=== PATIENT | male | born 1950 | race African-American/Black ===

== ENCOUNTER 2023-01-26 15:07 | Inpatient (IN) | payer MEDICARE, MEDICAID, SELFPAY ==
[2023-01-26] VITALS (7 sets, daily range): BP systolic 125–167; BP diastolic 72–90; PULSE 87–111; RESP 32–40; TEMP 36.4–38.5; O2SAT 93–95; BMI 22.4
--- NOTE | ~2023-01-26 | FL_ITS ---
EXAMINATION: XR BARIUM SWALLOW CLINICAL INFORMATION: Swallowing mechanism evaluation COMPARISON: None available. TECHNIQUE: Real-time fluoroscopy provided during evaluation of the swallowing mechanism. Cine images obtained. FINDINGS: Please see speech pathologist report for findings. Fluoroscopy time: 2 minutes 4 seconds. Total dose: 61.6 mGy DAP: 98.2 DGycm/2 FL/FL barium swallow modified IMPRESSION: Fluoroscopy during modified barium swallow.
--- NOTE | ~2023-01-26 | CT_ITS ---
EXAMINATION: CT CHEST WITHOUT CONTRAST CLINICAL INFORMATION: Bilateral pneumonia. COMPARISON: Chest radiograph earlier today. TECHNIQUE: Multidetector volumetric CT imaging of the chest was done. Axial MIP volume rendering provided. Sagittal and coronal reformatted images were obtained. This CT examination was performed using dose optimization techniques as appropriate, variously including the following: *Automated exposure control *Adjustment of mA and/or kV according to patient size (this includes techniques or standardized protocols for targeted exams where dose is matched to indication/reason for exam; i.e. extremities or head) *Use of iterative reconstruction technique DLP: 253 mGy-cm FINDINGS: Limited examination secondary to motion. LUNGS: Dependent consolidative opacities in the lower lobes. Moderate size right-sided pleural effusion. Trace amount of left-sided pleural fluid. No pneumothorax. Central airways are patent. Evaluation of pulmonary nodules is very limited due to motion and overlying airspace opacities/pleural effusions. No discrete pulmonary mass. MEDIASTINUM: Enlarged heart with trace amount of pericardial fluid. No mediastinal lymphadenopathy. Evaluation of the hilar structures is limited due to motion and lack of IV contrast. Normal appearance of the thyroid gland. CORONARY ARTERY CALCIFICATION: Multivessel coronary artery calcifications. Moderate atherosclerotic disease. Ascending thoracic aorta measures 4.4 cm in diameter. PLEURA: As above, moderate size right-sided pleural effusion measuring simple fluid in attenuation. AXILLA: Mild symmetric gynecomastia. No axillary lymphadenopathy. UPPER ABDOMEN: Unremarkable. OSSEOUS STRUCTURES: Evaluation of rib fractures is very limited due to motion. No discrete aggressive appearing osseous findings. CT/CT chest wo IV con IMPRESSION: Limited examination secondary to motion. 1. Moderate size right-sided pleural effusion and trace amount of left-sided pleural fluid. 2. Dependent consolidative opacities in the lower lobes could be related with atelectasis, aspiration or pneumonia. Recommend short-term follow-up after treatment to ensure appropriate resolution and rule out underlying lesions. 3. Enlarged heart with trace amount of pericardial fluid and extensive multivessel coronary artery calcifications. 4. Aneurysm of the ascending thoracic aorta measuring 4.4 cm in diameter; recommend outpatient vascular consultation to determine further management/follow-up.
--- NOTE | ~2023-01-26 | XR_ITS ---
EXAMINATION: XR CHEST CLINICAL INFORMATION: Hypoxia COMPARISON: Previous chest x-ray and chest CT January 26, 2023 TECHNIQUE: Frontal view of the chest was obtained. FINDINGS: The cardiac and mediastinal contours are stable. There are bilateral infiltrates and multilobar left subsegmental atelectasis. This may be slightly increased on the left from January 26, 2023 exam. There are probable small bilateral pleural effusions. No pneumothorax. No bone abnormality. XR/XR chest 1V IMPRESSION: Bibasilar infiltrates, left-sided subsegmental atelectasis and probable small bilateral pleural effusions. This may be slightly increased on the left compared to January 26, 2023 exams.
--- NOTE | ~2023-01-26 | XR_ITS ---
EXAMINATION: XR CHEST CLINICAL INFORMATION: Shortness of breath COMPARISON: None available. TECHNIQUE: Frontal view of the chest was obtained. FINDINGS: The cardiac silhouette is normal. There is mild diffuse bronchial wall thickening. Trace left pleural effusion and left lower lobe atelectasis.. The bones and soft tissues are unremarkable for the patient's age. XR/XR chest 1V IMPRESSION: 1. Bronchial wall thickening may be infectious and/or inflammatory in etiology. 2. Trace left pleural effusion and left lower lobe atelectasis.
--- NOTE | 2023-01-26 15:44 | ECG_ITS ---
Test Reason : SEPSIS Blood Pressure : / mmHG Vent. Rate : 099 BPM Atrial Rate : 099 BPM P-R Int : 122 ms QRS Dur : 080 ms QT Int : 364 ms P-R-T Axes : 049 003 023 degrees QTc Int : 467 ms Normal sinus rhythm Normal ECG No previous ECGs available Referred By: Ronel Vides Electronically Signed By:LIA CASTREJON MD
[2023-01-26 16:06] LABS: MANUAL DIFF FLAG NO
[2023-01-26 16:10] LABS: Basophils Percent Auto 0.1 % (0-2); Eosinophils Percent Auto 0.2 % (0-4); Hematocrit 34.6 % (42.0-52.0); Hemoglobin 11.4 g/dl (14.0-18.0); Imm Gran Abs Auto 0.13 X10*3/uL (0.00-0.03); Imm Gran Pct Auto 1.3 % (0.0-0.4); Lymphocytes Absolute Auto 0.3 X10*3/uL (1.2-4.9); Lymphocytes Percent Auto 2.9 % (20-40); Mean Corpuscular HGB Conc 32.9 g/dl (31.0-36.0); Mean Corpuscular Hemoglobin 28.6 pg (27.0-33.0); Mean Corpuscular Volume 86.7 fL (80.0-98.0); Mean Platelet Volume 9.3 fL (9.4-12.4); Monocytes Absolute Auto 0.9 X10*3/uL (0.1-1.2); Monocytes Percent Auto 8.3 % (2-11); Neutrophils Percent Auto 87.2 % (45-73); Platelet Count 318 X10*3/uL (160-400); Red Blood Count 3.99 X10*6/uL (4.60-5.80); Red Cell Distribution Width 15.3 % (11.0-16.0); White Blood Count 10.3 X10*3/uL (4.8-10.8)
[2023-01-26] MEDS: 0.9 % Sodium Chloride 1,000 ML 999 ML IV ×2 (16:16→19:08)
--- NOTE | 2023-01-26 16:22 | ED_ITS ---
HPI - General Adult General Chief complaint: General Medical Stated complaint: SOB Time Seen by Provider: 01/26/23 16:13 Source: patient Mode of arrival: ambulatory Limitations: no limitations History of Present Illness HPI narrative: Patient with history of dementia came from [facility] for increased shortness of breath started 1 week ago saturating 90% at room air today with frequent cough full chest tight no palpitation noticed to have fever of 101.3 in the ER Related Data Allergies Allergy/AdvReac Type Severity Reaction Status Date / Time Unable to Assess Allergy Verified 01/26/23 15:44 Review of Systems 2 Review of Systems: Yes Unobtainable due to mental status [facility] Past Medical History Medical History (Updated 01/27/23 @ 01:18 by Rodríguez Cortez MD) MDD (major depressive disorder) Dysphagia TIA (transient ischemic attack) Non-insulin dependent type 2 diabetes mellitus Dementia, unspecified, with behavioral disturbance HLD (hyperlipidemia) AAA (abdominal aortic aneurysm) Social History Social History Patient Tobacco Use Status: Never used Tobacco Advance Directives: No Advance Directives Information Provided: No Physical Exam ED Vital Signs: Vital Signs - 24 hr 01/26/23 15:30 01/26/23 15:44 01/26/23 16:05 Temperature 99.1 F 101.3 F H Pulse Rate 111 H 102 H Respiratory Rate 40 H 38 H Blood Pressure 134/83 141/86 H Pulse Oximetry 93 94 Oxygen Delivery Method Nasal Cannula Nasal Cannula Oxygen Flow Rate 5 01/26/23 17:30 01/26/23 17:55 01/26/23 18:53 Temperature 99.6 F Pulse Rate 108 H 96 89 Respiratory Rate 38 H 38 H 32 H Blood Pressure 167/82 H 145/90 H Pulse Oximetry 94 94 94 Oxygen Delivery Method Nasal Cannula Nasal Cannula Nasal Cannula Oxygen Flow Rate 5 5 5 01/26/23 19:40 Temperature 97.6 F Pulse Rate 87 Respiratory Rate 33 H Blood Pressure 138/76 Pulse Oximetry 94 Oxygen Delivery Method Nasal Cannula Oxygen Flow Rate 5 BMI result Body Mass Index 22.4 Appearance: Alert. Oriented X2 frequent cough Eyes: PERRLA, No Nystagmus ENT: Pharynx normal. Oral Mucosa moist secretions in the throat Neck: Normal inspection. Neck supple. CVS: Normal heart rate and rhythm. Pulses normal. Respiratory: No respiratory distress. Equal air entry bilateral, bilateral conducted sounds and wheezing Abdomen: Soft and nontender. Bowel sounds are present, no mass palpable, no CVA tenderness Skin: Skin warm and dry. Normal skin color. Normal skin turgor. Extremities: No lower extremity edema. No calf tenderness Neuro: Oriented X 2. No motor deficit. Medications Administered Generic Name Dose Route Start Last Admin Trade Name Maximiliano PRN Reason Stop Dose Admin Enoxaparin Sodium 40 mg 01/26/23 22:30 01/27/23 01:01 Enoxaparin Sodium 40 Mg/0.4 Ml Syringe SUBCUT 40 mg Q24H KEZIA Administration Methylprednisolone Sodium Succinate 40 mg 01/26/23 23:30 01/27/23 00:34 Methylprednisolone Sod Succ 40 Mg/Ml Vial IVPUSH 40 mg Q12H KEZIA Administration Quetiapine Fumarate 25 mg 01/26/23 22:45 01/27/23 00:27 Quetiapine Fumarate 25 Mg Tablet PO Not Given BEDTIME KEZIA Sodium Chloride 3 ml 01/27/23 00:00 01/27/23 01:02 0.9 % Sodium Chloride Flush 3 Ml Syringe IVFLUSH 3 ml QSHIFT KEZIA Administration Trazodone HCl 50 mg 01/26/23 22:45 01/27/23 00:28 Trazodone Hcl 50 Mg Tablet PO Not Given BEDTIME KEZIA Discontinued Medications Generic Name Dose Route Start Last Admin Trade Name Maximiliano PRN Reason Stop Dose Admin Acetaminophen 650 mg 01/26/23 16:52 01/26/23 17:15 Acetaminophen 325 Mg Tablet PO 01/26/23 16:53 Not Given ONCE ONE Acetaminophen 650 mg 01/26/23 17:00 01/26/23 17:12 Acetaminophen Supp 650 Mg Supp.Rect VA 01/26/23 17:01 650 mg ONCE ONE Administration Divalproex Sodium 500 mg 01/26/23 22:44 01/27/23 00:26 Divalproex Sodium Sprinkles 125 Mg Cap.Dr.Spr PO 01/26/23 22:45 Not Given ONCE ONE Furosemide 20 mg 01/26/23 23:18 01/27/23 00:34 Furosemide 20 Mg/2 Ml Vial IVPUSH 01/26/23 23:19 20 mg ONCE ONE Administration Protocol Sodium Chloride 1,000 mls @ 999 mls/hr 01/26/23 16:15 01/26/23 17:19 Ns IV 01/26/23 17:15 Infused .Q1H1M KEZIA Infusion Piperacillin Sod/Tazobactam 50 mls @ 100 mls/hr 01/26/23 16:44 01/26/23 17:22 Sod 3.375 gm/ Sodium Chloride IV 01/26/23 17:13 Infused ONCE ONE Infusion Sodium Chloride 1,000 mls @ 999 mls/hr 01/26/23 18:56 01/26/23 20:20 Ns IV 01/26/23 19:56 Infused .Q1H1M ONE Infusion Medical Decision Making Medical Decision Making [facility] Narrative: Patient with elevated lactic acid level with shortness of breath and cough CT scan showed infiltrate will admit patient for possible aspiration pneumonia started on IV Zosyn Patient received IV fluids and IV antibiotics Differential Diagnosis Differential Diagnoses: The differential diagnosis associated with the presentation includes Pneumonia/pleural effusions/COVID/flu/RSV Admission/Observation Consideration of admission/observation: Escalation of care including admission/observation considered Consult Healthcare Provider Management of the patient was discussed with: Hospitalist Lab Data [facility] Lab Attestation statement: I reviewed the patient's lab results. 01/26/23 15:59 01/26/23 15:59 Labs: Lab Results 01/26/23 01/26/23 01/26/23 Range/Units 15:59 19:09 19:59 WBC 10.3 (4.8-10.8) X10*3/uL RBC 3.99 L (4.60-5.80) X10*6/uL Hgb 11.4 L (14.0-18.0) g/dl Hct 34.6 L (42.0-52.0) % MCV 86.7 (80.0-98.0) fL MCH 28.6 (27.0-33.0) pg MCHC 32.9 (31.0-36.0) g/dl RDW 15.3 (11.0-16.0) % Plt Count 318 (160-400) X10*3/uL MPV 9.3 L (9.4-12.4) fL Immature Gran % (Auto) 1.3 H (0.0-0.4) % Neut % (Auto) 87.2 H (45-73) % Lymph % (Auto) 2.9 L (20-40) % [place] % (Auto) 8.3 (2-11) % Eos % (Auto) 0.2 (0-4) % Baso % (Auto) 0.1 (0-2) % Lymph # (Auto) 0.3 L (1.2-4.9) X10*3/uL [place] # (Auto) 0.9 (0.1-1.2) X10*3/uL Eos # (Auto) 0.0 (0.0-0.4) X10*3/uL Baso # (Auto) 0.0 (0.0-0.2) X10*3/uL Abs Immat Gran (auto) 0.13 H (0.00-0.03) X10*3/uL Absolute Neuts (auto) 9.0 H (2.0-8.3) x10*3/uL Absolute Nucleated RBC 0.000 (0.0-0.012) X10*3/uL Nucleated RBC % (auto) 0.0 (0.0-0.2) /100WBC Sodium 143 (135-145) mmol/L Potassium 4.3 (3.3-5.1) mmol/L Chloride 112 H (96-108) mmol/L Carbon Dioxide 18 L (22-29) mmol/L Anion Gap 17 (12-20) BUN 28 H (9-16) mg/dL Creatinine 1.12 (0.5-1.4) mg/dL Estim Creat Clear Calc 46.0 Estimated GFR > 60 Random Glucose 304 H (60-115) mg/dL Lactic Acid 3.3 H* (0.5-2.0) mmol/L Lactic Acid F/U @ 2Hr 2.5 H* (0.5-2.0) mmol/L Calcium 9.3 (8.4-10.2) mg/dL Magnesium 2.1 (1.6-2.6) mg/dL Total Bilirubin 0.4 (0.0-1.0) mg/dL AST 15 (5-37) U/L ALT 20 (0-40) U/L Alkaline Phosphatase 85 (39-117) U/L Troponin I High Sens 4.6 (<3.5-35.0) ng/L B-Natriuretic Peptide 72 (<100) pg/mL Total Protein 7.4 (6.5-8.0) g/dL Albumin 3.3 L (3.5-5.0) g/dL Urine Color Yellow Urine Appearance Clear Urine pH 6.0 (5.0-9.0) Ur Specific [place] 1.025 (1.005-1.025) Urine Protein Trace (Neg-Trace) mg/dL Urine Glucose (UA) 500 H (Negative) mg/dL Urine Ketones Negative (Negative) mg/dL Urine Blood Trace (Negative) Urine Nitrite Negative (Negative) Ur Leukocyte Esterase Trace H (Negative) Urine RBC 0-2 (0-2) /HPF Urine WBC 21-50 H (0-5) /HPF Ur Squamous Epith Cells 3-5 (0-2) /HPF Urine Bacteria None Seen (None Seen) Hyaline Casts 0-2 (0-2) /LPF COVID-19 (GREGORIO) Negative (Negative) COVID-19 Clin Com See Note Influenza Type A (JOSE) Negative (Negative) Influenza Type B (JOSE) Negative (Negative) Influenza A & B Note See Note Independent Interpretation I performed an independent interpretation of an: EKG, Plain X-Ray and CT Scan Interpretation: Her sinus rhythm heart rate 99 beats per minute normal interval normal axis no acute ST-T changes no acute ischemia Radiology Impression Discussion of test interpretation with radiology: I have reviewed the radiologist's reading. Radiologist Impression: CT/CT chest wo IV con IMPRESSION: Limited examination secondary to motion. 1. Moderate size right-sided pleural effusion and trace amount of left-sided pleural fluid. 2. Dependent consolidative opacities in the lower lobes could be related with atelectasis, aspiration or pneumonia. Recommend short-term follow-up after treatment to ensure appropriate resolution and rule out underlying lesions. 3. Enlarged heart with trace amount of pericardial fluid and extensive multivessel coronary artery calcifications. 4. Aneurysm of the ascending thoracic aorta measuring 4.4 cm in diameter; recommend outpatient vascular consultation to determine further management/follow-up. Discharge Plan Discharge Clinical Impression: Aspiration pneumonia, Pleural effusion Patient Disposition: Admitted As Inpatient
--- NOTE | 2023-01-26 16:24 | PC.NURSE ---
pt alert, oriented to self and birthday. comes in [facility] 1x week sob. pt is roncherous and tachypnic. RR 36-40. MD notified of sepsis risk. iv inserted by EMS, and another one by this RN. labs drawn and ekg done. blood culture draw pending - ABX following second set. NSR on tele.
[2023-01-26 16:27] LABS: COVID-19 Test Negative (Negative); IDNOW Serial# 08D9AD1C
[2023-01-26 16:32] LABS: Alanine Aminotransferase 20 U/L (0-40); Albumin Level 3.3 g/dL (3.5-5.0); Alkaline Phosphatase 85 U/L (39-117); Anion Gap 17 (12-20); Aspartate Amino Transferase 15 U/L (5-37); B Type Natriuretic Peptide 72 pg/mL (<100); Bilirubin Total 0.4 mg/dL (0.0-1.0); Blood Urea Nitrogen 28 mg/dL (9-16); Calcium 9.3 mg/dL (8.4-10.2); Carbon Dioxide 18 mmol/L (22-29); Chloride 112 mmol/L (96-108); Estimated Glomerular Filt Rate > 60; Glucose Random 304 mg/dL (60-115); IDNOW Serial# 58CA691E; Influenza A Negative (Negative); Influenza B2 Negative (Negative); Magnesium 2.1 mg/dL (1.6-2.6); Potassium 4.3 mmol/L (3.3-5.1); Sodium 143 mmol/L (135-145); Total Protein 7.4 g/dL (6.5-8.0)
[2023-01-26 16:33] LABS: Troponin-I High Sensitivity 4.6 ng/L (<3.5-35.0)
--- NOTE | 2023-01-26 16:33 | PC.NURSE ---
cancelled ordered antibiotics.
[2023-01-26 16:42] LABS: Lactic Acid 3.3 mmol/L (0.5-2.0)
[2023-01-26] MEDS: Piperacillin Sodium/Tazobactam 3.375 GM in 0.9 % Sodium Chloride 50 ML IV (16:51)
[2023-01-26] MEDS: Acetaminophen Supp 650 MG SUPP.RECT PR (17:12)
--- NOTE | 2023-01-26 17:16 | PC.NURSE ---
pt lung sounds much clearer then upon first arrival. MO tylenol given for fever
[2023-01-26 18:04] LABS: Reflex Lactate? Lactic Acid Added
[2023-01-26 19:25] LABS: Appearance Urine Clear; Color Urine Yellow; Glucose Urine UA 500 mg/dL (Negative); Leukocyte Esterase Urine Trace (Negative); Nitrite Urine Negative (Negative); Specific Gravity - Urine 1.025 (1.005-1.025); UMIC TRIGGER UACC YES; Urine Blood Trace (Negative); Urine Ketones Negative (Negative); Urine Protein Trace mg/dL (Neg-Trace)
[2023-01-26 19:58] LABS: Bacteria Urine None Seen (None Seen); Hyaline Casts Urine 0-2 /LPF (0-2); RBC Urine 0-2 /HPF (0-2); UACC Culture Trigger YES; WBC Urine 21-50 /HPF (0-5)
[2023-01-26 20:18] LABS: ~Lactic Acid-LAB USE ONLY 2.5 mmol/L (0.5-2.0)
[2023-01-26 22:02] LABS: Reflex Lactate? 2 Y
[2023-01-26 22:22] LABS: Cancel Lactic Acid Canceled
--- NOTE | 2023-01-26 22:27 | P.HPHOSP_ITS ---
<Statement entered by Cholo Neri MD - 01/27/23 04:26> I saw and examined the patient together with EULALIA Valladares He is a 72-year-old male with dementia, T2DM, MDD, TIA, HLD sent to the ED from his SNF for evaluation of increasing SOB x1 week. Work up done in the ED had findings concerning for aspiration pneumonia He also met criteria for sepsis. He has been started on IV antibiotics and will be admitted for continued care History of Present Illness Date of Service: 01/26/23 Attending physician on admission: Cholo Neri Chief Complaint: SOB, hypoxia Pt is a 72-year-old male with a PMH significant for?unspecified dementia, non insulin-dependent diabetes type 2, dysphagia pureed diet, MDD, hx of TIA, HLD, and hx of AAA who presents to the ED from SNF with increased shortness of breath x1 week. Patient with advanced dementia at baseline, alert and oriented to self only and does incapable of providing accurate HPI which is instead obtained from chart and provider review. Patient apparently was noted to be desatting as low as 90% on RA and with frequent wet sounding cough at SNF, so was sent to the ED for further evaluation. In the ED pt was febrile up to 101.3, tachycardic up to 111, tachypneic up to 40, and hypertensive to 167/82, satting at 93% on 5L NC. Labs were significant for H&H 11.4/34.6, BUN 28, random glucose 304, lactic acid 3.3 with repeat 2.5. UA with trace leukocyte esterase with no bacteria seen, likely negative for UTI. Tested negative for influenza types a and B, COVID. CXR showed bronchial wall thickening that may be infectious and/or inflammatory in etiology, with trace left pleural effusion and left lower lobe atelectasis. Chest CT showed moderate right-sided pleural effusion and trace amount of left- sided pleural fluid with dependent consolidative opacities in the lower lobes that could be related to atelectasis, aspiration, or pneumonia. Also found enlarged heart with trace amount of pericardial fluid and extensive multivessel coronary artery calcifications and AAA measuring 4.4 cm. EKG demonstrated normal sinus rhythm without evidence of significant ST elevations or depressions. Pt was treated with IVF, Zosyn, and acetaminophen. Pt will be admitted to the hospital for treatment and further evaluation of sepsis in the setting of likely aspiration pneumonia. Review of Systems 2 Review of Systems: Unable to obtain due to patient's mentation [facility] Medical History (Updated 01/27/23 @ 01:18 by Rodríguez Cortez MD) MDD (major depressive disorder) Dysphagia TIA (transient ischemic attack) Non-insulin dependent type 2 diabetes mellitus Dementia, unspecified, with behavioral disturbance HLD (hyperlipidemia) AAA (abdominal aortic aneurysm) Social History Advance Directives: No Advance Directives Information Provided: No Meds Allergies Allergy/AdvReac Type Severity Reaction Status Date / Time Unable to Assess Allergy Verified 01/26/23 15:44 Physical Exam 2 Vital Signs and Narrative: Vital Signs: Last Vital Signs Temp 97.6 F 01/26/23 19:40 Pulse 87 01/26/23 19:40 Resp 33 H 01/26/23 19:40 BP 138/76 01/26/23 19:40 Pulse Ox 94 01/26/23 19:40 O2 Del Method Nasal Cannula 01/26/23 19:40 O2 Flow Rate 5 01/26/23 19:40 Oxygen Flow Rate 5 01/26/23 15:30 BMI result Body Mass Index 22.4 General: AOx1, pleasantly confused, frail-looking, in mild respiratory distress Resp: Diffuse expiratory rhonchi, diaphoretic breathing, tachypneic CVS: S1, S2, RRR GI: +BS, NT, no distention Skin: Warm, dry Neuro: Cranial nerves II-XII grossly intact bilaterally. Motor grossly intact bilaterally Extremities: No edema Results Labs 01/26/23 15:59 01/26/23 15:59 Labs: Laboratory Results - last 24 hr 01/26/23 01/26/23 01/26/23 15:59 19:09 19:59 MCV 86.7 MCH 28.6 MCHC 32.9 RDW 15.3 Plt Count 318 MPV 9.3 L Immature Gran % (Auto) 1.3 H Neut % (Auto) 87.2 H Lymph % (Auto) 2.9 L [place] % (Auto) 8.3 Eos % (Auto) 0.2 Baso % (Auto) 0.1 Lymph # (Auto) 0.3 L [place] # (Auto) 0.9 Eos # (Auto) 0.0 Baso # (Auto) 0.0 Abs Immat Gran (auto) 0.13 H Absolute Neuts (auto) 9.0 H Absolute Nucleated RBC 0.000 Nucleated RBC % (auto) 0.0 Anion Gap 17 Estim Creat Clear Calc 46.0 Estimated GFR > 60 Random Glucose 304 H Lactic Acid 3.3 H* Lactic Acid F/U @ 2Hr 2.5 H* Calcium 9.3 Magnesium 2.1 Total Bilirubin 0.4 AST 15 ALT 20 Alkaline Phosphatase 85 B-Natriuretic Peptide 72 Total Protein 7.4 Albumin 3.3 L Urine Color Yellow Urine Appearance Clear Urine pH 6.0 Ur Specific [place] 1.025 Urine Protein Trace Urine Glucose (UA) 500 H Urine Ketones Negative Urine Blood Trace Urine Nitrite Negative Ur Leukocyte Esterase Trace H Urine RBC 0-2 Urine WBC 21-50 H Ur Squamous Epith Cells 3-5 Urine Bacteria None Seen Hyaline Casts 0-2 COVID-19 (GREGORIO) Negative COVID-19 Clin Com See Note Influenza Type A (JOSE) Negative Influenza Type B (JOSE) Negative Influenza A & B Note See Note Imaging Radiologist's Impressions: Impressions Chest X-Ray 01/26/23 16:59 IMPRESSION: 1. Bronchial wall thickening may be infectious and/or inflammatory in etiology. 2. Trace left pleural effusion and left lower lobe atelectasis. Chest CT 01/26/23 20:24 IMPRESSION: Limited examination secondary to motion. 1. Moderate size right-sided pleural effusion and trace amount of left-sided pleural fluid. 2. Dependent consolidative opacities in the lower lobes could be related with atelectasis, aspiration or pneumonia. Recommend short-term follow-up after treatment to ensure appropriate resolution and rule out underlying lesions. 3. Enlarged heart with trace amount of pericardial fluid and extensive multivessel coronary artery calcifications. 4. Aneurysm of the ascending thoracic aorta measuring 4.4 cm in diameter; recommend outpatient vascular consultation to determine further management/follow-up. Assessment and Plan (1) Aspiration pneumonia: Status: Acute Plan Pt is a 72-year-old male with a PMH significant for?unspecified dementia, non insulin-dependent diabetes type 2, dysphagia pureed diet, MDD, hx of TIA, HLD, and hx of AAA who presents to the ED from SNF with increased shortness of breath x1 week. Pt will be admitted to the hospital for treatment and further evaluation of sepsis in the setting of likely aspiration pneumonia. Sepsis in the setting of aspiration pneumonia Patient with increased shortness of breath, cough, rhonchi on auscultation and CT chest showing dependent consolidative opacities in the lower lobes suggestive of atelectasis, aspiration, or pneumonia Patient with history of unspecified dementia and dysphagia Patient meeting sepsis criteria: Tachycardia, tachypnea, fever, and initial lactic acid 3.3 Patient received IVF and started on broad-spectrum antibiotics in the ED Will treat with Zosyn, started 01/26/2023 Solu-Medrol 40 mg b.i.d. Aspiration precautions Titrate supplemental O2>92, wean as tolerated Monitor respiration Pleural effusions CTA chest found moderate size right pleural effusion and trace amount of left- sided pleural effusion Will give Lasix 20 mg IV x1 dose Diet Diabetic diet Pureed with honey thick liquids, based on SNF evaluation Ensure dietary supplement t.i.d. Patient needs assistance with eating Will place on NPO pending swallow eval with honey thick liquids HLD Continue home meds Dementia/mood disorder Continue home meds Buv-mdtjzce-[id number] diabetes type 2 Diabetic diet, sliding scale insulin Full Code Attending:?Dr. Neri DVT Prophylaxis: Lovenox Pt will require a hospitalization of at least two nights for treatment of?sepsis in the setting of aspiration pneumonia with IV antibiotics and close monitoring. Quality Stroke Does the patient have a stroke diagnosis?: No VTE Prior VTE?: No VTE Risk Level:: Medical - moderate - high VTE Device Contraindication: Treatment Not Indicated VTE Drug Contraindication: N/A - Med Ordered
[2023-01-27] VITALS (7 sets, daily range): BP systolic 137–162; BP diastolic 77–82; PULSE 54–84; RESP 12–32; TEMP 36.9–37.2; O2SAT 88–96
[2023-01-27] MEDS: Furosemide 20 MG/2 ML VIAL IVPUSH (00:34)
[2023-01-27] MEDS: methylPREDNISolone Sod Succ 40 MG/ML VIAL IVPUSH ×3 (00:34→23:34)
[2023-01-27] MEDS: Enoxaparin Sodium 40 MG/0.4 ML SYRINGE SUBCUT ×2 (01:01→22:44)
[2023-01-27] MEDS: 0.9 % Sodium Chloride Flush 3 ML SYRINGE IVFLUSH ×4 (01:02→20:43)
[2023-01-27] MEDS: Piperacillin Sodium/Tazobactam 3.375 GM in 0.9 % Sodium Chloride 50 ML IV ×5 (01:39→23:34)
[2023-01-27 07:26] LABS: Hematocrit 29.6 % (42.0-52.0); Hemoglobin 9.8 g/dl (14.0-18.0); Mean Corpuscular HGB Conc 33.1 g/dl (31.0-36.0); Mean Corpuscular Hemoglobin 28.5 pg (27.0-33.0); Mean Platelet Volume 9.1 fL (9.4-12.4); Platelet Count 306 X10*3/uL (160-400); Red Blood Count 3.44 X10*6/uL (4.60-5.80); Red Cell Distribution Width 15.4 % (11.0-16.0); White Blood Count 10.3 X10*3/uL (4.8-10.8)
[2023-01-27 07:35] LABS: Anion Gap 14 (12-20); Blood Urea Nitrogen 20 mg/dL (9-16); Calcium 9.1 mg/dL (8.4-10.2); Carbon Dioxide 21 mmol/L (22-29); Chloride 113 mmol/L (96-108); Creatinine Clr Calc Pharmacy 61.3; Estimated Glomerular Filt Rate > 60; Glucose Random 192 mg/dL (60-115); Potassium 3.9 mmol/L (3.3-5.1); Sodium 144 mmol/L (135-145)
[2023-01-27 07:58] LABS: Glucose, Whole Blood 166 mg/dL (60-115)
--- NOTE | 2023-01-27 08:00 | PHA.MEDREC ---
Pharmacy Consult ? Medication Reconciliation Pharmacy has completed the medication reconciliation. [facility] med list obtained.
[2023-01-27] MEDS: Insulin Lispro 100 UNIT/ML 3 ML VIAL SUBCUT (08:07)
--- NOTE | 2023-01-27 11:11 | P.PNIM_ITS ---
Subjective Subjective Date of Service: 01/27/23 Interval History: sob,hypoxia Review of Systems Shortness of breath seems to be improving, patient sitting comfortably Denies any nausea vomiting or abdominal pain. Physical Exam 2 Vital Signs: Vital Signs: Last Vital Signs Temp 98.4 F 01/27/23 08:00 Pulse 84 01/27/23 08:00 Resp 18 01/27/23 08:00 BP 162/77 H 01/27/23 08:00 Pulse Ox 93 01/27/23 08:00 O2 Del Method Nasal Cannula 01/27/23 08:00 O2 Flow Rate 2 01/27/23 08:00 Oxygen Flow Rate 5 01/26/23 15:30 BMI result Body Mass Index 22.4 Appearance: Alert.? Oriented X3.? cvs: rrr, [id number] , no murmur res:air entry fair ,few rhonchii scattered. abd: no rebound or guarding ,nt, bs present. ext pulses present , no cyanosis . neuro: axo3 , nonfocal. Objective Data Active Medications Acetaminophen (Acetaminophen 325 Mg Tablet) 650 mg PO Q6H PRN PRN Reason: Pain, Mild (Pain Scale 1-3) Dextrose (Dextrose 50 % 25 Gm/50 Ml Syringe) 25 gm IVPUSH Q15M PRN; Protocol PRN Reason: per Hypoglycemia Standing Ord. Docusate Sodium (Docusate Sodium 100 Mg Capsule) 100 mg PO DAILY PRN PRN Reason: Constipation Enoxaparin Sodium (Enoxaparin Sodium 40 Mg/0.4 Ml Syringe) 40 mg SUBCUT Q24H [facility] Last Admin: 01/27/23 01:01 Dose: 40 mg Documented By: FOREIGN Glucose (Glucose Gel 15 Gm Gel..Gram.) 15 gm PO Q15M PRN; Protocol PRN Reason: per Hypoglycemia Standing Ord. Piperacillin Sod/Tazobactam (Sod 3.375 gm/ Sodium Chloride) 50 mls @ 100 mls/hr IV Q6H [facility] Last Infusion: 01/27/23 08:36 Dose: Infused Documented By: ERIC Insulin Human Lispro (Insulin Lispro 100 Unit/Ml 3 Ml Vial) 0 unit SUBCUT QIDACHS [facility]; Protocol Last Admin: 01/27/23 08:07 Dose: 2 unit Documented By: SULTANA Methylprednisolone Sodium Succinate (Methylprednisolone Sod Succ 40 Mg/Ml Vial) 40 mg IVPUSH Q12H [facility] Last Admin: 01/27/23 00:34 Dose: 40 mg Documented By: JEAN CARLOS Ondansetron HCl (Ondansetron Hcl 4 Mg/2 Ml Vial) 4 mg IVPUSH Q8H PRN PRN Reason: Nausea and Vomiting Quetiapine Fumarate (Quetiapine Fumarate 25 Mg Tablet) 25 mg PO BEDTIME [facility] Last Admin: 01/27/23 00:27 Dose: Not Given Documented By: JEAN CARLOS Non-Admin Reason: Patient Condition Contraindication Sodium Chloride (0.9 % Sodium Chloride Flush 3 Ml Syringe) 3 ml IVFLUSH QSHIFT [facility] Last Admin: 01/27/23 08:07 Dose: 3 ml Documented By: SULTANA Trazodone HCl (Trazodone Hcl 50 Mg Tablet) 50 mg PO BEDTIME [facility] Last Admin: 01/27/23 00:28 Dose: Not Given Documented By: JEAN CARLOS Non-Admin Reason: Patient Condition Contraindication Labs 01/27/23 06:47 01/27/23 06:47 Labs: Laboratory Results - last 24 hr 01/26/23 01/26/23 01/26/23 15:59 19:09 19:59 MCV 86.7 MCH 28.6 MCHC 32.9 RDW 15.3 Plt Count 318 MPV 9.3 L Immature Gran % (Auto) 1.3 H Neut % (Auto) 87.2 H Lymph % (Auto) 2.9 L Mccracken % (Auto) 8.3 Eos % (Auto) 0.2 Baso % (Auto) 0.1 Lymph # (Auto) 0.3 L Mccracken # (Auto) 0.9 Eos # (Auto) 0.0 Baso # (Auto) 0.0 Abs Immat Gran (auto) 0.13 H Absolute Neuts (auto) 9.0 H Absolute Nucleated RBC 0.000 Nucleated RBC % (auto) 0.0 Anion Gap 17 Estim Creat Clear Calc 46.0 Estimated GFR > 60 POC Glucose Random Glucose 304 H Lactic Acid 3.3 H* Lactic Acid F/U @ 2Hr 2.5 H* Calcium 9.3 Magnesium 2.1 Total Bilirubin 0.4 AST 15 ALT 20 Alkaline Phosphatase 85 B-Natriuretic Peptide 72 Total Protein 7.4 Albumin 3.3 L Urine Color Yellow Urine Appearance Clear Urine pH 6.0 Ur Specific [place] 1.025 Urine Protein Trace Urine Glucose (UA) 500 H Urine Ketones Negative Urine Blood Trace Urine Nitrite Negative Ur Leukocyte Esterase Trace H Urine RBC 0-2 Urine WBC 21-50 H Ur Squamous Epith Cells 3-5 Urine Bacteria None Seen Hyaline Casts 0-2 COVID-19 ([facility]IO) Negative COVID-19 Clin Com See Note Influenza Type A (JOSE) Negative Influenza Type B (JOSE) Negative Influenza A & B Note See Note 01/27/23 01/27/23 06:47 07:38 MCV 86.0 MCH 28.5 MCHC 33.1 RDW 15.4 Plt Count 306 MPV 9.1 L Immature Gran % (Auto) Neut % (Auto) Lymph % (Auto) Mccracken % (Auto) Eos % (Auto) Baso % (Auto) Lymph # (Auto) M[place]racken # (Auto) Eos # (Auto) Baso # (Auto) Abs Immat Gran (auto) Absolute Neuts (auto) Absolute Nucleated RBC 0.000 Nucleated RBC % (auto) 0.0 Anion Gap 14 Estim Creat Clear Calc 61.3 Estimated GFR > 60 POC Glucose 166 H Random Glucose 192 H Lactic Acid Lactic Acid F/U @ 2Hr Calcium 9.1 Magnesium Total Bilirubin AST ALT Alkaline Phosphatase B-Natriuretic Peptide Total Protein Albumin Urine Color Urine Appearance Urine pH Ur Specific [place] Urine Protein Urine Glucose (UA) Urine Ketones Urine Blood Urine Nitrite Ur Leukocyte Esterase Urine RBC Urine WBC Ur Squamous Epith Cells Urine Bacteria Hyaline Casts COVID-19 ([facility]) COVID-19 Clin Com Influenza Type A (JOSE) Influenza Type B (JOSE) Influenza A & B Note Microbiology Microbiology Results: Microbiology 01/26/23 19:09 Urine Culture - Preliminary Urine clean catch - Urine lea top Culture too young to evaluate. Assessment and Plan (1) Aspiration pneumonia: Status: Acute Plan 72-year-old male with a PMH significant for?unspecified dementia, non insulin- dependent diabetes type 2, dysphagia pureed diet, MDD, hx of TIA, HLD, and hx of AAA who presents to the ED from SNF with increased shortness of breath x1 week. Pt will be admitted to the hospital for treatment and further evaluation of sepsis in the setting of likely aspiration pneumonia. Sepsis in the setting of aspiration pneumonia Patient with increased shortness of breath, cough, rhonchi on auscultation and CT chest showing dependent consolidative opacities in the lower lobes suggestive of atelectasis, aspiration, or pneumonia Patient with history of unspecified dementia and dysphagia Patient meeting sepsis criteria: Tachycardia, tachypnea, fever. acute lactic acidosis-improving,blood cultures pending continue Zosyn, started 01/26/2023,Solu-Medrol 40 mg b.i.d.,Aspiration precautions,Titrate supplemental O2>92, wean as tolerated Monitor respiration Pleural effusions CTA chest found moderate size right pleural effusion and trace amount of left- sided pleural effusion, enlarged heart . bnp normal, will add echo given lasix in ed Diet Diabetic diet Pureed with honey thick liquids, based on SNF evaluation Ensure dietary supplement t.i.d. Patient needs assistance with eating Will place on NPO pending swallow eval with honey thick liquids HLD Continue home meds Dementia/mood disorder Continue home meds Yhb-qnpsney-icldoolhj diabetes type 2 Diabetic diet, sliding scale insulin Full Code DVT Prophylaxis: Lovenox ongoing need hospitalization: treatment of?sepsis in the setting of aspiration pneumonia with IV antibiotics, respiratory status is not optimally yet ,also pleural effusion workup. Quality Stroke Does the patient have a stroke diagnosis?: No VTE Prior VTE?: No VTE Risk Level:: Medical - moderate - high VTE Device Contraindication: Treatment Not Indicated VTE Drug Contraindication: N/A - Med Ordered
[2023-01-27 11:44] LABS: Glucose, Whole Blood 147 mg/dL (60-115)
[2023-01-27 15:27] LABS: Glucose, Whole Blood 142 mg/dL (60-115)
[2023-01-27] MEDS: Albuterol/Iprat 2.5/0.5MG 3 ML AMPUL.NEB INHALE ×2 (15:29→19:35)
--- NOTE | 2023-01-27 16:28 | MHC.CM.PN ---
PT IS A [facility]TC [facility]IDENT [facility] CM SPOKE TO PTS HCP/NIECE, [facility] [phone] IMM WAS DELIVERED PT WILL REQUIRE BLS TRANSPORT BACK IMM WILL BE MAILED TO [facility] AT: [address] [facility] [id number]
[2023-01-27] MEDS: Melatonin 3 MG TABLET 6 MG PO (20:33)
[2023-01-27] MEDS: QUEtiapine Fumarate 25 MG TABLET PO ×2 (20:33)
[2023-01-27] MEDS: Divalproex Sodium Sprinkles 125 MG CAP.DR.SPR 500 MG PO (20:33)
[2023-01-27] MEDS: Atorvastatin Calcium 20 MG TABLET PO (20:33)
[2023-01-27] MEDS: traZODone HCL 50 MG TABLET PO (20:33)
[2023-01-27] MEDS: Dextrose 5 % and 0.9 % NaCl 1,000 ML 60 ML IVCONT (21:01)
[2023-01-27 21:09] LABS: Glucose, Whole Blood 158 mg/dL (60-115)
[2023-01-28] VITALS (7 sets, daily range): BP systolic 126–161; BP diastolic 65–83; PULSE 62–98; RESP 16–20; TEMP 36.3–36.7; O2SAT 91–99
[2023-01-28] MEDS: Piperacillin Sodium/Tazobactam 3.375 GM in 0.9 % Sodium Chloride 50 ML IV ×4 (05:36→23:40)
[2023-01-28 07:30] LABS: Glucose, Whole Blood 205 mg/dL (60-115)
[2023-01-28] MEDS: Albuterol/Iprat 2.5/0.5MG 3 ML AMPUL.NEB INHALE ×3 (07:31→20:09)
[2023-01-28] MEDS: Divalproex Sodium Sprinkles 125 MG CAP.DR.SPR 500 MG PO ×2 (10:33→20:40)
[2023-01-28] MEDS: Insulin Lispro 100 UNIT/ML 3 ML VIAL SUBCUT ×4 (10:33→20:52)
[2023-01-28] MEDS: Finasteride 5 MG TABLET PO (10:34)
[2023-01-28] MEDS: QUEtiapine Fumarate 25 MG TABLET PO ×3 (10:34→20:40)
[2023-01-28] MEDS: FLUoxetine HCl 20 MG CAPSULE 60 MG PO (10:34)
[2023-01-28] MEDS: Aspirin Enteric Coated 81 MG TABLET.DR PO (10:34)
[2023-01-28] MEDS: Lidocaine 4 % Patch ADH..PATCH 1 PATCH TRANSDERMA (10:55)
[2023-01-28] MEDS: Lactulose 20 GM/30 ML SOLUTION PO (10:56)
[2023-01-28] MEDS: methylPREDNISolone Sod Succ 40 MG/ML VIAL IVPUSH ×2 (11:11→22:52)
[2023-01-28 11:14] LABS: Glucose, Whole Blood 207 mg/dL (60-115)
[2023-01-28 12:51] LABS: Anion Gap 13 (12-20); Blood Urea Nitrogen 27 mg/dL (9-16); Calcium 9.4 mg/dL (8.4-10.2); Carbon Dioxide 21 mmol/L (22-29); Chloride 119 mmol/L (96-108); Creatinine Clr Calc Pharmacy 54.2; Estimated Glomerular Filt Rate > 60; Glucose Random 201 mg/dL (60-115); Potassium 3.4 mmol/L (3.3-5.1); Sodium 150 mmol/L (135-145)
--- NOTE | 2023-01-28 13:11 | MHC.SL.SWA ---
Speech Pathologist Impression: Risk of aspiration, oropharyngeal dysphagia, cognitive impairment Risk of Aspiration Due to: Neurological Condition History of Pneumonia Reduced Cognition Dysphasia Diet Status: UPGRADE from NPO, start on NDD1/HTL Liquid Consistency and Strategies for Safe Swallow: Liquid Intake Recommendation: Honey Thick Liquid Intake Strategies: Small Sips No Straws Liquids by Teaspoon Only Solid Food Consistency: Dietary Recommendations: Pureed (NDD1) Additional Modifications to Solid Foods: Recommend CONTINUE w/ pt's baseline PUREED diet (NDD1) and HONEY THICK liquids via TEASPOON ONLY (no straws), pills CRUSHED in PUREE. This was pt's diet at his [facility] [place]. Pt requires total 1:1 assistance feeding, ensure frequent oral care for hygiene and comfort, close monitoring, and strict aspiration precautions. ORDER DISPATCHER CHIEF will continue to follow. Oral Medication Intake: Crushed with Puree Please contact the pharmacy regarding appropriate crushable or liquid drug formulations that are available whenever modified delivery is recommended. Compensatory Strategies and Precautions to be Taken for Safe Swallow: Sitting Upright (90 deg) No Straw Liquids from Spoon Small Bites and Sips Rate of Ingestion Change Oral Check Avoid Specific Foods Supervision While Eating and Drinking for Safe Swallow: Total Assistance (1:1) Foods to Avoid: Sticky or congealed purees Swallowing Recommended Treatments: Compens. Strategy Educat. Recommendation for Speech: Inpatient Speech Therapy Comment: Pt requires total 1:1 assistance feeding, close monitoring, strict aspiration precautions, and frequent oral care for hygiene and comfort. Frequency/Duration: PRN M-F Date Range for Service Req: Timeline to reassess: Strategic Account Manager Clinican/Clinical Fellow: No Supervisory Statement: I have reviewed and agree with the student/clinical fellow's documentation: N/A Speech Language Pathologist: Hailey Wheeler M.A., CCC-ORDER DISPATCHER CHIEF
--- NOTE | 2023-01-28 15:33 | HO.PM.IMPN ---
Subjective Subjective Date of Service: 01/28/23 Interval History: sob,hypoxia Review of Systems sob seems improivng Denies any chest pain or nausea vomiting Physical Exam Vital Signs: Vital Signs: Last Vital Signs Temp 97.8 F 01/28/23 06:59 Pulse 98 01/28/23 14:09 Resp 18 01/28/23 14:09 BP 156/78 H 01/28/23 06:59 Pulse Ox 91 L 01/28/23 06:59 O2 Del Method Nasal Cannula 01/28/23 06:59 O2 Flow Rate 2 01/28/23 06:59 Oxygen Flow Rate 5 01/26/23 15:30 BMI result Body Mass Index 22.4 Appearance: Alert.? Oriented X3.? cvs: rrr, [id number] , no murmur res:air entry fair ,few rhonchii scattered. abd: no rebound or guarding ,nt, bs present. ext pulses present , no cyanosis . neuro: axo3 , nonfocal. Objective Data Active Medications Acetaminophen (Acetaminophen 325 Mg Tablet) 650 mg PO Q6H PRN PRN Reason: Pain, Mild (Pain Scale 1-3) Albuterol/Ipratropium (Albuterol/Iprat 2.5/0.5mg 3 Ml Ampul.Neb) 3 ml INHALE TID [facility] Last Admin: 01/28/23 14:07 Dose: 3 ml Documented By: JOLLY Artificial Tears (Artificial Tears 15 Ml Drops) 1 drop EYE-BOTH BID PRN PRN Reason: Dry Eyes Aspirin (Aspirin Enteric Coated 81 Mg Gurjit.) 81 mg PO DAILY [facility] Last Admin: 01/28/23 10:34 Dose: 81 mg Documented By: MICHAEL Atorvastatin Calcium (Atorvastatin Calcium 20 Mg Tablet) 20 mg PO BEDTIME [facility] Last Admin: 01/27/23 20:33 Dose: 20 mg Documented By: ODRISKellie Bisacodyl (Bisacodyl 10 Mg Supp.Rect) 10 mg [place] DAILY PRN PRN Reason: Constipation Dextrose (Dextrose 50 % 25 Gm/50 Ml Syringe) 25 gm IVPUSH Q15M PRN; Protocol PRN Reason: per Hypoglycemia Standing Ord. Divalproex Sodium (Divalproex Sodium Sprinkles 125 Mg ) 500 mg PO BID [facility] Last Admin: 01/28/23 10:33 Dose: 500 mg Documented By: MICHAEL Docusate Sodium (Docusate Sodium 100 Mg Capsule) 100 mg PO DAILY PRN PRN Reason: Constipation Enoxaparin Sodium (Enoxaparin Sodium 40 Mg/0.4 Ml Syringe) 40 mg SUBCUT Q24H [facility] Last Admin: 01/27/23 22:44 Dose: 40 mg Documented By: WENDI Finasteride (Finasteride 5 Mg Tablet) 5 mg PO DAILY [facility] Last Admin: 01/28/23 10:34 Dose: 5 mg Documented By: MICHAEL Fluoxetine HCl (Fluoxetine Hcl 20 Mg Capsule) 60 mg PO DAILY [facility] Last Admin: 01/28/23 10:34 Dose: 60 mg Documented By: MICHAEL Glucagon (Glucagon Hcl 1 Mg Vial) 1 mg SUBCUT Q20M PRN PRN Reason: Hypoglycemia Glucose (Glucose Gel 15 Gm Gel..Gram.) 15 gm PO Q15M PRN; Protocol PRN Reason: per Hypoglycemia Standing Ord. Piperacillin Sod/Tazobactam (Sod 3.375 gm/ Sodium Chloride) 50 mls @ 100 mls/hr IV Q6H [facility] Last Infusion: 01/28/23 11:58 Dose: Infused Documented By: MICHAEL Insulin Human Lispro (Insulin Lispro 100 Unit/Ml 3 Ml Vial) 0 unit SUBCUT QIDACHS [facility]; Protocol Last Admin: 01/28/23 12:26 Dose: 2 unit Documented By: MICHAEL Lactulose (Lactulose 20 Gm/30 Ml Solution) 20 gm PO DAILY [facility] Last Admin: 01/28/23 10:56 Dose: 20 gm Documented By: MICHAEL Lidocaine (Lidocaine 4 % Patch Adh..Patch) 1 patch TRANSDERMA DAILY [facility] Last Admin: 01/28/23 10:55 Dose: 1 patch Documented By: MICHAEL Magnesium Hydroxide (Milk Of Magnesia 30 Ml Oral.Susp) 30 ml PO DAILY PRN PRN Reason: Constipation Melatonin (Melatonin 3 Mg Tablet) 6 mg PO BEDTIME [facility] Last Admin: 01/27/23 20:33 Dose: 6 mg Documented By: WENDI Methylprednisolone Sodium Succinate (Methylprednisolone Sod Succ 40 Mg/Ml Vial) 40 mg IVPUSH Q12H [facility] Last Admin: 01/28/23 11:11 Dose: 40 mg Documented By: MICHAEL Naloxone HCl (Naloxone Hcl Nasal 4 Mg [place]) 4 mg NOSTRILALT Q3M PRN PRN Reason: Opioid Overdose Ondansetron HCl (Ondansetron Hcl 4 Mg/2 Ml Vial) 4 mg IVPUSH Q8H PRN PRN Reason: Nausea and Vomiting Quetiapine Fumarate (Quetiapine Fumarate 25 Mg Tablet) 25 mg PO BEDTIME [facility] Last Admin: 01/27/23 20:33 Dose: 25 mg Documented By: WENDI Quetiapine Fumarate (Quetiapine Fumarate 25 Mg Tablet) 25 mg PO BID [facility] Last Admin: 01/28/23 10:34 Dose: 25 mg Documented By: MICHAEL Sodium Biphosphate/Sodium Phosphate (Sodium Phosphate,[place]-Dibasic 133 Ml Enema) 118 ml [place] DAILY PRN PRN Reason: Constipation Sodium Chloride (0.9 % Sodium Chloride Flush 3 Ml Syringe) 3 ml IVFLUSH QSHIFT [facility] Last Admin: 01/28/23 10:46 Dose: Not Given Documented By: MICHAEL Non-Admin Reason: IV Running Sodium Chloride (Sodium Chloride 0.65 % Nasal 44 Ml Sprbtl) 1 spray NOSTRIL-B Q3H PRN PRN Reason: dry nostrils Tamsulosin HCl (Tamsulosin Hcl 0.4 Mg Capsule) 0.8 mg PO BEDTIME [facility] Last Admin: 01/27/23 20:51 Dose: Not Given Documented By: WENDI Non-Admin Reason: unable to swallow Trazodone HCl (Trazodone Hcl 50 Mg Tablet) 50 mg PO BEDTIME [facility] Last Admin: 01/27/23 20:33 Dose: 50 mg Documented By: WENDI Labs 01/27/23 06:47 01/28/23 12:22 Labs: Laboratory Results - last 24 hr 01/27/23 01/28/23 01/28/23 20:55 07:03 11:06 Hold Purple Top Anion Gap Estim Creat Clear Calc Estimated GFR POC Glucose 158 H 205 H 207 H Random Glucose Calcium 01/28/23 12:22 Hold Purple Top SEE NOTE Anion Gap 13 Estim Creat Clear Calc 54.2 Estimated GFR > 60 POC Glucose Random Glucose 201 H Calcium 9.4 Microbiology Microbiology Results: Microbiology 01/26/23 19:09 Urine Culture - Final Urine clean catch - Urine lea top 01/26/23 16:26 Blood Culture - Preliminary Blood - Venous No growth after 24 hours. 01/26/23 15:59 Blood Culture - Preliminary Blood - Venous No growth after 24 hours. Assessment and Plan (1) Aspiration pneumonia: Status: Acute (2) Hypernatremia: Status: Acute Plan 72-year-old male with a PMH significant for?unspecified dementia, non insulin-dependent diabetes type 2, dysphagia pureed diet, MDD, hx of TIA, HLD, and hx of AAA who presents to the ED from SNF with increased shortness of breath x1 week. Pt will be admitted to the hospital for treatment and further evaluation of sepsis in the setting of likely aspiration pneumonia. Sepsis in the setting of aspiration pneumonia Patient with increased shortness of breath, cough, rhonchi on auscultation and CT chest showing dependent consolidative opacities in the lower lobes suggestive of atelectasis, aspiration, or pneumonia Patient with history of unspecified dementia and dysphagia Patient meeting sepsis criteria: Tachycardia, tachypnea, fever. acute lactic acidosis-improving,blood cultures pending continue Zosyn, started 01/26/2023,Solu-Medrol 40 mg b.i.d.,Aspiration precautions,Titrate supplemental O2>92, wean as tolerated Monitor respiration seen by speech and swallow -diet updated . hypernatremia : due to npo,fluids will add free water ,also po inatke improivng moniter bmp. Pleural effusions CTA chest found moderate size right pleural effusion and trace amount of left-sided pleural effusion, enlarged heart . bnp normal, will add echo given lasix in ed Diabetic diet Pureed with honey thick liquids, based on SNF evaluation Ensure dietary supplement t.i.d. Patient needs assistance with eating Will place on NPO pending swallow eval with honey thick liquids HLD Continue home meds Dementia/mood disorder Continue home meds Wyr-zkgifhq-pnrepuxqj diabetes type 2 Diabetic diet, sliding scale insulin Full Code DVT Prophylaxis: Lovenox ongoing need hospitalization: treatment of?sepsis in the setting of aspiration pneumonia with IV antibiotics, respiratory status is not optimally yet ,also pleural effusion workup. Quality Stroke Does the patient have a stroke diagnosis?: No VTE Prior VTE?: No VTE Risk Level:: Medical - moderate - high VTE Device Contraindication: Treatment Not Indicated VTE Drug Contraindication: N/A - Med Ordered
--- NOTE | 2023-01-28 15:52 | MHC.CM.PN ---
pt not medically clear for dc plan [facility]
[2023-01-28 16:45] LABS: Glucose, Whole Blood 230 mg/dL (60-115)
[2023-01-28] MEDS: Atorvastatin Calcium 20 MG TABLET PO (20:40)
[2023-01-28] MEDS: 0.9 % Sodium Chloride Flush 3 ML SYRINGE IVFLUSH (20:40)
[2023-01-28] MEDS: Tamsulosin HCL 0.4 MG CAPSULE 0.8 MG PO (20:40)
[2023-01-28] MEDS: Melatonin 3 MG TABLET 6 MG PO (20:40)
[2023-01-28] MEDS: traZODone HCL 50 MG TABLET PO (20:40)
[2023-01-28 20:44] LABS: Glucose, Whole Blood 238 mg/dL (60-115)
[2023-01-28] MEDS: Enoxaparin Sodium 40 MG/0.4 ML SYRINGE SUBCUT (22:51)
[2023-01-29] VITALS (7 sets, daily range): BP systolic 145–158; BP diastolic 79–92; PULSE 67–90; RESP 17–20; TEMP 35.5–36.9; O2SAT 90–97
[2023-01-29] MEDS: Piperacillin Sodium/Tazobactam 3.375 GM in 0.9 % Sodium Chloride 50 ML IV ×3 (05:39→17:48)
--- NOTE | 2023-01-29 07:00 | CA_ITS ---
Transthoracic Echocardiogram Patient (Last, First, Middle): Daniele Nogueira, Gender: Male Date of : 1950 Age: 72 Procedure Date: 01/29/2023 Procedure Type: Transthoracic Echocardiogram Location: S3E Height: 157.48 cm Weight: 55.34 kg BSA: 1.55 m2 Heart Rate: 86 bpm BP: 156 / 78 mmHg Nurse Companion: SB Referring MD: Anam Tucker MD Symptoms: chf Study Quality: Adequate ECG Rhythm: Sinus Conclusions: - The left ventricular systolic function is hyperdynamic. The visually estimated ejection fraction is >70%. - Severe focal basal septal hypertrophy. - No obvious valvular pathology seen on this study. - There is mild dilatation of the ascending aorta measuring 4.40 cm. Findings Left Ventricle Normal left ventricular cavity size. There is normal left ventricular wall thickness. The left ventricular systolic function is hyperdynamic. The visually estimated ejection fraction is >70%. There is no dynamic left ventricular outflow tract obstruction. Evidence suggests grade I (mild) diastolic dysfunction. Severe focal basal septal hypertrophy. Right Ventricle Normal right ventricular cavity size and systolic function. Atria Both atria are normal in size. Aortic Valve There is a normal trileaflet aortic valve. There is no aortic valve stenosis. There is no aortic valve regurgitation. Mitral Valve The mitral valve appears normal. There is no mitral valve regurgitation. There is no mitral valve stenosis. Pulmonic Valve The pulmonic valve is likely normal. Tricuspid Valve Normal tricuspid valve structure. There is trace tricuspid valve regurgitation. There is no evidence of pulmonary hypertension. Great Vessels There is mild dilatation of the ascending aorta measuring 4.40 cm. Venous The inferior vena cava is normal in size and collapses greater than 50% with inspiration. Pericardium/Pleural There is no evidence of pericardial effusion. Prior Study Comparison No prior study available for comparison. Recommendations, Care & Conclusions No obvious valvular pathology seen on this study. Measurements 2D Linear Measurements IVSd: 0.91 0.6-0.9/0.6-1.0 cm LVIDd: 3.68 3.9-5.3/4.2-5.9 cm LVIDd Index: 2.37 2.4-3.2/2.2-3.1 cm/m2 LVIDs: 1.93 2.0-3.6 cm LVPWd: 0.76 0.7-1.1 cm LA Diam: 2.60 2.7-3.8/3.0-4.0 cm LAIDs Index: 1.68 1.5-2.3 cm/m2 LV Mass: 107.34 67-162/88-224 g LV Mass Index: 69.25 43-95/49-115 g/m2 LVOT Diam: 2.10 3.0+(-)1.3 cm 2D Systolic Function EF 4C: 67.00 >55% EF 2C: 66.70 >55% Mitral Valve MV Pk E: 0.67 MV PK A: 0.90 MV Decel Time: 273.00 E/A: 0.70 E'Lateral: 5.98 E'Medial: 4.24 E/E' Med: 15.90 E/E' Lat: 11.30 PHT: 80.00 MVA PHT: 2.75 Decel [place]: 2.47 Aortic Valve AoV Pk Carlos: 1.23 AoV Pk Grad: 6.00 SIMI: 3.41 LVOT LVOT Pk Carlos: 1.16 LVOT Mn Carlos: 0.83 LVOT VTI: 0.25 LVOT Pk Grad: 5.00 LVOT Mn Grad: 3.00 LVOT Diam: 2.10 LVOT Area: 3.46 Diastolic Function MV Pk E: 0.67 MV Pk A: 0.90 E/A: 0.70 E'Medial: 4.24 E/E' Med: 15.90 E' Laterial: 5.98 E/E' Lat: 11.30 Right Ventricle TVS' Carlos: 17.40 Tricuspid Valve TR Pk Carlos: 2.48 TR Pk Grad: 25.00 RA Press: 3.00 RVSP: 28.00 Great Vessels Aorta Sinus of Valsalva: 4.00 2.0-3.5 cm Ao Asc: 4.40 2.1-3.4 cm Pulmonary Valve PV Pk Carlos: 0.95 Peak PV Grad: 4.00 Updated in Other Vendor System with Status of Final Seth Wright MD electronically signed on 01/29/2023 11:47:29 AM with status of Final
[2023-01-29 07:09] LABS: Glucose, Whole Blood 173 mg/dL (60-115)
[2023-01-29] MEDS: Albuterol/Iprat 2.5/0.5MG 3 ML AMPUL.NEB INHALE ×3 (07:45→20:17)
[2023-01-29 08:49] LABS: Anion Gap 16 (12-20); Blood Urea Nitrogen 26 mg/dL (9-16); Calcium 9.4 mg/dL (8.4-10.2); Carbon Dioxide 20 mmol/L (22-29); Chloride 118 mmol/L (96-108); Creatinine Clr Calc Pharmacy 59.2; Estimated Glomerular Filt Rate > 60; Glucose Random 168 mg/dL (60-115); Sodium 150 mmol/L (135-145)
--- NOTE | 2023-01-29 09:55 | HO.PM.IMPN ---
Subjective Subjective Date of Service: 01/29/23 Interval History: aspirational pneumonia ,hypernatremia Review of Systems sob somewhat improving has cough mostly nonproductive no fevers Physical Exam Vital Signs: Vital Signs: Last Vital Signs Temp 96 F L 01/29/23 06:53 Pulse 67 01/29/23 07:47 Resp 18 01/29/23 07:47 BP 158/80 H 01/29/23 06:53 Pulse Ox 93 01/29/23 06:53 O2 Del Method Nasal Cannula 01/29/23 06:53 O2 Flow Rate 2 01/29/23 06:53 Oxygen Flow Rate 5 01/26/23 15:30 BMI result Body Mass Index 22.4 Appearance: Alert.? Oriented X3.? cvs: rrr, [id number] , no murmur res:air entry fair ,few rhonchii scattered. abd: no rebound or guarding ,nt, bs present. ext pulses present , no cyanosis . neuro: axo3 , nonfocal. Objective Data Active Medications Acetaminophen (Acetaminophen 325 Mg Tablet) 650 mg PO Q6H PRN PRN Reason: Pain, Mild (Pain Scale 1-3) Albuterol/Ipratropium (Albuterol/Iprat 2.5/0.5mg 3 Ml Ampul.Neb) 3 ml INHALE TID [facility] Last Admin: 01/29/23 07:45 Dose: 3 ml Documented By: JOLLY Artificial Tears (Artificial Tears 15 Ml Drops) 1 drop EYE-BOTH BID PRN PRN Reason: Dry Eyes Aspirin (Aspirin Enteric Coated 81 Mg Gurjit.) 81 mg PO DAILY [facility] Last Admin: 01/28/23 10:34 Dose: 81 mg Documented By: MICHAEL Atorvastatin Calcium (Atorvastatin Calcium 20 Mg Tablet) 20 mg PO BEDTIME [facility] Last Admin: 01/28/23 20:40 Dose: 20 mg Documented By: WANDYRISKellie Bisacodyl (Bisacodyl 10 Mg Supp.Rect) 10 mg [place] DAILY PRN PRN Reason: Constipation Dextrose (Dextrose 50 % 25 Gm/50 Ml Syringe) 25 gm IVPUSH Q15M PRN; Protocol PRN Reason: per Hypoglycemia Standing Ord. Divalproex Sodium (Divalproex Sodium Sprinkles 125 Mg ) 500 mg PO BID [facility] Last Admin: 01/28/23 20:40 Dose: 500 mg Documented By: WENDI Docusate Sodium (Docusate Sodium 100 Mg Capsule) 100 mg PO DAILY PRN PRN Reason: Constipation Enoxaparin Sodium (Enoxaparin Sodium 40 Mg/0.4 Ml Syringe) 40 mg SUBCUT Q24H [facility] Last Admin: 01/28/23 22:51 Dose: 40 mg Documented By: WENDI Finasteride (Finasteride 5 Mg Tablet) 5 mg PO DAILY [facility] Last Admin: 01/28/23 10:34 Dose: 5 mg Documented By: MICHAEL Fluoxetine HCl (Fluoxetine Hcl 20 Mg Capsule) 60 mg PO DAILY [facility] Last Admin: 01/28/23 10:34 Dose: 60 mg Documented By: MICHAEL Glucagon (Glucagon Hcl 1 Mg Vial) 1 mg SUBCUT Q20M PRN PRN Reason: Hypoglycemia Glucose (Glucose Gel 15 Gm Gel..Gram.) 15 gm PO Q15M PRN; Protocol PRN Reason: per Hypoglycemia Standing Ord. Piperacillin Sod/Tazobactam (Sod 3.375 gm/ Sodium Chloride) 50 mls @ 100 mls/hr IV Q6H [facility] Last Infusion: 01/29/23 06:10 Dose: Infused Documented By: WENDI Dextrose (D5w) 1,000 mls @ 50 mls/hr IVCONT .Q20H [facility] Insulin Human Lispro (Insulin Lispro 100 Unit/Ml 3 Ml Vial) 0 unit SUBCUT QIDACHS [facility]; Protocol Last Admin: 01/29/23 07:41 Dose: Not Given Documented By: MICHAEL Non-Admin Reason: No Insulin Coverage Lactulose (Lactulose 20 Gm/30 Ml Solution) 20 gm PO DAILY [facility] Last Admin: 01/28/23 10:56 Dose: 20 gm Documented By: MICHAEL Lidocaine (Lidocaine 4 % Patch Adh..Patch) 1 patch TRANSDERMA DAILY [facility] Last Admin: 01/28/23 10:55 Dose: 1 patch Documented By: MICHAEL Magnesium Hydroxide (Milk Of Magnesia 30 Ml Oral.Susp) 30 ml PO DAILY PRN PRN Reason: Constipation Melatonin (Melatonin 3 Mg Tablet) 6 mg PO BEDTIME [facility] Last Admin: 01/28/23 20:40 Dose: 6 mg Documented By: WENDI Methylprednisolone Sodium Succinate (Methylprednisolone Sod Succ 40 Mg/Ml Vial) 40 mg IVPUSH Q12H [facility] Last Admin: 01/28/23 22:52 Dose: 40 mg Documented By: WENDI Naloxone HCl (Naloxone Hcl Nasal 4 Mg [place]) 4 mg NOSTRILALT Q3M PRN PRN Reason: Opioid Overdose Ondansetron HCl (Ondansetron Hcl 4 Mg/2 Ml Vial) 4 mg IVPUSH Q8H PRN PRN Reason: Nausea and Vomiting Quetiapine Fumarate (Quetiapine Fumarate 25 Mg Tablet) 25 mg PO BEDTIME [facility] Last Admin: 01/28/23 20:40 Dose: 25 mg Documented By: WENDI Quetiapine Fumarate (Quetiapine Fumarate 25 Mg Tablet) 25 mg PO BID [facility] Last Admin: 01/28/23 20:40 Dose: 25 mg Documented By: WENDI Sodium Biphosphate/Sodium Phosphate (Sodium Phosphate,[place]-Dibasic 133 Ml Enema) 118 ml [place] DAILY PRN PRN Reason: Constipation Sodium Chloride (0.9 % Sodium Chloride Flush 3 Ml Syringe) 3 ml IVFLUSH QSHIFT [facility] Last Admin: 01/28/23 20:40 Dose: 3 ml Documented By: WENDI Sodium Chloride (Sodium Chloride 0.65 % Nasal 44 Ml Sprbtl) 1 spray NOSTRIL-B Q3H PRN PRN Reason: dry nostrils Tamsulosin HCl (Tamsulosin Hcl 0.4 Mg Capsule) 0.8 mg PO BEDTIME [facility] Last Admin: 01/28/23 20:40 Dose: 0.8 mg Documented By: WENDI Trazodone HCl (Trazodone Hcl 50 Mg Tablet) 50 mg PO BEDTIME [facility] Last Admin: 01/28/23 20:40 Dose: 50 mg Documented By: WENDI Labs 01/27/23 06:47 01/29/23 08:11 Labs: Laboratory Results - last 24 hr 01/28/23 01/28/23 01/28/23 11:06 12:22 16:33 Hold Purple Top SEE NOTE Anion Gap 13 Estim Creat Clear Calc 54.2 Estimated GFR > 60 POC Glucose 207 H 230 H Random Glucose 201 H Calcium 9.4 01/28/23 01/29/23 01/29/23 20:40 06:54 08:11 Hold Purple Top SEE NOTE Anion Gap 16 Estim Creat Clear Calc 59.2 Estimated GFR > 60 POC Glucose 238 H 173 H Random Glucose 168 H Calcium 9.4 Microbiology Microbiology Results: Microbiology 01/26/23 16:26 Blood Culture - Preliminary Blood - Venous No growth after 48 hours. 01/26/23 15:59 Blood Culture - Preliminary Blood - Venous No growth after 48 hours. 01/26/23 19:09 Urine Culture - Final Urine clean catch - Urine lea top Assessment and Plan (1) Pleural effusion: Status: Acute (2) Aspiration pneumonia: Status: Acute (3) Hypernatremia: Status: Acute Plan 72-year-old male with a PMH significant for?unspecified dementia, non insulin-dependent diabetes type 2, dysphagia pureed diet, MDD, hx of TIA, HLD, and hx of AAA who presents to the ED from SNF with increased shortness of breath x1 week. Pt will be admitted to the hospital for treatment and further evaluation of sepsis in the setting of likely aspiration pneumonia. Sepsis in the setting of aspiration pneumonia Patient with increased shortness of breath, cough, rhonchi on auscultation and CT chest showing dependent consolidative opacities in the lower lobes suggestive of atelectasis, aspiration, or pneumonia Patient with history of unspecified dementia and dysphagia Patient meeting sepsis criteria: Tachycardia, tachypnea, fever. acute lactic acidosis-improving,blood cultures pending continue Zosyn,Aspiration precautions,Titrate supplemental O2>92, wean as tolerated,? given solumedrol on admission-will stop it and also unclear why patient is on medroxyprogestrone in rehab? Monitor respiration seen by speech and swallow -diet updated . hypernatremia : due to npo,fluids Na still 150. will add free water ,also po inatke improivng moniter bmp. added d5w @50 ml/hr. Pleural effusions CTA chest found moderate size right pleural effusion and trace amount of left-sided pleural effusion, enlarged heart . bnp normal, add echo given lasix in ed ?dm:hx non insulin-dependent diabetes type 2 will check Hba1c levels Diabetic diet Pureed with honey thick liquids, based on SNF evaluation Ensure dietary supplement t.i.d. Patient needs assistance with eating HLD Continue home meds Dementia/mood disorder Continue home meds Her-wvqozdn-deqrilrry diabetes type 2 Diabetic diet, sliding scale insulin Full Code DVT Prophylaxis: Lovenox ongoing need hospitalization: treatment of?sepsis in the setting of aspiration pneumonia with IV antibiotics, respiratory status is not optimally yet ,also pleural effusion workup. Quality Stroke Does the patient have a stroke diagnosis?: No VTE Prior VTE?: No VTE Risk Level:: Medical - moderate - high VTE Device Contraindication: Treatment Not Indicated VTE Drug Contraindication: N/A - Med Ordered
[2023-01-29 11:04] LABS: Estimated Average Glucose 123 mg/dL; Hemoglobin A1c % 5.9 % (<6.0)
[2023-01-29 11:10] LABS: Glucose, Whole Blood 272 mg/dL (60-115)
[2023-01-29] MEDS: Lidocaine 4 % Patch ADH..PATCH 1 PATCH TRANSDERMA (11:16)
[2023-01-29] MEDS: Divalproex Sodium Sprinkles 125 MG CAP.DR.SPR 500 MG PO ×2 (11:17→22:02)
[2023-01-29] MEDS: Finasteride 5 MG TABLET PO (11:17)
[2023-01-29] MEDS: Aspirin Enteric Coated 81 MG TABLET.DR PO (11:17)
[2023-01-29] MEDS: QUEtiapine Fumarate 25 MG TABLET PO ×3 (11:17→22:04)
[2023-01-29] MEDS: 0.9 % Sodium Chloride Flush 3 ML SYRINGE IVFLUSH ×2 (11:18→19:57)
[2023-01-29] MEDS: Dextrose 5 % 1,000 ML 50 ML IVCONT (11:18)
--- NOTE | 2023-01-29 14:49 | MHC.SL.DTX ---
Dysphagia Diet modifications: Last documented Solid diet consistencies: Pureed (NDD1) Last documented Liquid consistency: Honey Thick Changes made to current diet?: Yes Liquid Consistency and Strategies: Liquid Intake Recommendation: Honey Thick Compensatory Strategies for Safe Swallow: Small Sips No Straws Liquids by Teaspoon Only Compensatory Strategies for Safe Swallow(b): Sitting Upright (90 deg) No Straw Liquids from Spoon Small Bites and Sips Rate of Ingestion Change Oral Check Avoid Specific Foods Solid Food Consistency: Dietary Recommendations: Pureed (NDD1) Additional Modifications to Solids: Recommend CONTINUE w/ pt's baseline PUREED diet (NDD1) and HONEY THICK liquids via TEASPOON ONLY (no straws), pills CRUSHED in PUREE. This was pt's diet at his [facility]. Pt requires total 1:1 assistance feeding, ensure frequent oral care for hygiene and comfort, close monitoring, and strict aspiration precautions. COMMISSIONING SPECIALIST will continue to follow. Oral Medication Intake: Crushed with Puree Strategies and Precautions to be Taken for Safe Swallow: Sitting Upright (90 deg) No Straw Liquids from Spoon Small Bites and Sips Rate of Ingestion Change Oral Check Avoid Specific Foods Supervision While Eating and/Drinking: Total Assistance (1:1) Foods to Avoid: Sticky or congealed purees Swallowing Recommended Treatments: Compens. Strategy Educat. Recommendation for Speech: Inpatient Speech Therapy Comment: Pt requires total 1:1 assistance feeding, close monitoring, strict aspiration precautions, and frequent oral care for hygiene and comfort. Frequency/Duration: PRN M-F Date Range for Service Req: Additional Comments: Treatment: COMMISSIONING SPECIALIST in to see Pt with assistance of a Medical Interpretter for [place]. Pt presents with weak voice and limited verbal outout, limited insight. He is repositioned with assistance of CONSTRUCTION CARPENTERS HELPER to reveal wettened bedding. COMMISSIONING SPECIALIST continued with PO trials. Pt tolerated Puree Solids administered via Spoon, Pt also able to self adminster, but noted to be impulsive, difficult to follow directions to slow down. Pt tolerated Honey-Thick Liquids via Spoon and Cup Sip. He complains that the Liquid ([place] Juice) is too sweet, but agrees to continue with trials given encouragement. No overt s/s of aspiration with Honey-Thick or Puree trials. Pt given Thin Liquids via Spoon with no overt s/s of aspiration. When self-administered cup sip, however, he demonstrates delayed throat clearing and increased work of breathing. Further trials not attempted due to concern over pharyngeal pathology leading to increased risk of aspiration. COMMISSIONING SPECIALIST will f/u x1 to reassess upgrade, if possible. Gis Coordinator Clinican/Clinical Fellow: No Supervisory Statement: I have reviewed and agree with the student/clinical fellow's documentation: N/A Speech Language Pathologist: Maurisio Kaur M.A., [facility]-COMMISSIONING SPECIALIST
[2023-01-29 16:34] LABS: Glucose, Whole Blood 188 mg/dL (60-115)
[2023-01-29 20:25] LABS: Glucose, Whole Blood 221 mg/dL (60-115)
[2023-01-29] MEDS: Melatonin 3 MG TABLET 6 MG PO (21:59)
[2023-01-29] MEDS: Tamsulosin HCL 0.4 MG CAPSULE 0.8 MG PO (21:59)
[2023-01-29] MEDS: Atorvastatin Calcium 20 MG TABLET PO (22:02)
[2023-01-29] MEDS: traZODone HCL 50 MG TABLET PO (22:03)
[2023-01-29] MEDS: Insulin Lispro 100 UNIT/ML 3 ML VIAL SUBCUT (22:03)
[2023-01-29] MEDS: Enoxaparin Sodium 40 MG/0.4 ML SYRINGE SUBCUT (22:05)
[2023-01-30] MEDS: Piperacillin Sodium/Tazobactam 3.375 GM in 0.9 % Sodium Chloride 50 ML IV ×5 (00:16→23:16)
[2023-01-30 04:00] VITALS: BP 161/85; PULSE 83; RESP 18; TEMP 36.5; O2SAT 95
[2023-01-30 06:32] LABS: Hematocrit 30.7 % (42.0-52.0); Mean Corpuscular HGB Conc 32.6 g/dl (31.0-36.0); Mean Corpuscular Hemoglobin 28.1 pg (27.0-33.0); Mean Corpuscular Volume 86.2 fL (80.0-98.0); Mean Platelet Volume 9.2 fL (9.4-12.4); Platelet Count 368 X10*3/uL (160-400); Red Blood Count 3.56 X10*6/uL (4.60-5.80); Red Cell Distribution Width 15.9 % (11.0-16.0); White Blood Count 8.5 X10*3/uL (4.8-10.8)
[2023-01-30 06:44] LABS: Anion Gap 13 (12-20); Blood Urea Nitrogen 24 mg/dL (9-16); Calcium 8.8 mg/dL (8.4-10.2); Carbon Dioxide 24 mmol/L (22-29); Chloride 118 mmol/L (96-108); Creatinine Clr Calc Pharmacy 57.2; Estimated Glomerular Filt Rate > 60; Glucose Random 147 mg/dL (60-115); Potassium 3.2 mmol/L (3.3-5.1); Sodium 152 mmol/L (135-145)
[2023-01-30 06:56] VITALS: BP 170/94; PULSE 70; RESP 16; TEMP 36.7; O2SAT 93
[2023-01-30 07:00] LABS: Glucose, Whole Blood 127 mg/dL (60-115)
[2023-01-30] MEDS: Albuterol/Iprat 2.5/0.5MG 3 ML AMPUL.NEB INHALE ×2 (07:31→14:37)
[2023-01-30 07:33] VITALS: PULSE 68; RESP 18; O2SAT 93
[2023-01-30] MEDS: Lidocaine 4 % Patch ADH..PATCH 1 PATCH TRANSDERMA (10:15)
[2023-01-30] MEDS: Lactulose 20 GM/30 ML SOLUTION PO (10:15)
[2023-01-30] MEDS: medroxyPROGESTERone Acetate 5 MG TABLET 20 MG PO (10:16)
[2023-01-30] MEDS: Potassium Chloride Packet 20 MEQ PACKET 40 MEQ PO (10:16)
[2023-01-30] MEDS: FLUoxetine HCl 20 MG CAPSULE 60 MG PO (10:16)
[2023-01-30] MEDS: Divalproex Sodium Sprinkles 125 MG CAP.DR.SPR 500 MG PO ×2 (10:17→22:05)
[2023-01-30] MEDS: Aspirin Enteric Coated 81 MG TABLET.DR PO (10:17)
[2023-01-30] MEDS: QUEtiapine Fumarate 25 MG TABLET PO ×3 (10:17→22:04)
[2023-01-30] MEDS: Dextrose 5 % 1,000 ML 100 ML IVCONT ×2 (10:18→17:40)
[2023-01-30] MEDS: 0.9 % Sodium Chloride Flush 3 ML SYRINGE IVFLUSH (10:19)
[2023-01-30] MEDS: Finasteride 5 MG TABLET PO (10:32)
[2023-01-30 11:14] LABS: Glucose, Whole Blood 258 mg/dL (60-115)
[2023-01-30] MEDS: Insulin Lispro 100 UNIT/ML 3 ML VIAL SUBCUT ×2 (13:05→22:03)
[2023-01-30 14:38] VITALS: PULSE 91; RESP 18; O2SAT 99
--- NOTE | 2023-01-30 15:07 | MHC.SL.SWA ---
Speech Pathologist Impression: Dysphagia Risk of Aspiration Due to: Neurological Condition History of Pneumonia Reduced Cognition Dysphasia Diet Status: No Change Liquid Consistency and Strategies for Safe Swallow: Liquid Intake Recommendation: Honey Thick (TEASPOON ONLY) Liquid Intake Strategies: Small Sips No Straws Liquids by Teaspoon Only Solid Food Consistency: Dietary Recommendations: Pureed (NDD1) Oral Medication Intake: Crushed with Puree Please contact the pharmacy regarding appropriate crushable or liquid drug formulations that are available whenever modified delivery is recommended. Compensatory Strategies and Precautions to be Taken for Safe Swallow: Sitting Upright (90 deg) Supervision While Eating and Drinking for Safe Swallow: Total Assistance (1:1) Foods to Avoid: Sticky or congealed purees Swallowing Recommended Treatments: Compens. Strategy Educat. Recommendation for Speech: Inpatient Speech Therapy Comment: Pt's baseline at [facility] (NDD1, honey thick liquids) is based on MBSS done at [facility] in June 2021 which revealed mod/severe pharyngeal dysphagia and silent aspiration on thin and nectar thick liquids w/ NO cough reflex. [facility] recommended dysphagia level 2. Pt seen for PO trials w/ FACING BASTER. FACING BASTER spoke w/ [facility] FACING BASTER. Recommend patient continue with HONEY THICK liquids (TEASPOON ONLY), PUREE solids, and pills crushed in puree. May consider f/u MBSS as pt's current dx is aspiration PNA and it has been 1.5 years since previous MBSS. Frequency/Duration: PRN M-F Geophysical Laboratory Chief Clinican/Clinical Fellow: No Supervisory Statement: I have reviewed and agree with the student/clinical fellow's documentation: N/A Speech Language Pathologist: Carmita Sam M.A., CCC-FACING BASTER
--- NOTE | 2023-01-30 15:14 | MHC.CM.PN ---
per rounds pts sodium up no plans for dc
[2023-01-30 15:27] VITALS: BP 139/78; PULSE 92; RESP 18; TEMP 37.1; O2SAT 93
[2023-01-30 16:44] LABS: Glucose, Whole Blood 97 mg/dL (60-115)
[2023-01-30 19:40] VITALS: BP 137/79; PULSE 82; RESP 16; TEMP 36.5; O2SAT 95
[2023-01-30 20:32] LABS: Glucose, Whole Blood 217 mg/dL (60-115)
[2023-01-30] MEDS: Enoxaparin Sodium 40 MG/0.4 ML SYRINGE SUBCUT (22:03)
[2023-01-30] MEDS: Atorvastatin Calcium 20 MG TABLET PO (22:04)
[2023-01-30] MEDS: Tamsulosin HCL 0.4 MG CAPSULE 0.8 MG PO (22:05)
[2023-01-30] MEDS: traZODone HCL 50 MG TABLET PO (22:05)
[2023-01-30] MEDS: Melatonin 3 MG TABLET 6 MG PO (22:05)
[2023-01-31] VITALS (9 sets, daily range): BP systolic 121–149; BP diastolic 74–93; PULSE 76–115; RESP 16–20; TEMP 36.4–36.7; O2SAT 92–96
[2023-01-31] MEDS: Dextrose 5 % 1,000 ML 100 ML IVCONT (04:00)
[2023-01-31] MEDS: Piperacillin Sodium/Tazobactam 3.375 GM in 0.9 % Sodium Chloride 50 ML IV ×3 (05:25→17:33)
[2023-01-31 05:55] LABS: Hematocrit 31.4 % (42.0-52.0); Hemoglobin 10.2 g/dl (14.0-18.0); Mean Corpuscular HGB Conc 32.5 g/dl (31.0-36.0); Mean Corpuscular Hemoglobin 28.3 pg (27.0-33.0); Mean Corpuscular Volume 87.2 fL (80.0-98.0); Mean Platelet Volume 9.2 fL (9.4-12.4); Platelet Count 291 X10*3/uL (160-400); Red Cell Distribution Width 15.6 % (11.0-16.0)
[2023-01-31 06:13] LABS: Anion Gap 11 (12-20); Blood Urea Nitrogen 16 mg/dL (9-16); Calcium 7.9 mg/dL (8.4-10.2); Carbon Dioxide 24 mmol/L (22-29); Chloride 111 mmol/L (96-108); Creatinine Clr Calc Pharmacy 67.8; Estimated Glomerular Filt Rate > 60; Glucose Fasting 135 mg/dL (60-99); Potassium 3.3 mmol/L (3.3-5.1); Sodium 143 mmol/L (135-145)
[2023-01-31 07:28] LABS: Glucose, Whole Blood 133 mg/dL (60-115)
[2023-01-31] MEDS: Albuterol/Iprat 2.5/0.5MG 3 ML AMPUL.NEB INHALE ×3 (07:45→18:33)
[2023-01-31] MEDS: Lidocaine 4 % Patch ADH..PATCH 1 PATCH TRANSDERMA (09:23)
[2023-01-31] MEDS: Lactulose 20 GM/30 ML SOLUTION PO (09:23)
[2023-01-31] MEDS: medroxyPROGESTERone Acetate 5 MG TABLET 20 MG PO (09:23)
[2023-01-31] MEDS: Divalproex Sodium Sprinkles 125 MG CAP.DR.SPR 500 MG PO ×2 (09:24→21:01)
[2023-01-31] MEDS: QUEtiapine Fumarate 25 MG TABLET PO ×3 (09:24→21:02)
[2023-01-31] MEDS: Finasteride 5 MG TABLET PO (09:24)
[2023-01-31] MEDS: FLUoxetine HCl 20 MG CAPSULE 60 MG PO (09:24)
[2023-01-31] MEDS: Aspirin Enteric Coated 81 MG TABLET.DR PO (09:24)
--- NOTE | 2023-01-31 09:32 | HO.PM.IMPN ---
Subjective Subjective Date of Service: 01/31/23 Interval History: no copmlaints Physical Exam Vital Signs: Vital Signs: Last Vital Signs Temp 98.1 F 01/31/23 07:44 Pulse 76 01/31/23 07:45 Resp 18 01/31/23 07:45 BP 126/77 01/31/23 07:44 Pulse Ox 94 01/31/23 07:44 O2 Del Method Room Air 01/31/23 07:44 O2 Flow Rate 2 01/29/23 06:53 Oxygen Flow Rate 5 01/26/23 15:30 BMI result Body Mass Index 22.4 Appearance: Alert.? Oriented X3.? cvs: rrr, [id number] , no murmur res:air entry fair ,few rhonchii scattered. abd: no rebound or guarding ,nt, bs present. ext pulses present , no cyanosis . neuro: axo3 , nonfocal. Objective Data Active Medications Acetaminophen (Acetaminophen 325 Mg Tablet) 650 mg PO Q6H PRN PRN Reason: Pain, Mild (Pain Scale 1-3) Albuterol/Ipratropium (Albuterol/Iprat 2.5/0.5mg 3 Ml Ampul.Neb) 3 ml INHALE TID [facility] Last Admin: 01/31/23 07:45 Dose: 3 ml Documented By: MARIYA Artificial Tears (Artificial Tears 15 Ml Drops) 1 drop EYE-BOTH BID PRN PRN Reason: Dry Eyes Aspirin (Aspirin Enteric Coated 81 Mg Tablet.) 81 mg PO DAILY [facility] Last Admin: 01/31/23 09:24 Dose: 81 mg Documented By: JESSE Atorvastatin Calcium (Atorvastatin Calcium 20 Mg Tablet) 20 mg PO BEDTIME [facility] Last Admin: 01/30/23 22:04 Dose: 20 mg Documented By: NAVEEN Bisacodyl (Bisacodyl 10 Mg Supp.Rect) 10 mg [place] DAILY PRN PRN Reason: Constipation Dextrose (Dextrose 50 % 25 Gm/50 Ml Syringe) 25 gm IVPUSH Q15M PRN; Protocol PRN Reason: per Hypoglycemia Standing Ord. Divalproex Sodium (Divalproex Sodium Sprinkles 125 Mg ) 500 mg PO BID [facility] Last Admin: 01/31/23 09:24 Dose: 500 mg Documented By: JESSE Docusate Sodium (Docusate Sodium 100 Mg Capsule) 100 mg PO DAILY PRN PRN Reason: Constipation Enoxaparin Sodium (Enoxaparin Sodium 40 Mg/0.4 Ml Syringe) 40 mg SUBCUT Q24H [facility] Last Admin: 01/30/23 22:03 Dose: 40 mg Documented By: NAVEEN Finasteride (Finasteride 5 Mg Tablet) 5 mg PO DAILY [facility] Last Admin: 01/31/23 09:24 Dose: 5 mg Documented By: JESSE Fluoxetine HCl (Fluoxetine Hcl 20 Mg Capsule) 60 mg PO DAILY [facility] Last Admin: 01/31/23 09:24 Dose: 60 mg Documented By: JESSE Glucagon (Glucagon Hcl 1 Mg Vial) 1 mg SUBCUT Q20M PRN PRN Reason: Hypoglycemia Glucose (Glucose Gel 15 Gm Gel..Gram.) 15 gm PO Q15M PRN; Protocol PRN Reason: per Hypoglycemia Standing Ord. Piperacillin Sod/Tazobactam (Sod 3.375 gm/ Sodium Chloride) 50 mls @ 100 mls/hr IV Q6H [facility] Last Infusion: 01/31/23 05:57 Dose: Infused Documented By: NAVEEN Dextrose (D5w) 1,000 mls @ 100 mls/hr IVCONT .Q10H [facility] Last Infusion: 01/31/23 05:57 Dose: 100 mls/hr Documented By: NAVEEN Insulin Human Lispro (Insulin Lispro 100 Unit/Ml 3 Ml Vial) 0 unit SUBCUT QIDACHS [facility]; Protocol Last Admin: 01/31/23 07:29 Dose: Not Given Documented By: JESSE Non-Admin Reason: No Insulin Coverage Lactulose (Lactulose 20 Gm/30 Ml Solution) 20 gm PO DAILY [facility] Last Admin: 01/31/23 09:23 Dose: 20 gm Documented By: JESSE Lidocaine (Lidocaine 4 % Patch Adh..Patch) 1 patch TRANSDERMA DAILY [facility] Last Admin: 01/31/23 09:23 Dose: 1 patch Documented By: JESSE Magnesium Hydroxide (Milk Of Magnesia 30 Ml Oral.Susp) 30 ml PO DAILY PRN PRN Reason: Constipation Medroxyprogesterone Acetate (Medroxyprogesterone Acetate 5 Mg Tablet) 20 mg PO DAILY [facility] Last Admin: 01/31/23 09:23 Dose: 20 mg Documented By: JESSE Melatonin (Melatonin 3 Mg Tablet) 6 mg PO BEDTIME [facility] Last Admin: 01/30/23 22:05 Dose: 6 mg Documented By: NAVEEN Naloxone HCl (Naloxone Hcl Nasal 4 Mg [place]) 4 mg NOSTRILALT Q3M PRN PRN Reason: Opioid Overdose Ondansetron HCl (Ondansetron Hcl 4 Mg/2 Ml Vial) 4 mg IVPUSH Q8H PRN PRN Reason: Nausea and Vomiting Quetiapine Fumarate (Quetiapine Fumarate 25 Mg Tablet) 25 mg PO BEDTIME [facility] Last Admin: 01/30/23 22:04 Dose: 25 mg Documented By: NAVEEN Quetiapine Fumarate (Quetiapine Fumarate 25 Mg Tablet) 25 mg PO BID [facility] Last Admin: 01/31/23 09:24 Dose: 25 mg Documented By: JESSE Sodium Biphosphate/Sodium Phosphate (Sodium Phosphate,[place]-Dibasic 133 Ml Enema) 118 ml [place] DAILY PRN PRN Reason: Constipation Sodium Chloride (0.9 % Sodium Chloride Flush 3 Ml Syringe) 3 ml IVFLUSH QSHIFT [facility] Last Admin: 01/31/23 07:30 Dose: Not Given Documented By: JESSE Non-Admin Reason: IV Running Sodium Chloride (Sodium Chloride 0.65 % Nasal 44 Ml Sprbtl) 1 spray NOSTRIL-B Q3H PRN PRN Reason: dry nostrils Tamsulosin HCl (Tamsulosin Hcl 0.4 Mg Capsule) 0.8 mg PO BEDTIME [facility] Last Admin: 01/30/23 22:05 Dose: 0.8 mg Documented By: NAVEEN Trazodone HCl (Trazodone Hcl 50 Mg Tablet) 50 mg PO BEDTIME [facility] Last Admin: 01/30/23 22:05 Dose: 50 mg Documented By: NAVEEN Labs 01/31/23 05:24 01/31/23 05:24 Labs: Laboratory Results - last 24 hr 01/30/23 01/30/23 01/30/23 11:08 16:27 20:28 MCV MCH MCHC RDW Plt Count MPV Absolute Nucleated RBC Nucleated RBC % (auto) Anion Gap Estim Creat Clear Calc Estimated GFR POC Glucose 258 H 97 217 H Fasting Glucose Calcium 01/31/23 01/31/23 05:24 07:16 MCV 87.2 MCH 28.3 MCHC 32.5 RDW 15.6 Plt Count 291 MPV 9.2 L Absolute Nucleated RBC 0.000 Nucleated RBC % (auto) 0.0 Anion Gap 11 L Estim Creat Clear Calc 67.8 Estimated GFR > 60 POC Glucose 133 H Fasting Glucose 135 H Calcium 7.9 L D Assessment and Plan (1) Pleural effusion: Status: Acute (2) Aspiration pneumonia: Status: Acute (3) Hypernatremia: Status: Acute Plan 72M PMH?unspecified dementia, non insulin-dependent diabetes type 2, dysphagia on pureed diet, MDD, hx of TIA, HLD, and hx of AAA who presented to the ED from SNF with increased shortness of breath x1 week. Pt admitted to the hospital for treatment and further evaluation of sepsis in the setting of likely aspiration pneumonia. Sepsis due to aspiration pneumonia continue Zosyn, Aspiration precautions seen by speech and swallow -on pureed solids and honey thick liquids hypernatremia : due to npo,fluids resolved with d5w, monitor off d5w Pleural effusions CTA chest found moderate size right pleural effusion and trace amount of left-sided pleural effusion, enlarged heart . non insulin-dependent diabetes type 2 a1c 5.9 insulin sliding scale HLD lipitor Dementia/mood disorder depakote, seroquel bph proscar, flomax Full Code DVT Prophylaxis: Lovenox reason for continued hospitalization:monitoring for ability to maintain fluid intake wihtout iv supplement Quality Stroke Does the patient have a stroke diagnosis?: No VTE Prior VTE?: No VTE Risk Level:: Medical - moderate - high VTE Device Contraindication: Treatment Not Indicated VTE Drug Contraindication: N/A - Med Ordered
[2023-01-31 11:12] LABS: Glucose, Whole Blood 149 mg/dL (60-115)
--- NOTE | 2023-01-31 12:47 | MHC.SL.SWA ---
Speech Pathologist Impression: Risk of Aspiration Due to: Neurological Condition History of Pneumonia Reduced Cognition Dysphasia Diet Status: Recommend continue on Puree diet with Honey Thick liquids, by tsp only, pills crushed in puree. Patient continues to require 1-1 feeding. Liquid Consistency and Strategies for Safe Swallow: Liquid Intake Recommendation: Honey Thick Liquid Intake Strategies: Small Sips No Straws Liquids by Teaspoon Only Solid Food Consistency: Dietary Recommendations: Pureed (NDD1) Additional Modifications to Solid Foods: Recommend CONTINUE w/ pt's baseline PUREED diet (NDD1) and HONEY THICK liquids via TEASPOON ONLY (no straws), pills CRUSHED in PUREE. This was pt's diet at his [facility]. Pt requires total 1:1 assistance feeding, ensure frequent oral care for hygiene and comfort, close monitoring, and strict aspiration precautions. LEASE ANALYST will continue to follow. Oral Medication Intake: Crushed with Puree Please contact the pharmacy regarding appropriate crushable or liquid drug formulations that are available whenever modified delivery is recommended. Compensatory Strategies and Precautions to be Taken for Safe Swallow: Sitting Upright (90 deg) No Straw Liquids from Spoon Small Bites and Sips Alternate Liquids/Solids Rate of Ingestion Change Oral Check Supervision While Eating and Drinking for Safe Swallow: Total Assistance (1:1) Foods to Avoid: Sticky or congealed purees Swallowing Recommended Treatments: Gustatory Stimulation Recommendation for Speech: Inpatient Speech Therapy Comment: Patient seen during lunch. Patient was awake and alert and interested in eating, however throughout meal continued to request to reclined while eating. LEASE ANALYST on several occasions explained the need to be seated up right in bed while eating and drinking. Patient attempted to self feed, scooped food on to spoon, but then struggled to lift spoon to mouth and required 1-1 feeding. Patient also noted to be SOB, breathing through nose with effort on each bite or sip of liquid. On puree, patient has tongue pumping motion to propel bolus , with an extended oral transit time, followed by delayed swallow. Patient given trial of cup sip of HT liquid, on which patient produced an immediate wet cough after swallow, with trial discontinued and liquid presented by tsp only. When given liquid by tsp, patient again produced a mildly prolonged oral phase, delayed swallow, reduced laryngeal elevation, but no clinical signs of aspiration. Recommend continue on Puree diet with Honey Thick liquids, by tsp only, pills crushed in puree. Patient continues to require 1-1 feeding. Frequency/Duration: PRN M-F Date Range for Service Req: Timeline to reassess: Tailor Garment Fitter Clinican/Clinical Fellow: No Supervisory Statement: I have reviewed and agree with the student/clinical fellow's documentation: N/A Speech Language Pathologist: Lakesha Rosas M.A., CCC-LEASE ANALYST
[2023-01-31 16:29] LABS: Glucose, Whole Blood 123 mg/dL (60-115)
[2023-01-31 20:20] LABS: Glucose, Whole Blood 167 mg/dL (60-115)
[2023-01-31] MEDS: Enoxaparin Sodium 40 MG/0.4 ML SYRINGE SUBCUT (21:01)
[2023-01-31] MEDS: Tamsulosin HCL 0.4 MG CAPSULE 0.8 MG PO (21:01)
[2023-01-31] MEDS: traZODone HCL 50 MG TABLET PO (21:02)
[2023-01-31] MEDS: 0.9 % Sodium Chloride Flush 3 ML SYRINGE IVFLUSH (21:02)
[2023-01-31] MEDS: Atorvastatin Calcium 20 MG TABLET PO (21:02)
[2023-01-31] MEDS: Melatonin 3 MG TABLET 6 MG PO (21:02)
[2023-02-01] VITALS (10 sets, daily range): BP systolic 108–126; BP diastolic 68–80; PULSE 102–130; RESP 14–32; TEMP 35.9–37.1; O2SAT 84–97
[2023-02-01] MEDS: Piperacillin Sodium/Tazobactam 3.375 GM in 0.9 % Sodium Chloride 50 ML IV ×5 (00:50→23:50)
[2023-02-01] MEDS: Furosemide 40 MG/4 ML VIAL IVPUSH (07:37)
--- NOTE | 2023-02-01 07:42 | PC.NURSE ---
06:55 INDUSTRY SEGMENT SPECIALIST made this RN aware Pts o2 saturation is 84% on room air, respirations labored 32 and HR tachy at 119. Upon assessment Pt found to have KJ throughout crackles in lungs, Pt put on 4L NC with o2 saturation improving to 90%, Respiratory therapy called to bedside, Oxy mask placed on Pt on 4L, o2 saturation is 91%, respirations [address] Kwong notified, Pt to be NPO, CXR ordered and Lasix 40mg given put APR. Pt does not appear to be in distress at this time, MD at bedside.
[2023-02-01 07:51] LABS: Glucose, Whole Blood 124 mg/dL (60-115)
[2023-02-01] MEDS: Lidocaine 4 % Patch ADH..PATCH 1 PATCH TRANSDERMA (08:07)
--- NOTE | 2023-02-01 09:12 | P.PNIM_ITS ---
Subjective Subjective Date of Service: 02/01/23 Interval History: episdoe of dyspnea, tachypena, hypoxia, improved with oxygen suppelemenation Physical Exam 2 Vital Signs: Vital Signs: Last Vital Signs Temp 98.7 F 02/01/23 07:03 Pulse 119 H 02/01/23 07:03 Resp 30 H 02/01/23 07:23 BP 126/77 02/01/23 07:03 Pulse Ox 91 L 02/01/23 07:23 O2 Del Method Oxymask 02/01/23 07:23 O2 Flow Rate 4 02/01/23 07:23 Oxygen Flow Rate 5 01/26/23 15:30 BMI result Body Mass Index 22.4 tachypnea, mild accessory muscles, bilateral crackles Objective Data Active Medications Acetaminophen (Acetaminophen 325 Mg Tablet) 650 mg PO Q6H PRN PRN Reason: Pain, Mild (Pain Scale 1-3) Albuterol/Ipratropium (Albuterol/Iprat 2.5/0.5mg 3 Ml Ampul.Neb) 3 ml INHALE TID COUNTS INCLUDE 234 BEDS AT THE [facility] Last Admin: 02/01/23 07:32 Dose: Not Given Documented By: MARIYA Non-Admin Reason: Elevated Heart Rate Artificial Tears (Artificial Tears 15 Ml Drops) 1 drop EYE-BOTH BID PRN PRN Reason: Dry Eyes Aspirin (Aspirin Enteric Coated 81 Mg Gurjit.) 81 mg PO DAILY COUNTS INCLUDE 234 BEDS AT THE [facility] Last Admin: 02/01/23 08:02 Dose: Not Given Documented By: JESSE Non-Admin Reason: NPO Atorvastatin Calcium (Atorvastatin Calcium 20 Mg Tablet) 20 mg PO BEDTIME COUNTS INCLUDE 234 BEDS AT THE [facility] Last Admin: 01/31/23 21:02 Dose: 20 mg Documented By: NAVEEN Bisacodyl (Bisacodyl 10 Mg Supp.Rect) 10 mg SC DAILY PRN PRN Reason: Constipation Dextrose (Dextrose 50 % 25 Gm/50 Ml Syringe) 25 gm IVPUSH Q15M PRN; Protocol PRN Reason: per Hypoglycemia Standing Ord. Divalproex Sodium (Divalproex Sodium Sprinkles 125 Mg Cap.) 500 mg PO BID COUNTS INCLUDE 234 BEDS AT THE [facility] Last Admin: 02/01/23 08:03 Dose: Not Given Documented By: JESSE Non-Admin Reason: NPO Docusate Sodium (Docusate Sodium 100 Mg Capsule) 100 mg PO DAILY PRN PRN Reason: Constipation Enoxaparin Sodium (Enoxaparin Sodium 40 Mg/0.4 Ml Syringe) 40 mg SUBCUT Q24H COUNTS INCLUDE 234 BEDS AT THE [facility] Last Admin: 01/31/23 21:01 Dose: 40 mg Documented By: NAVEEN Finasteride (Finasteride 5 Mg Tablet) 5 mg PO DAILY COUNTS INCLUDE 234 BEDS AT THE [facility] Last Admin: 02/01/23 08:03 Dose: Not Given Documented By: JESSE Non-Admin Reason: NPO Fluoxetine HCl (Fluoxetine Hcl 20 Mg Capsule) 60 mg PO DAILY COUNTS INCLUDE 234 BEDS AT THE [facility] Last Admin: 02/01/23 08:03 Dose: Not Given Documented By: JESSE Non-Admin Reason: NPO Glucagon (Glucagon Hcl 1 Mg Vial) 1 mg SUBCUT Q20M PRN PRN Reason: Hypoglycemia Glucose (Glucose Gel 15 Gm Gel..Gram.) 15 gm PO Q15M PRN; Protocol PRN Reason: per Hypoglycemia Standing Ord. Piperacillin Sod/Tazobactam (Sod 3.375 gm/ Sodium Chloride) 50 mls @ 100 mls/hr IV Q6H COUNTS INCLUDE 234 BEDS AT THE [facility] Last Infusion: 02/01/23 06:38 Dose: Infused Documented By: NAVEEN Insulin Human Lispro (Insulin Lispro 100 Unit/Ml 3 Ml Vial) 0 unit SUBCUT QIDACHS COUNTS INCLUDE 234 BEDS AT THE [facility]; Protocol Last Admin: 02/01/23 08:01 Dose: Not Given Documented By: JESSE Non-Admin Reason: No Access Lactulose (Lactulose 20 Gm/30 Ml Solution) 20 gm PO DAILY COUNTS INCLUDE 234 BEDS AT THE [facility] Last Admin: 02/01/23 08:03 Dose: Not Given Documented By: JESSE Non-Admin Reason: NPO Lidocaine (Lidocaine 4 % Patch Adh..Patch) 1 patch TRANSDERMA DAILY COUNTS INCLUDE 234 BEDS AT THE [facility] Last Admin: 02/01/23 08:07 Dose: 1 patch Documented By: JESSE Magnesium Hydroxide (Milk Of Magnesia 30 Ml Oral.Susp) 30 ml PO DAILY PRN PRN Reason: Constipation Medroxyprogesterone Acetate (Medroxyprogesterone Acetate 5 Mg Tablet) 20 mg PO DAILY COUNTS INCLUDE 234 BEDS AT THE [facility] Last Admin: 02/01/23 08:03 Dose: Not Given Documented By: JESSE Non-Admin Reason: NPO Melatonin (Melatonin 3 Mg Tablet) 6 mg PO BEDTIME COUNTS INCLUDE 234 BEDS AT THE [facility] Last Admin: 01/31/23 21:02 Dose: 6 mg Documented By: NAVEEN Naloxone HCl (Naloxone Hcl Nasal 4 Mg [place]) 4 mg NOSTRILALT Q3M PRN PRN Reason: Opioid Overdose Ondansetron HCl (Ondansetron Hcl 4 Mg/2 Ml Vial) 4 mg IVPUSH Q8H PRN PRN Reason: Nausea and Vomiting Quetiapine Fumarate (Quetiapine Fumarate 25 Mg Tablet) 25 mg PO BEDTIME COUNTS INCLUDE 234 BEDS AT THE [facility] Last Admin: 01/31/23 21:02 Dose: 25 mg Documented By: NAVEEN Quetiapine Fumarate (Quetiapine Fumarate 25 Mg Tablet) 25 mg PO BID COUNTS INCLUDE 234 BEDS AT THE [facility] Last Admin: 02/01/23 08:03 Dose: Not Given Documented By: JESSE Non-Admin Reason: NPO Sodium Biphosphate/Sodium Phosphate (Sodium Phosphate,[place]-Dibasic 133 Ml Enema) 118 ml SC DAILY PRN PRN Reason: Constipation Sodium Chloride (0.9 % Sodium Chloride Flush 3 Ml Syringe) 3 ml IVFLUSH QSHIFT COUNTS INCLUDE 234 BEDS AT THE [facility] Last Admin: 02/01/23 08:02 Dose: Not Given Documented By: JESSE Non-Admin Reason: Previously Administered Sodium Chloride (Sodium Chloride 0.65 % Nasal 44 Ml Sprbtl) 1 spray NOSTRIL-B Q3H PRN PRN Reason: dry nostrils Tamsulosin HCl (Tamsulosin Hcl 0.4 Mg Capsule) 0.8 mg PO BEDTIME COUNTS INCLUDE 234 BEDS AT THE [facility] Last Admin: 01/31/23 21:01 Dose: 0.8 mg Documented By: NAVEEN Trazodone HCl (Trazodone Hcl 50 Mg Tablet) 50 mg PO BEDTIME COUNTS INCLUDE 234 BEDS AT THE [facility] Last Admin: 01/31/23 21:02 Dose: 50 mg Documented By: NAVEEN Labs 01/31/23 05:24 01/31/23 05:24 Labs: Laboratory Results - last 24 hr 01/31/23 01/31/23 01/31/23 11:09 16:26 20:05 POC Glucose 149 H 123 H 167 H 02/01/23 07:13 POC Glucose 124 H Microbiology Microbiology Results: Microbiology 01/26/23 16:26 Blood Culture - Final Blood - Venous No growth after 5 days. 01/26/23 15:59 Blood Culture - Final Blood - Venous No growth after 5 days. Assessment and Plan (1) Pleural effusion: Status: Acute (2) Aspiration pneumonia: Status: Acute (3) Hypernatremia: Status: Acute Plan 72M PMH?unspecified dementia, non insulin-dependent diabetes type 2, dysphagia on pureed diet, MDD, hx of TIA, HLD, and hx of AAA who presented to the ED from SNF with increased shortness of breath x1 week. Pt admitted to the hospital for treatment and further evaluation of sepsis in the setting of likely aspiration pneumonia. Sepsis due to aspiration pneumonia continue Zosyn, Aspiration precautions now with acute hypoxic respiratory failure due to recurrent event seen by speech and swallow - placed on pureed solids and honey thick liquids, will deescalate to npo due to even from AM, follow up [employer] hypernatremia s resolved with d5w, monitor off d5w Pleural effusions CTA chest found moderate size right pleural effusion and trace amount of left- sided pleural effusion, enlarged heart . non insulin-dependent diabetes type 2 a1c 5.9 insulin sliding scale HLD lipitor Dementia/mood disorder depakote, seroquel bph proscar, flomax Full Code DVT Prophylaxis: Lovenox reason for continued hospitalization:hypoxia, resp distress Quality Stroke Does the patient have a stroke diagnosis?: No VTE Prior VTE?: No VTE Risk Level:: Medical - moderate - high VTE Device Contraindication: Treatment Not Indicated VTE Drug Contraindication: N/A - Med Ordered
[2023-02-01 09:48] LABS: Hematocrit 38.6 % (42.0-52.0); Hemoglobin 12.5 g/dl (14.0-18.0); Mean Corpuscular HGB Conc 32.4 g/dl (31.0-36.0); Mean Corpuscular Hemoglobin 28.2 pg (27.0-33.0); Mean Corpuscular Volume 86.9 fL (80.0-98.0); Mean Platelet Volume 9.2 fL (9.4-12.4); Platelet Count 455 X10*3/uL (160-400); Red Blood Count 4.44 X10*6/uL (4.60-5.80); Red Cell Distribution Width 15.1 % (11.0-16.0); White Blood Count 27.5 X10*3/uL (4.8-10.8)
[2023-02-01 10:04] LABS: Anion Gap 15 (12-20); Blood Urea Nitrogen 15 mg/dL (9-16); Carbon Dioxide 23 mmol/L (22-29); Chloride 107 mmol/L (96-108); Creatinine Clr Calc Pharmacy 53.7; Estimated Glomerular Filt Rate > 60; Glucose Fasting 148 mg/dL (60-99); Potassium 3.5 mmol/L (3.3-5.1); Sodium 141 mmol/L (135-145)
[2023-02-01 12:22] LABS: Glucose, Whole Blood 167 mg/dL (60-115)
--- NOTE | 2023-02-01 12:54 | MHC.SL.IMP ---
Date of Plan of Treatment: 02/01/23 Onset of Symptoms/Illness: 02/01/23 Date Treatment Started: 02/01/23 Admitting Diagnosis: Aspiration pneumonia Primary Speech & Language Diagnosis: R13.12 Oropharyngeal Phase Dysphagia Secondary Speech & Language Diagnosis: R41.841 Cognitive communication disorder Reason for Today's Visit: 52852 Modified Barium Swallow Study Comments: Pt awake, did not respond to questions, but did greet the clinician and follow some commands for oral mech exam. Pre-evaluation Dietary Consistencies: Pureed (NDD1) Pre-evaluation Liquid Consistency: Honey Thick Pre-evaluation Medication Administration: Crushed with Puree Medical History: Comments: From H&P dated 01/27/23: Pt is a 72-year-old male with a PMH significant for?unspecified dementia, non insulin-dependent diabetes type 2, dysphagia pureed diet, MDD, hx of TIA, HLD, and hx of AAA who presents to the ED from SNF with increased shortness of breath x1 week. Patient with advanced dementia at baseline, alert and oriented to self only and does incapable of providing accurate HPI which is instead obtained from chart and provider review. Patient apparently was noted to be desatting as low as 90% on RA and with frequent wet sounding cough at SNF, so was sent to the ED for further evaluation. In the ED pt was febrile up to 101.3, tachycardic up to 111, tachypneic up to 40, and hypertensive to 167/82, satting at 93% on 5L NC. Labs were significant for H&H 11.4/34.6, BUN 28, random glucose 304, lactic acid 3.3 with repeat 2.5. UA with trace leukocyte esterase with no bacteria seen, likely negative for UTI. Tested negative for influenza types a and B, COVID. CXR showed bronchial wall thickening that may be infectious and/or inflammatory in etiology, with trace left pleural effusion and left lower lobe atelectasis. Chest CT showed moderate right-sided pleural effusion and trace amount of left-sided pleural fluid with dependent consolidative opacities in the lower lobes that could be related to atelectasis, aspiration, or pneumonia. Also found enlarged heart with trace amount of pericardial fluid and extensive multivessel coronary artery calcifications and AAA measuring 4.4 cm. EKG demonstrated normal sinus rhythm without evidence of significant ST elevations or depressions. Pt was treated with IVF, Zosyn, and acetaminophen. Pt will be admitted to the hospital for treatment and further evaluation of sepsis in the setting of likely aspiration pneumonia. Repeat CXR on 02/01/23 revealed: Bibasilar infiltrates, left-sided sub-segmental atelectasis and probable small bilateral pleural effusions. This may be slightly increased on the left compared to January 26, 2023 exams. , trigging this consult. He is a LTC resident of [facility] in [place], [place]. He has a HCP and is currently Full Code. He was placed on a conservative diet of Puree Solids and Honey-Thick Liquids [facility] Fall Risk Assessment Score: Oral Motor Exam Facial Symmetry: Normal for Patient Symmetrical Facial Movement: Oral-Facial Facial Miscellaneous Observations: Mouth Occlusion: Normal Oral-Facial Teeth Characteristics: Partially Missing Oral-Facial Teeth Miscellaneous Observation: Oral-Facial Lip Pucker Description: Oral-Facial Smile (Lips) Description: Oral-Facial Puff Cheeks Description: Oral-Facial Lip Miscellaneous Comment: Tongue Size: Normal Tongue Frenum Length: Tongue Excursion Description: Tongue Range of Movement Description: Tongue Speed of Movement Description: Tongue Strength of Movement (against opposing pressure): Tongue Movement Characteristics: Tongue Movement Miscellaneous Observation: Oral Expression Ability: Is patient able to manage secretions?: Yes Is patient able to produce volitional cough?: Yes Food and Liquid Trials: Oral Impairment: Lip Closure: 4=Escape progressing to mid-chin. Oral Impairment: Tongue Control During Bolus Hold: 3=Posterior escape of greater than half of bolus Oral Impairment: Bolus Preparation/Mastication: 3=Minimal chewing/mashing with majority of bolus unchewed Oral Impairment: Bolus Transport/Lingual Motion: 1= Delayed initiation of tongue motion Oral Impairment: Oral Residue: 2=Residue collection on oral structures Oral Impairment:Initiation of Pharyngeal Swallow: 3=Bolus head in pyriforms Pharyngeal Impairment: Soft Palate Elevation: 1=Trace column of contrast or air between SP and PW Pharyngeal Impairment: Laryngeal Elevation: 1=Partial thyroid cartilage/arytenoids to epiglottic petiole movement Pharyngeal Impairment: Anterior Hyoid Excursion: 1=Partial anterior movement Pharyngeal Impairment: Epiglottic Movement: 1=Partial inversion Pharyngeal Impairment: Laryngeal Vestibular Closure:: 1=Incomplete: narrow column air/contrast in laryngeal vestibule Pharyngeal Impairment: Pharyngeal Stripping Wave: 1=Present: diminished Pharyngeal Impairment: Pharyngeal Contraction: Did not test Pharyngeal Impairment: Pharyngoesophageal Segment Openin=Minimal distension/minimal duration: marked obstruction of flow Pharyngeal Impairment: Tongue Base (TB) Retraction: 2=Narrow column of contrast/air between TB and posterior PW Pharyngeal Impairment: Pharyngeal Residue: 4=Minimal to no pharyngeal clearance Pharyngeal Impairment: Esophageal Clearance Upright Position: Did not test Impressions and Recommendations Clinical Observations: Current (pre-evaluation) Intake/Diet: Pre-Study Functional Oral Intake Scale (FOIS): 5- Total oral intake of multiple consistencies requiring special preparation [id number] ID: [id number] [facility]: Lip closure for intraoral bolus containment resulted in bolus escape that progressed to the mid-chin. Tongue control during bolus hold could not be assessed due to logistical reasons not related to physiologic impairment. Bolus preparation and mastication received the highest impairment score; solid not given due to patient safety concerns related to oral impairment. Bolus transport/lingual motion demonstrated delayed initiation of tongue motion. Oral residue was a collection on oral structures. Initiation of the pharyngeal swallow occurred when the bolus head was in the pyriform sinuses. Soft palate elevation allowed a trace column of contrast or air between the soft palate and the pharyngeal wall. Laryngeal elevation was decreased, with partial superior movement of the thyroid cartilage/partial approximation of the arytenoids to the epiglottic petiole. Anterior hyoid excursion demonstrated partial anterior movement. Epiglottic movement resulted in partial inversion. Laryngeal vestibular closure was absent, resulting in a wide column of air/contrast within the laryngeal vestibule at the height of the swallow. Pharyngeal stripping wave was present, but diminished. Pharyngeal contraction could not be determined due to logistical reasons not related to physiologic impairment. Pharyngoesophageal segment opening demonstrated minimal distension/minimal duration, with marked obstruction of bolus flow. Tongue base retraction allowed a narrow column of contrast or air between the retracted tongue base and the posterior pharyngeal wall. Pharyngeal residue resulted from minimal to no pharyngeal clearance. Esophageal clearance in the upright position could not be assessed due to logistical reasons not related to physiologic impairment. Oral Impairment Score: 12 (absence of score, component 2) Pharyngeal Impairment Score: 15 (absence of score, component 13) Esophageal Impairment Score: --- (absence of score, component 17) Laryngeal Penetration and Aspiration: Both Penetration and Aspiration were observed in today's study. Honey-thick Contrast entered the airway, remained above the vocal folds, and was not ejected from the airway. [place]-thick Contrast entered the airway, passed below the vocal folds, and no effort was made to eject. SUMMARY: Pt was provided Honey Thick, [place] Thick and Pudding Thick barium constrast. He maintained use of the OxyMask at 6L throughout the study. [place]ud[place] Thick Liquids had a significant delay in oral preparation and transit with repetitive tongue pumping noted prior to the swallow. Minimal constrast passed through the esophagus with a majority of the contrast present throughout the pharyngeal cavity after the swallow. Honey-Thick Liquids assisted with pharyngeal clearance, however penetrated into the laryngeal vestibule with a thin strip of contrast remaining despite repeated swallows to clear. [place]-Thick Liquids resulted in gross tracheal aspiration with no cough reflex elicited. Verbal instructions to cough and clear his throat resulted in a weak cough with contrast remaining below the vocal folds. Liquid Intake Recommendation: NPO Liquid Intake Strategies: Small Sips No Straws Liquids by Teaspoon Only Dietary Recommendations: NPO Medication Administration: NPO Please contact the pharmacy regarding appropriate crushable or liquid drug formulations that are available whenever modified delivery is recommended. Compensatory Strategies Recommended: Sitting Upright (90 deg) Alternate Liquids/Solids Supervision during eating and or drinking: PO with [employer] Recommended Treatments: Compens. Strategy Educat. Recommendation for Speech Therapy: Inpatient Speech Therapy Text Comment: Pt requires total 1:1 assistance feeding, close monitoring, strict aspiration precautions, and frequent oral care for hygiene and comfort. Frequency/Duration: PRN M-F Date Range for Service Requested: Timeline to reassess: Vocal Music Teacher Clinician/Clinical Fellow: No Supervisory Statement: N/A Speech Language Pathologist: Maurisio Kaur M.A., [facility]
--- NOTE | 2023-02-01 12:59 | MHC.SL.IMP ---
Date of Plan of Treatment: 02/01/23 Onset of Symptoms/Illness: 02/01/23 Date Treatment Started: 02/01/23 Admitting Diagnosis: Aspiration pneumonia Primary Speech & Language Diagnosis: R13.12 Oropharyngeal Phase Dysphagia Secondary Speech & Language Diagnosis:? R41.841 Cognitive communication disorder Reason for Today's Visit: 99998 Modified Barium Swallow Study ? Comments: Pt awake, did not respond to questions, but did greet the clinician and follow some commands for oral mech exam. Pre-evaluation Dietary Consistencies: Pureed (NDD1) Pre-evaluation Liquid Consistency: Honey Thick Pre-evaluation Medication Administration: Crushed with Puree Medical History: ? Comments: From H&P dated 01/27/23: Pt is a 72-year-old male with a PMH significant for?unspecified dementia, non insulin-dependent diabetes type 2, dysphagia pureed diet, MDD, hx of TIA, HLD, and hx of AAA who presents to the ED from SNF with increased shortness of breath x1 week.? Patient with advanced dementia at baseline, alert and oriented to self only and does incapable of providing accurate HPI which is instead obtained from chart and provider review.? Patient apparently was noted to be desatting as low as 90% on RA and with frequent wet sounding cough at SNF, so was sent to the ED for further evaluation. In the ED pt was febrile up to 101.3, tachycardic up to 111, tachypneic up to 40, and hypertensive to 167/82, satting at 93% on 5L NC. Labs were significant for H&H 11.4/34.6, BUN 28, random glucose 304, lactic acid 3.3 with repeat 2.5.? UA with trace leukocyte esterase with no bacteria seen, likely negative for UTI.? Tested negative for influenza types a and B, COVID.? CXR showed bronchial wall thickening that may be infectious and/or inflammatory in etiology, with trace left pleural effusion and left lower lobe atelectasis.? Chest CT showed moderate right-sided pleural effusion and trace amount of left-sided pleural fluid with dependent consolidative opacities in the lower lobes that could be related to atelectasis, aspiration, or pneumonia.? Also found enlarged heart with trace amount of pericardial fluid and extensive multivessel coronary artery calcifications and AAA measuring 4.4 cm. EKG demonstrated normal sinus rhythm without evidence of significant ST elevations or depressions. Pt was treated with IVF, Zosyn, and acetaminophen. Pt will be admitted to the hospital for treatment and further evaluation of sepsis in the setting of likely aspiration pneumonia. Repeat CXR on 02/01/23 revealed: Bibasilar infiltrates, left-sided sub-segmental atelectasis and probable small bilateral pleural effusions. This may be slightly increased on the left compared to January 26, 2023 exams. , trigging this consult. He is a LTC resident of [facility] in [place], [place]. He has a HCP and is currently Full Code. He was placed on a conservative diet of Puree Solids and Honey-Thick Liquids [facility] Fall Risk Assessment Score: Oral Motor Exam Facial Symmetry: Normal for Patient Symmetrical Oral Expression Ability: Limited. Pt is a Afghan speaker. Is patient able to manage secretions?: Yes Is patient able to produce volitional cough?: Yes Food and Liquid Trials: Oral Impairment: Lip Closure: 4=Escape progressing to mid-chin. Oral Impairment: Tongue Control During Bolus Hold: 3=Posterior escape of greater than half of bolus Oral Impairment: Bolus Preparation/Mastication: 3=Minimal chewing/mashing with majority of bolus unchewed Oral Impairment: Bolus Transport/Lingual Motion: 1= Delayed initiation of tongue motion Oral Impairment: Oral Residue: 2=Residue collection on oral structures Oral Impairment:Initiation of Pharyngeal Swallow: 3=Bolus head in pyriforms Pharyngeal Impairment: Soft Palate Elevation: 1=Trace column of contrast or air between SP and PW Pharyngeal Impairment: Laryngeal Elevation: 1=Partial thyroid cartilage/arytenoids to epiglottic petiole movement Pharyngeal Impairment: Anterior Hyoid Excursion: 1=Partial anterior movement Pharyngeal Impairment: Epiglottic Movement: 1=Partial inversion Pharyngeal Impairment: Laryngeal Vestibular Closure:: 1=Incomplete: narrow column air/contrast in laryngeal vestibule Pharyngeal Impairment: Pharyngeal Stripping Wave: 1=Present: diminished Pharyngeal Impairment: Pharyngeal Contraction: Did not test Pharyngeal Impairment: Pharyngoesophageal Segment Openin=Minimal distension/minimal duration: marked obstruction of flow Pharyngeal Impairment: Tongue Base (TB) Retraction: 2=Narrow column of contrast/air between TB and posterior PW Pharyngeal Impairment: Pharyngeal Residue: 4=Minimal to no pharyngeal clearance Pharyngeal Impairment: Esophageal Clearance Upright Position: Did not test Impressions and Recommendations Clinical Observations: Current (pre-evaluation) Intake/Diet: Pre-Study Functional Oral Intake Scale (FOIS): 5- Total oral intake of multiple consistencies requiring special preparation [facility] ID: [id number] [facility] Results: Lip closure for intraoral bolus containment resulted in bolus escape that progressed to the mid-chin.? Tongue control during bolus hold could not be assessed due to logistical reasons not related to physiologic impairment.? Bolus preparation and mastication received the highest impairment score; solid not given due to patient safety concerns related to oral impairment.? Bolus transport/lingual motion demonstrated delayed initiation of tongue motion.? Oral residue was a collection on oral structures.? Initiation of the pharyngeal swallow occurred when the bolus head was in the pyriform sinuses.? Soft palate elevation allowed a trace column of contrast or air between the soft palate and the pharyngeal wall.? Laryngeal elevation was decreased, with partial superior movement of the thyroid cartilage/partial approximation of the arytenoids to the epiglottic petiole.? Anterior hyoid excursion demonstrated partial anterior movement.? Epiglottic movement resulted in partial inversion.? Laryngeal vestibular closure was absent, resulting in a wide column of air/contrast within the laryngeal vestibule at the height of the swallow.? Pharyngeal stripping wave was present, but diminished.? Pharyngeal contraction could not be determined due to logistical reasons not related to physiologic impairment.? Pharyngoesophageal segment opening demonstrated minimal distension/minimal duration, with marked obstruction of bolus flow.? Tongue base retraction allowed a narrow column of contrast or air between the retracted tongue base and the posterior pharyngeal wall.? Pharyngeal residue resulted from minimal to no pharyngeal clearance.? Esophageal clearance in the upright position could not be assessed due to logistical reasons not related to physiologic impairment.? Oral Impairment Score:? 12 (absence of score, component 2) Pharyngeal Impairment Score:? 15 (absence of score, component 13) Esophageal Impairment Score:?? --- (absence of score, component 17) Laryngeal Penetration and Aspiration: Both Penetration and Aspiration were observed in today's study. Honey-thick Contrast entered the airway, remained above the vocal folds, and was not ejected from the airway. Jenner-thick Contrast entered the airway, passed below the vocal folds, and no effort was made to eject. SUMMARY: Pt was provided Honey Thick, Jenner Thick and Pudding Thick barium constrast. He maintained use of the OxyMask at 6L throughout the study. Pudding Thick Liquids had a significant delay in oral preparation and transit with repetitive tongue pumping noted prior to the swallow. Minimal constrast passed through the esophagus with a majority of the contrast present throughout the pharyngeal cavity after the swallow. Honey-Thick Liquids assisted with pharyngeal clearance, however penetrated into the laryngeal vestibule with a thin strip of contrast remaining despite repeated swallows to clear. Jenner-Thick Liquids resulted in gross tracheal aspiration with no cough reflex elicited. Verbal instructions to cough and clear his throat resulted in a weak cough with contrast remaining below the vocal folds. ? Liquid Intake Recommendation: NPO ? Liquid Intake Strategies: Small Sips No Straws Liquids by Teaspoon Only ? Dietary Recommendations: NPO ? Medication Administration: NPO ? Please contact the pharmacy regarding appropriate crushable or liquid drug formulations that are available whenever modified delivery is recommended. ? Compensatory Strategies Recommended: Sitting Upright (90 deg) Alternate Liquids/Solids ? Supervision during eating and or drinking: PO with STREET OPENINGS INSPECTOR ? Recommended Treatments: Compens. Strategy Educat. ? Recommendation for Speech Therapy: Inpatient Speech Therapy ? Text Comment: Given the extent of his oropharyngeal dysphagia and negative cough reflex for aspirated materials, recommending NPO for Pt safety reasons. However, he or his HCP may elect to continue feeding as they see fit. STREET OPENINGS INSPECTOR can continue with optimization of PO diet once that decision has been made. Please note that the patient is still Full Code and resumption of PO carries risk of asphyxiation or rapid respiratory decline.? Timeline to reassess: PRN Matlab Developer Clinician/Clinical Fellow: No Supervisory Statement: N/A Speech Language Pathologist: Maurisio Kaur M.A., [facility] [employer]PECTOR
--- NOTE | 2023-02-01 14:00 | MHC.CM.PN ---
per rounds pt still ,has asptirated no dc date indicated at this time
[2023-02-01] MEDS: Albuterol/Iprat 2.5/0.5MG 3 ML AMPUL.NEB INHALE ×2 (15:02→19:35)
[2023-02-01 16:02] LABS: Glucose, Whole Blood 132 mg/dL (60-115)
[2023-02-01] MEDS: 0.9 % Sodium Chloride Flush 3 ML SYRINGE IVFLUSH (19:27)
[2023-02-01 20:39] LABS: Glucose, Whole Blood 144 mg/dL (60-115)
[2023-02-01] MEDS: Enoxaparin Sodium 40 MG/0.4 ML SYRINGE SUBCUT (21:41)
[2023-02-02] VITALS (9 sets, daily range): BP systolic 115–140; BP diastolic 75–83; PULSE 74–102; RESP 16–24; TEMP 36.2–36.6; O2SAT 90–98
[2023-02-02] MEDS: Piperacillin Sodium/Tazobactam 3.375 GM in 0.9 % Sodium Chloride 50 ML IV ×3 (05:24→17:32)
[2023-02-02 05:43] LABS: Hematocrit 32.5 % (42.0-52.0); Hemoglobin 10.6 g/dl (14.0-18.0); Mean Corpuscular HGB Conc 32.6 g/dl (31.0-36.0); Mean Corpuscular Hemoglobin 28.3 pg (27.0-33.0); Mean Corpuscular Volume 86.9 fL (80.0-98.0); Mean Platelet Volume 9.2 fL (9.4-12.4); Platelet Count 338 X10*3/uL (160-400); Red Blood Count 3.74 X10*6/uL (4.60-5.80); Red Cell Distribution Width 15.2 % (11.0-16.0); White Blood Count 16.2 X10*3/uL (4.8-10.8)
[2023-02-02 06:02] LABS: Anion Gap 14 (12-20); Blood Urea Nitrogen 20 mg/dL (9-16); Calcium 8.7 mg/dL (8.4-10.2); Carbon Dioxide 24 mmol/L (22-29); Chloride 110 mmol/L (96-108); Creatinine Clr Calc Pharmacy 61.3; Estimated Glomerular Filt Rate > 60; Glucose Fasting 131 mg/dL (60-99); Potassium 3.6 mmol/L (3.3-5.1); Sodium 144 mmol/L (135-145)
[2023-02-02] MEDS: Albuterol/Iprat 2.5/0.5MG 3 ML AMPUL.NEB INHALE ×3 (07:42→19:05)
[2023-02-02 07:44] LABS: Glucose, Whole Blood 133 mg/dL (60-115)
[2023-02-02] MEDS: Lidocaine 4 % Patch ADH..PATCH 1 PATCH TRANSDERMA (09:47)
[2023-02-02] MEDS: 0.9 % Sodium Chloride Flush 3 ML SYRINGE IVFLUSH (09:47)
--- NOTE | 2023-02-02 09:58 | HO.PM.IMPN ---
Subjective Subjective Date of Service: 02/02/23 Interval History: sob improved, failed Modified barium yesterday Physical Exam Vital Signs: Vital Signs: Last Vital Signs Temp 97.2 F 02/02/23 07:34 Pulse 102 H 02/02/23 07:46 Resp 20 02/02/23 07:46 BP 115/75 02/02/23 07:34 Pulse Ox 91 L 02/02/23 09:45 O2 Del Method Room Air 02/02/23 09:45 O2 Flow Rate 6.0 02/02/23 07:34 Oxygen Flow Rate 5 01/26/23 15:30 BMI result Body Mass Index 22.4 less distress, stil with bilateral crackles, alert Objective Data Active Medications Acetaminophen (Acetaminophen 325 Mg Tablet) 650 mg PO Q6H PRN PRN Reason: Pain, Mild (Pain Scale 1-3) Albuterol/Ipratropium (Albuterol/Iprat 2.5/0.5mg 3 Ml Ampul.Neb) 3 ml INHALE TID [facility] Last Admin: 02/02/23 07:42 Dose: 3 ml Documented By: JOLLY Artificial Tears (Artificial Tears 15 Ml Drops) 1 drop EYE-BOTH BID PRN PRN Reason: Dry Eyes Aspirin (Aspirin Enteric Coated 81 Mg Tablet.) 81 mg PO DAILY [facility] Last Admin: 02/02/23 09:39 Dose: Not Given Documented By: VINCENZO Non-Admin Reason: NPO Atorvastatin Calcium (Atorvastatin Calcium 20 Mg Tablet) 20 mg PO BEDTIME [facility] Last Admin: 02/01/23 20:28 Dose: Not Given Documented By: TOSHIA Non-Admin Reason: NPO Bisacodyl (Bisacodyl 10 Mg Supp.Rect) 10 mg [place] DAILY PRN PRN Reason: Constipation Dextrose (Dextrose 50 % 25 Gm/50 Ml Syringe) 25 gm IVPUSH Q15M PRN; Protocol PRN Reason: per Hypoglycemia Standing Ord. Divalproex Sodium (Divalproex Sodium Sprinkles 125 Mg Cap) 500 mg PO BID [facility] Last Admin: 02/02/23 09:39 Dose: Not Given Documented By: VINCENZO Non-Admin Reason: NPO Docusate Sodium (Docusate Sodium 100 Mg Capsule) 100 mg PO DAILY PRN PRN Reason: Constipation Enoxaparin Sodium (Enoxaparin Sodium 40 Mg/0.4 Ml Syringe) 40 mg SUBCUT Q24H [facility] Last Admin: 02/01/23 21:41 Dose: 40 mg Documented By: TOSHIA Finasteride (Finasteride 5 Mg Tablet) 5 mg PO DAILY [facility] Last Admin: 02/02/23 09:39 Dose: Not Given Documented By: VINCENZO Non-Admin Reason: NPO Fluoxetine HCl (Fluoxetine Hcl 20 Mg Capsule) 60 mg PO DAILY [facility] Last Admin: 02/02/23 09:39 Dose: Not Given Documented By: VINCENZO Non-Admin Reason: NPO Glucagon (Glucagon Hcl 1 Mg Vial) 1 mg SUBCUT Q20M PRN PRN Reason: Hypoglycemia Glucose (Glucose Gel 15 Gm Gel..Gram.) 15 gm PO Q15M PRN; Protocol PRN Reason: per Hypoglycemia Standing Ord. Piperacillin Sod/Tazobactam (Sod 3.375 gm/ Sodium Chloride) 50 mls @ 100 mls/hr IV Q6H [facility] Last Infusion: 02/02/23 05:54 Dose: Infused Documented By: TOSHIA Insulin Human Lispro (Insulin Lispro 100 Unit/Ml 3 Ml Vial) 0 unit SUBCUT QIDACHS [facility]; Protocol Last Admin: 02/02/23 07:51 Dose: Not Given Documented By: VINCENZO Non-Admin Reason: No Insulin Coverage Lactulose (Lactulose 20 Gm/30 Ml Solution) 20 gm PO DAILY [facility] Last Admin: 02/02/23 09:39 Dose: Not Given Documented By: VINCENZO Non-Admin Reason: NPO Lidocaine (Lidocaine 4 % Patch Adh..Patch) 1 patch TRANSDERMA DAILY [facility] Last Admin: 02/02/23 09:47 Dose: 1 patch Documented By: VINCENZO Magnesium Hydroxide (Milk Of Magnesia 30 Ml Oral.Susp) 30 ml PO DAILY PRN PRN Reason: Constipation Medroxyprogesterone Acetate (Medroxyprogesterone Acetate 5 Mg Tablet) 20 mg PO DAILY [facility] Last Admin: 02/02/23 09:39 Dose: Not Given Documented By: VINCENZO Non-Admin Reason: NPO Melatonin (Melatonin 3 Mg Tablet) 6 mg PO BEDTIME [facility] Last Admin: 02/01/23 20:28 Dose: Not Given Documented By: TOSHIA Non-Admin Reason: NPO Naloxone HCl (Naloxone Hcl Nasal 4 Mg [place]) 4 mg NOSTRILALT Q3M PRN PRN Reason: Opioid Overdose Ondansetron HCl (Ondansetron Hcl 4 Mg/2 Ml Vial) 4 mg IVPUSH Q8H PRN PRN Reason: Nausea and Vomiting Quetiapine Fumarate (Quetiapine Fumarate 25 Mg Tablet) 25 mg PO BEDTIME [facility] Last Admin: 02/01/23 20:28 Dose: Not Given Documented By: TOSHIA Non-Admin Reason: NPO Quetiapine Fumarate (Quetiapine Fumarate 25 Mg Tablet) 25 mg PO BID [facility] Last Admin: 02/02/23 09:40 Dose: Not Given Documented By: VINCENZO Non-Admin Reason: NPO Sodium Biphosphate/Sodium Phosphate (Sodium Phosphate,[place]-Dibasic 133 Ml Enema) 118 ml [place] DAILY PRN PRN Reason: Constipation Sodium Chloride (0.9 % Sodium Chloride Flush 3 Ml Syringe) 3 ml IVFLUSH QSHIFT [facility] Last Admin: 02/02/23 09:47 Dose: 3 ml Documented By: VINCENZO Sodium Chloride (Sodium Chloride 0.65 % Nasal 44 Ml Sprbtl) 1 spray NOSTRIL-B Q3H PRN PRN Reason: dry nostrils Tamsulosin HCl (Tamsulosin Hcl 0.4 Mg Capsule) 0.8 mg PO BEDTIME [facility] Last Admin: 02/01/23 20:28 Dose: Not Given Documented By: TOSHIA Non-Admin Reason: NPO Trazodone HCl (Trazodone Hcl 50 Mg Tablet) 50 mg PO BEDTIME [facility] Last Admin: 02/01/23 20:28 Dose: Not Given Documented By: TOSHIA Non-Admin Reason: NPO Labs 02/02/23 05:14 02/02/23 05:14 Labs: Laboratory Results - last 24 hr 02/01/23 02/01/23 02/01/23 09:21 12:19 15:43 MCV 86.9 MCH 28.2 MCHC 32.4 RDW 15.1 Plt Count 455 H D MPV 9.2 L Absolute Nucleated RBC 0.000 Nucleated RBC % (auto) 0.0 Anion Gap 15 Estim Creat Clear Calc 53.7 Estimated GFR > 60 POC Glucose 167 H 132 H Fasting Glucose 148 H Calcium 9.0 D 02/01/23 02/02/23 02/02/23 20:35 05:14 07:40 MCV 86.9 MCH 28.3 MCHC 32.6 RDW 15.2 Plt Count 338 D MPV 9.2 L Absolute Nucleated RBC 0.000 Nucleated RBC % (auto) 0.0 Anion Gap 14 Estim Creat Clear Calc 61.3 Estimated GFR > 60 POC Glucose 144 H 133 H Fasting Glucose 131 H Calcium 8.7 Assessment and Plan (1) Pleural effusion: Status: Acute (2) Aspiration pneumonia: Status: Acute (3) Hypernatremia: Status: Acute Plan 72M PMH?unspecified dementia, non insulin-dependent diabetes type 2, dysphagia on pureed diet, MDD, hx of TIA, HLD, and hx of AAA who presented to the ED from SNF with increased shortness of breath x1 week. Pt admitted to the hospital for treatment and further evaluation of sepsis in the setting of likely aspiration pneumonia. Sepsis due to aspiration pneumonia continue Zosyn, Aspiration precautions acute hypoxic respiratory failure due to recurrent event s/p MBS, current [employer] recs are npo will give maintance fluids over weekend, reassess on 02/04/23, if still aspirating would pursue gtube hypernatremia s resolved with d5w, monitor off d5w Pleural effusions CTA chest found moderate size right pleural effusion and trace amount of left-sided pleural effusion, enlarged heart . non insulin-dependent diabetes type 2 a1c 5.9 insulin sliding scale HLD lipitor Dementia/mood disorder depakote, seroquel bph proscar, flomax Full Code DVT Prophylaxis: Lovenox reason for continued hospitalization:hypoxia, npo Quality Stroke Does the patient have a stroke diagnosis?: No VTE Prior VTE?: No VTE Risk Level:: Medical - moderate - high VTE Device Contraindication: Treatment Not Indicated VTE Drug Contraindication: N/A - Med Ordered
[2023-02-02] MEDS: Dextrose 5 % and 0.45 % NaCl 1,000 ML 80 ML IVCONT ×2 (10:53→21:29)
[2023-02-02 11:22] LABS: Glucose, Whole Blood 147 mg/dL (60-115)
[2023-02-02 16:07] LABS: Glucose, Whole Blood 177 mg/dL (60-115)
[2023-02-02 20:08] LABS: Glucose, Whole Blood 144 mg/dL (60-115)
[2023-02-02] MEDS: Enoxaparin Sodium 40 MG/0.4 ML SYRINGE SUBCUT (21:30)
[2023-02-03] MEDS: Piperacillin Sodium/Tazobactam 3.375 GM in 0.9 % Sodium Chloride 50 ML IV ×4 (00:12→17:06)
[2023-02-03 05:42] LABS: Hematocrit 30.1 % (42.0-52.0); Hemoglobin 9.6 g/dl (14.0-18.0); Mean Corpuscular HGB Conc 31.9 g/dl (31.0-36.0); Mean Corpuscular Hemoglobin 27.9 pg (27.0-33.0); Mean Corpuscular Volume 87.5 fL (80.0-98.0); Mean Platelet Volume 9.3 fL (9.4-12.4); Platelet Count 297 X10*3/uL (160-400); Red Blood Count 3.44 X10*6/uL (4.60-5.80); Red Cell Distribution Width 15.1 % (11.0-16.0); White Blood Count 9.7 X10*3/uL (4.8-10.8)
[2023-02-03 05:59] LABS: Anion Gap 13 (12-20); Blood Urea Nitrogen 16 mg/dL (9-16); Calcium 8.5 mg/dL (8.4-10.2); Carbon Dioxide 21 mmol/L (22-29); Chloride 112 mmol/L (96-108); Creatinine Clr Calc Pharmacy 65.2; Estimated Glomerular Filt Rate > 60; Glucose Fasting 126 mg/dL (60-99); Potassium 3.3 mmol/L (3.3-5.1); Sodium 143 mmol/L (135-145)
[2023-02-03 07:40] LABS: Glucose, Whole Blood 125 mg/dL (60-115)
[2023-02-03 08:00] VITALS: BP 140/84; PULSE 88; RESP 14; TEMP 36.6; O2SAT 94
--- NOTE | 2023-02-03 08:20 | P.PNIM_ITS ---
Subjective Subjective Date of Service: 02/03/23 Interval History: now on room air and comfortable Physical Exam 2 Vital Signs: Vital Signs: Last Vital Signs Temp 97.7 F 02/02/23 23:44 Pulse 74 02/02/23 23:44 Resp 18 02/02/23 23:44 BP 140/83 H 02/02/23 23:44 Pulse Ox 97 02/02/23 23:44 O2 Del Method Room Air 02/02/23 23:44 O2 Flow Rate 6.0 02/02/23 07:34 Oxygen Flow Rate 5 01/26/23 15:30 BMI result Body Mass Index 22.4 alert, no acute distress, some rhonchi Objective Data Active Medications Acetaminophen (Acetaminophen 325 Mg Tablet) 650 mg PO Q6H PRN PRN Reason: Pain, Mild (Pain Scale 1-3) Albuterol/Ipratropium (Albuterol/Iprat 2.5/0.5mg 3 Ml Ampul.Neb) 3 ml INHALE TID [facility] Last Admin: 02/02/23 19:05 Dose: 3 ml Documented By: ÁLVARO Artificial Tears (Artificial Tears 15 Ml Drops) 1 drop EYE-BOTH BID PRN PRN Reason: Dry Eyes Aspirin (Aspirin Enteric Coated 81 Mg Gurjit.) 81 mg PO DAILY [facility] Last Admin: 02/02/23 09:39 Dose: Not Given Documented By: VINCENZO Non-Admin Reason: NPO Atorvastatin Calcium (Atorvastatin Calcium 20 Mg Tablet) 20 mg PO BEDTIME [facility] Last Admin: 02/02/23 20:41 Dose: Not Given Documented By: TOSHIA Non-Admin Reason: NPO Bisacodyl (Bisacodyl 10 Mg Supp.Rect) 10 mg NC DAILY PRN PRN Reason: Constipation Dextrose (Dextrose 50 % 25 Gm/50 Ml Syringe) 25 gm IVPUSH Q15M PRN; Protocol PRN Reason: per Hypoglycemia Standing Ord. Divalproex Sodium (Divalproex Sodium Sprinkles 125 Mg Cap.) 500 mg PO BID [facility] Last Admin: 02/02/23 20:41 Dose: Not Given Documented By: TOSHIA Non-Admin Reason: NPO Docusate Sodium (Docusate Sodium 100 Mg Capsule) 100 mg PO DAILY PRN PRN Reason: Constipation Enoxaparin Sodium (Enoxaparin Sodium 40 Mg/0.4 Ml Syringe) 40 mg SUBCUT Q24H [facility] Last Admin: 02/02/23 21:30 Dose: 40 mg Documented By: TOSHIA Finasteride (Finasteride 5 Mg Tablet) 5 mg PO DAILY [facility] Last Admin: 02/02/23 09:39 Dose: Not Given Documented By: VINCENZO Non-Admin Reason: NPO Fluoxetine HCl (Fluoxetine Hcl 20 Mg Capsule) 60 mg PO DAILY [facility] Last Admin: 02/02/23 09:39 Dose: Not Given Documented By: VINCENZO Non-Admin Reason: NPO Glucagon (Glucagon Hcl 1 Mg Vial) 1 mg SUBCUT Q20M PRN PRN Reason: Hypoglycemia Glucose (Glucose Gel 15 Gm Gel..Gram.) 15 gm PO Q15M PRN; Protocol PRN Reason: per Hypoglycemia Standing Ord. Piperacillin Sod/Tazobactam (Sod 3.375 gm/ Sodium Chloride) 50 mls @ 100 mls/hr IV Q6H [facility] Last Infusion: 02/03/23 05:35 Dose: Infused Documented By: TOSHIA Dextrose/Sodium Chloride (D51/2ns) 1,000 mls @ 80 mls/hr IVCONT .[id number] [facility] Last Admin: 02/02/23 21:29 Dose: 80 mls/hr Documented By: TOSHIA Insulin Human Lispro (Insulin Lispro 100 Unit/Ml 3 Ml Vial) 0 unit SUBCUT QIDACHS [facility]; Protocol Last Admin: 02/03/23 07:43 Dose: Not Given Documented By: RADHA Non-Admin Reason: No Insulin Coverage Lactulose (Lactulose 20 Gm/30 Ml Solution) 20 gm PO DAILY [facility] Last Admin: 02/02/23 09:39 Dose: Not Given Documented By: VINCENZO Non-Admin Reason: NPO Lidocaine (Lidocaine 4 % Patch Adh..Patch) 1 patch TRANSDERMA DAILY [facility] Last Admin: 02/02/23 09:47 Dose: 1 patch Documented By: VINCENZO Magnesium Hydroxide (Milk Of Magnesia 30 Ml Oral.Susp) 30 ml PO DAILY PRN PRN Reason: Constipation Medroxyprogesterone Acetate (Medroxyprogesterone Acetate 5 Mg Tablet) 20 mg PO DAILY [facility] Last Admin: 02/02/23 09:39 Dose: Not Given Documented By: VINCENZO Non-Admin Reason: NPO Melatonin (Melatonin 3 Mg Tablet) 6 mg PO BEDTIME [facility] Last Admin: 02/02/23 20:42 Dose: Not Given Documented By: TOSHIA Non-Admin Reason: NPO Naloxone HCl (Naloxone Hcl Nasal 4 Mg [place]) 4 mg NOSTRILALT Q3M PRN PRN Reason: Opioid Overdose Ondansetron HCl (Ondansetron Hcl 4 Mg/2 Ml Vial) 4 mg IVPUSH Q8H PRN PRN Reason: Nausea and Vomiting Quetiapine Fumarate (Quetiapine Fumarate 25 Mg Tablet) 25 mg PO BEDTIME [facility] Last Admin: 02/02/23 20:42 Dose: Not Given Documented By: TOSHIA Non-Admin Reason: NPO Quetiapine Fumarate (Quetiapine Fumarate 25 Mg Tablet) 25 mg PO BID [facility] Last Admin: 02/02/23 20:42 Dose: Not Given Documented By: TOSHIA Non-Admin Reason: NPO Sodium Biphosphate/Sodium Phosphate (Sodium Phosphate,[place]-Dibasic 133 Ml Enema) 118 ml NC DAILY PRN PRN Reason: Constipation Sodium Chloride (0.9 % Sodium Chloride Flush 3 Ml Syringe) 3 ml IVFLUSH QSHIFT [facility] Last Admin: 02/03/23 00:07 Dose: Not Given Documented By: TOSHIA Non-Admin Reason: IV Running Sodium Chloride (Sodium Chloride 0.65 % Nasal 44 Ml Sprbtl) 1 spray NOSTRIL-B Q3H PRN PRN Reason: dry nostrils Tamsulosin HCl (Tamsulosin Hcl 0.4 Mg Capsule) 0.8 mg PO BEDTIME [facility] Last Admin: 02/02/23 20:42 Dose: Not Given Documented By: TOSHIA Non-Admin Reason: NPO Trazodone HCl (Trazodone Hcl 50 Mg Tablet) 50 mg PO BEDTIME [facility] Last Admin: 02/02/23 20:42 Dose: Not Given Documented By: TOSHIA Non-Admin Reason: NPO Labs 02/03/23 05:24 02/03/23 05:24 Labs: Laboratory Results - last 24 hr 02/02/23 02/02/23 02/02/23 11:18 15:54 19:48 MCV MCH MCHC RDW Plt Count MPV Absolute Nucleated RBC Nucleated RBC % (auto) Anion Gap Estim Creat Clear Calc Estimated GFR POC Glucose 147 H 177 H 144 H Fasting Glucose Calcium 02/03/23 02/03/23 05:24 07:13 MCV 87.5 MCH 27.9 MCHC 31.9 RDW 15.1 Plt Count 297 MPV 9.3 L Absolute Nucleated RBC 0.000 Nucleated RBC % (auto) 0.0 Anion Gap 13 Estim Creat Clear Calc 65.2 Estimated GFR > 60 POC Glucose 125 H Fasting Glucose 126 H Calcium 8.5 Assessment and Plan (1) Pleural effusion: Status: Acute (2) Aspiration pneumonia: Status: Acute (3) Hypernatremia: Status: Acute Plan 72M PMH?unspecified dementia, non insulin-dependent diabetes type 2, dysphagia on pureed diet, MDD, hx of TIA, HLD, and hx of AAA who presented to the ED from SNF with increased shortness of breath x1 week. Pt admitted to the hospital for treatment and further evaluation of sepsis in the setting of likely aspiration pneumonia. Sepsis due to aspiration pneumonia continue Zosyn day 8 Aspiration precautions acute hypoxic respiratory failure now resolved s/p MBS, current [employer] COUNSELOR recs are npo continue maintenance fluids over weekend, reassess on 02/04/23, if still aspirating would pursue gtube hypernatremia resolved Pleural effusions CTA chest found moderate size right pleural effusion and trace amount of left- sided pleural effusion, enlarged heart . non insulin-dependent diabetes type 2 a1c 5.9 insulin sliding scale HLD lipitor Dementia/mood disorder depakote, seroquel bph proscar, flomax Full Code DVT Prophylaxis: Lovenox reason for continued hospitalization:npo Quality Stroke Does the patient have a stroke diagnosis?: No VTE Prior VTE?: No VTE Risk Level:: Medical - moderate - high VTE Device Contraindication: Treatment Not Indicated VTE Drug Contraindication: N/A - Med Ordered
[2023-02-03] MEDS: Albuterol/Iprat 2.5/0.5MG 3 ML AMPUL.NEB INHALE (08:24)
[2023-02-03 08:25] VITALS: PULSE 74; RESP 18; O2SAT 97
[2023-02-03] MEDS: Dextrose 5 % and 0.45 % NaCl 1,000 ML 80 ML IVCONT (10:30)
[2023-02-03 11:29] LABS: Glucose, Whole Blood 102 mg/dL (60-115)
[2023-02-03 15:59] VITALS: BP 155/88; PULSE 71; RESP 16; TEMP 36.7; O2SAT 96
[2023-02-03 16:25] LABS: Glucose, Whole Blood 134 mg/dL (60-115)
[2023-02-03 19:36] VITALS: BP 147/78; PULSE 67; RESP 14; TEMP 36.5; O2SAT 94
[2023-02-03 20:01] LABS: Glucose, Whole Blood 123 mg/dL (60-115)
[2023-02-03] MEDS: traZODone HCL 50 MG TABLET PO (21:22)
[2023-02-03] MEDS: Atorvastatin Calcium 20 MG TABLET PO (21:22)
[2023-02-03] MEDS: QUEtiapine Fumarate 25 MG TABLET PO (21:22)
[2023-02-03] MEDS: Melatonin 3 MG TABLET 6 MG PO (21:22)
[2023-02-03] MEDS: Divalproex Sodium Sprinkles 125 MG CAP.DR.SPR 500 MG PO (21:22)
[2023-02-03] MEDS: Tamsulosin HCL 0.4 MG CAPSULE 0.8 MG PO (21:23)
[2023-02-03] MEDS: 0.9 % Sodium Chloride Flush 3 ML SYRINGE IVFLUSH (21:23)
[2023-02-03] MEDS: Enoxaparin Sodium 40 MG/0.4 ML SYRINGE SUBCUT (21:23)
[2023-02-04] MEDS: Piperacillin Sodium/Tazobactam 3.375 GM in 0.9 % Sodium Chloride 50 ML IV ×4 (00:38→18:19)
[2023-02-04] MEDS: Dextrose 5 % and 0.45 % NaCl 1,000 ML 80 ML IVCONT ×2 (00:46→13:13)
[2023-02-04 03:06] VITALS: BP 142/77; PULSE 80; RESP 14; TEMP 36; O2SAT 94
[2023-02-04 07:21] VITALS: BP 134/80; PULSE 85; RESP 20; TEMP 37.1; O2SAT 92
[2023-02-04 07:29] LABS: Glucose, Whole Blood 135 mg/dL (60-115)
--- NOTE | 2023-02-04 07:46 | HO.PM.IMPN ---
Subjective Subjective Date of Service: 02/04/23 Interval History: now on room air and comfortable Physical Exam Vital Signs: Vital Signs: Last Vital Signs Temp 98.8 F 02/04/23 07:21 Pulse 85 02/04/23 07:21 Resp 20 02/04/23 07:21 BP 134/80 02/04/23 07:21 Pulse Ox 92 02/04/23 07:21 O2 Del Method Room Air 02/04/23 07:21 O2 Flow Rate 6.0 02/02/23 07:34 Oxygen Flow Rate 5 01/26/23 15:30 BMI result Body Mass Index 22.4 alert, no acute distress, some rhonchi Objective Data Active Medications Acetaminophen (Acetaminophen 325 Mg Tablet) 650 mg PO Q6H PRN PRN Reason: Pain, Mild (Pain Scale 1-3) Artificial Tears (Artificial Tears 15 Ml Drops) 1 drop EYE-BOTH BID PRN PRN Reason: Dry Eyes Aspirin (Aspirin Enteric Coated 81 Mg Tablet.) 81 mg PO DAILY [facility] Last Admin: 02/03/23 09:03 Dose: Not Given Documented By: RADHA Non-Admin Reason: NPO Atorvastatin Calcium (Atorvastatin Calcium 20 Mg Tablet) 20 mg PO BEDTIME [facility] Last Admin: 02/03/23 21:22 Dose: 20 mg Documented By: SHIN Bisacodyl (Bisacodyl 10 Mg Supp.Rect) 10 mg SC DAILY PRN PRN Reason: Constipation Dextrose (Dextrose 50 % 25 Gm/50 Ml Syringe) 25 gm IVPUSH Q15M PRN; Protocol PRN Reason: per Hypoglycemia Standing Ord. Divalproex Sodium (Divalproex Sodium Sprinkles 125 Mg ) 500 mg PO BID [facility] Last Admin: 02/03/23 21:22 Dose: 500 mg Documented By: SHIN Docusate Sodium (Docusate Sodium 100 Mg Capsule) 100 mg PO DAILY PRN PRN Reason: Constipation Enoxaparin Sodium (Enoxaparin Sodium 40 Mg/0.4 Ml Syringe) 40 mg SUBCUT Q24H [facility] Last Admin: 02/03/23 21:23 Dose: 40 mg Documented By: SHIN Finasteride (Finasteride 5 Mg Tablet) 5 mg PO DAILY [facility] Last Admin: 02/03/23 09:03 Dose: Not Given Documented By: RADHA Non-Admin Reason: NPO Fluoxetine HCl (Fluoxetine Hcl 20 Mg Capsule) 60 mg PO DAILY [facility] Last Admin: 02/03/23 09:03 Dose: Not Given Documented By: RADHA Non-Admin Reason: NPO Glucagon (Glucagon Hcl 1 Mg Vial) 1 mg SUBCUT Q20M PRN PRN Reason: Hypoglycemia Glucose (Glucose Gel 15 Gm Gel..Gram.) 15 gm PO Q15M PRN; Protocol PRN Reason: per Hypoglycemia Standing Ord. Piperacillin Sod/Tazobactam (Sod 3.375 gm/ Sodium Chloride) 50 mls @ 100 mls/hr IV Q6H [facility] Last Infusion: 02/04/23 07:05 Dose: Infused Documented By: SHIRLEY Dextrose/Sodium Chloride (D51/2ns) 1,000 mls @ 80 mls/hr IVCONT .[id number] [facility] Last Admin: 02/04/23 00:46 Dose: 80 mls/hr Documented By: SHIRLEY Insulin Human Lispro (Insulin Lispro 100 Unit/Ml 3 Ml Vial) 0 unit SUBCUT QIDACHS [facility]; Protocol Last Admin: 02/04/23 07:33 Dose: Not Given Documented By: SANDRA Non-Admin Reason: NPO Lactulose (Lactulose 20 Gm/30 Ml Solution) 20 gm PO DAILY [facility] Last Admin: 02/03/23 09:03 Dose: Not Given Documented By: RADHA Non-Admin Reason: NPO Lidocaine (Lidocaine 4 % Patch Adh..Patch) 1 patch TRANSDERMA DAILY [facility] Last Admin: 02/03/23 09:14 Dose: Not Given Documented By: RADHA Non-Admin Reason: Patient Refused Magnesium Hydroxide (Milk Of Magnesia 30 Ml Oral.Susp) 30 ml PO DAILY PRN PRN Reason: Constipation Medroxyprogesterone Acetate (Medroxyprogesterone Acetate 5 Mg Tablet) 20 mg PO DAILY [facility] Last Admin: 02/03/23 09:03 Dose: Not Given Documented By: RADHA Non-Admin Reason: NPO Melatonin (Melatonin 3 Mg Tablet) 6 mg PO BEDTIME [facility] Last Admin: 02/03/23 21:22 Dose: 6 mg Documented By: SHIN Naloxone HCl (Naloxone Hcl Nasal 4 Mg [place]) 4 mg NOSTRILALT Q3M PRN PRN Reason: Opioid Overdose Ondansetron HCl (Ondansetron Hcl 4 Mg/2 Ml Vial) 4 mg IVPUSH Q8H PRN PRN Reason: Nausea and Vomiting Quetiapine Fumarate (Quetiapine Fumarate 25 Mg Tablet) 25 mg PO BEDTIME [facility] Last Admin: 02/03/23 21:21 Dose: Not Given Documented By: SHIN Non-Admin Reason: Duplicate Order Quetiapine Fumarate (Quetiapine Fumarate 25 Mg Tablet) 25 mg PO BID [facility] Last Admin: 02/03/23 21:22 Dose: 25 mg Documented By: SHIN Sodium Biphosphate/Sodium Phosphate (Sodium Phosphate,[place]-Dibasic 133 Ml Enema) 118 ml SC DAILY PRN PRN Reason: Constipation Sodium Chloride (0.9 % Sodium Chloride Flush 3 Ml Syringe) 3 ml IVFLUSH QSHIFT [facility] Last Admin: 02/03/23 21:23 Dose: 3 ml Documented By: SHIN Sodium Chloride (Sodium Chloride 0.65 % Nasal 44 Ml Sprbtl) 1 spray NOSTRIL-B Q3H PRN PRN Reason: dry nostrils Tamsulosin HCl (Tamsulosin Hcl 0.4 Mg Capsule) 0.8 mg PO BEDTIME [facility] Last Admin: 02/03/23 21:23 Dose: 0.8 mg Documented By: SHIN Trazodone HCl (Trazodone Hcl 50 Mg Tablet) 50 mg PO BEDTIME [facility] Last Admin: 02/03/23 21:22 Dose: 50 mg Documented By: SHIN Labs 02/03/23 05:24 02/03/23 05:24 Labs: Laboratory Results - last 24 hr 02/03/23 02/03/23 02/03/23 11:16 16:04 19:38 POC Glucose 102 134 H 123 H 02/04/23 07:24 POC Glucose 135 H Assessment and Plan (1) Pleural effusion: Status: Acute (2) Aspiration pneumonia: Status: Acute (3) Hypernatremia: Status: Acute Plan 72M PMH?unspecified dementia, non insulin-dependent diabetes type 2, dysphagia on pureed diet, MDD, hx of TIA, HLD, and hx of AAA who presented to the ED from SNF with increased shortness of breath x1 week. Pt admitted to the hospital for treatment and further evaluation of sepsis in the setting of likely aspiration pneumonia. 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 non insulin-dependent diabetes type 2 a1c 5.9 insulin sliding scale HLD lipitor Dementia/mood disorder depakote, seroquel bph proscar, flomax Full Code DVT Prophylaxis: Lovenox reason for continued hospitalization:npo Quality Stroke Does the patient have a stroke diagnosis?: No VTE Prior VTE?: No VTE Risk Level:: Medical - moderate - high VTE Device Contraindication: Treatment Not Indicated VTE Drug Contraindication: N/A - Med Ordered
[2023-02-04 11:13] LABS: Glucose, Whole Blood 125 mg/dL (60-115)
--- NOTE | 2023-02-04 13:49 | MHC.CLN ---
NUTRITION TODAY IS DAY 4 OF NPO STATUS. PATIENT WITH ASPIRATION PNEUMONIA. IF UNABLE TO TAKE PO, MAY REQUIRE FEEDING TUBE. RD FOLLOWING FOR NUTRITIONAL NEEDS.
[2023-02-04 13:53] VITALS: BMI 22.4
--- NOTE | 2023-02-04 14:40 | P.CONGS_ITS ---
History of Present Illness Consult details Consult date: 02/04/23 Narrative: 72-year-old male referred for PEG tube placement. He was admitted to the hospital on January 26, 2023 because of shortness of breath. He was diagnosed to have aspiration pneumonia He had a swallow study showing oropharyngeal dysphagia. He was considered to be at high risk for recurrent aspiration so he was referred to or for PEG tube placement. He has dementia and diabetes. He does not provide a good history therefore. Review of Systems 2 Review of Systems: Unavailable from patient Yes Unobtainable due to mental status PMFSH Past Medical History Medical History Oropharyngeal dysphagia MDD (major depressive disorder) Dysphagia TIA (transient ischemic attack) Non-insulin dependent type 2 diabetes mellitus Dementia, unspecified, with behavioral disturbance HLD (hyperlipidemia) AAA (abdominal aortic aneurysm) Social History Social History Household Members: Other Housing: Alf Unable to assess alcohol history related to: Unknown Patient Tobacco Use Status: Never used Tobacco service: No Meds Allergies Allergy/AdvReac Type Severity Reaction Status Date / Time Unable to Assess Allergy Verified 01/26/23 15:44 Active Medications: Current Medications Acetaminophen (Acetaminophen 325 Mg Tablet) 650 mg PO Q6H PRN PRN Reason: Pain, Mild (Pain Scale 1-3) Artificial Tears (Artificial Tears 15 Ml Drops) 1 drop EYE-BOTH BID PRN PRN Reason: Dry Eyes Aspirin (Aspirin Enteric Coated 81 Mg Tablet.) 81 mg PO DAILY [facility] Last Admin: 02/04/23 10:15 Dose: Not Given Atorvastatin Calcium (Atorvastatin Calcium 20 Mg Tablet) 20 mg PO BEDTIME [facility] Last Admin: 02/03/23 21:22 Dose: 20 mg Bisacodyl (Bisacodyl 10 Mg Supp.Rect) 10 mg TN DAILY PRN PRN Reason: Constipation Dextrose (Dextrose 50 % 25 Gm/50 Ml Syringe) 25 gm IVPUSH Q15M PRN; Protocol PRN Reason: per Hypoglycemia Standing Ord. Divalproex Sodium (Divalproex Sodium Sprinkles 125 Mg ) 500 mg PO BID [facility] Last Admin: 02/04/23 10:16 Dose: Not Given Docusate Sodium (Docusate Sodium 100 Mg Capsule) 100 mg PO DAILY PRN PRN Reason: Constipation Enoxaparin Sodium (Enoxaparin Sodium 40 Mg/0.4 Ml Syringe) 40 mg SUBCUT Q24H [facility] Last Admin: 02/03/23 21:23 Dose: 40 mg Finasteride (Finasteride 5 Mg Tablet) 5 mg PO DAILY [facility] Last Admin: 02/04/23 10:16 Dose: Not Given Fluoxetine HCl (Fluoxetine Hcl 20 Mg Capsule) 60 mg PO DAILY [facility] Last Admin: 02/04/23 10:16 Dose: Not Given Glucagon (Glucagon Hcl 1 Mg Vial) 1 mg SUBCUT Q20M PRN PRN Reason: Hypoglycemia Glucose (Glucose Gel 15 Gm Gel..Gram.) 15 gm PO Q15M PRN; Protocol PRN Reason: per Hypoglycemia Standing Ord. Piperacillin Sod/Tazobactam (Sod 3.375 gm/ Sodium Chloride) 50 mls @ 100 mls/hr IV Q6H [facility] Last Infusion: 02/04/23 13:51 Dose: Infused Dextrose/Sodium Chloride (D51/2ns) 1,000 mls @ 80 mls/hr IVCONT .[id number] [facility] Last Admin: 02/04/23 13:13 Dose: 80 mls/hr Insulin Human Lispro (Insulin Lispro 100 Unit/Ml 3 Ml Vial) 0 unit SUBCUT QIDACHS [facility]; Protocol Last Admin: 02/04/23 12:30 Dose: Not Given Lactulose (Lactulose 20 Gm/30 Ml Solution) 20 gm PO DAILY [facility] Last Admin: 02/04/23 10:16 Dose: Not Given Lidocaine (Lidocaine 4 % Patch Adh..Patch) 1 patch TRANSDERMA DAILY [facility] Last Admin: 02/04/23 10:44 Dose: Not Given Magnesium Hydroxide (Milk Of Magnesia 30 Ml Oral.Susp) 30 ml PO DAILY PRN PRN Reason: Constipation Medroxyprogesterone Acetate (Medroxyprogesterone Acetate 5 Mg Tablet) 20 mg PO DAILY [facility] Last Admin: 02/04/23 10:16 Dose: Not Given Melatonin (Melatonin 3 Mg Tablet) 6 mg PO BEDTIME [facility] Last Admin: 02/03/23 21:22 Dose: 6 mg Naloxone HCl (Naloxone Hcl Nasal 4 Mg [place]) 4 mg NOSTRILALT Q3M PRN PRN Reason: Opioid Overdose Ondansetron HCl (Ondansetron Hcl 4 Mg/2 Ml Vial) 4 mg IVPUSH Q8H PRN PRN Reason: Nausea and Vomiting Quetiapine Fumarate (Quetiapine Fumarate 25 Mg Tablet) 25 mg PO BEDTIME [facility] Last Admin: 02/03/23 21:21 Dose: Not Given Quetiapine Fumarate (Quetiapine Fumarate 25 Mg Tablet) 25 mg PO BID [facility] Last Admin: 02/04/23 10:19 Dose: Not Given Sodium Biphosphate/Sodium Phosphate (Sodium Phosphate,[place]-Dibasic 133 Ml Enema) 118 ml TN DAILY PRN PRN Reason: Constipation Sodium Chloride (0.9 % Sodium Chloride Flush 3 Ml Syringe) 3 ml IVFLUSH QSHIFT [facility] Last Admin: 02/04/23 07:56 Dose: Not Given Sodium Chloride (Sodium Chloride 0.65 % Nasal 44 Ml Sprbtl) 1 spray NOSTRIL-B Q3H PRN PRN Reason: dry nostrils Tamsulosin HCl (Tamsulosin Hcl 0.4 Mg Capsule) 0.8 mg PO BEDTIME [facility] Last Admin: 02/03/23 21:23 Dose: 0.8 mg Trazodone HCl (Trazodone Hcl 50 Mg Tablet) 50 mg PO BEDTIME [facility] Last Admin: 02/03/23 21:22 Dose: 50 mg Home Medications Medication Instructions Recorded Confirmed Last Taken Type Lactobacillus acidophilus 250 250 mmu cells PO BID 01/27/23 01/27/23 Unknown History million cell capsule (Probiotic Acidophilus) acetaminophen 325 mg tablet 975 mg PO TID 01/27/23 01/27/23 Unknown History amoxicillin 875 mg-potassium 1 tab PO BID 01/27/23 01/27/23 Unknown History clavulanate 125 mg tablet aspirin 81 mg tablet,delayed 81 mg PO DAILY 01/27/23 01/27/23 Unknown History release atorvastatin 20 mg tablet 20 mg PO BEDTIME 01/27/23 01/27/23 Unknown History bisacodyl 10 mg rectal suppository 10 mg [place] DAILY PRN Constipation 01/27/23 01/27/23 Unknown History divalproex 125 mg capsule,delayed 500 mg PO BID 01/27/23 01/27/23 Unknown History release sprinkle finasteride 5 mg tablet 5 mg PO DAILY 01/27/23 01/27/23 Unknown History fluoxetine 20 mg capsule 60 mg PO DAILY 01/27/23 01/27/23 Unknown History glucagon 1 mg/0.2 mL subcutaneous 1 mg subcut Q20M PRN Hypoglycemia 01/27/23 01/27/23 Unknown History syringe (Critical Media PFS 2-Pack) guaifenesin 400 mg tablet 400 mg PO BID 01/27/23 01/27/23 Unknown History ipratropium 0.5 mg-albuterol 3 mg 3 ml inhalation TID 01/27/23 01/27/23 Unknown History (2.5 mg base)/3 mL nebulization soln lactulose 10 gram/15 mL oral 30 ml PO DAILY 01/27/23 01/27/23 Unknown History solution (Enulose) lidocaine 5 % topical patch 1 patch topical DAILY 01/27/23 01/27/23 Unknown History magnesium hydroxide 400 mg/5 mL 30 ml PO DAILY PRN Constipation 01/27/23 01/27/23 Unknown History oral suspension (Milk of Magnesia) medroxyprogesterone 10 mg tablet 20 mg PO DAILY 01/27/23 01/27/23 Unknown History melatonin 3 mg tablet 6 mg PO BEDTIME 01/27/23 01/27/23 Unknown History naloxone 4 mg/actuation nasal 4 mg intranasal Q3M PRN Opioid 01/27/23 01/27/23 Unknown History spray (Narcan) Overdose polyvinyl alcohol 1.4 % eye drops 1 drp ophthalmic (eye) BID PRN Dry 01/27/23 01/27/23 Unknown History Eyes quetiapine 25 mg tablet 25 mg PO BID 01/27/23 01/27/23 Unknown History sodium chloride 0.65 % nasal spray 1 spray intranasal Q3H PRN dry 01/27/23 01/27/23 Unknown History aerosol nostrils sodium phosphates 19 gram-7 118 ml TN DAILY PRN Constipation 01/27/23 01/27/23 Unknown History gram/118 mL enema (Fleet Enema) tamsulosin 0.4 mg capsule 0.8 mg PO BEDTIME 01/27/23 01/27/23 Unknown History trazodone 50 mg tablet 50 mg PO BEDTIME 01/27/23 01/27/23 Unknown History Physical Exam 2 Vital Signs: Vital Signs: Last Vital Signs Temp 98.8 F 02/04/23 07:21 Pulse 85 02/04/23 07:21 Resp 20 02/04/23 07:21 BP 134/80 02/04/23 07:21 Pulse Ox 92 02/04/23 07:21 O2 Del Method Room Air 02/04/23 07:21 O2 Flow Rate 6.0 02/02/23 07:34 Oxygen Flow Rate 5 01/26/23 15:30 BMI result Body Mass Index 22.4 Const: Other: Awake but does not seem to answer questions well because of dementia General: comfortable and no acute distress Orientation/consciousness: p atient oriented x3 Neck: Neck: Yes no lymphadenopathy Resp: Auscultation: clear to auscultation bilaterally Cardio: Rhythm: regular rhythm GI: Other: No surgical scars Palpation (GI): Soft to palpation, nontender and no guarding Neuro: General: patient oriented x3 Results Labs 02/05/23 05:35 02/05/23 05:35 Labs: Abnormal lab results 02/03/23 02/03/23 02/04/23 Range/Units 16:04 19:38 07:24 POC Glucose 134 H 123 H 135 H (60-115) mg/dL 02/04/23 Range/Units 11:09 POC Glucose 125 H (60-115) mg/dL Urine 01/26/23 Range/Units 19:09 Urine Color Yellow Urine Appearance Clear Urine pH 6.0 (5.0-9.0) Ur Specific [place] 1.025 (1.005-1.025) Urine Protein Trace (Neg-Trace) mg/dL Urine Glucose (UA) 500 H (Negative) mg/dL All other labs normal. Assessment and Plan (1) Oropharyngeal dysphagia: Status: Acute He was admitted for aspirated pneumonia, and has oropharyngeal dysphagia on swallow studies. He is deemed to be at high risk for recurrent aspiration. He was therefore referred to me for PEG tube placement. I therefore had talked to her next of kin Rosalia Bright at [phone].had a long discussion with her about the above. I told her about the option of proceeding with PEG tube placement. I explained the technique of this procedure. I reviewed the risks including but not limited to bleeding, infections, injury to bowel or other organs, tube dislodgement, tube leak, inherent risks of anesthesia, as well as the benefits and alternatives. She says she agrees with the plan for PEG tube placement. I will the patient on the schedule for PEG tube placement tomorrow February 05 or on SaturdayFebruary 06. I have reviewed his CT images for a chest CT. There seems to be a good window within the epigastric area to access the lumen of her stoma percutaneously. Procedures Date of Service Date of Service: 02/05/23
--- NOTE | 2023-02-04 15:49 | MHC.CM.PN ---
per rounds pt may be getting a g tube no dc date at this time
[2023-02-04 16:00] VITALS: BP 138/79; PULSE 66; RESP 16; TEMP 36.9; O2SAT 93
[2023-02-04 17:02] LABS: Glucose, Whole Blood 116 mg/dL (60-115)
[2023-02-04 20:00] VITALS: BP 138/85; PULSE 76; RESP 18; TEMP 36.9; O2SAT 99
[2023-02-04 21:31] LABS: Glucose, Whole Blood 101 mg/dL (60-115)
--- NOTE | 2023-02-04 23:13 | PC.NURSE ---
Pt is kept NPO for tomorrow's PEG placement. Lovenox was on hold per MD advise.
[2023-02-05] VITALS (13 sets, daily range): BP systolic 104–152; BP diastolic 64–94; PULSE 67–86; RESP 16–20; TEMP 36.1–37; O2SAT 90–100
[2023-02-05] MEDS: Dextrose 5 % and 0.45 % NaCl 1,000 ML 80 ML IVCONT ×2 (00:04→17:06)
[2023-02-05] MEDS: Piperacillin Sodium/Tazobactam 3.375 GM in 0.9 % Sodium Chloride 50 ML IV ×2 (05:37)
[2023-02-05 06:46] LABS: Hematocrit 32.1 % (42.0-52.0); Hemoglobin 10.3 g/dl (14.0-18.0); Mean Corpuscular HGB Conc 32.1 g/dl (31.0-36.0); Mean Corpuscular Hemoglobin 27.9 pg (27.0-33.0); Mean Platelet Volume 9.3 fL (9.4-12.4); Platelet Count 287 X10*3/uL (160-400); Red Blood Count 3.69 X10*6/uL (4.60-5.80); Red Cell Distribution Width 13.8 % (11.0-16.0); White Blood Count 6.7 X10*3/uL (4.8-10.8)
[2023-02-05 06:48] LABS: Anion Gap 10 (12-20); Blood Urea Nitrogen 8 mg/dL (9-16); Calcium 8.6 mg/dL (8.4-10.2); Carbon Dioxide 20 mmol/L (22-29); Chloride 108 mmol/L (96-108); Creatinine Clr Calc Pharmacy 65.2; Estimated Glomerular Filt Rate > 60; Glucose Fasting 112 mg/dL (60-99); Potassium 3.1 mmol/L (3.3-5.1); Sodium 135 mmol/L (135-145)
[2023-02-05 07:20] LABS: Glucose, Whole Blood 113 mg/dL (60-115)
[2023-02-05] MEDS: Lidocaine 4 % Patch ADH..PATCH 1 PATCH TRANSDERMA (07:30)
[2023-02-05] MEDS: Potassium Chloride/H20 10 MEQ/100 ML PIGGYBACK 100 MEQ IV ×4 (07:31→15:16)
--- NOTE | 2023-02-05 09:07 | P.PNIM_ITS ---
Subjective Subjective Date of Service: 02/05/23 Interval History: on room air and comfortable Physical Exam 2 Vital Signs: Vital Signs: Last Vital Signs Temp 97.0 F 02/05/23 07:04 Pulse 82 02/05/23 07:04 Resp 16 02/05/23 07:04 BP 146/85 H 02/05/23 07:04 Pulse Ox 91 L 02/05/23 07:04 O2 Del Method Room Air 02/05/23 07:04 O2 Flow Rate 6.0 02/02/23 07:34 Oxygen Flow Rate 5 01/26/23 15:30 BMI result Body Mass Index 22.4 Const: Other: Awake but does not seem to answer questions well because of dementia General: comfortable and no acute distress Orientation/consciousness: p atient oriented x3 Neck: Neck: Yes no lymphadenopathy Resp: Auscultation: clear to auscultation bilaterally Cardio: Rhythm: regular rhythm GI: Other: No surgical scars Palpation (GI): Soft to palpation, nontender and no guarding Neuro: General: patient oriented x3 Objective Data Active Medications Acetaminophen (Acetaminophen 325 Mg Tablet) 650 mg PO Q6H PRN PRN Reason: Pain, Mild (Pain Scale 1-3) Artificial Tears (Artificial Tears 15 Ml Drops) 1 drop EYE-BOTH BID PRN PRN Reason: Dry Eyes Aspirin (Aspirin Enteric Coated 81 Mg Tablet.) 81 mg PO DAILY [facility] Last Admin: 02/05/23 07:13 Dose: Not Given Documented By: JESSE Non-Admin Reason: NPO Atorvastatin Calcium (Atorvastatin Calcium 20 Mg Tablet) 20 mg PO BEDTIME [facility] Last Admin: 02/04/23 19:10 Dose: Not Given Documented By: TANYA Non-Admin Reason: NPO Bisacodyl (Bisacodyl 10 Mg Supp.Rect) 10 mg PA DAILY PRN PRN Reason: Constipation Dextrose (Dextrose 50 % 25 Gm/50 Ml Syringe) 25 gm IVPUSH Q15M PRN; Protocol PRN Reason: per Hypoglycemia Standing Ord. Divalproex Sodium (Divalproex Sodium Sprinkles 125 Mg Cap) 500 mg PO BID [facility] Last Admin: 02/05/23 07:13 Dose: Not Given Documented By: JESSE Non-Admin Reason: NPO Docusate Sodium (Docusate Sodium 100 Mg Capsule) 100 mg PO DAILY PRN PRN Reason: Constipation Enoxaparin Sodium (Enoxaparin Sodium 40 Mg/0.4 Ml Syringe) 40 mg SUBCUT Q24H [facility] Last Admin: 02/04/23 21:53 Dose: Not Given Documented By: TANYA Non-Admin Reason: hold per . PEG tube tomorrow. Finasteride (Finasteride 5 Mg Tablet) 5 mg PO DAILY [facility] Last Admin: 02/05/23 07:13 Dose: Not Given Documented By: JESSE Non-Admin Reason: NPO Fluoxetine HCl (Fluoxetine Hcl 20 Mg Capsule) 60 mg PO DAILY [facility] Last Admin: 02/05/23 07:13 Dose: Not Given Documented By: JESSE Non-Admin Reason: NPO Glucagon (Glucagon Hcl 1 Mg Vial) 1 mg SUBCUT Q20M PRN PRN Reason: Hypoglycemia Glucose (Glucose Gel 15 Gm Gel..Gram.) 15 gm PO Q15M PRN; Protocol PRN Reason: per Hypoglycemia Standing Ord. Piperacillin Sod/Tazobactam (Sod 3.375 gm/ Sodium Chloride) 50 mls @ 100 mls/hr IV Q6H [facility] Last Infusion: 02/05/23 06:17 Dose: Infused Documented By: TANYA Dextrose/Sodium Chloride (D51/2ns) 1,000 mls @ 80 mls/hr IVCONT .[id number] [facility] Last Admin: 02/05/23 00:04 Dose: 80 mls/hr Documented By: TANYA Potassium Chloride (Potassium Chloride/H20) 10 meq in 100 mls @ 100 mls/hr IV Q1H [facility] Stop: 02/05/23 11:29 Last Admin: 02/05/23 07:31 Dose: 100 mls/hr Documented By: JESSE Insulin Human Lispro (Insulin Lispro 100 Unit/Ml 3 Ml Vial) 0 unit SUBCUT QIDACHS [facility]; Protocol Last Admin: 02/05/23 07:23 Dose: Not Given Documented By: JESSE Non-Admin Reason: NPO Lactulose (Lactulose 20 Gm/30 Ml Solution) 20 gm PO DAILY [facility] Last Admin: 02/05/23 07:14 Dose: Not Given Documented By: JESSE Non-Admin Reason: NPO Lidocaine (Lidocaine 4 % Patch Adh..Patch) 1 patch TRANSDERMA DAILY [facility] Last Admin: 02/05/23 07:30 Dose: 1 patch Documented By: JESSE Magnesium Hydroxide (Milk Of Magnesia 30 Ml Oral.Susp) 30 ml PO DAILY PRN PRN Reason: Constipation Medroxyprogesterone Acetate (Medroxyprogesterone Acetate 5 Mg Tablet) 20 mg PO DAILY [facility] Last Admin: 02/05/23 07:14 Dose: Not Given Documented By: JESSE Non-Admin Reason: NPO Melatonin (Melatonin 3 Mg Tablet) 6 mg PO BEDTIME [facility] Last Admin: 02/04/23 19:46 Dose: Not Given Documented By: TANYA Non-Admin Reason: NPO Naloxone HCl (Naloxone Hcl Nasal 4 Mg [place]) 4 mg NOSTRILALT Q3M PRN PRN Reason: Opioid Overdose Ondansetron HCl (Ondansetron Hcl 4 Mg/2 Ml Vial) 4 mg IVPUSH Q8H PRN PRN Reason: Nausea and Vomiting Quetiapine Fumarate (Quetiapine Fumarate 25 Mg Tablet) 25 mg PO BEDTIME [facility] Last Admin: 02/04/23 19:46 Dose: Not Given Documented By: TANYA Non-Admin Reason: NPO Quetiapine Fumarate (Quetiapine Fumarate 25 Mg Tablet) 25 mg PO BID [facility] Last Admin: 02/05/23 07:14 Dose: Not Given Documented By: JESSE Non-Admin Reason: NPO Sodium Biphosphate/Sodium Phosphate (Sodium Phosphate,[place]-Dibasic 133 Ml Enema) 118 ml PA DAILY PRN PRN Reason: Constipation Sodium Chloride (0.9 % Sodium Chloride Flush 3 Ml Syringe) 3 ml IVFLUSH QSHIFT [facility] Last Admin: 02/05/23 07:13 Dose: Not Given Documented By: JESSE Non-Admin Reason: IV Running Sodium Chloride (Sodium Chloride 0.65 % Nasal 44 Ml Sprbtl) 1 spray NOSTRIL-B Q3H PRN PRN Reason: dry nostrils Tamsulosin HCl (Tamsulosin Hcl 0.4 Mg Capsule) 0.8 mg PO BEDTIME [facility] Last Admin: 02/04/23 19:46 Dose: Not Given Documented By: TANYA Non-Admin Reason: NPO Trazodone HCl (Trazodone Hcl 50 Mg Tablet) 50 mg PO BEDTIME [facility] Last Admin: 02/04/23 19:46 Dose: Not Given Documented By: TANYA Non-Admin Reason: NPO Labs 02/05/23 05:35 02/05/23 05:35 Labs: Laboratory Results - last 24 hr 02/04/23 02/04/23 02/04/23 11:09 16:46 20:56 MCV MCH MCHC RDW Plt Count MPV Absolute Nucleated RBC Nucleated RBC % (auto) Anion Gap Estim Creat Clear Calc Estimated GFR POC Glucose 125 H 116 H 101 Fasting Glucose Calcium 02/05/23 02/05/23 05:35 07:06 MCV 87.0 MCH 27.9 MCHC 32.1 RDW 13.8 Plt Count 287 MPV 9.3 L Absolute Nucleated RBC 0.000 Nucleated RBC % (auto) 0.0 Anion Gap 10 L Estim Creat Clear Calc 65.2 Estimated GFR > 60 POC Glucose 113 Fasting Glucose 112 H Calcium 8.6 Assessment and Plan (1) Pleural effusion: Status: Acute (2) Aspiration pneumonia: Status: Acute (3) Hypernatremia: Status: Acute Plan 72M PMH?unspecified dementia, non insulin-dependent diabetes type 2, dysphagia on pureed diet, MDD, hx of TIA, HLD, and hx of AAA who presented to the ED from SNF with increased shortness of breath x1 week. Pt admitted to the hospital for treatment and further evaluation of sepsis in the setting of likely aspiration pneumonia. Sepsis due to aspiration pneumonia completed course of zosyn Aspiration precautions acute hypoxic respiratory failure now resolved s/p MBS showing persistent aspiration, plan for Gtube placement today continue npo maintenance fluids hypernatremia resolved Pleural effusions CTA chest found moderate size right pleural effusion and trace amount of left- sided pleural effusion, enlarged heart . non insulin-dependent diabetes type 2 a1c 5.9 insulin sliding scale HLD lipitor Dementia/mood disorder depakote, seroquel bph proscar, flomax Full Code DVT Prophylaxis: Lovenox reason for continued hospitalization:npo, plan for gtube Quality Stroke Does the patient have a stroke diagnosis?: No VTE Prior VTE?: No VTE Risk Level:: Medical - moderate - high VTE Device Contraindication: Treatment Not Indicated VTE Drug Contraindication: N/A - Med Ordered
--- NOTE | 2023-02-05 10:50 | HO.ANESPROP2 ---
[facility] Active Problems Active Problems: All Active Problems (Updated 02/04/23 @ 14:42 by Bartolome Zarate MD) Oropharyngeal dysphagia (Acute) Hypernatremia (Acute) Pleural effusion (Acute) Aspiration pneumonia (Acute) Past Medical History Medical History Oropharyngeal dysphagia MDD (major depressive disorder) Dysphagia TIA (transient ischemic attack) Non-insulin dependent type 2 diabetes mellitus Dementia, unspecified, with behavioral disturbance HLD (hyperlipidemia) AAA (abdominal aortic aneurysm) Social History Social History Household Members: Other Housing: Snf Unable to assess alcohol history related to: Unknown Patient Tobacco Use Status: Never used Tobacco service: No Meds Allergies Allergy/AdvReac Type Severity Reaction Status Date / Time Unable to Assess Allergy Verified 01/26/23 15:44 Active Medications: Current Medications Acetaminophen (Acetaminophen 325 Mg Tablet) 650 mg PO Q6H PRN PRN Reason: Pain, Mild (Pain Scale 1-3) Artificial Tears (Artificial Tears 15 Ml Drops) 1 drop EYE-BOTH BID PRN PRN Reason: Dry Eyes Aspirin (Aspirin Enteric Coated 81 Mg Tablet.Dr) 81 mg PO DAILY [facility] Last Admin: 02/05/23 07:13 Dose: Not Given Atorvastatin Calcium (Atorvastatin Calcium 20 Mg Tablet) 20 mg PO BEDTIME [facility] Last Admin: 02/04/23 19:10 Dose: Not Given Bisacodyl (Bisacodyl 10 Mg Supp.Rect) 10 mg [place] DAILY PRN PRN Reason: Constipation Dextrose (Dextrose 50 % 25 Gm/50 Ml Syringe) 25 gm IVPUSH Q15M PRN; Protocol PRN Reason: per Hypoglycemia Standing Ord. Divalproex Sodium (Divalproex Sodium Sprinkles 125 Mg Carloz.) 500 mg PO BID [facility] Last Admin: 02/05/23 07:13 Dose: Not Given Docusate Sodium (Docusate Sodium 100 Mg Capsule) 100 mg PO DAILY PRN PRN Reason: Constipation Enoxaparin Sodium (Enoxaparin Sodium 40 Mg/0.4 Ml Syringe) 40 mg SUBCUT Q24H [facility] Last Admin: 02/04/23 21:53 Dose: Not Given Finasteride (Finasteride 5 Mg Tablet) 5 mg PO DAILY [facility] Last Admin: 02/05/23 07:13 Dose: Not Given Fluoxetine HCl (Fluoxetine Hcl 20 Mg Capsule) 60 mg PO DAILY [facility] Last Admin: 02/05/23 07:13 Dose: Not Given Glucagon (Glucagon Hcl 1 Mg Vial) 1 mg SUBCUT Q20M PRN PRN Reason: Hypoglycemia Glucose (Glucose Gel 15 Gm Gel..Gram.) 15 gm PO Q15M PRN; Protocol PRN Reason: per Hypoglycemia Standing Ord. Dextrose/Sodium Chloride (D51/2ns) 1,000 mls @ 80 mls/hr IVCONT .[id number] [facility] Last Admin: 02/05/23 00:04 Dose: 80 mls/hr Potassium Chloride (Potassium Chloride/H20) 10 meq in 100 mls @ 100 mls/hr IV Q1H [facility] Stop: 02/05/23 11:29 Last Admin: 02/05/23 09:15 Dose: 100 mls/hr Insulin Human Lispro (Insulin Lispro 100 Unit/Ml 3 Ml Vial) 0 unit SUBCUT QIDACHS [facility]; Protocol Last Admin: 02/05/23 07:23 Dose: Not Given Lactulose (Lactulose 20 Gm/30 Ml Solution) 20 gm PO DAILY [facility] Last Admin: 02/05/23 07:14 Dose: Not Given Lidocaine (Lidocaine 4 % Patch Adh..Patch) 1 patch TRANSDERMA DAILY [facility] Last Admin: 02/05/23 07:30 Dose: 1 patch Magnesium Hydroxide (Milk Of Magnesia 30 Ml Oral.Susp) 30 ml PO DAILY PRN PRN Reason: Constipation Medroxyprogesterone Acetate (Medroxyprogesterone Acetate 5 Mg Tablet) 20 mg PO DAILY [facility] Last Admin: 02/05/23 07:14 Dose: Not Given Melatonin (Melatonin 3 Mg Tablet) 6 mg PO BEDTIME [facility] Last Admin: 02/04/23 19:46 Dose: Not Given Naloxone HCl (Naloxone Hcl Nasal 4 Mg [place]) 4 mg NOSTRILALT Q3M PRN PRN Reason: Opioid Overdose Ondansetron HCl (Ondansetron Hcl 4 Mg/2 Ml Vial) 4 mg IVPUSH Q8H PRN PRN Reason: Nausea and Vomiting Quetiapine Fumarate (Quetiapine Fumarate 25 Mg Tablet) 25 mg PO BEDTIME [facility] Last Admin: 02/04/23 19:46 Dose: Not Given Quetiapine Fumarate (Quetiapine Fumarate 25 Mg Tablet) 25 mg PO BID [facility] Last Admin: 02/05/23 07:14 Dose: Not Given Sodium Biphosphate/Sodium Phosphate (Sodium Phosphate,[place]-Dibasic 133 Ml Enema) 118 ml [place] DAILY PRN PRN Reason: Constipation Sodium Chloride (0.9 % Sodium Chloride Flush 3 Ml Syringe) 3 ml IVFLUSH QSHIFT [facility] Last Admin: 02/05/23 07:13 Dose: Not Given Sodium Chloride (Sodium Chloride 0.65 % Nasal 44 Ml Sprbtl) 1 spray NOSTRIL-B Q3H PRN PRN Reason: dry nostrils Tamsulosin HCl (Tamsulosin Hcl 0.4 Mg Capsule) 0.8 mg PO BEDTIME [facility] Last Admin: 02/04/23 19:46 Dose: Not Given Trazodone HCl (Trazodone Hcl 50 Mg Tablet) 50 mg PO BEDTIME [facility] Last Admin: 02/04/23 19:46 Dose: Not Given Home Medications Medication Instructions Recorded Confirmed Last Taken Type Lactobacillus acidophilus 250 250 mmu cells PO BID 01/27/23 01/27/23 Unknown History million cell capsule (Probiotic Acidophilus) acetaminophen 325 mg tablet 975 mg PO TID 01/27/23 01/27/23 Unknown History amoxicillin 875 mg-potassium 1 tab PO BID 01/27/23 01/27/23 Unknown History clavulanate 125 mg tablet aspirin 81 mg tablet,delayed 81 mg PO DAILY 01/27/23 01/27/23 Unknown History release atorvastatin 20 mg tablet 20 mg PO BEDTIME 01/27/23 01/27/23 Unknown History bisacodyl 10 mg rectal suppository 10 mg [place] DAILY PRN Constipation 01/27/23 01/27/23 Unknown History divalproex 125 mg capsule,delayed 500 mg PO BID 01/27/23 01/27/23 Unknown History release sprinkle finasteride 5 mg tablet 5 mg PO DAILY 01/27/23 01/27/23 Unknown History fluoxetine 20 mg capsule 60 mg PO DAILY 01/27/23 01/27/23 Unknown History glucagon 1 mg/0.2 mL subcutaneous 1 mg subcut Q20M PRN Hypoglycemia 01/27/23 01/27/23 Unknown History syringe (GvmVisum PFS 2-Pack) guaifenesin 400 mg tablet 400 mg PO BID 01/27/23 01/27/23 Unknown History ipratropium 0.5 mg-albuterol 3 mg 3 ml inhalation TID 01/27/23 01/27/23 Unknown History (2.5 mg base)/3 mL nebulization soln lactulose 10 gram/15 mL oral 30 ml PO DAILY 01/27/23 01/27/23 Unknown History solution (Enulose) lidocaine 5 % topical patch 1 patch topical DAILY 01/27/23 01/27/23 Unknown History magnesium hydroxide 400 mg/5 mL 30 ml PO DAILY PRN Constipation 01/27/23 01/27/23 Unknown History oral suspension (Milk of Magnesia) medroxyprogesterone 10 mg tablet 20 mg PO DAILY 01/27/23 01/27/23 Unknown History melatonin 3 mg tablet 6 mg PO BEDTIME 01/27/23 01/27/23 Unknown History naloxone 4 mg/actuation nasal 4 mg intranasal Q3M PRN Opioid 01/27/23 01/27/23 Unknown History spray (Narcan) Overdose polyvinyl alcohol 1.4 % eye drops 1 drp ophthalmic (eye) BID PRN Dry 01/27/23 01/27/23 Unknown History Eyes quetiapine 25 mg tablet 25 mg PO BID 01/27/23 01/27/23 Unknown History sodium chloride 0.65 % nasal spray 1 spray intranasal Q3H PRN dry 01/27/23 01/27/23 Unknown History aerosol nostrils sodium phosphates 19 gram-7 118 ml [place] DAILY PRN Constipation 01/27/23 01/27/23 Unknown History gram/118 mL enema (Fleet Enema) tamsulosin 0.4 mg capsule 0.8 mg PO BEDTIME 01/27/23 01/27/23 Unknown History trazodone 50 mg tablet 50 mg PO BEDTIME 01/27/23 01/27/23 Unknown History Exam Height,Weight and Vital Signs: Height 5 ft 2 in Weight 55.5 kg Last Vital Signs Temp 97.0 F 02/05/23 07:04 Pulse 82 02/05/23 07:04 Resp 16 02/05/23 07:04 BP 146/85 H 02/05/23 07:04 Pulse Ox 91 L 02/05/23 07:04 O2 Del Method Room Air 02/05/23 07:04 O2 Flow Rate 6.0 02/02/23 07:34 Oxygen Flow Rate 5 01/26/23 15:30 Pertinent Lab Results Pertinent Lab Results: Laboratory Tests 01/26/23 01/26/23 01/26/23 15:59 19:09 19:59 WBC 10.3 RBC 3.99 L Hgb 11.4 L Hct 34.6 L MCV 86.7 MCH 28.6 MCHC 32.9 RDW 15.3 Plt Count 318 MPV 9.3 L Immature Gran % (Auto) 1.3 H Neut % (Auto) 87.2 H Lymph % (Auto) 2.9 L [place] % (Auto) 8.3 Eos % (Auto) 0.2 Baso % (Auto) 0.1 Lymph # (Auto) 0.3 L [place] # (Auto) 0.9 Eos # (Auto) 0.0 Baso # (Auto) 0.0 Abs Immat Gran (auto) 0.13 H Absolute Neuts (auto) 9.0 H Absolute Nucleated RBC 0.000 Nucleated RBC % (auto) 0.0 Hold Purple Top Sodium 143 Potassium 4.3 Chloride 112 H Carbon Dioxide 18 L Anion Gap 17 BUN 28 H Creatinine 1.12 Estim Creat Clear Calc 46.0 Estimated GFR > 60 POC Glucose Random Glucose 304 H Fasting Glucose Estimat Average Glucose Hemoglobin A1c % Lactic Acid 3.3 H* Lactic Acid F/U @ 2Hr 2.5 H* Calcium 9.3 Magnesium 2.1 Total Bilirubin 0.4 AST 15 ALT 20 Alkaline Phosphatase 85 Troponin I High Sens 4.6 B-Natriuretic Peptide 72 Total Protein 7.4 Albumin 3.3 L Urine Color Yellow Urine Appearance Clear Urine pH 6.0 Ur Specific Reading 1.025 Urine Protein Trace Urine Glucose (UA) 500 H Urine Ketones Negative Urine Blood Trace Urine Nitrite Negative Ur Leukocyte Esterase Trace H Urine RBC 0-2 Urine WBC 21-50 H Ur Squamous Epith Cells 3-5 Urine Bacteria None Seen Hyaline Casts 0-2 COVID-19 ([facility]) Negative COVID-19 Clin Com See Note Influenza Type A (JOSE) Negative Influenza Type B (JOSE) Negative Influenza A & B Note See Note 01/27/23 01/27/23 01/27/23 06:47 07:38 11:39 WBC 10.3 RBC 3.44 L Hgb 9.8 L Hct 29.6 L MCV 86.0 MCH 28.5 MCHC 33.1 RDW 15.4 Plt Count 306 MPV 9.1 L Immature Gran % (Auto) Neut % (Auto) Lymph % (Auto) [place] % (Auto) Eos % (Auto) Baso % (Auto) Lymph # (Auto) [place] # (Auto) Eos # (Auto) Baso # (Auto) Abs Immat Gran (auto) Absolute Neuts (auto) Absolute Nucleated RBC 0.000 Nucleated RBC % (auto) 0.0 Hold Purple Top Sodium 144 Potassium 3.9 Chloride 113 H Carbon Dioxide 21 L Anion Gap 14 BUN 20 H Creatinine 0.84 Estim Creat Clear Calc 61.3 Estimated GFR > 60 POC Glucose 166 H 147 H Random Glucose 192 H Fasting Glucose Estimat Average Glucose Hemoglobin A1c % Lactic Acid Lactic Acid F/U @ 2Hr Calcium 9.1 Magnesium Total Bilirubin AST ALT Alkaline Phosphatase Troponin I High Sens B-Natriuretic Peptide Total Protein Albumin Urine Color Urine Appearance Urine pH Ur Specific Reading Urine Protein Urine Glucose (UA) Urine Ketones Urine Blood Urine Nitrite Ur Leukocyte Esterase Urine RBC Urine WBC Ur Squamous Epith Cells Urine Bacteria Hyaline Casts COVID-19 ([facility]) COVID-19 Clin Com Influenza Type A (JOSE) Influenza Type B (JOSE) Influenza A & B Note 01/27/23 01/27/23 01/28/23 15:16 20:55 07:03 WBC RBC Hgb Hct MCV MCH MCHC RDW Plt Count MPV Immature Gran % (Auto) Neut % (Auto) Lymph % (Auto) [place] % (Auto) Eos % (Auto) Baso % (Auto) Lymph # (Auto) [place] # (Auto) Eos # (Auto) Baso # (Auto) Abs Immat Gran (auto) Absolute Neuts (auto) Absolute Nucleated RBC Nucleated RBC % (auto) Hold Purple Top Sodium Potassium Chloride Carbon Dioxide Anion Gap BUN Creatinine Estim Creat Clear Calc Estimated GFR POC Glucose 142 H 158 H 205 H Random Glucose Fasting Glucose Estimat Average Glucose Hemoglobin A1c % Lactic Acid Lactic Acid F/U @ 2Hr Calcium Magnesium Total Bilirubin AST ALT Alkaline Phosphatase Troponin I High Sens B-Natriuretic Peptide Total Protein Albumin Urine Color Urine Appearance Urine pH Ur Specific Reading Urine Protein Urine Glucose (UA) Urine Ketones Urine Blood Urine Nitrite Ur Leukocyte Esterase Urine RBC Urine WBC Ur Squamous Epith Cells Urine Bacteria Hyaline Casts COVID-19 ([facility]) COVID-19 Clin Com Influenza Type A (JOSE) Influenza Type B (JOSE) Influenza A & B Note 01/28/23 01/28/23 01/28/23 11:06 12:22 16:33 WBC RBC Hgb Hct MCV MCH MCHC RDW Plt Count MPV Immature Gran % (Auto) Neut % (Auto) Lymph % (Auto) [place] % (Auto) Eos % (Auto) Baso % (Auto) Lymph # (Auto) [place] # (Auto) Eos # (Auto) Baso # (Auto) Abs Immat Gran (auto) Absolute Neuts (auto) Absolute Nucleated RBC Nucleated RBC % (auto) Hold Purple Top SEE NOTE Sodium 150 H Potassium 3.4 Chloride 119 H Carbon Dioxide 21 L Anion Gap 13 BUN 27 H Creatinine 0.95 Estim Creat Clear Calc 54.2 Estimated GFR > 60 POC Glucose 207 H 230 H Random Glucose 201 H Fasting Glucose Estimat Average Glucose Hemoglobin A1c % Lactic Acid Lactic Acid F/U @ 2Hr Calcium 9.4 Magnesium Total Bilirubin AST ALT Alkaline Phosphatase Troponin I High Sens B-Natriuretic Peptide Total Protein Albumin Urine Color Urine Appearance Urine pH Ur Specific Reading Urine Protein Urine Glucose (UA) Urine Ketones Urine Blood Urine Nitrite Ur Leukocyte Esterase Urine RBC Urine WBC Ur Squamous Epith Cells Urine Bacteria Hyaline Casts COVID-19 ([facility]) COVID-19 Clin Com Influenza Type A (JOSE) Influenza Type B (JOSE) Influenza A & B Note 01/28/23 01/29/23 01/29/23 20:40 06:54 08:11 WBC RBC Hgb Hct MCV MCH MCHC RDW Plt Count MPV Immature Gran % (Auto) Neut % (Auto) Lymph % (Auto) [place] % (Auto) Eos % (Auto) Baso % (Auto) Lymph # (Auto) [place] # (Auto) Eos # (Auto) Baso # (Auto) Abs Immat Gran (auto) Absolute Neuts (auto) Absolute Nucleated RBC Nucleated RBC % (auto) Hold Purple Top SEE NOTE Sodium 150 H Potassium 4.0 Chloride 118 H Carbon Dioxide 20 L Anion Gap 16 BUN 26 H Creatinine 0.87 Estim Creat Clear Calc 59.2 Estimated GFR > 60 POC Glucose 238 H 173 H Random Glucose 168 H Fasting Glucose Estimat Average Glucose 123 Hemoglobin A1c % 5.9 Lactic Acid Lactic Acid F/U @ 2Hr Calcium 9.4 Magnesium Total Bilirubin AST ALT Alkaline Phosphatase Troponin I High Sens B-Natriuretic Peptide Total Protein Albumin Urine Color Urine Appearance Urine pH Ur Specific Reading Urine Protein Urine Glucose (UA) Urine Ketones Urine Blood Urine Nitrite Ur Leukocyte Esterase Urine RBC Urine WBC Ur Squamous Epith Cells Urine Bacteria Hyaline Casts COVID-19 ([facility]) COVID-19 Clin Com Influenza Type A (JOSE) Influenza Type B (JOSE) Influenza A & B Note 01/29/23 01/29/23 01/29/23 11:01 16:30 20:21 WBC RBC Hgb Hct MCV MCH MCHC RDW Plt Count MPV Immature Gran % (Auto) Neut % (Auto) Lymph % (Auto) [place] % (Auto) Eos % (Auto) Baso % (Auto) Lymph # (Auto) [place] # (Auto) Eos # (Auto) Baso # (Auto) Abs Immat Gran (auto) Absolute Neuts (auto) Absolute Nucleated RBC Nucleated RBC % (auto) Hold Purple Top Sodium Potassium Chloride Carbon Dioxide Anion Gap BUN Creatinine Estim Creat Clear Calc Estimated GFR POC Glucose 272 H 188 H 221 H Random Glucose Fasting Glucose Estimat Average Glucose Hemoglobin A1c % Lactic Acid Lactic Acid F/U @ 2Hr Calcium Magnesium Total Bilirubin AST ALT Alkaline Phosphatase Troponin I High Sens B-Natriuretic Peptide Total Protein Albumin Urine Color Urine Appearance Urine pH Ur Specific Reading Urine Protein Urine Glucose (UA) Urine Ketones Urine Blood Urine Nitrite Ur Leukocyte Esterase Urine RBC Urine WBC Ur Squamous Epith Cells Urine Bacteria Hyaline Casts COVID-19 ([facility]) COVID-19 Clin Com Influenza Type A (JOSE) Influenza Type B (JOSE) Influenza A & B Note 01/30/23 01/30/23 01/30/23 06:09 06:55 11:08 WBC 8.5 RBC 3.56 L Hgb 10.0 L Hct 30.7 L MCV 86.2 MCH 28.1 MCHC 32.6 RDW 15.9 Plt Count 368 MPV 9.2 L Immature Gran % (Auto) Neut % (Auto) Lymph % (Auto) [place] % (Auto) Eos % (Auto) Baso % (Auto) Lymph # (Auto) [place] # (Auto) Eos # (Auto) Baso # (Auto) Abs Immat Gran (auto) Absolute Neuts (auto) Absolute Nucleated RBC 0.000 Nucleated RBC % (auto) 0.0 Hold Purple Top Sodium 152 H Potassium 3.2 L Chloride 118 H Carbon Dioxide 24 Anion Gap 13 BUN 24 H Creatinine 0.90 Estim Creat Clear Calc 57.2 Estimated GFR > 60 POC Glucose 127 H 258 H Random Glucose 147 H Fasting Glucose Estimat Average Glucose Hemoglobin A1c % Lactic Acid Lactic Acid F/U @ 2Hr Calcium 8.8 D Magnesium Total Bilirubin AST ALT Alkaline Phosphatase Troponin I High Sens B-Natriuretic Peptide Total Protein Albumin Urine Color Urine Appearance Urine pH Ur Specific [place] Urine Protein Urine Glucose (UA) Urine Ketones Urine Blood Urine Nitrite Ur Leukocyte Esterase Urine RBC Urine WBC Ur Squamous Epith Cells Urine Bacteria Hyaline Casts COVID-19 ([facility]) COVID-19 Clin Com Influenza Type A (JOSE) Influenza Type B (JOSE) Influenza A & B Note 01/30/23 01/30/23 01/31/23 16:27 20:28 05:24 WBC 10.0 RBC 3.60 L Hgb 10.2 L Hct 31.4 L MCV 87.2 MCH 28.3 MCHC 32.5 RDW 15.6 Plt Count 291 MPV 9.2 L Immature Gran % (Auto) Neut % (Auto) Lymph % (Auto) [place] % (Auto) Eos % (Auto) Baso % (Auto) Lymph # (Auto) [place] # (Auto) Eos # (Auto) Baso # (Auto) Abs Immat Gran (auto) Absolute Neuts (auto) Absolute Nucleated RBC 0.000 Nucleated RBC % (auto) 0.0 Hold Purple Top Sodium 143 Potassium 3.3 Chloride 111 H Carbon Dioxide 24 Anion Gap 11 L BUN 16 Creatinine 0.76 Estim Creat Clear Calc 67.8 Estimated GFR > 60 POC Glucose 97 217 H Random Glucose Fasting Glucose 135 H Estimat Average Glucose Hemoglobin A1c % Lactic Acid Lactic Acid F/U @ 2Hr Calcium 7.9 L D Magnesium Total Bilirubin AST ALT Alkaline Phosphatase Troponin I High Sens B-Natriuretic Peptide Total Protein Albumin Urine Color Urine Appearance Urine pH Ur Specific [place] Urine Protein Urine Glucose (UA) Urine Ketones Urine Blood Urine Nitrite Ur Leukocyte Esterase Urine RBC Urine WBC Ur Squamous Epith Cells Urine Bacteria Hyaline Casts COVID-19 ([facility]) COVID-19 Clin Com Influenza Type A (JOSE) Influenza Type B (JOSE) Influenza A & B Note 01/31/23 01/31/23 01/31/23 07:16 11:09 16:26 WBC RBC Hgb Hct MCV MCH MCHC RDW Plt Count MPV Immature Gran % (Auto) Neut % (Auto) Lymph % (Auto) [place] % (Auto) Eos % (Auto) Baso % (Auto) Lymph # (Auto) [place] # (Auto) Eos # (Auto) Baso # (Auto) Abs Immat Gran (auto) Absolute Neuts (auto) Absolute Nucleated RBC Nucleated RBC % (auto) Hold Purple Top Sodium Potassium Chloride Carbon Dioxide Anion Gap BUN Creatinine Estim Creat Clear Calc Estimated GFR POC Glucose 133 H 149 H 123 H Random Glucose Fasting Glucose Estimat Average Glucose Hemoglobin A1c % Lactic Acid Lactic Acid F/U @ 2Hr Calcium Magnesium Total Bilirubin AST ALT Alkaline Phosphatase Troponin I High Sens B-Natriuretic Peptide Total Protein Albumin Urine Color Urine Appearance Urine pH Ur Specific [place] Urine Protein Urine Glucose (UA) Urine Ketones Urine Blood Urine Nitrite Ur Leukocyte Esterase Urine RBC Urine WBC Ur Squamous Epith Cells Urine Bacteria Hyaline Casts COVID-19 ([facility]) COVID-19 Clin Com Influenza Type A (JOSE) Influenza Type B (JOSE) Influenza A & B Note 01/31/23 02/01/23 02/01/23 20:05 07:13 09:21 WBC 27.5 H RBC 4.44 L D Hgb 12.5 L D Hct 38.6 L D MCV 86.9 MCH 28.2 MCHC 32.4 RDW 15.1 Plt Count 455 H D MPV 9.2 L Immature Gran % (Auto) Neut % (Auto) Lymph % (Auto) [place] % (Auto) Eos % (Auto) Baso % (Auto) Lymph # (Auto) [place] # (Auto) Eos # (Auto) Baso # (Auto) Abs Immat Gran (auto) Absolute Neuts (auto) Absolute Nucleated RBC 0.000 Nucleated RBC % (auto) 0.0 Hold Purple Top Sodium 141 Potassium 3.5 Chloride 107 Carbon Dioxide 23 Anion Gap 15 BUN 15 Creatinine 0.96 Estim Creat Clear Calc 53.7 Estimated GFR > 60 POC Glucose 167 H 124 H Random Glucose Fasting Glucose 148 H Estimat Average Glucose Hemoglobin A1c % Lactic Acid Lactic Acid F/U @ 2Hr Calcium 9.0 D Magnesium Total Bilirubin AST ALT Alkaline Phosphatase Troponin I High Sens B-Natriuretic Peptide Total Protein Albumin Urine Color Urine Appearance Urine pH Ur Specific [place] Urine Protein Urine Glucose (UA) Urine Ketones Urine Blood Urine Nitrite Ur Leukocyte Esterase Urine RBC Urine WBC Ur Squamous Epith Cells Urine Bacteria Hyaline Casts COVID-19 ([facility]) COVID-19 Clin Com Influenza Type A (JOSE) Influenza Type B (JOSE) Influenza A & B Note 02/01/23 02/01/23 02/01/23 12:19 15:43 20:35 WBC RBC Hgb Hct MCV MCH MCHC RDW Plt Count MPV Immature Gran % (Auto) Neut % (Auto) Lymph % (Auto) [place] % (Auto) Eos % (Auto) Baso % (Auto) Lymph # (Auto) [place] # (Auto) Eos # (Auto) Baso # (Auto) Abs Immat Gran (auto) Absolute Neuts (auto) Absolute Nucleated RBC Nucleated RBC % (auto) Hold Purple Top Sodium Potassium Chloride Carbon Dioxide Anion Gap BUN Creatinine Estim Creat Clear Calc Estimated GFR POC Glucose 167 H 132 H 144 H Random Glucose Fasting Glucose Estimat Average Glucose Hemoglobin A1c % Lactic Acid Lactic Acid F/U @ 2Hr Calcium Magnesium Total Bilirubin AST ALT Alkaline Phosphatase Troponin I High Sens B-Natriuretic Peptide Total Protein Albumin Urine Color Urine Appearance Urine pH Ur Specific [place] Urine Protein Urine Glucose (UA) Urine Ketones Urine Blood Urine Nitrite Ur Leukocyte Esterase Urine RBC Urine WBC Ur Squamous Epith Cells Urine Bacteria Hyaline Casts COVID-19 ([facility]) COVID-19 Clin Com Influenza Type A (JOSE) Influenza Type B (JOSE) Influenza A & B Note 02/02/23 02/02/23 02/02/23 05:14 07:40 11:18 WBC 16.2 H RBC 3.74 L Hgb 10.6 L Hct 32.5 L MCV 86.9 MCH 28.3 MCHC 32.6 RDW 15.2 Plt Count 338 D MPV 9.2 L Immature Gran % (Auto) Neut % (Auto) Lymph % (Auto) [place] % (Auto) Eos % (Auto) Baso % (Auto) Lymph # (Auto) [place] # (Auto) Eos # (Auto) Baso # (Auto) Abs Immat Gran (auto) Absolute Neuts (auto) Absolute Nucleated RBC 0.000 Nucleated RBC % (auto) 0.0 Hold Purple Top Sodium 144 Potassium 3.6 Chloride 110 H Carbon Dioxide 24 Anion Gap 14 BUN 20 H Creatinine 0.84 Estim Creat Clear Calc 61.3 Estimated GFR > 60 POC Glucose 133 H 147 H Random Glucose Fasting Glucose 131 H Estimat Average Glucose Hemoglobin A1c % Lactic Acid Lactic Acid F/U @ 2Hr Calcium 8.7 Magnesium Total Bilirubin AST ALT Alkaline Phosphatase Troponin I High Sens B-Natriuretic Peptide Total Protein Albumin Urine Color Urine Appearance Urine pH Ur Specific [place] Urine Protein Urine Glucose (UA) Urine Ketones Urine Blood Urine Nitrite Ur Leukocyte Esterase Urine RBC Urine WBC Ur Squamous Epith Cells Urine Bacteria Hyaline Casts COVID-19 ([facility]) COVID-19 Clin Com Influenza Type A (JOSE) Influenza Type B (JOSE) Influenza A & B Note 02/02/23 02/02/23 02/03/23 15:54 19:48 05:24 WBC 9.7 RBC 3.44 L Hgb 9.6 L Hct 30.1 L MCV 87.5 MCH 27.9 MCHC 31.9 RDW 15.1 Plt Count 297 MPV 9.3 L Immature Gran % (Auto) Neut % (Auto) Lymph % (Auto) [place] % (Auto) Eos % (Auto) Baso % (Auto) Lymph # (Auto) [place] # (Auto) Eos # (Auto) Baso # (Auto) Abs Immat Gran (auto) Absolute Neuts (auto) Absolute Nucleated RBC 0.000 Nucleated RBC % (auto) 0.0 Hold Purple Top Sodium 143 Potassium 3.3 Chloride 112 H Carbon Dioxide 21 L Anion Gap 13 BUN 16 Creatinine 0.79 Estim Creat Clear Calc 65.2 Estimated GFR > 60 POC Glucose 177 H 144 H Random Glucose Fasting Glucose 126 H Estimat Average Glucose Hemoglobin A1c % Lactic Acid Lactic Acid F/U @ 2Hr Calcium 8.5 Magnesium Total Bilirubin AST ALT Alkaline Phosphatase Troponin I High Sens B-Natriuretic Peptide Total Protein Albumin Urine Color Urine Appearance Urine pH Ur Specific [place] Urine Protein Urine Glucose (UA) Urine Ketones Urine Blood Urine Nitrite Ur Leukocyte Esterase Urine RBC Urine WBC Ur Squamous Epith Cells Urine Bacteria Hyaline Casts COVID-19 ([facility]) COVID-19 Clin Com Influenza Type A (JOSE) Influenza Type B (JOSE) Influenza A & B Note 02/03/23 02/03/23 02/03/23 07:13 11:16 16:04 WBC RBC Hgb Hct MCV MCH MCHC RDW Plt Count MPV Immature Gran % (Auto) Neut % (Auto) Lymph % (Auto) [place] % (Auto) Eos % (Auto) Baso % (Auto) Lymph # (Auto) [place] # (Auto) Eos # (Auto) Baso # (Auto) Abs Immat Gran (auto) Absolute Neuts (auto) Absolute Nucleated RBC Nucleated RBC % (auto) Hold Purple Top Sodium Potassium Chloride Carbon Dioxide Anion Gap BUN Creatinine Estim Creat Clear Calc Estimated GFR POC Glucose 125 H 102 134 H Random Glucose Fasting Glucose Estimat Average Glucose Hemoglobin A1c % Lactic Acid Lactic Acid F/U @ 2Hr Calcium Magnesium Total Bilirubin AST ALT Alkaline Phosphatase Troponin I High Sens B-Natriuretic Peptide Total Protein Albumin Urine Color Urine Appearance Urine pH Ur Specific [place] Urine Protein Urine Glucose (UA) Urine Ketones Urine Blood Urine Nitrite Ur Leukocyte Esterase Urine RBC Urine WBC Ur Squamous Epith Cells Urine Bacteria Hyaline Casts COVID-19 ([facility]) COVID-19 Clin Com Influenza Type A (JOSE) Influenza Type B (JOSE) Influenza A & B Note 02/03/23 02/04/23 02/04/23 19:38 07:24 11:09 WBC RBC Hgb Hct MCV MCH MCHC RDW Plt Count MPV Immature Gran % (Auto) Neut % (Auto) Lymph % (Auto) [place] % (Auto) Eos % (Auto) Baso % (Auto) Lymph # (Auto) [place] # (Auto) Eos # (Auto) Baso # (Auto) Abs Immat Gran (auto) Absolute Neuts (auto) Absolute Nucleated RBC Nucleated RBC % (auto) Hold Purple Top Sodium Potassium Chloride Carbon Dioxide Anion Gap BUN Creatinine Estim Creat Clear Calc Estimated GFR POC Glucose 123 H 135 H 125 H Random Glucose Fasting Glucose Estimat Average Glucose Hemoglobin A1c % Lactic Acid Lactic Acid F/U @ 2Hr Calcium Magnesium Total Bilirubin AST ALT Alkaline Phosphatase Troponin I High Sens B-Natriuretic Peptide Total Protein Albumin Urine Color Urine Appearance Urine pH Ur Specific Reading Urine Protein Urine Glucose (UA) Urine Ketones Urine Blood Urine Nitrite Ur Leukocyte Esterase Urine RBC Urine WBC Ur Squamous Epith Cells Urine Bacteria Hyaline Casts COVID-19 (GREGORIO) COVID-19 Clin Com Influenza Type A (JOSE) Influenza Type B (JOSE) Influenza A & B Note 02/04/23 02/04/23 02/05/23 16:46 20:56 05:35 WBC 6.7 RBC 3.69 L Hgb 10.3 L Hct 32.1 L MCV 87.0 MCH 27.9 MCHC 32.1 RDW 13.8 Plt Count 287 MPV 9.3 L Immature Gran % (Auto) Neut % (Auto) Lymph % (Auto) [place] % (Auto) Eos % (Auto) Baso % (Auto) Lymph # (Auto) [place] # (Auto) Eos # (Auto) Baso # (Auto) Abs Immat Gran (auto) Absolute Neuts (auto) Absolute Nucleated RBC 0.000 Nucleated RBC % (auto) 0.0 Hold Purple Top Sodium 135 Potassium 3.1 L Chloride 108 Carbon Dioxide 20 L Anion Gap 10 L BUN 8 L Creatinine 0.79 Estim Creat Clear Calc 65.2 Estimated GFR > 60 POC Glucose 116 H 101 Random Glucose Fasting Glucose 112 H Estimat Average Glucose Hemoglobin A1c % Lactic Acid Lactic Acid F/U @ 2Hr Calcium 8.6 Magnesium Total Bilirubin AST ALT Alkaline Phosphatase Troponin I High Sens B-Natriuretic Peptide Total Protein Albumin Urine Color Urine Appearance Urine pH Ur Specific [place] Urine Protein Urine Glucose (UA) Urine Ketones Urine Blood Urine Nitrite Ur Leukocyte Esterase Urine RBC Urine WBC Ur Squamous Epith Cells Urine Bacteria Hyaline Casts COVID-19 (GREGORIO) COVID-19 Clin Com Influenza Type A (JOSE) Influenza Type B (JOSE) Influenza A & B Note 02/05/23 07:06 WBC RBC Hgb Hct MCV MCH MCHC RDW Plt Count MPV Immature Gran % (Auto) Neut % (Auto) Lymph % (Auto) [place] % (Auto) Eos % (Auto) Baso % (Auto) Lymph # (Auto) [place] # (Auto) Eos # (Auto) Baso # (Auto) Abs Immat Gran (auto) Absolute Neuts (auto) Absolute Nucleated RBC Nucleated RBC % (auto) Hold Purple Top Sodium Potassium Chloride Carbon Dioxide Anion Gap BUN Creatinine Estim Creat Clear Calc Estimated GFR POC Glucose 113 Random Glucose Fasting Glucose Estimat Average Glucose Hemoglobin A1c % Lactic Acid Lactic Acid F/U @ 2Hr Calcium Magnesium Total Bilirubin AST ALT Alkaline Phosphatase Troponin I High Sens B-Natriuretic Peptide Total Protein Albumin Urine Color Urine Appearance Urine pH Ur Specific [place] Urine Protein Urine Glucose (UA) Urine Ketones Urine Blood Urine Nitrite Ur Leukocyte Esterase Urine RBC Urine WBC Ur Squamous Epith Cells Urine Bacteria Hyaline Casts COVID-19 (GREG[facility]IO) COVID-19 Clin Com Influenza Type A (JOSE) Influenza Type B (JOSE) Influenza A & B Note Airway Heart: RRR Lungs: CTA Assessment and Plan Assessment Anesthesia Assessment: Anesthesia Plan Discussed and Chart Reviewed Final Anesthetic Review NPO: Yes ASA Class: IV Final Preanesthetic Review: Meds/Allgs Chart Reviewed, Consent Obtained/Reviewed and Anes Risks/Benef Reviewed Patient Risk: High Procedure Risk: Low Anesthetic Plan Anesthetic Plan: GA Disposition: Standard PACU
[2023-02-05 11:32] LABS: Glucose, Whole Blood 94 mg/dL (60-115)
--- NOTE | 2023-02-05 12:45 | MHC.SLORD ---
Speech Language Pathology Order Status: Pt scheduled for PEG placement. Recent diagnosis of silent aspiration on MBSS contraindicates oral supplementation at this time. Recommend repeat MBSS prior to initiating PO if his goals of care change. No further CLINICAL RESEARCH NURSE intervention indicated at this time.
--- NOTE | 2023-02-05 12:49 | P.OP_ITS ---
Operative Note Operative Note Date of Service: 02/05/23 Narrative: Preop diagnosis: Oropharyngeal dysphagia Postop diagnosis: The same Procedure: PEG tube placement Surgeon: Bartolome Zarate MD assistant production editor: EULALIA Pacheco The patient is a 72-year-old male with dementia, admitted for aspiration pneumonia. He had failed a swallow eval and was referred for PEG tube placement for his oropharyngeal dysphagia. The consent was given by his knees. He was brought to the operating room. He was placed supine under general anesthesia via endotracheal tube. A bite block was in position. A surgical time-out was done. I proceeded to insert the endoscope through the bite block into the oropharynx. The endotracheal tube was seen. The esophageal slit was seen posterior to this. The esophageal slit was intubated and scope was gradually inserted through the entire length of the esophagus all the way to the stomach. The stomach was insufflated. Transillumination was easily seen on the epigastric area. Furthermore, indentation on the anterior stomach wall when this area was pressed with a finger was also easily seen. This area was therefore prepped and draped. Lidocaine 1% was used for local anesthesia. A small stab incision was made using a blade 11. The large-bore needle was inserted all the way to the stomach lumen. The guidewire was inserted through this and was grasped with a snare. We pulled the guidewire out through the oral orifice. The feeding tube was looped on to this guidewire. The guidewire was then pulled out the abdominal wall along with the feeding tube until this felt snug. I inserted the scope back into the stomach. The inner bolster was seen and this was in good position. There was no bleeding. The scope was then withdrawn completely. The external bolster was then positioned to make this snug on the skin. The attachments for feeding were then placed into the tube. The patient tolerated the procedure well. There were no immediate complications. There was minimal blood loss. The patient was extubated without difficulty and transferred to the recovery room with stable vital signs.
[2023-02-05 14:12] LABS: Glucose, Whole Blood 90 mg/dL (60-115)
[2023-02-05 16:27] LABS: Glucose, Whole Blood 116 mg/dL (60-115)
[2023-02-05 20:07] LABS: Glucose, Whole Blood 109 mg/dL (60-115)
[2023-02-05] MEDS: Enoxaparin Sodium 40 MG/0.4 ML SYRINGE SUBCUT (22:23)
[2023-02-06 04:11] VITALS: BP 143/80; PULSE 89; RESP 18; TEMP 36.2; O2SAT 94
[2023-02-06] MEDS: Dextrose 5 % and 0.45 % NaCl 1,000 ML 80 ML IVCONT (04:45)
--- NOTE | 2023-02-06 04:49 | PC.NURSE ---
Pt stayed awake. Kept NPO. Night meds were not scheduled per MD order. Camera inside the room. Pt was able to remove the dressing of the PEG. Needs constant monitoring. PEG dressing applied to secure.
[2023-02-06 06:50] LABS: Hematocrit 32.6 % (42.0-52.0); Hemoglobin 10.7 g/dl (14.0-18.0); Mean Corpuscular HGB Conc 32.8 g/dl (31.0-36.0); Mean Corpuscular Hemoglobin 28.2 pg (27.0-33.0); Mean Corpuscular Volume 85.8 fL (80.0-98.0); Mean Platelet Volume 9.4 fL (9.4-12.4); Platelet Count 320 X10*3/uL (160-400); Red Cell Distribution Width 13.7 % (11.0-16.0); White Blood Count 7.9 X10*3/uL (4.8-10.8)
[2023-02-06 07:10] LABS: Anion Gap 10 (12-20); Blood Urea Nitrogen 6 mg/dL (9-16); Calcium 8.5 mg/dL (8.4-10.2); Carbon Dioxide 20 mmol/L (22-29); Chloride 108 mmol/L (96-108); Creatinine Clr Calc Pharmacy 70.6; Estimated Glomerular Filt Rate > 60; Glucose Fasting 125 mg/dL (60-99); Sodium 135 mmol/L (135-145)
[2023-02-06 07:39] LABS: Glucose, Whole Blood 128 mg/dL (60-115)
[2023-02-06 07:40] VITALS: BP 145/91; PULSE 80; RESP 12; TEMP 36.2; O2SAT 93
[2023-02-06] MEDS: Potassium Chloride/H20 10 MEQ/100 ML PIGGYBACK 100 MEQ IV (07:59)
--- NOTE | 2023-02-06 09:28 | MHC.CLN ---
F/U NUTRITION CONSULT FOR TUBE FEEDING. RECEIVED G TUBE 02/05. CONTINUES NPO. MBS SHOWS PERSISTENT ASPIRATION. REQUIRES NUTRITION/HYDRATION VIA PEG. RECOMMEND GLUCERNA AT MAX GOAL RATE 65 ML PER HOUR CONTINUOUS. FREE WATER FLUSHES 120 ML Q 6 HOURS. PROVIDES 1560 ML FORMULA; 1560 KCALS (28.1 KCALS/KG); 65.2 G PROTEIN (1.17 G/KG); 1330 ML FREE WATER FROM FORMULA PLUS 480 ML FROM BTYYR=[id number] ML (32.6 ML/KG). FOLLOW FOR RESIDUALS, LYTES, TUBE FEED TOLERANCE. START GLUCERNA 1.0 AT 20 ML PER HOUR, INCREASE 10 ML EVERY 4 HOURS TO MAX GOAL RATE OF 65 ML PER HOUR. CHECK RESIDUAL EVERY 4 HOURS, HOLD FOR 2 HOURS IF GREATER THANN 250 ML.
--- NOTE | 2023-02-06 11:07 | P.PNGS_ITS ---
Subjective Subjective Date of Service: 02/06/23 Interval history: No events overnight Peg placement done yesterday Physical Exam 2 Vital Signs: Vital Signs: Last Vital Signs Temp 97.2 F 02/06/23 07:40 Pulse 80 02/06/23 07:40 Resp 12 02/06/23 07:40 BP 145/91 H 02/06/23 07:40 Pulse Ox 93 02/06/23 07:40 O2 Del Method Room Air 02/06/23 07:40 O2 Flow Rate 2 02/05/23 14:23 Oxygen Flow Rate 5 01/26/23 15:30 BMI result Body Mass Index 22.4 Const: General: comfortable and no acute distress Resp: Effort & Inspection: normal respiratory effort GI: Other: PEG tube in place, dressings dry Palpation (GI): Soft to palpation, not firm and no guarding Objective Data Active Medications Acetaminophen (Acetaminophen 325 Mg Tablet) 650 mg G-TUBE Q6H PRN PRN Reason: Pain, Mild (Pain Scale 1-3) Albuterol Sulfate (Albuterol Sulfate (0.083%) 2.5 Mg/3 Ml Vial.Neb) 2.5 mg INHALE ONCE PRN PRN Reason: Wheezing Artificial Tears (Artificial Tears 15 Ml Drops) 1 drop EYE-BOTH BID PRN PRN Reason: Dry Eyes Aspirin (Aspirin Enteric Coated 81 Mg Tablet.) 81 mg PO DAILY [facility] Last Admin: 02/05/23 07:13 Dose: Not Given Documented By: JESSE Non-Admin Reason: NPO Atorvastatin Calcium (Atorvastatin Calcium 20 Mg Tablet) 20 mg G-TUBE BEDTIME [facility] Bisacodyl (Bisacodyl 10 Mg Supp.Rect) 10 mg [place] DAILY PRN PRN Reason: Constipation Dextrose (Dextrose 50 % 25 Gm/50 Ml Syringe) 25 gm IVPUSH Q15M PRN; Protocol PRN Reason: per Hypoglycemia Standing Ord. Divalproex Sodium (Divalproex Sodium Sprinkles 125 Mg Cap.) 500 mg G-TUBE BID [facility] Docusate Sodium (Docusate Sodium 100 Mg Capsule) 100 mg PO DAILY PRN PRN Reason: Constipation Enoxaparin Sodium (Enoxaparin Sodium 40 Mg/0.4 Ml Syringe) 40 mg SUBCUT Q24H [facility] Last Admin: 02/05/23 22:23 Dose: 40 mg Documented By: HO.REYESAN Finasteride (Finasteride 5 Mg Tablet) 5 mg PO DAILY [facility] Last Admin: 02/05/23 07:13 Dose: Not Given Documented By: JESSE Non-Admin Reason: NPO Fluoxetine HCl (Fluoxetine Hcl 20 Mg Capsule) 60 mg G-TUBE DAILY [facility] Glucagon (Glucagon Hcl 1 Mg Vial) 1 mg SUBCUT Q20M PRN PRN Reason: Hypoglycemia Glucose (Glucose Gel 15 Gm Gel..Gram.) 15 gm PO Q15M PRN; Protocol PRN Reason: per Hypoglycemia Standing Ord. Insulin Human Lispro (Insulin Lispro 100 Unit/Ml 3 Ml Vial) 0 unit SUBCUT QIDACHS [facility]; Protocol Last Admin: 02/06/23 07:56 Dose: Not Given Documented By: ERIC Non-Admin Reason: No Access Lactulose (Lactulose 20 Gm/30 Ml Solution) 20 gm G-TUBE DAILY [facility] Lidocaine (Lidocaine 4 % Patch Adh..Patch) 1 patch TRANSDERMA DAILY [facility] Last Admin: 02/05/23 07:30 Dose: 1 patch Documented By: JESSE Magnesium Hydroxide (Milk Of Magnesia 30 Ml Oral.Susp) 30 ml G-TUBE DAILY PRN PRN Reason: Constipation Medroxyprogesterone Acetate (Medroxyprogesterone Acetate 5 Mg Tablet) 20 mg G- TUBE DAILY [facility] Melatonin (Melatonin 3 Mg Tablet) 6 mg G-TUBE BEDTIME [facility] Naloxone HCl (Naloxone Hcl Nasal 4 Mg [place]) 4 mg NOSTRILALT Q3M PRN PRN Reason: Opioid Overdose Ondansetron HCl (Ondansetron Hcl 4 Mg/2 Ml Vial) 4 mg IVPUSH Q8H PRN PRN Reason: Nausea and Vomiting Oxycodone HCl (Oxycodone Hcl Immed Release 5 Mg Tablet) 5 mg G-TUBE Q4H PRN PRN Reason: Pain, Moderate(Pain Scale 4-6) Quetiapine Fumarate (Quetiapine Fumarate 25 Mg Tablet) 25 mg G-TUBE BEDTIME [facility] Quetiapine Fumarate (Quetiapine Fumarate 25 Mg Tablet) 25 mg G-TUBE BID [facility] Sodium Biphosphate/Sodium Phosphate (Sodium Phosphate,[place]-Dibasic 133 Ml Enema) 118 ml [place] DAILY PRN PRN Reason: Constipation Sodium Chloride (0.9 % Sodium Chloride Flush 3 Ml Syringe) 3 ml IVFLUSH QSHIFT [facility] Last Admin: 02/06/23 07:58 Dose: Not Given Documented By: ERIC Non-Admin Reason: IV Running Sodium Chloride (Sodium Chloride 0.65 % Nasal 44 Ml Sprbtl) 1 spray NOSTRIL-B Q3H PRN PRN Reason: dry nostrils Tamsulosin HCl (Tamsulosin Hcl 0.4 Mg Capsule) 0.8 mg PO BEDTIME [facility] Last Admin: 02/05/23 21:33 Dose: Not Given Documented By: TANYA Non-Admin Reason: NPO Trazodone HCl (Trazodone Hcl 50 Mg Tablet) 50 mg G-TUBE BEDTIME [facility] Labs 02/06/23 06:06 02/06/23 06:06 Labs: Laboratory Results - last 24 hr 02/05/23 02/05/23 02/05/23 11:29 14:09 16:08 MCV MCH MCHC RDW Plt Count MPV Absolute Nucleated RBC Nucleated RBC % (auto) Anion Gap Estim Creat Clear Calc Estimated GFR POC Glucose 94 90 116 H Fasting Glucose Calcium 02/05/23 02/06/23 02/06/23 20:03 06:06 07:33 MCV 85.8 MCH 28.2 MCHC 32.8 RDW 13.7 Plt Count 320 MPV 9.4 Absolute Nucleated RBC 0.000 Nucleated RBC % (auto) 0.0 Anion Gap 10 L Estim Creat Clear Calc 70.6 Estimated GFR > 60 POC Glucose 109 128 H Fasting Glucose 125 H Calcium 8.5 Procedures Date of Service Date of Service: 02/06/23 Progress Note: A&P Assessment and plan (1) Oropharyngeal dysphagia: Status: Acute Assessment and Plan: Status PEG placement Doing well postop Abdomen soft and benign Okay to start peg tube feeds today Rest of management as per hospitalist service Time Spent With Patient Time: Total time managing care of this patient today ____ minutes. Quality Stroke Does the patient have a stroke diagnosis?: No VTE Prior VTE?: No VTE Risk Level:: Medical - moderate - high VTE Device Contraindication: Treatment Not Indicated VTE Drug Contraindication: N/A - Med Ordered
[2023-02-06 11:27] LABS: Glucose, Whole Blood 130 mg/dL (60-115)
[2023-02-06] MEDS: Lidocaine 4 % Patch ADH..PATCH 1 PATCH TRANSDERMA (11:51)
[2023-02-06] MEDS: Finasteride 5 MG TABLET PO (11:51)
[2023-02-06] MEDS: Aspirin Enteric Coated 81 MG TABLET.DR PO (11:51)
--- NOTE | 2023-02-06 12:20 | HO.POSTANES ---
Post Anesthesia Evaluation Post Anesthesia Evaluation Date of Service: 02/06/23 Vital Signs: Vital Signs Temp Pulse Resp BP Pulse Ox O2 Del Method 02/06/23 07:40 97.2 F 80 12 145/91 H 93 Room Air 02/06/23 04:11 97.1 F 89 18 143/80 H 94 Room Air Anesthesia: General Mental Status: Awake Pain Control: Satisfactory Nausea/Vomiting: None Hydration: Adequate Anesthesia-Related Issues: No Anes. Related Issues
--- NOTE | 2023-02-06 13:17 | HO.PM.IMPN ---
Subjective Subjective Date of Service: 02/06/23 Interval History: seen and evaluated not very verbal denies any pain G tube in place Review of Systems Review of Systems: Yes all other systems are reviewed and are negative Physical Exam Vital Signs: Vital Signs: Last Vital Signs Temp 97.2 F 02/06/23 07:40 Pulse 80 02/06/23 07:40 Resp 12 02/06/23 07:40 BP 145/91 H 02/06/23 07:40 Pulse Ox 93 02/06/23 07:40 O2 Del Method Room Air 02/06/23 07:40 O2 Flow Rate 2 02/05/23 14:23 Oxygen Flow Rate 5 01/26/23 15:30 BMI result Body Mass Index 22.4 Const: Other: Constitutional : Awake, interactive, not in distress Neck : Normal inspection, Supple Cardiovascular : RRR, no JVP, no lower extremity edema Respiratory : good bilateral air entry, no crackles, wheezes or rhonchi Gastrointestinal: soft, lax, Normal bowel sounds, Non tender, G-tube in place with no surrounding erythema\drainage Skin : Warm, Dry Neurological : Alert , non-verbal, moving all extremities Objective Data Active Medications Acetaminophen (Acetaminophen 325 Mg Tablet) 650 mg G-TUBE Q6H PRN PRN Reason: Pain, Mild (Pain Scale 1-3) Albuterol Sulfate (Albuterol Sulfate (0.083%) 2.5 Mg/3 Ml Vial.Neb) 2.5 mg INHALE ONCE PRN PRN Reason: Wheezing Artificial Tears (Artificial Tears 15 Ml Drops) 1 drop EYE-BOTH BID PRN PRN Reason: Dry Eyes Aspirin (Aspirin Enteric Coated 81 Mg Tablet.) 81 mg PO DAILY [facility] Last Admin: 02/06/23 11:51 Dose: 81 mg Documented By: ERIC Bisacodyl (Bisacodyl 10 Mg Supp.Rect) 10 mg [place] DAILY PRN PRN Reason: Constipation Dextrose (Dextrose 50 % 25 Gm/50 Ml Syringe) 25 gm IVPUSH Q15M PRN; Protocol PRN Reason: per Hypoglycemia Standing Ord. Divalproex Sodium (Divalproex Sodium Sprinkles 125 Mg ) 500 mg G-TUBE BID [facility] Docusate Sodium (Docusate Sodium 100 Mg Capsule) 100 mg PO DAILY PRN PRN Reason: Constipation Enoxaparin Sodium (Enoxaparin Sodium 40 Mg/0.4 Ml Syringe) 40 mg SUBCUT Q24H [facility] Last Admin: 02/05/23 22:23 Dose: 40 mg Documented By: TANYA Finasteride (Finasteride 5 Mg Tablet) 5 mg PO DAILY [facility] Last Admin: 02/06/23 11:51 Dose: 5 mg Documented By: ERIC Fluoxetine HCl (Fluoxetine Hcl 20 Mg Capsule) 60 mg G-TUBE DAILY [facility] Glucagon (Glucagon Hcl 1 Mg Vial) 1 mg SUBCUT Q20M PRN PRN Reason: Hypoglycemia Glucose (Glucose Gel 15 Gm Gel..Gram.) 15 gm PO Q15M PRN; Protocol PRN Reason: per Hypoglycemia Standing Ord. Insulin Human Lispro (Insulin Lispro 100 Unit/Ml 3 Ml Vial) 0 unit SUBCUT QIDACHS [facility]; Protocol Last Admin: 02/06/23 12:09 Dose: Not Given Documented By: ERIC Non-Admin Reason: No Insulin Coverage Lactulose (Lactulose 20 Gm/30 Ml Solution) 20 gm G-TUBE DAILY [facility] Lidocaine (Lidocaine 4 % Patch Adh..Patch) 1 patch TRANSDERMA DAILY [facility] Last Admin: 02/06/23 11:51 Dose: 1 patch Documented By: ERIC Magnesium Hydroxide (Milk Of Magnesia 30 Ml Oral.Susp) 30 ml G-TUBE DAILY PRN PRN Reason: Constipation Melatonin (Melatonin 3 Mg Tablet) 6 mg G-TUBE BEDTIME [facility] Naloxone HCl (Naloxone Hcl Nasal 4 Mg [place]) 4 mg NOSTRILALT Q3M PRN PRN Reason: Opioid Overdose Ondansetron HCl (Ondansetron Hcl 4 Mg/2 Ml Vial) 4 mg IVPUSH Q8H PRN PRN Reason: Nausea and Vomiting Oxycodone HCl (Oxycodone Hcl Immed Release 5 Mg Tablet) 5 mg G-TUBE Q4H PRN PRN Reason: Pain, Moderate(Pain Scale 4-6) Quetiapine Fumarate (Quetiapine Fumarate 25 Mg Tablet) 25 mg G-TUBE BEDTIME [facility] Quetiapine Fumarate (Quetiapine Fumarate 25 Mg Tablet) 25 mg G-TUBE BID [facility] Sodium Biphosphate/Sodium Phosphate (Sodium Phosphate,[place]-Dibasic 133 Ml Enema) 118 ml [place] DAILY PRN PRN Reason: Constipation Sodium Chloride (0.9 % Sodium Chloride Flush 3 Ml Syringe) 3 ml IVFLUSH QSHIFT [facility] Last Admin: 02/06/23 07:58 Dose: Not Given Documented By: ERIC Non-Admin Reason: IV Running Sodium Chloride (Sodium Chloride 0.65 % Nasal 44 Ml Sprbtl) 1 spray NOSTRIL-B Q3H PRN PRN Reason: dry nostrils Tamsulosin HCl (Tamsulosin Hcl 0.4 Mg Capsule) 0.8 mg PO BEDTIME [facility] Last Admin: 02/05/23 21:33 Dose: Not Given Documented By: TANYA Non-Admin Reason: NPO Trazodone HCl (Trazodone Hcl 50 Mg Tablet) 50 mg G-TUBE BEDTIME [facility] Labs 02/06/23 06:06 02/06/23 06:06 Labs: Laboratory Results - last 24 hr 02/05/23 02/05/23 02/05/23 14:09 16:08 20:03 MCV MCH MCHC RDW Plt Count MPV Absolute Nucleated RBC Nucleated RBC % (auto) Anion Gap Estim Creat Clear Calc Estimated GFR POC Glucose 90 116 H 109 Fasting Glucose Calcium 02/06/23 02/06/23 02/06/23 06:06 07:33 11:15 MCV 85.8 MCH 28.2 MCHC 32.8 RDW 13.7 Plt Count 320 MPV 9.4 Absolute Nucleated RBC 0.000 Nucleated RBC % (auto) 0.0 Anion Gap 10 L Estim Creat Clear Calc 70.6 Estimated GFR > 60 POC Glucose 128 H 130 H Fasting Glucose 125 H Calcium 8.5 Assessment and Plan (1) Oropharyngeal dysphagia: Status: Acute (2) Hypernatremia: Status: Acute (3) Aspiration pneumonia: Status: Acute Plan 72M PMH?unspecified dementia, non insulin-dependent diabetes type 2, dysphagia on pureed diet, MDD, hx of TIA, HLD, and hx of AAA who presented to the ED from SNF with increased shortness of breath x1 week. Pt admitted to the hospital for treatment and further evaluation of sepsis in the setting of likely aspiration pneumonia. Sepsis , resolved. Hypoxia, resolved, due to aspiration pneumonia completed course of zosyn Aspiration precautions s/p MBSS showing persistent aspiration G-tube placed. starting Tube feed today continue npo maintenance fluids hypernatremia resolved, DC IVF Pleural effusions CTA chest found moderate size right pleural effusion and trace amount of left-sided pleural effusion, enlarged heart . non insulin-dependent diabetes type 2 a1c 5.9 insulin sliding scale HLD lipitor Dementia/mood disorder depakote, seroquel bph proscar, flomax Full Code DVT Prophylaxis: Lovenox reason for continued hospitalization: STarting tube feeds of G-Tube , plkannning safe discharge plan Quality Stroke Does the patient have a stroke diagnosis?: No VTE Prior VTE?: No VTE Risk Level:: Medical - moderate - high VTE Device Contraindication: Treatment Not Indicated VTE Drug Contraindication: N/A - Med Ordered
--- NOTE | 2023-02-06 13:33 | MHC.CM.PN ---
EMR REVIEWED AND PER MD ROUNDS, PT IS NOT MEDICALLY CLEARED FOR DC BACK TO [facility] FOR LTC( NEW PEG TUBE, TRIALING FEEDING, MAX GOAL) CM WILL CONTINUE TO FOLLOW FOR ANY CHANGE IN DC PLAN/NEEDS
[2023-02-06 15:20] LABS: Glucose, Whole Blood 107 mg/dL (60-115)
[2023-02-06] MEDS: 0.9 % Sodium Chloride Flush 3 ML SYRINGE IVFLUSH ×2 (15:28→21:55)
[2023-02-06 15:33] VITALS: BP 148/93; PULSE 86; RESP 12; TEMP 36.2; O2SAT 94
[2023-02-06 19:49] VITALS: BP 144/92; PULSE 88; RESP 16; TEMP 36.4; O2SAT 92
[2023-02-06 20:49] LABS: Glucose, Whole Blood 103 mg/dL (60-115)
[2023-02-06] MEDS: traZODone HCL 50 MG TABLET G-TUBE (21:39)
[2023-02-06] MEDS: QUEtiapine Fumarate 25 MG TABLET G-TUBE ×2 (21:39)
[2023-02-06] MEDS: Tamsulosin HCL 0.4 MG CAPSULE 0.8 MG PO (21:39)
[2023-02-06] MEDS: Divalproex Sodium Sprinkles 125 MG CAP.DR.SPR 500 MG G-TUBE (21:40)
[2023-02-06] MEDS: Melatonin 3 MG TABLET 6 MG G-TUBE (21:40)
[2023-02-06] MEDS: Enoxaparin Sodium 40 MG/0.4 ML SYRINGE SUBCUT (22:10)
[2023-02-07 03:49] VITALS: BP 115/69; PULSE 101; RESP 18; TEMP 36.2; O2SAT 96
[2023-02-07 06:34] LABS: Anion Gap 12 (12-20); Blood Urea Nitrogen 11 mg/dL (9-16); Calcium 8.7 mg/dL (8.4-10.2); Carbon Dioxide 21 mmol/L (22-29); Chloride 106 mmol/L (96-108); Creatinine Clr Calc Pharmacy 67.8; Estimated Glomerular Filt Rate > 60; Glucose Random 119 mg/dL (60-115); Potassium 3.2 mmol/L (3.3-5.1); Sodium 136 mmol/L (135-145)
[2023-02-07 07:48] VITALS: BP 115/59; PULSE 100; RESP 16; TEMP 36.6; O2SAT 93
[2023-02-07 07:49] LABS: Glucose, Whole Blood 107 mg/dL (60-115)
[2023-02-07] MEDS: 0.9 % Sodium Chloride Flush 3 ML SYRINGE IVFLUSH (08:52)
[2023-02-07] MEDS: Potassium Chloride Packet 20 MEQ PACKET 40 MEQ G-TUBE (08:58)
[2023-02-07] MEDS: Finasteride 5 MG TABLET PO (08:58)
[2023-02-07] MEDS: FLUoxetine HCl 20 MG CAPSULE 60 MG G-TUBE (08:58)
[2023-02-07] MEDS: Lidocaine 4 % Patch ADH..PATCH 1 PATCH TRANSDERMA (08:59)
[2023-02-07] MEDS: Lactulose 20 GM/30 ML SOLUTION G-TUBE (08:59)
[2023-02-07] MEDS: Divalproex Sodium Sprinkles 125 MG CAP.DR.SPR 500 MG G-TUBE (08:59)
[2023-02-07] MEDS: QUEtiapine Fumarate 25 MG TABLET G-TUBE (08:59)
[2023-02-07] MEDS: Aspirin 81 MG TAB.CHEW G-TUBE (10:14)
[2023-02-07 11:18] LABS: Glucose, Whole Blood 139 mg/dL (60-115)
--- NOTE | 2023-02-07 12:13 | MHC.CM.PN ---
DP: PT HAS BEEN MEDICALLY CLEARED FOR DC BACK TO [facility] TO RESUME CORRECTION CARE. RN AWARE AND NOTIFIED THE CENTER WILL NEED SOME FORMULA SO THEY MAY HAVE TIME TO ORDER. HCP DUDLEY NOTIFIED OF DC. IMM ADDRESSED WITH HCP VIA TELEPHONE ON 02/06/23. BLS TRANSPORT BOOKED FOR 1:30 PM VIA [employer]. CENTER AWARE.
--- NOTE | 2023-02-07 12:34 | PM.DS ---
DS: Providers Provider Date of Service: 02/07/23 Date of admission: 01/26/23 22:13 Primary care physician: CAITIE LUZ Consults: 02/04/23 10:52 Consult to General Surgery Routine Consulting Provider: [facility] General Surgeons Reason for consultation: gtube DS: Diagnosis Discharge Diagnosis (1) Oropharyngeal dysphagia: Status: Acute (2) Hypernatremia: Status: Acute (3) Aspiration pneumonia: Status: Acute (4) Sepsis: Status: Acute (5) Acute respiratory failure with hypoxia: Status: Acute (6) Pleural effusion: Status: Acute DS: Summary Hospital Course Hospital Course: Admission note HPI Pt is a 72-year-old male with a PMH significant for?unspecified dementia, non insulin-dependent diabetes type 2, dysphagia pureed diet, MDD, hx of TIA, HLD, and hx of AAA who presents to the ED from SNF with increased shortness of breath x1 week. Patient with advanced dementia at baseline, alert and oriented to self only and does incapable of providing accurate HPI which is instead obtained from chart and provider review. Patient apparently was noted to be desatting as low as 90% on RA and with frequent wet sounding cough at SNF, so was sent to the ED for further evaluation. In the ED pt was febrile up to 101.3, tachycardic up to 111, tachypneic up to 40, and hypertensive to 167/82, satting at 93% on 5L NC. Labs were significant for H&H 11.4/34.6, BUN 28, random glucose 304, lactic acid 3.3 with repeat 2.5. UA with trace leukocyte esterase with no bacteria seen, likely negative for UTI. Tested negative for influenza types a and B, COVID. CXR showed bronchial wall thickening that may be infectious and/or inflammatory in etiology, with trace left pleural effusion and left lower lobe atelectasis. Chest CT showed moderate right-sided pleural effusion and trace amount of left-sided pleural fluid with dependent consolidative opacities in the lower lobes that could be related to atelectasis, aspiration, or pneumonia. Also found enlarged heart with trace amount of pericardial fluid and extensive multivessel coronary artery calcifications and AAA measuring 4.4 cm. EKG demonstrated normal sinus rhythm without evidence of significant ST elevations or depressions. Pt was treated with IVF, Zosyn, and acetaminophen. Pt will be admitted to the hospital for treatment and further evaluation of sepsis in the setting of likely aspiration pneumonia. Hospital course # Sepsis and Hypoxia due to aspiration pneumonia Noted on CT scan of the lungs. Cultures remained negative. completed course of zosyn during hospital stay and weaned off Oxygen. Aspiration precautions followed as MBSS showing persistent aspiration by [facility] team. discussed with HCP and decision was made for G-tube placement. tolerated Tube feed. Keep him NPO. Multigrapher RECOMMEND GLUCERNA AT MAX GOAL RATE 65 ML PER HOUR CONTINUOUS. FREE WATER FLUSHES 120 ML Q 6 HOURS. PROVIDES 1560 ML FORMULA; 1560 KCALS (28.1 KCALS/KG); 65.2 G PROTEIN (1.17 G/KG); 1330 ML FREE WATER FROM FORMULA PLUS 480 ML FROM [id number] ML (32.6 ML/KG). FOLLOW FOR RESIDUALS, LYTES, TUBE FEED TOLERANCE. # hypernatremia resolved with IV fluids. change medications route to G-tube Head elevation at 45% with diet Aspiration precautions Time Attestation Discharge coordination time: Greater than 30 minutes Quality: Safe Use of Opioids Does Pt have an Active Cancer Diagnosis on the Problem List?: No Quality: Stroke Does the patient have a stroke diagnosis?: No Physical Exam Vital Signs: Vital Signs: Last Vital Signs Temp 98 F 02/07/23 07:48 Pulse 100 02/07/23 07:48 Resp 16 02/07/23 07:48 BP 115/59 L 02/07/23 07:48 Pulse Ox 93 02/07/23 07:48 O2 Del Method Room Air 02/07/23 07:48 O2 Flow Rate 2 02/05/23 14:23 Oxygen Flow Rate 5 01/26/23 15:30 BMI result Body Mass Index 22.4 Const: Other: Constitutional : Awake, interactive, not in distress Neck : Normal inspection, Supple Cardiovascular : RRR, no JVP, no lower extremity edema Respiratory : good bilateral air entry, no crackles, wheezes or rhonchi Gastrointestinal: soft, lax, Normal bowel sounds, Non tender, G-tube in place with no surrounding erythema\drainage Skin : Warm, Dry Neurological : Alert , non-verbal, moving all extremities DS: Data Data Completed and Pending Labs on day of discharge: Laboratory Results - last 24 hr 02/06/23 02/06/23 02/07/23 15:15 20:47 05:31 Sodium 136 Potassium 3.2 L Chloride 106 Carbon Dioxide 21 L Anion Gap 12 BUN 11 Creatinine 0.76 Estim Creat Clear Calc 67.8 Estimated GFR > 60 POC Glucose 107 103 Random Glucose 119 H Calcium 8.7 02/07/23 02/07/23 07:30 11:07 Sodium Potassium Chloride Carbon Dioxide Anion Gap BUN Creatinine Estim Creat Clear Calc Estimated GFR POC Glucose 107 139 H Random Glucose Calcium Imaging CT scan - abdomen: Radiologist's impression: ITS Impressions Chest X-Ray 01/26/23 16:59 IMPRESSION: 1. Bronchial wall thickening may be infectious and/or inflammatory in etiology. 2. Trace left pleural effusion and left lower lobe atelectasis. Chest CT 01/26/23 20:24 IMPRESSION: Limited examination secondary to motion. 1. Moderate size right-sided pleural effusion and trace amount of left-sided pleural fluid. 2. Dependent consolidative opacities in the lower lobes could be related with atelectasis, aspiration or pneumonia. Recommend short-term follow-up after treatment to ensure appropriate resolution and rule out underlying lesions. 3. Enlarged heart with trace amount of pericardial fluid and extensive multivessel coronary artery calcifications. 4. Aneurysm of the ascending thoracic aorta measuring 4.4 cm in diameter; recommend outpatient vascular consultation to determine further management/follow-up. Chest X-Ray 02/01/23 08:40 IMPRESSION: Bibasilar infiltrates, left-sided subsegmental atelectasis and probable small bilateral pleural effusions. This may be slightly increased on the left compared to January 26, 2023 exams. Modified Barium Swallow 02/01/23 11:30 IMPRESSION: Fluoroscopy during modified barium swallow. Discharge Plan Discharge Anticipated Discharge Date/Time: 02/07/23 12:04 Patient Disposition: [facility] Discharge Diagnosis: Aspiration pneumonia Swallowing problem Referrals: [facility] [Outside] - 1 Week (TRANSFER FOR RESUMPTION OF REHABILITATION AIDE/SCHEDULER CARE) CAITIE LUZ [Primary Care Provider] - 1 Week Discharge Medications: New aspirin 81 mg Tablet,Chewable 81 mg G-tube DAILY Qty: 90 0RF quetiapine 25 mg Tablet 25 mg G-tube BEDTIME Qty: 30 0RF trazodone 50 mg Tablet 50 mg G-tube BEDTIME Qty: 30 0RF Continued quetiapine 25 mg tablet 25 mg PO BID acetaminophen 325 mg Tablet 975 mg PO TID atorvastatin 20 mg tablet 20 mg PO BEDTIME ipratropium-albuterol 0.5 mg-3 mg(2.5 mg base)/3 mL solution for nebulization 3 ml inhalation TID Rx Instructions: END DATE: 01/30/23 trazodone 50 mg tablet 50 mg PO BEDTIME polyvinyl alcohol 1.4 % Drops 1 drp OPHTHALMIC (EYE) BID PRN (Reason: Dry Eyes) melatonin 3 mg Tablet 6 mg PO BEDTIME magnesium hydroxide [Milk of Magnesia] 400 mg/5 mL Suspension 30 ml PO DAILY PRN (Reason: Constipation) tamsulosin 0.4 mg capsule 0.8 mg PO BEDTIME bisacodyl 10 mg Suppository 10 mg [place] DAILY PRN (Reason: Constipation) lidocaine 5 % adhesive patch,medicated 1 patch topical DAILY Rx Instructions: ON IN THE AM; OFF IN THE PM (12 hrs on) Fleet Enema 19-7 gram/118 mL Enema 118 ml WI DAILY PRN (Reason: Constipation) fluoxetine 20 mg capsule 60 mg PO DAILY divalproex 125 mg capsule, delayed rel sprinkle 500 mg PO BID finasteride 5 mg tablet 5 mg PO DAILY guaifenesin 400 mg Tablet 400 mg PO BID sodium chloride 0.65 % Aerosol,[place] 1 spray INTRANASAL Q3H PRN (Reason: dry nostrils) lactulose [Enulose] 10 gram/15 mL solution 30 ml PO DAILY naloxone [Narcan] 4 mg/actuation [place],Non-Aerosol 4 mg INTRANASAL Q3M PRN (Reason: Opioid Overdose) Rx Instructions: spray 1 dose into ONE nostril; alternate nostrils w each dose until help arrives Probiotic Acidophilus 250 million cell Capsule 250 mmu cells PO BID Rx Instructions: END DATE: 02/02/23 Gvoke PFS 2-Pack Syringe 1 mg/0.2 mL Syringe 1 mg SUBCUT Q20M PRN (Reason: Hypoglycemia) Rx Instructions: until target blood sugar attained Discontinued medroxyprogesterone 10 mg tablet 20 mg PO DAILY aspirin 81 mg Tablet,Delayed Release (Dr/Ec) 81 mg PO DAILY amoxicillin-pot clavulanate 875-125 mg tablet 1 tab PO BID Rx Instructions: END DATE: 02/02/23 Discharge Orders: Discharge Order (Routine); Ordered 02/07/23 Ordered By: Laurie Beckford Diet: Advance to usual diet Activity on Discharge: As tolerated Stand Alone Forms: Patient Portal Discharge page Care Plan Goals: Read below Health Concerns: Read below Plan of Treatment: Read below Assessment: A Gastric tube was placed with good tolerance of tube feed. change medications route to G-tube Head elevation at 45% with diet Aspiration precautions
[2023-02-07 15:18] VITALS: BP 117/67; PULSE 100; RESP 18; TEMP 36.6; O2SAT 97
== END 2023-02-07 16:15 | DRG 871 ==
LOC: HO.ED 20:15 → HO.EDOVER 22:41 → HO.S3 01-27 07:54
PROVIDERS: Internal Medicine; Nurse Practitioner Family; Surgery; Admitting Provider Student in an Organized Health Care Education/Training Program; Emergency Provider Internal Medicine; PCP Emergency Medicine; Visit Provider Student in an Organized Health Care Education/Training Program
PROC: 0DH63UZ Insertion of Feeding Device into Stomach, Percutaneous Approach (ICD-10-PCS; CPT 43246; principal; 2023-02-05 12:00)
DX: A41.9 Sepsis, unspecified organism (principal); J69.0 Pneumonitis due to inhalation of food and vomit; J96.01 Acute respiratory failure with hypoxia; E87.0 Hyperosmolality and hypernatremia; F03.918 Unspecified dementia, unspecified severity, with other behavioral disturbance; J91.8 Pleural effusion in other conditions classified elsewhere; N40.0 Benign prostatic hyperplasia without lower urinary tract symptoms; R13.10 Dysphagia, unspecified; E78.5 Hyperlipidemia, unspecified; E11.9 Type 2 diabetes mellitus without complications; F32.9 Major depressive disorder, single episode, unspecified; Z20.822 Contact with and (suspected) exposure to COVID-19; Z79.82 Long term (current) use of aspirin; Z79.899 Other long term (current) drug therapy
CPT/HCPCS: 36415; 71045; 71250; 74230; 80048; 80053; 81001; 82947; 83036; 83605; 83735; 83880; 84484; 85025; 85027; 87040; 87086; 87502; 87635; 92526; 92610; 92611; 93005; 93306; 94640; 99024; 99285; J0330; J1650; J1940; J2543; J2704; J2920; J3010; J3480

== ENCOUNTER → 2023-01-26 15:44 | Outpatient (BNV) | payer MEDICARE, SELFPAY | PROVIDERS: Admitting Provider Student in an Organized Health Care Education/Training Program; Emergency Provider Internal Medicine; PCP Emergency Medicine; Visit Provider Internal Medicine Cardiovascular Disease | DX: A41.9 Sepsis, unspecified organism (principal) | CPT/HCPCS: 93010 ==

== ENCOUNTER 2023-01-26 22:13 | Outpatient (BNV) | payer SELFPAY | END 2023-01-29 07:00 | PROVIDERS: Admitting Provider Student in an Organized Health Care Education/Training Program; Emergency Provider Internal Medicine; PCP Emergency Medicine; Visit Provider Internal Medicine | DX: I36.1 Nonrheumatic tricuspid (valve) insufficiency (principal); J90 Pleural effusion, not elsewhere classified | CPT/HCPCS: 93306 ==

== ENCOUNTER → 2023-01-26 22:13 | Outpatient (BNV) | payer MEDICARE, SELFPAY | PROVIDERS: Admitting Provider Student in an Organized Health Care Education/Training Program; Emergency Provider Internal Medicine; PCP Emergency Medicine; Visit Provider Surgery | DX: R13.12 Dysphagia, oropharyngeal phase (principal) | CPT/HCPCS: 43246; 99222 ==

== ENCOUNTER → 2023-01-26 22:13 | Outpatient (BNV) | payer MEDICARE, SELFPAY | PROVIDERS: Admitting Provider Student in an Organized Health Care Education/Training Program; Emergency Provider Internal Medicine; PCP Emergency Medicine; Visit Provider Student in an Organized Health Care Education/Training Program | DX: R13.12 Dysphagia, oropharyngeal phase (principal); E87.0 Hyperosmolality and hypernatremia; J69.0 Pneumonitis due to inhalation of food and vomit; A41.9 Sepsis, unspecified organism; J96.01 Acute respiratory failure with hypoxia; J90 Pleural effusion, not elsewhere classified | CPT/HCPCS: 99223; 99232; 99233; 99239 ==

== ENCOUNTER 2023-03-26 22:49 | Inpatient (IN) | payer MEDICARE, SELFPAY ==
--- NOTE | ~2023-03-26 | CT_ITS ---
EXAMINATION: CT CHEST WITHOUT CONTRAST CLINICAL INFORMATION: Question aspiration pneumonia COMPARISON: Multiple priors, including CT 01/26/2023 TECHNIQUE: Multidetector volumetric CT imaging of the chest was done. Axial MIP volume rendering provided. Sagittal and coronal reformatted images were obtained. This CT examination was performed using dose optimization techniques as appropriate, variously including the following: *Automated exposure control *Adjustment of mA and/or kV according to patient size (this includes techniques or standardized protocols for targeted exams where dose is matched to indication/reason for exam; i.e. extremities or head) *Use of iterative reconstruction technique DLP: 264 mGy-cm FINDINGS: LUNGS: Limited detailed parenchymal evaluation due to extensive respiratory motion artifact. There are multifocal patchy consolidations bilaterally involving portions of all lobes, suspicious for multifocal pneumonia. MEDIASTINUM: Thyroid gland is not adequately assessed due to motion artifact. No appreciable mediastinal lymphadenopathy on this noncontrast exam. Cardiac size is within normal limits; no pericardial effusion. Ascending aorta appears dilated measuring approximately 4.2 cm in diameter. There is atherosclerotic calcification along the aorta. CORONARY ARTERY CALCIFICATION: Severe PLEURA: Small right pleural effusion. No pneumothorax. AXILLA: No lymphadenopathy. UPPER ABDOMEN: Partially visualized percutaneous tube extending into the stomach. Colonic diverticulosis is noted. Partially visualized hyperdensity in the region of the left retroperitoneum, not adequately assessed on this exam. OSSEOUS STRUCTURES: Unremarkable. CT/CT chest wo IV con IMPRESSION: 1. Multifocal patchy consolidations bilaterally, suspicious for multifocal pneumonia. Sequelae of aspiration would be a possibility in the proper clinical setting. 2. Small right pleural effusion. 3. Dilated ascending aorta measuring approximately 4.2 cm in diameter. 4. Partially visualized hyperdensity in the region of the left retroperitoneum, not adequately assessed on this exam. This could reflect postoperative changes there as appropriate surgical history. If clinically warranted, this could be better assessed with dedicated abdominal CT. 5. Coronary artery calcifications. Correlation with cardiac risk factors is recommended.
--- NOTE | ~2023-03-26 | XR_ITS ---
EXAMINATION: XR CHEST CLINICAL INFORMATION: Aspiration suspected COMPARISON: Chest x-ray 02/01/2023 TECHNIQUE: Frontal view of the chest was obtained. FINDINGS: Patchy ill-defined opacities in the right upper lung zone and right lower lobe. This has improved in appearance in comparison to prior study in January 2023. Cardiomediastinal silhouette is within normal limits. No pneumothorax or pleural effusion. Dextroscoliotic upper thoracic curvature.
--- NOTE | ~2023-03-26 | XR_ITS ---
EXAMINATION: XR CHEST CLINICAL INFORMATION: Shortness of breath. COMPARISON: 03/26/2023 TECHNIQUE: Frontal view of the chest was obtained. FINDINGS: Interval progression of multifocal consolidation. Possible left pleural effusion. Cardiac silhouette is unchanged. Thoracic aorta appears tortuous and dilated. XR/XR chest 1V IMPRESSION: Worsening pneumonia. Follow-up until resolution is advised.
--- NOTE | 2023-03-26 23:03 | ECG_ITS ---
Test Reason : TACHYCARDIA Blood Pressure : / mmHG Vent. Rate : 126 BPM Atrial Rate : 126 BPM P-R Int : 126 ms QRS Dur : 076 ms QT Int : 308 ms P-R-T Axes : 058 038 049 degrees QTc Int : 446 ms Sinus tachycardia Nonspecific ST abnormality When compared with ECG of 26-JAN-2023 16:04, Nonspecific ST abnormality is now Present Referred By: Britany Garza Electronically Signed By:LIA CASTREJON MD
[2023-03-26 23:07] VITALS: BP 122/90; PULSE 125; O2SAT 93
[2023-03-26 23:09] VITALS: BP 122/80; PULSE 127; RESP 30; TEMP 39.4; O2SAT 94; BMI 18.7
--- NOTE | 2023-03-26 23:20 | ED_ITS ---
HPI - Fever General Chief Complaint: Fever Stated Complaint: SEPSIS ALERT FROM SNF Time Seen by Provider: 03/26/23 22:56 Source: EMS and old records reviewed Mode of arrival: EMS Limitations: altered mental status History of Present Illness HPI Narrative: 72 yo male Full Code from [facility] with PMH of dementia, DM, dysphagia - pureed diet, TIA, HLD, gastrotomy tube, just admitted here 02/07 for aspiration pneumonia treated with IV zosyn - on chronic O2 per SNF 2L. He comes in from SNF for vomiting today with fevers some loose stools tachycardia temp 100.8, increased respiratory rate. EMS notes they were not given much information but it seems to have happened earlier in the day. The patient can say yes or no MD elicited complaint: fever Pertinent past history: sepsis Onset (ago): day(s) (1) Context: other (hx of recurrent aspiration pneumonia) Exacerbating factors: nothing Relieving factors: nothing Associated symptoms: cough Treatments prior to arrival fever: none Related Data Home Medications Medication Instructions Recorded Confirmed Lactobacillus acidophilus 250 250 mmu cells PO BID 01/27/23 01/27/23 million cell capsule (Probiotic Acidophilus) acetaminophen 325 mg tablet 975 mg PO TID 01/27/23 01/27/23 atorvastatin 20 mg tablet 20 mg PO BEDTIME 01/27/23 01/27/23 bisacodyl 10 mg rectal suppository 10 mg [place] DAILY PRN Constipation 01/27/23 01/27/23 divalproex 125 mg capsule,delayed 500 mg PO BID 01/27/23 01/27/23 release sprinkle finasteride 5 mg tablet 5 mg PO DAILY 01/27/23 01/27/23 fluoxetine 20 mg capsule 60 mg PO DAILY 01/27/23 01/27/23 glucagon 1 mg/0.2 mL subcutaneous 1 mg subcut Q20M PRN Hypoglycemia 01/27/23 01/27/23 syringe (Gvoke PFS 2-Pack) guaifenesin 400 mg tablet 400 mg PO BID 01/27/23 01/27/23 ipratropium 0.5 mg-albuterol 3 mg 3 ml inhalation TID 01/27/23 01/27/23 (2.5 mg base)/3 mL nebulization soln lactulose 10 gram/15 mL oral 30 ml PO DAILY 01/27/23 01/27/23 solution (Enulose) lidocaine 5 % topical patch 1 patch topical DAILY 01/27/23 01/27/23 magnesium hydroxide 400 mg/5 mL 30 ml PO DAILY PRN Constipation 01/27/23 01/27/23 oral suspension (Milk of Magnesia) melatonin 3 mg tablet 6 mg PO BEDTIME 01/27/23 01/27/23 naloxone 4 mg/actuation nasal 4 mg intranasal Q3M PRN Opioid 01/27/23 01/27/23 spray (Narcan) Overdose polyvinyl alcohol 1.4 % eye drops 1 drp ophthalmic (eye) BID PRN Dry 01/27/23 01/27/23 Eyes quetiapine 25 mg tablet 25 mg PO BID 01/27/23 01/27/23 sodium chloride 0.65 % nasal spray 1 spray intranasal Q3H PRN dry 01/27/23 01/27/23 aerosol nostrils sodium phosphates 19 gram-7 118 ml [place] DAILY PRN Constipation 01/27/23 01/27/23 gram/118 mL enema (Fleet Enema) tamsulosin 0.4 mg capsule 0.8 mg PO BEDTIME 01/27/23 01/27/23 trazodone 50 mg tablet 50 mg PO BEDTIME 01/27/23 01/27/23 Previous Rx's Medication Instructions Recorded aspirin 81 mg chewable tablet 81 mg G-tube DAILY #90 tabs 02/07/23 quetiapine 25 mg tablet 25 mg G-tube BEDTIME #30 tabs 02/07/23 trazodone 50 mg tablet 50 mg G-tube BEDTIME #30 tabs 02/07/23 Allergies Allergy/AdvReac Type Severity Reaction Status Date / Time No Known Allergies Allergy Verified 03/26/23 23:06 Review of Systems 2 Review of Systems: ROS unable to be obtained due to altered mental status REPLACED BY [facility] Past Medical History Source: old records reviewed Medical History Oropharyngeal dysphagia MDD (major depressive disorder) Dysphagia TIA (transient ischemic attack) Non-insulin dependent type 2 diabetes mellitus Dementia, unspecified, with behavioral disturbance HLD (hyperlipidemia) AAA (abdominal aortic aneurysm) Social History Social History Household Members: Other Housing: Correction Unable to assess alcohol history related to: Unknown Patient Tobacco Use Status: Never used Tobacco Advance Directives: Yes Advance Directives on File: Yes Advance Directives Date on File: 03/26/23 service: No Physical Exam 2 Vital Signs: Vital Signs: Last Vital Signs Temp 102.9 F H 03/26/23 23:09 Pulse 127 H 03/26/23 23:09 Resp 30 H 03/26/23 23:09 BP 122/80 03/26/23 23:09 Pulse Ox 94 03/26/23 23:09 O2 Del Method Nasal Cannula 03/26/23 23:09 Oxygen Flow Rate 2 03/26/23 23:09 BMI result Body Mass Index 18.7 Appearance: Alert but appears weak. Confused oriented to self. Mild acute distress. Eyes: Pupils equal, round and reactive to light. ENT: Pharynx dry MM Neck: Normal inspection. Neck supple. CVS: tachycardic heart rate and rhythm. Pulses normal. Respiratory: Mild respiratory distress - tachypnea and retractions Breath sounds coarse and diminished in both bases Abdomen: Soft and nontender. G tube patent area is c/d/i Skin: Skin warm and dry. Normal skin color. Normal skin turgor. Extremities: No lower extremity edema. Neuro: confused No motor deficit. No sensory deficit. Medications Administered Generic Name Dose Route Start Last Admin Trade Name Freq PRN Reason Stop Dose Admin Sodium Chloride 1,000 mls @ 999 mls/hr 03/26/23 23:15 03/26/23 23:27 Ns IVCONT 03/27/23 00:15 999 mls/hr .Q1H1M KEZIA Administration Discontinued Medications Generic Name Dose Route Start Last Admin Trade Name Freq PRN Reason Stop Dose Admin Acetaminophen 650 mg 03/26/23 23:02 03/26/23 23:46 Acetaminophen Supp 650 Mg Supp.Rect MA 03/26/23 23:03 650 mg ONCE ONE Administration Piperacillin Sod/Tazobactam 50 mls @ 100 mls/hr 03/26/23 23:02 03/26/23 23:26 Sod 3.375 gm/ Sodium Chloride IV 03/26/23 23:31 100 mls/hr ONCE ONE Administration Ondansetron HCl 4 mg 03/26/23 23:02 03/26/23 23:43 Ondansetron Hcl 4 Mg/2 Ml Vial IVPUSH 03/26/23 23:03 4 mg ONCE ONE Administration Medical Decision Making Medical Decision Making [facility] Narrative: 72 yo male Full Code from [facility] with PMH of dementia, DM, dysphagia - pureed diet, TIA, HLD, gastrotomy tube, just admitted here 02/07 for aspiration pneumonia here with c/o fevers, nausea/vomiting and increased work of breathing - at this time will need labs, lactic acid, cultures, UA and CXR for suspected aspiration pneumonia based off history and clinical exam. He has no abdominal ttp. Planned admit Differential Diagnosis Differential Diagnoses: The differential diagnosis associated with the presentation includes viral syndrome, aspiration pneumonia Admission/Observation Consideration of admission/observation: Escalation of care including admission/observation considered admit for further management Consult Healthcare Provider Management of the patient was discussed with: Hospitalist (will admit) Lab Data [facility] Lab Attestation statement: I reviewed the patient's lab results. 03/26/23 23:24 03/26/23 23:24 Labs: Lab Results 03/26/23 03/26/23 03/26/23 Range/Units 23:23 23:24 23:32 WBC 6.5 (4.8-10.8) X10*3/uL RBC 5.10 D (4.60-5.80) X10*6/uL Hgb 14.6 D (14.0-18.0) g/dl Hct 46.5 D (42.0-52.0) % MCV 91.2 (80.0-98.0) fL MCH 28.6 (27.0-33.0) pg MCHC 31.4 (31.0-36.0) g/dl RDW 15.6 (11.0-16.0) % Plt Count 162 D (160-400) X10*3/uL MPV 10.4 (9.4-12.4) fL Immature Gran % (Auto) 0.3 (0.0-0.4) % Neut % (Auto) 88.7 H (45-73) % Lymph % (Auto) 4.5 L (20-40) % [place] % (Auto) 5.9 (2-11) % Eos % (Auto) 0.3 (0-4) % Baso % (Auto) 0.3 (0-2) % Lymph # (Auto) 0.3 L (1.2-4.9) X10*3/uL [place] # (Auto) 0.4 (0.1-1.2) X10*3/uL Eos # (Auto) 0.0 (0.0-0.4) X10*3/uL Baso # (Auto) 0.0 (0.0-0.2) X10*3/uL Abs Immat Gran (auto) 0.02 (0.00-0.03) X10*3/uL Absolute Neuts (auto) 5.7 (2.0-8.3) x10*3/uL Absolute Nucleated RBC 0.000 (0.0-0.012) X10*3/uL Nucleated RBC % (auto) 0.0 (0.0-0.2) /100WBC VBG pH 7.45 H (7.32-7.43) VBG pCO2 41 mmHg VBG pO2 45 mmHg VBG HCO3 28 H (22-26) mmol/L VBG O2 Saturation 73.0 % VBG Base Excess 4.5 mmol/L Sodium 140 (135-145) mmol/L Potassium 4.2 (3.3-5.1) mmol/L Chloride 105 (96-108) mmol/L Carbon Dioxide 25 (22-29) mmol/L Anion Gap 14 (12-20) BUN 18 H (9-16) mg/dL Creatinine 0.85 (0.5-1.4) mg/dL Estim Creat Clear Calc 56.5 Estimated GFR > 60 Random Glucose 168 H (60-115) mg/dL Lactic Acid 2.3 H* (0.5-2.0) mmol/L Calcium 9.7 D (8.4-10.2) mg/dL Magnesium 2.0 (1.6-2.6) mg/dL Total Bilirubin 0.6 (0.0-1.0) mg/dL Direct Bilirubin 0.2 (0.0-0.5) mg/dL AST 24 (5-37) U/L ALT 13 (0-40) U/L Alkaline Phosphatase 98 (39-117) U/L Troponin I High Sens < 2.7 (<3.5-35.0) ng/L B-Natriuretic Peptide 28 (<100) pg/mL Total Protein 8.1 H (6.5-8.0) g/dL Albumin 4.1 (3.5-5.0) g/dL Lipase 14 (8-78) U/L Valproic Acid 32.7 L (50.0-100.0) mcg/mL Independent Interpretation I performed an independent interpretation of an: EKG and Plain X-Ray Interpretation: Rate: 126 Rhythm: sinus tachycardia Danese: normal Normal P waves. Normal INDIRA. Normal QRS complex. ST T wave : normal no SAJI qTC: 446 prior studies: no acute ischemia The study has been interpreted contemporaneously by me. . Radiology Impression Discussion of test interpretation with radiology: I have reviewed the radiologist's reading. Independent Historian Clinical information obtained from an independent historian. History obtained from or confirmed by: EMS External Record Review External record reviewed: Inpatient record Critical Care Time Critical Care Time Critical Care Time: Yes Total Critical Care Time: 45 Attestation: sepsis protocol, IVF, review of records, admission I attest to this time spent taking care of the patient Discharge Plan Discharge Clinical Impression: Acidosis, lactic, Acute febrile illness Aspiration pneumonia Qualifiers: Aspiration pneumonia type: unspecified Laterality: right Lung location: u nspecified part of lung Qualified Code(s): J69.0 - Pneumonitis due to inhalation of food and vomit Patient Disposition: Admitted As Inpatient Prescriptions: No Action quetiapine 25 mg tablet 25 mg PO BID acetaminophen 325 mg Tablet 975 mg PO TID atorvastatin 20 mg tablet 20 mg PO BEDTIME ipratropium-albuterol 0.5 mg-3 mg(2.5 mg base)/3 mL solution for nebulization 3 ml inhalation TID Rx Instructions: END DATE: 01/30/23 trazodone 50 mg tablet 50 mg PO BEDTIME polyvinyl alcohol 1.4 % Drops 1 drp OPHTHALMIC (EYE) BID PRN (Reason: Dry Eyes) melatonin 3 mg Tablet 6 mg PO BEDTIME magnesium hydroxide [Milk of Magnesia] 400 mg/5 mL Suspension 30 ml PO DAILY PRN (Reason: Constipation) tamsulosin 0.4 mg capsule 0.8 mg PO BEDTIME bisacodyl 10 mg Suppository 10 mg [place] DAILY PRN (Reason: Constipation) lidocaine 5 % adhesive patch,medicated 1 patch topical DAILY Rx Instructions: ON IN THE AM; OFF IN THE PM (12 hrs on) Fleet Enema 19-7 gram/118 mL Enema 118 ml MA DAILY PRN (Reason: Constipation) fluoxetine 20 mg capsule 60 mg PO DAILY divalproex 125 mg capsule, delayed rel sprinkle 500 mg PO BID finasteride 5 mg tablet 5 mg PO DAILY guaifenesin 400 mg Tablet 400 mg PO BID sodium chloride 0.65 % Aerosol,[place] 1 spray INTRANASAL Q3H PRN (Reason: dry nostrils) lactulose [Enulose] 10 gram/15 mL solution 30 ml PO DAILY naloxone [Narcan] 4 mg/actuation [place],Non-Aerosol 4 mg INTRANASAL Q3M PRN (Reason: Opioid Overdose) Rx Instructions: spray 1 dose into ONE nostril; alternate nostrils w each dose until help arrives Probiotic Acidophilus 250 million cell Capsule 250 mmu cells PO BID Rx Instructions: END DATE: 02/02/23 Gvoke PFS 2-Pack Syringe 1 mg/0.2 mL Syringe 1 mg SUBCUT Q20M PRN (Reason: Hypoglycemia) Rx Instructions: until target blood sugar attained aspirin 81 mg Tablet,Chewable 81 mg G-tube DAILY Qty: 90 0RF quetiapine 25 mg Tablet 25 mg G-tube BEDTIME Qty: 30 0RF trazodone 50 mg Tablet 50 mg G-tube BEDTIME Qty: 30 0RF
[2023-03-26] MEDS: Piperacillin Sodium/Tazobactam 3.375 GM in 0.9 % Sodium Chloride 50 ML IV (23:26)
[2023-03-26] MEDS: 0.9 % Sodium Chloride 1,000 ML 999 ML IVCONT (23:27)
[2023-03-26 23:35] LABS: MANUAL DIFF FLAG NO
[2023-03-26 23:36] LABS: Basophils Percent Auto 0.3 % (0-2); Eosinophils Percent Auto 0.3 % (0-4); Hematocrit 46.5 % (42.0-52.0); Hemoglobin 14.6 g/dl (14.0-18.0); Imm Gran Abs Auto 0.02 X10*3/uL (0.00-0.03); Imm Gran Pct Auto 0.3 % (0.0-0.4); Lymphocytes Absolute Auto 0.3 X10*3/uL (1.2-4.9); Lymphocytes Percent Auto 4.5 % (20-40); Mean Corpuscular HGB Conc 31.4 g/dl (31.0-36.0); Mean Corpuscular Hemoglobin 28.6 pg (27.0-33.0); Mean Corpuscular Volume 91.2 fL (80.0-98.0); Mean Platelet Volume 10.4 fL (9.4-12.4); Monocytes Absolute Auto 0.4 X10*3/uL (0.1-1.2); Monocytes Percent Auto 5.9 % (2-11); Neutrophils Absolute Auto 5.7 x10*3/uL (2.0-8.3); Neutrophils Percent Auto 88.7 % (45-73); Platelet Count 162 X10*3/uL (160-400); Red Cell Distribution Width 15.6 % (11.0-16.0); White Blood Count 6.5 X10*3/uL (4.8-10.8)
[2023-03-26 23:39] LABS: VBG Base Excess 4.5 mmol/L; VBG HCO3 28 mmol/L (22-26); VBG pCO2 41 mmHg; VBG pH 7.45 (7.32-7.43); VBG pO2 45 mmHg
[2023-03-26 23:41] LABS: Venous Blood Gas Refer to POC result
[2023-03-26] MEDS: ondansetron HCL 4 MG/2 ML VIAL IVPUSH (23:43)
[2023-03-26] MEDS: Acetaminophen Supp 650 MG SUPP.RECT PR (23:46)
[2023-03-26 23:49] LABS: Valproate 32.7 mcg/mL (50.0-100.0)
--- OUTSIDE RECORDS SUMMARY | 2023-03-26 23:49 | XMS_ITS | Continuity of Care Document ---
Author Name Unknown Organization [facility] Address [address] [place] [address]- Care Team Providers Care Cleater Name Role Phone Cynthia Huerta MD Primary Care Physician [phone] Encounter [facility] Date(s): 01/26/21 - 02/25/[address] [address]- Attending Physician: Juan C Mcgee Admitting Physician: Juan C Mcgee Referring Physician: Juan C Mcgee
--- OUTSIDE RECORDS SUMMARY | 2023-03-26 23:49 | XMS_ITS | Continuity of Care Document ---
Author Name Unknown Organization [facility] Address [address] [place] [id number]- Care Team Providers Care Drop Forger Helper Name Role Phone Cynthia Huerta MD Primary Care Physician [phone] Encounter [facility] Date(s): 07/16/21 - 07/17/[address] [address]- Encounter Diagnosis UTI (urinary tract infection)(Final) - 07/16/21 Discharge Disposition: A-D/C Home Attending Physician: Bridgette Perales MD Admitting Physician: Bridgette Perales MD Referring Physician: Not on Staff, Referring MD Allergies, Adverse Reactions, Alerts No Known Medication Allergies Medications cephalexin monohydrate 500 mg oral capsule 1 capsule = 500 mg, By Mouth, 4 times a day, for 7 days, Start 07/17 evening, # 28 capsule, 0 Refills, Acute 07/23/21 23:22:00 EDT, 07/16/21 23:22:00 EDT, Capsule, Partial fill upon patient request ifthe prescription is for a schedule II opioid drug. Start Date: 07/16/21 Stop Date: 07/23/21 Status: Ordered cephalexin monohydrate 500 mg oral capsule 1 capsule = 500 mg, By Mouth, 4 times a day, for 7 days, # 28 capsule, 0 Refills, Acute 07/23/21 23:29:00 EDT, 07/16/21 23:29:00 EDT, Capsule, Partial fill upon patient request if the prescription isfor a schedule II opioid drug. Start Date: 07/16/21 Stop Date: 07/23/21 Status: Ordered Results Orders for Microbiology Reports Name Date Urine Culture (URINE CULTURE) 07/16/21 Microbiology Reports TEST:Urine Culture STATUS:Auth (Verified) BODY SITE: SOURCE:URINE COLLECTED DATE/TIME:07/16/21 8:36 PM Urine Culture SPECIMEN DESCRIPTION : URINE SPECIAL REQUESTS : NONE CULTURE : Mixed bacterial meghana, indicative of urogenital contamination. REPORT STATUS : FINAL 07/17/2021 Vital Signs Most recent to oldest [Reference Range]: 1 2 3 Oxygen Saturation [94-100 %] 95 % (07/16/21 11:46 PM) 97 % (07/16/21 8:38 PM) 97 % (07/16/21 2:25 PM) Pulse Rate [55-90 bpm] 86 bpm (07/16/21 11:46 PM) 91 bpm *H* (07/16/21 8:38 PM) 68 bpm (07/16/21 2:25 PM) Blood Pressure [90-138/55-84 mm Hg] 111/68mm Hg (07/16/21 11:46 PM) 126/77mm Hg (07/16/21 8:38 PM) 116/74mm Hg (07/16/21 2:25 PM) Respiratory Rate [16-30 br/min] 18 br/min (07/16/21 11:46 PM) 18 br/min (07/16/21 8:38 PM) 18 br/min (07/16/21 2:25 PM) Temperature [96.8-100.4 DegF] 98.0 DegF (07/16/21 11:46 PM) 98.0 DegF (07/16/21 8:38 PM) 98.4 DegF (07/16/21 2:25 PM) Mode of Delivery (Oxygen) Room air (07/16/21 11:46 PM) Room air (07/16/21 8:38 PM) Room air (07/16/21 2:25 PM) Blood pressure sites Arm, left (07/16/21 11:46 PM) Arm, right (07/16/21 8:38 PM) Arm, left (07/16/21 2:25 PM) Temperature Route Oral (07/16/21 11:46 PM) Oral (07/16/21 8:38 PM) Oral (07/16/21 2:25 PM)
--- OUTSIDE RECORDS SUMMARY | 2023-03-26 23:49 | XMS_ITS | Continuity of Care Document ---
Author Name Unknown Organization [facility] ter Address [address] [place] [id number]- Care Team Providers Care Structural Steel Worker Name Role Phone Cynthia Huerta MD Primary Care Physician Encounter [facility] Date(s): 06/12/21 - 08/24/[address] [id number] Attending Physician: Cynthia Huerta MD Admitting Physician: Cynthia Huerta MD Referring Physician: Cynthia Huerta MD Allergies, Adverse Reactions, Alerts No Known Medication Allergies
--- OUTSIDE RECORDS SUMMARY | 2023-03-26 23:49 | XMS_ITS | Continuity of Care Document ---
Author Name Unknown Organization [facility] Address [address] [place] [address]- Care Team Providers Care Bucket Operator Name Role Phone Deanna KILGORE, Cynthia Primary Care Physician [phone] Encounter [facility] [place] [place] Date(s): 12/06/20 - 02/25/[address] [id number] Attending Physician: Cynthia Huerta MD Admitting Physician: Cynthia Huerta MD Referring Physician: Cynthia Huerta MD
--- OUTSIDE RECORDS SUMMARY | 2023-03-26 23:49 | XMS_ITS | Continuity of Care Document ---
Author Name Unknown Organization [facility] Address [address] [place] [address]- Care Team Providers Care Quality Review Specialist Name Role Phone Cynthia Huerta MD Primary Care Physician [phone] Encounter [facility] [place] Date(s): 07/25/21 - 08/24/[address] [id number] Attending Physician: Juan C Mcgee Admitting Physician: Admtr, Ar8 Referring Physician: Admtr, Ar8 Allergies, Adverse Reactions, Alerts No Known Medication Allergies
[2023-03-26 23:54] LABS: Lactic Acid 2.3 mmol/L (0.5-2.0)
[2023-03-26 23:56] LABS: B Type Natriuretic Peptide 28 pg/mL (<100)
--- NOTE | 2023-03-26 23:58 | P.HPHOSP_ITS ---
History of Present Illness Date of Service: 03/27/23 Chief Complaint: Fever This is a 72-year-old male with pertinent history of unspecified dementia, rtf-mxngtdo-jezeiziot diabetes mellitus type 2, dysphagia with recent admission for aspiration pneumonia status post G-tube, mood disorder, history of TIA, mixed hyperlipidemia, chronic hypoxemic respiratory failure on baseline 2 L supplemental oxygen who was sent from [facility] for evaluation of fever and tachypnea. Unable to obtain history from the patient as he is only able to answer in 1 word responses. History obtained from ER provider and chart review. Patient had an episode of vomiting on the day of presentation. He was febrile and tachypneic with increasing oxygen requirements. In the emergency department, patient was requiring supplemental oxygen. He was found to be febrile and imaging with multifocal pneumonia concerning for aspiration. Review of Systems 2 Review of Systems: Yes Unobtainable due to mental condition PMFSH Medical History Oropharyngeal dysphagia MDD (major depressive disorder) Dysphagia TIA (transient ischemic attack) Non-insulin dependent type 2 diabetes mellitus Dementia, unspecified, with behavioral disturbance HLD (hyperlipidemia) AAA (abdominal aortic aneurysm) Pertinent family history: Unable to obtain Social History Household Members: Other Housing: Snf Unable to assess alcohol history related to: Unknown Patient Tobacco Use Status: Never used Tobacco Advance Directives: Yes Advance Directives on File: Yes Advance Directives Date on File: 03/26/23 service: No Meds Allergies Allergy/AdvReac Type Severity Reaction Status Date / Time No Known Allergies Allergy Verified 03/26/23 23:06 Active Medications: Current Medications Sodium Chloride (Ns) 1,000 mls @ 999 mls/hr IVCONT .Q1H1M KEZIA Stop: 03/27/23 00:15 Last Admin: 03/26/23 23:27 Dose: 999 mls/hr Home Medications Medication Instructions Recorded Confirmed Last Taken Type Lactobacillus acidophilus 250 250 mmu cells PO BID 01/27/23 01/27/23 Unknown History million cell capsule (Probiotic Acidophilus) acetaminophen 325 mg tablet 975 mg PO TID 01/27/23 01/27/23 Unknown History atorvastatin 20 mg tablet 20 mg PO BEDTIME 01/27/23 01/27/23 Unknown History bisacodyl 10 mg rectal suppository 10 mg NE DAILY PRN Constipation 01/27/23 01/27/23 Unknown History divalproex 125 mg capsule,delayed 500 mg PO BID 01/27/23 01/27/23 Unknown History release sprinkle finasteride 5 mg tablet 5 mg PO DAILY 01/27/23 01/27/23 Unknown History fluoxetine 20 mg capsule 60 mg PO DAILY 01/27/23 01/27/23 Unknown History glucagon 1 mg/0.2 mL subcutaneous 1 mg subcut Q20M PRN Hypoglycemia 01/27/23 01/27/23 Unknown History syringe (TargetingMantra PFS 2-Pack) guaifenesin 400 mg tablet 400 mg PO BID 01/27/23 01/27/23 Unknown History ipratropium 0.5 mg-albuterol 3 mg 3 ml inhalation TID 01/27/23 01/27/23 Unknown History (2.5 mg base)/3 mL nebulization soln lactulose 10 gram/15 mL oral 30 ml PO DAILY 01/27/23 01/27/23 Unknown History solution (Enulose) lidocaine 5 % topical patch 1 patch topical DAILY 01/27/23 01/27/23 Unknown History magnesium hydroxide 400 mg/5 mL 30 ml PO DAILY PRN Constipation 01/27/23 01/27/23 Unknown History oral suspension (Milk of Magnesia) melatonin 3 mg tablet 6 mg PO BEDTIME 01/27/23 01/27/23 Unknown History naloxone 4 mg/actuation nasal 4 mg intranasal Q3M PRN Opioid 01/27/23 01/27/23 Unknown History spray (Narcan) Overdose polyvinyl alcohol 1.4 % eye drops 1 drp ophthalmic (eye) BID PRN Dry 01/27/23 01/27/23 Unknown History Eyes quetiapine 25 mg tablet 25 mg PO BID 01/27/23 01/27/23 Unknown History sodium chloride 0.65 % nasal spray 1 spray intranasal Q3H PRN dry 01/27/23 01/27/23 Unknown History aerosol nostrils sodium phosphates 19 gram-7 118 ml NE DAILY PRN Constipation 01/27/23 01/27/23 Unknown History gram/118 mL enema (Fleet Enema) tamsulosin 0.4 mg capsule 0.8 mg PO BEDTIME 12/03/23 12/03/23 Unknown History trazodone 50 mg tablet 50 mg PO BEDTIME 01/27/23 01/27/23 Unknown History Physical Exam 2 Vital Signs and Narrative: Vital Signs: Last Vital Signs Temp 102.9 F H 03/26/23 23:09 Pulse 127 H 03/26/23 23:09 Resp 30 H 03/26/23 23:09 BP 122/80 03/26/23 23:09 Pulse Ox 94 03/26/23 23:09 O2 Del Method Nasal Cannula 03/26/23 23:09 Oxygen Flow Rate 2 03/26/23 23:09 BMI result Body Mass Index 18.7 Elderly male lying in bed in mild distress on supplemental oxygen Neck supple, no JVD Tachycardia with regular rhythm, S1-S2 heard Bilateral crackles appreciated with tachypnea Abdomen soft nontender, no guarding, no rigidity, G-tube in place Patient is awake, alert and intermittent response with yes/no to questions ; unable to assess orientation, unable to have a conversation No pedal edema Results Labs 03/26/23 23:24 03/26/23 23:24 Labs: Laboratory Results - last 24 hr 03/26/23 03/26/23 03/26/23 23:23 23:24 23:32 MCV 91.2 MCH 28.6 MCHC 31.4 RDW 15.6 Plt Count 162 D MPV 10.4 Immature Gran % (Auto) 0.3 Neut % (Auto) 88.7 H Lymph % (Auto) 4.5 L [place] % (Auto) 5.9 Eos % (Auto) 0.3 Baso % (Auto) 0.3 Lymph # (Auto) 0.3 L [place] # (Auto) 0.4 Eos # (Auto) 0.0 Baso # (Auto) 0.0 Abs Immat Gran (auto) 0.02 Absolute Neuts (auto) 5.7 Absolute Nucleated RBC 0.000 Nucleated RBC % (auto) 0.0 VBG pH 7.45 H VBG pCO2 41 VBG pO2 45 VBG HCO3 28 H VBG O2 Saturation 73.0 VBG Base Excess 4.5 Lactic Acid 2.3 H* B-Natriuretic Peptide 28 Valproic Acid 32.7 L Assessment and Plan (1) Aspiration pneumonia: Qualifiers: Aspiration pneumonia type: unspecified Laterality: right Lung location: unspecified part of lung Qualified Code(s): J69.0 - Pneumonitis due to inhalation of food and vomit Status: Acute Plan This is a 72-year-old male with pertinent history of unspecified dementia, ped-rvuzein-thizzharo diabetes mellitus type 2, dysphagia with recent admission for aspiration pneumonia status post G-tube, mood disorder, history of TIA, mixed hyperlipidemia, chronic hypoxemic respiratory failure on baseline 2 L supplemental oxygen who was sent from [facility] for evaluation of fever and tachypnea. #. Acute on chronic hypoxemic respiratory failure in the setting of aspiration pneumonia: Will admit patient with supplemental oxygen. Initiating IV empiric antibiotics. Aspiration precautions. #. Sepsis in setting of above: Resuscitated with IV crystalloids. Lactic acid and blood culture obtained #. Acute lactic acidosis due to sepsis: Resolved #. ?Diarrhea: GI panel and C diff pending #. Mixed hyperlipidemia: On statin #. Dementia: Maintain sleep-wake cycle. On Depakote and Seroquel #. BPH: On Proscar and Flomax #. Lsh-qawllbt-xgjtdqakt diabetes mellitus: Initiating Accu-Cheks with sliding scale insulin #. Dysphagia status post G-tube Med rec pending DVT prophylaxis: Lovenox Full code Admit as inpatient and will require two night minimum hospital stay for supplemental oxygen, IV antibiotics (as above), which is not possible in a lesser acute setting. Quality Stroke Does the patient have a stroke diagnosis?: No VTE Prior VTE?: No VTE Risk Level:: Medical - moderate - high VTE Device Contraindication: Treatment Not Indicated VTE Drug Contraindication: N/A - Med Ordered
[2023-03-27] VITALS (14 sets, daily range): BP systolic 95–118; BP diastolic 52–79; PULSE 86–106; RESP 18–37; TEMP 36.2–38.3; O2SAT 90–99; BMI 20.5
--- NOTE | 2023-03-27 | PC.NURSE ---
Pt BIB[facility], staff reports fevers with vomiting/diarrhea.Pt A&O to self, able to follow commands. Pt on 2L O2 via NC, SpO2 90%. O2 increased to 3L, lung sounds clear.
[2023-03-27 00:02] LABS: Troponin-I High Sensitivity < 2.7 ng/L (<3.5-35.0)
[2023-03-27 00:02] LABS: Alanine Aminotransferase 13 U/L (0-40); Albumin Level 4.1 g/dL (3.5-5.0); Alkaline Phosphatase 98 U/L (39-117); Anion Gap 14 (12-20); Aspartate Amino Transferase 24 U/L (5-37); Bilirubin Direct 0.2 mg/dL (0.0-0.5); Bilirubin Total 0.6 mg/dL (0.0-1.0); Blood Urea Nitrogen 18 mg/dL (9-16); Calcium 9.7 mg/dL (8.4-10.2); Carbon Dioxide 25 mmol/L (22-29); Chloride 105 mmol/L (96-108); Creatinine Clr Calc Pharmacy 56.5; Estimated Glomerular Filt Rate > 60; Glucose Random 168 mg/dL (60-115); Lipase 14 U/L (8-78); Potassium 4.2 mmol/L (3.3-5.1); Sodium 140 mmol/L (135-145); Total Protein 8.1 g/dL (6.5-8.0)
[2023-03-27 00:12] LABS: Procalcitonin 1.13 ng/mL
[2023-03-27 00:19] LABS: COVID-19 Test Negative (Negative); IDNOW Serial# 6674DD1D
[2023-03-27 00:40] LABS: IDNOW Serial# 6674DD1D; Influenza A Negative (Negative); Influenza B2 Negative (Negative)
--- NOTE | 2023-03-27 00:48 | MHC.EDTECH ---
THis Tech assumed cre of this pt upon arrival. Pt changed into a hospital gown and placed on capacity planner, EKG done and handed to provider. Bloodwork sent to lab for processing. Red fall risk precaution socks and wristband put on PT
[2023-03-27] MEDS: 0.9 % Sodium Chloride Flush 3 ML SYRINGE IVFLUSH ×2 (00:59→15:03)
[2023-03-27 01:16] LABS: INTERNATIONAL NORM RATIO 1.1 (0.9-1.1); Prothrombin Time 13.8 SEC (11.1-13.3)
[2023-03-27 01:32] LABS: Reflex Lactate? Lactic Acid Added
[2023-03-27] MEDS: Enoxaparin Sodium 40 MG/0.4 ML SYRINGE SUBCUT (02:05)
--- NOTE | 2023-03-27 02:09 | PC.NURSE ---
Bladder scan results 96 mL. Pt instructed to use urine and able to void 100 mL. Urine sample collected and sent to lab.
[2023-03-27 02:22] LABS: Appearance Urine Clear; Color Urine Yellow; Glucose Urine UA Negative (Negative); Leukocyte Esterase Urine Moderate (2+) (Negative); Nitrite Urine Positive (Negative); PH 6.5 (5.0-9.0); Specific Gravity - Urine 1.025 (1.005-1.025); UMIC TRIGGER UACC YES; Urine Blood Negative (Negative); Urine Ketones Trace mg/dL (Negative); Urine Protein Trace mg/dL (Neg-Trace)
[2023-03-27 03:31] LABS: Bacteria Urine None Seen (None Seen); Hyaline Casts Urine 0-2 /LPF (0-2); Other Crystals Urine Present; RBC Urine 0-2 /HPF (0-2); UACC Culture Trigger YES
[2023-03-27 03:59] LABS: Glucose, Whole Blood 150 mg/dL (60-115)
[2023-03-27 05:34] LABS: MANUAL DIFF FLAG NO
[2023-03-27 05:36] LABS: PLT CLUMP 1; SCAN SMEAR FLAG 1
[2023-03-27 05:38] LABS: Basophils Percent Auto 0.1 % (0-2); Eosinophils Percent Auto 0.1 % (0-4); Hemoglobin 11.8 g/dl (14.0-18.0); Imm Gran Abs Auto 0.03 X10*3/uL (0.00-0.03); Imm Gran Pct Auto 0.3 % (0.0-0.4); Lymphocytes Absolute Auto 0.5 X10*3/uL (1.2-4.9); Lymphocytes Percent Auto 5.7 % (20-40); Mean Corpuscular HGB Conc 31.1 g/dl (31.0-36.0); Mean Corpuscular Hemoglobin 28.6 pg (27.0-33.0); Mean Corpuscular Volume 92.2 fL (80.0-98.0); Mean Platelet Volume 10.3 fL (9.4-12.4); Monocytes Absolute Auto 0.9 X10*3/uL (0.1-1.2); Monocytes Percent Auto 10.1 % (2-11); Neutrophils Absolute Auto 7.8 x10*3/uL (2.0-8.3); Neutrophils Percent Auto 83.7 % (45-73); Red Blood Count 4.12 X10*6/uL (4.60-5.80); Red Cell Distribution Width 15.6 % (11.0-16.0)
[2023-03-27 05:41] LABS: Platelet Count 130 X10*3/uL (160-400); White Blood Count 9.3 X10*3/uL (4.8-10.8)
[2023-03-27 05:53] LABS: Anion Gap 15 (12-20); Blood Urea Nitrogen 18 mg/dL (9-16); Carbon Dioxide 21 mmol/L (22-29); Chloride 110 mmol/L (96-108); Estimated Glomerular Filt Rate > 60; Glucose Random 148 mg/dL (60-115); Potassium 4.1 mmol/L (3.3-5.1); Sodium 142 mmol/L (135-145)
[2023-03-27] MEDS: Piperacillin Sodium/Tazobactam 4.5 GM in 0.9 % Sodium Chloride 100 ML IV ×2 (05:55→10:59)
[2023-03-27 05:58] LABS: Calcium 8.5 mg/dL (8.4-10.2)
--- NOTE | 2023-03-27 08:54 | PHA.MEDREC ---
Pharmacy Consult ? Medication Reconciliation Pharmacy has completed the medication reconciliation. List from [facility]
[2023-03-27 08:57] LABS: Glucose, Whole Blood 142 mg/dL (60-115)
--- NOTE | 2023-03-27 09:26 | MHC.CM.PN ---
Addendum entered by Lakesha De La Cruz RN 03/27/23 09:56: HCP RECEIVED FROM [facility], COPY UPLOADED TO [email or web address] AND PLACED IN PAPER CHART. Original Note: IMM 03/27/23 DELIVERED TO PT'S HCP/NIECE [facility] BLUM [phone] AT 9:05AM AND WILL BE MAILED TO [address] [place] [address]. PT IS IN LTC AT [facility] AND PLAN IS FOR PT TO RETURN. PCP VERRIFIED AND HCP IS [facility] AND [facility] WILL FAX COPY TO CM OFFICE FAX. [facility] REQUESTING UPDATE FROM HOSPITALIST PT IS HERE FOR ASP PNA AND PT HAD PEG TUBE PLACED IN FEB 16 D/T PT ASPIRATING, HOSPITALIST NOTIFIED VIA [place].
[2023-03-27 11:46] LABS: Glucose, Whole Blood 128 mg/dL (60-115)
--- NOTE | 2023-03-27 13:54 | P.PNIM_ITS ---
Subjective Subjective Date of Service: 03/27/23 Interval History: advanced dementia not saying much, fever resolved Physical Exam 2 Vital Signs: Vital Signs: Last Vital Signs Temp 97.4 F 03/27/23 11:39 Pulse 87 03/27/23 11:39 Resp 20 03/27/23 11:39 BP 118/75 03/27/23 11:39 Pulse Ox 93 03/27/23 11:39 O2 Del Method Nasal Cannula 03/27/23 11:39 O2 Flow Rate 3 03/27/23 11:39 Oxygen Flow Rate 2 03/26/23 23:09 BMI result Body Mass Index 18.7 Const: Other: General: alert no distress Resp: CTA bilateral CVS: S1,S2,RRR GI: +BS, NT, no distention Skin: No rash Neuro: motor grossly intact Psych: appropriate affect Objective Data Active Medications Acetaminophen (Acetaminophen Supp 650 Mg Supp.Rect) 650 mg ID Q6H PRN PRN Reason: Pain, Mild (Pain Scale 1-3) Acetaminophen (Acetaminophen Child Oral Liq 160 Mg/5 Ml Ud Cup) 960 mg G-TUBE TID KEZIA Artificial Tears (Artificial Tears 15 Ml Drops) 1 drop EYE-BOTH BID PRN PRN Reason: Dry Eyes Aspirin (Aspirin 81 Mg Tab.Chew) 81 mg G-TUBE DAILY KEZIA Atorvastatin Calcium (Atorvastatin Calcium 20 Mg Tablet) 20 mg G-TUBE BEDTIME KEZIA Bisacodyl (Bisacodyl 10 Mg Supp.Rect) 10 mg ID DAILY PRN PRN Reason: Constipation Dextrose (Dextrose 50 % 25 Gm/50 Ml Syringe) 25 gm IVPUSH Q15M PRN; Protocol PRN Reason: per Hypoglycemia Standing Ord. Enoxaparin Sodium (Enoxaparin Sodium 40 Mg/0.4 Ml Syringe) 40 mg SUBCUT Q24H KEZIA Last Admin: 03/27/23 02:05 Dose: 40 mg Documented By: MOIRAANMichelle Finasteride (Finasteride 5 Mg Tablet) 5 mg PO DAILY [facility] Fluoxetine HCl (Fluoxetine Hcl 20 Mg Capsule) 20 mg G-TUBE DAILY [facility] Glucose (Glucose Gel 15 Gm Gel..Gram.) 15 gm PO Q15M PRN; Protocol PRN Reason: per Hypoglycemia Standing Ord. Guaifenesin (Guaifenesin 100 Mg/5 Ml Liquid) 20 ml G-TUBE BID [facility] Piperacillin Sod/Tazobactam (Sod 4.5 gm/ Sodium Chloride) 100 mls @ 200 mls/hr IV Q6H [facility] Last Infusion: 03/27/23 11:29 Dose: Infused Documented By: DIDI Insulin Human Lispro (Insulin Lispro 100 Unit/Ml 3 Ml Vial) 0 unit SUBCUT Q6H [facility]; Protocol Last Admin: 03/27/23 09:34 Dose: Not Given Documented By: ANTONIO Non-Admin Reason: No Insulin Coverage Lactulose (Lactulose 20 Gm/30 Ml Solution) 20 gm G-TUBE DAILY [facility] Lidocaine (Lidocaine 4 % Patch Adh..Patch) 1 patch TRANSDERMA DAILY [facility] Magnesium Hydroxide (Milk Of Magnesia 30 Ml Oral.Susp) 30 ml G-TUBE DAILY PRN PRN Reason: Constipation Melatonin (Melatonin 3 Mg Tablet) 6 mg PO BEDTIME PRN PRN Reason: Insomnia Melatonin (Melatonin 3 Mg Tablet) 6 mg G-TUBE BEDTIME [facility] Naloxone HCl (Naloxone Hcl Nasal 4 Mg [place]) 4 mg NOSTRILALT Q3M PRN PRN Reason: Opioid Overdose Ondansetron HCl (Ondansetron Hcl 4 Mg/2 Ml Vial) 4 mg IVPUSH Q8H PRN PRN Reason: Nausea and Vomiting Quetiapine Fumarate (Quetiapine Fumarate 25 Mg Tablet) 25 mg G-TUBE BID [facility] Sodium Biphosphate/Sodium Phosphate (Sodium Phosphate,Love-Dibasic 133 Ml Enema) 118 ml ID DAILY PRN PRN Reason: Constipation Sodium Chloride (0.9 % Sodium Chloride Flush 3 Ml Syringe) 3 ml IVFLUSH QSHIFT [facility] Last Admin: 03/27/23 07:12 Dose: Not Given Documented By: ANTONIO Non-Admin Reason: Patient Asleep Sodium Chloride (Sodium Chloride 0.65 % Nasal 44 Ml Sprbtl) 1 spray NOSTRIL-B Q3H PRN PRN Reason: dry nostrils Trazodone HCl (Trazodone Hcl 50 Mg Tablet) 50 mg G-TUBE BEDTIME [facility] Valproic Acid (Valproic Acid (As Sodium Salt) 250 Mg/5 Ml Solution) 500 mg G- TUBE BID [facility] Labs 03/27/23 04:43 03/27/23 04:43 Labs: Laboratory Results - last 24 hr 03/26/23 03/26/23 03/26/23 23:23 23:24 23:32 MCV 91.2 MCH 28.6 MCHC 31.4 RDW 15.6 Plt Count 162 D MPV 10.4 Immature Gran % (Auto) 0.3 Neut % (Auto) 88.7 H Lymph % (Auto) 4.5 L Love % (Auto) 5.9 Eos % (Auto) 0.3 Baso % (Auto) 0.3 Lymph # (Auto) 0.3 L Love # (Auto) 0.4 Eos # (Auto) 0.0 Baso # (Auto) 0.0 Abs Immat Gran (auto) 0.02 Absolute Neuts (auto) 5.7 Absolute Nucleated RBC 0.000 Nucleated RBC % (auto) 0.0 PT 13.8 H INR 1.1 VBG pH 7.45 H VBG pCO2 41 VBG pO2 45 VBG HCO3 28 H VBG O2 Saturation 73.0 VBG Base Excess 4.5 Anion Gap 14 Estim Creat Clear Calc 56.5 Estimated GFR > 60 POC Glucose Random Glucose 168 H Lactic Acid 2.3 H* Lactic Acid F/U @ 2Hr Calcium 9.7 D Magnesium 2.0 Total Bilirubin 0.6 Direct Bilirubin 0.2 AST 24 ALT 13 Alkaline Phosphatase 98 B-Natriuretic Peptide 28 Total Protein 8.1 H Albumin 4.1 Lipase 14 Procalcitonin 1.13 Urine Color Urine Appearance Urine pH Ur Specific [place] Urine Protein Urine Glucose (UA) Urine Ketones Urine Blood Urine Nitrite Ur Leukocyte Esterase Urine RBC Urine WBC Ur Squamous Epith Cells Other Crystals Urine Bacteria Hyaline Casts Valproic Acid 32.7 L COVID-19 (GREGORIO) Negative COVID-19 Clin Com See Note Influenza Type A (JOSE) Influenza Type B (JOSE) Influenza A & B Note 03/27/23 03/27/23 03/27/23 00:09 02:00 02:13 MCV MCH MCHC RDW Plt Count MPV Immature Gran % (Auto) Neut % (Auto) Lymph % (Auto) Love % (Auto) Eos % (Auto) Baso % (Auto) Lymph # (Auto) Love # (Auto) Eos # (Auto) Baso # (Auto) Abs Immat Gran (auto) Absolute Neuts (auto) Absolute Nucleated RBC Nucleated RBC % (auto) PT INR VBG pH VBG pCO2 VBG pO2 VBG HCO3 VBG O2 Saturation VBG Base Excess Anion Gap Estim Creat Clear Calc Estimated GFR POC Glucose Random Glucose Lactic Acid Lactic Acid F/U @ 2Hr 2.0 Calcium Magnesium Total Bilirubin Direct Bilirubin AST ALT Alkaline Phosphatase B-Natriuretic Peptide Total Protein Albumin Lipase Procalcitonin Urine Color Yellow Urine Appearance Clear Urine pH 6.5 Ur Specific Marion 1.025 Urine Protein Trace Urine Glucose (UA) Negative Urine Ketones Trace Urine Blood Negative Urine Nitrite Positive H Ur Leukocyte Esterase Moderate (2+) H Urine RBC 0-2 Urine WBC 6-10 H Ur Squamous Epith Cells 3-5 Other Crystals Present Urine Bacteria None Seen Hyaline Casts 0-2 Valproic Acid COVID-19 (GREGORIO) COVID-19 Clin Com Influenza Type A (JOSE) Negative Influenza Type B (JOSE) Negative Influenza A & B Note See Note 03/27/23 03/27/23 03/27/23 03:55 04:43 08:50 MCV 92.2 MCH 28.6 MCHC 31.1 RDW 15.6 Plt Count 130 L MPV 10.3 Immature Gran % (Auto) 0.3 Neut % (Auto) 83.7 H Lymph % (Auto) 5.7 L Love % (Auto) 10.1 Eos % (Auto) 0.1 Baso % (Auto) 0.1 Lymph # (Auto) 0.5 L Love # (Auto) 0.9 Eos # (Auto) 0.0 Baso # (Auto) 0.0 Abs Immat Gran (auto) 0.03 Absolute Neuts (auto) 7.8 Absolute Nucleated RBC 0.000 Nucleated RBC % (auto) 0.0 PT INR VBG pH VBG pCO2 VBG pO2 VBG HCO3 VBG O2 Saturation VBG Base Excess Anion Gap 15 Estim Creat Clear Calc 60.0 Estimated GFR > 60 POC Glucose 150 H 142 H Random Glucose 148 H Lactic Acid Lactic Acid F/U @ 2Hr Calcium 8.5 D Magnesium Total Bilirubin Direct Bilirubin AST ALT Alkaline Phosphatase B-Natriuretic Peptide Total Protein Albumin Lipase Procalcitonin Urine Color Urine Appearance Urine pH Ur Specific [place] Urine Protein Urine Glucose (UA) Urine Ketones Urine Blood Urine Nitrite Ur Leukocyte Esterase Urine RBC Urine WBC Ur Squamous Epith Cells Other Crystals Urine Bacteria Hyaline Casts Valproic Acid COVID-19 (GREGORIO) COVID-19 Clin Com Influenza Type A (JOSE) Influenza Type B (JOSE) Influenza A & B Note 03/27/23 11:37 MCV MCH MCHC RDW Plt Count MPV Immature Gran % (Auto) Neut % (Auto) Lymph % (Auto) Love % (Auto) Eos % (Auto) Baso % (Auto) Lymph # (Auto) Love # (Auto) Eos # (Auto) Baso # (Auto) Abs Immat Gran (auto) Absolute Neuts (auto) Absolute Nucleated RBC Nucleated RBC % (auto) PT INR VBG pH VBG pCO2 VBG pO2 VBG HCO3 VBG O2 Saturation VBG Base Excess Anion Gap Estim Creat Clear Calc Estimated GFR POC Glucose 128 H Random Glucose Lactic Acid Lactic Acid F/U @ 2Hr Calcium Magnesium Total Bilirubin Direct Bilirubin AST ALT Alkaline Phosphatase B-Natriuretic Peptide Total Protein Albumin Lipase Procalcitonin Urine Color Urine Appearance Urine pH Ur Specific [place] Urine Protein Urine Glucose (UA) Urine Ketones Urine Blood Urine Nitrite Ur Leukocyte Esterase Urine RBC Urine WBC Ur Squamous Epith Cells Other Crystals Urine Bacteria Hyaline Casts Valproic Acid COVID-19 (GREGORIO) COVID-19 Clin Com Influenza Type A (JOSE) Influenza Type B (JOSE) Influenza A & B Note Assessment and Plan (1) Acute febrile illness: Status: Acute (2) Acidosis, lactic: Status: Acute (3) Aspiration pneumonia: Status: Acute Plan 72/m w/ advanced unspecified dementia, kwu-bhzrmoy-uxyrauwdv diabetes mellitus type 2, dysphagia with recent admission for aspiration pneumonia status post G- tube, mood disorder, history of TIA, mixed hyperlipidemia, chronic hypoxemic respiratory failure on baseline 2 L supplemental oxygen who was sent from [facility] for evaluation of fever and tachypnea and admitted for asp pna Acute on chronic hypoxemic respiratory failure d/t sepsis from aspiration pneumonia --improved -continue Zosyn -aspiration precaution Acute lactic acidosis due to sepsis: Resolved ?Diarrhea: GI panel and C diff--not collected, cancel w/ 24 hrs if no diarrhea Mixed hyperlipidemia -On statin Unspecified Dementia On Depakote and Seroquel BPH: On Proscar and Flomax Niy-rcmcfto-kcdfmecji diabetes mellitus: Initiating Accu-Cheks with sliding scale insulin Dysphagia status post G-tube med rec done, all med via peg DVT prophylaxis: Lovenox Full code need for inpt: sepsis treatment with iv Abx, at high risk for detelioration Quality Stroke Does the patient have a stroke diagnosis?: No VTE Prior VTE?: No VTE Risk Level:: Medical - moderate - high VTE Device Contraindication: Treatment Not Indicated VTE Drug Contraindication: N/A - Med Ordered
--- NOTE | 2023-03-27 14:49 | MHC.CLN ---
PT FAMILIAR FROM RECENT ADMISSION RECEIVED G TUBE 02/05/23 CURRENTLY NPO MBS 02/16 SHOWS PERSISTENT ASPIRATION REQUIRES NUTRITION/HYDRATION VIA PEG RECOMMEND GLUCERNA AT MAX GOAL RATE 65 ML PER HOUR WITH 120ML FREE WATER FLUSHES Q 6 HOURS PROVIDES 1560 KCALS (30 KCALS/KG); 65.2 G PROTEIN (1.3 G/KG); 1810 ML TOTAL FREE WATER FROM FORMULA AND FLUSHES (36ML/KG) START FORMULA AT 20ML/HR AND INCREASE 10ML Q 4 HRS UNTIL MAX GOAL IS ACHIEVED MONITOR FOR RESIDUALS, LYTES, TUBE FEED TOLERANCE SEE ALSO CLINICAL NUTRITION ASSESSMENT
[2023-03-27] MEDS: Acetaminophen Child Oral Liq 160 MG/5 ML UD Cup 960 MG G-TUBE ×2 (15:02→22:51)
[2023-03-27] MEDS: FLUoxetine HCl 20 MG CAPSULE G-TUBE (15:02)
[2023-03-27] MEDS: Lactulose 20 GM/30 ML SOLUTION G-TUBE (15:02)
[2023-03-27] MEDS: QUEtiapine Fumarate 25 MG TABLET G-TUBE ×2 (15:02→22:41)
[2023-03-27 16:12] LABS: Glucose, Whole Blood 161 mg/dL (60-115)
[2023-03-27] MEDS: Insulin Lispro 100 UNIT/ML 3 ML VIAL SUBCUT (18:08)
[2023-03-27 20:42] LABS: Glucose, Whole Blood 96 mg/dL (60-115)
[2023-03-27] MEDS: traZODone HCL 50 MG TABLET G-TUBE (22:41)
[2023-03-27] MEDS: Melatonin 3 MG TABLET 6 MG G-TUBE (22:41)
[2023-03-27] MEDS: guaiFENesin 100 MG/5 ML LIQUID 20 ML G-TUBE (22:41)
[2023-03-27] MEDS: Atorvastatin Calcium 20 MG TABLET G-TUBE (22:41)
[2023-03-28] VITALS (7 sets, daily range): BP systolic 84–126; BP diastolic 47–80; PULSE 60–95; RESP 18–20; TEMP 36.2–36.8; O2SAT 95–98
[2023-03-28] MEDS: Piperacillin Sodium/Tazobactam 4.5 GM in 0.9 % Sodium Chloride 100 ML IV ×5 (01:11→23:29)
[2023-03-28] MEDS: 0.9 % Sodium Chloride Flush 3 ML SYRINGE IVFLUSH ×3 (01:12→20:46)
[2023-03-28] MEDS: Enoxaparin Sodium 40 MG/0.4 ML SYRINGE SUBCUT ×2 (01:16→23:30)
[2023-03-28] MEDS: Lactated Ringers 500 ML 999 ML IV (01:22)
[2023-03-28 03:11] LABS: CDiff Gene PCR NEGATIVE (Negative)
[2023-03-28 04:36] LABS: Glucose, Whole Blood 115 mg/dL (60-115)
[2023-03-28 07:27] LABS: Glucose, Whole Blood 125 mg/dL (60-115)
[2023-03-28] MEDS: Acetaminophen Child Oral Liq 160 MG/5 ML UD Cup 960 MG G-TUBE ×3 (09:00→20:40)
[2023-03-28] MEDS: Finasteride 5 MG TABLET PO (09:00)
[2023-03-28] MEDS: guaiFENesin 100 MG/5 ML LIQUID 20 ML G-TUBE ×2 (09:00→20:40)
[2023-03-28] MEDS: Aspirin 81 MG TAB.CHEW G-TUBE (09:01)
[2023-03-28] MEDS: Lidocaine 4 % Patch ADH..PATCH 1 PATCH TRANSDERMA (09:01)
[2023-03-28] MEDS: FLUoxetine HCl 20 MG CAPSULE G-TUBE (09:01)
[2023-03-28] MEDS: QUEtiapine Fumarate 25 MG TABLET G-TUBE ×2 (09:01→20:41)
[2023-03-28 09:32] LABS: Hematocrit 32.3 % (42.0-52.0); Hemoglobin 10.3 g/dl (14.0-18.0); Mean Corpuscular HGB Conc 31.9 g/dl (31.0-36.0); Mean Corpuscular Hemoglobin 29.2 pg (27.0-33.0); Mean Corpuscular Volume 91.5 fL (80.0-98.0); Mean Platelet Volume 10.3 fL (9.4-12.4); Red Blood Count 3.53 X10*6/uL (4.60-5.80); Red Cell Distribution Width 15.5 % (11.0-16.0); White Blood Count 6.4 X10*3/uL (4.8-10.8)
[2023-03-28 09:33] LABS: Platelet Count 89 X10*3/uL (160-400)
[2023-03-28 10:03] LABS: Anion Gap 10 (12-20); Blood Urea Nitrogen 19 mg/dL (9-16); Calcium 8.7 mg/dL (8.4-10.2); Carbon Dioxide 26 mmol/L (22-29); Chloride 111 mmol/L (96-108); Creatinine Clr Calc Pharmacy 67.7; Estimated Glomerular Filt Rate > 60; Glucose Random 161 mg/dL (60-115); Potassium 3.6 mmol/L (3.3-5.1); Sodium 143 mmol/L (135-145)
--- NOTE | 2023-03-28 10:04 | MHC.CLN ---
F/U G TUBE 02/05/23 STARTED NUTRITION VIA TF PT APPEARS TO BE TOLERATING TF FORMULA GLUCERNA 1.0 CURRENTLY RUNNING AT 60ML/HR AND SLOWLY TITRATING UP TO MAX GOAL TF MAX GOAL GLUCERNA AT 65 ML PER HOUR WITH 120ML FREE WATER FLUSHES Q 6 HOURS PROVIDES 1560 KCALS (30 KCALS/KG); 65.2 G PROTEIN (1.3 G/KG); 1810 ML TOTAL FREE WATER FROM FORMULA AND FLUSHES (36ML/KG) MONITOR FOR RESIDUALS, LYTES, TUBE FEED TOLERANCE
[2023-03-28 11:45] LABS: Glucose, Whole Blood 146 mg/dL (60-115)
--- NOTE | 2023-03-28 12:01 | P.PNIM_ITS ---
Subjective Subjective Date of Service: 03/29/23 Interval History: f/u on pna, now with gram positive cocci bacteremia fever resoved. Physical Exam 2 Vital Signs: Vital Signs: Last Vital Signs Temp 97.7 F 03/28/23 11:18 Pulse 81 03/28/23 11:18 Resp 20 03/28/23 11:18 BP 96/58 L 03/28/23 11:18 Pulse Ox 97 03/28/23 11:18 O2 Del Method Nasal Cannula 03/28/23 11:18 O2 Flow Rate 3 03/28/23 11:18 Oxygen Flow Rate 2 03/26/23 23:09 BMI result Body Mass Index 20.5 Const: Other: General: alert no distress Resp: CTA bilateral CVS: S1,S2,RRR GI: +BS, NT, no distention Skin: No rash Neuro: motor grossly intact Psych: appropriate affect Objective Data Active Medications Acetaminophen (Acetaminophen Supp 650 Mg Supp.Rect) 650 mg MI Q6H PRN PRN Reason: Pain, Mild (Pain Scale 1-3) Acetaminophen (Acetaminophen Child Oral Liq 160 Mg/5 Ml Ud Cup) 960 mg G-TUBE TID [facility] Last Admin: 03/28/23 09:00 Dose: 960 mg Documented By: DIDI Artificial Tears (Artificial Tears 15 Ml Drops) 1 drop EYE-BOTH BID PRN PRN Reason: Dry Eyes Aspirin (Aspirin 81 Mg Tab.Chew) 81 mg G-TUBE DAILY [facility] Last Admin: 03/28/23 09:01 Dose: 81 mg Documented By: DIDI Atorvastatin Calcium (Atorvastatin Calcium 20 Mg Tablet) 20 mg G-TUBE BEDTIME [facility] Last Admin: 03/27/23 22:41 Dose: 20 mg Documented By: TODD Bisacodyl (Bisacodyl 10 Mg Supp.Rect) 10 mg MI DAILY PRN PRN Reason: Constipation Dextrose (Dextrose 50 % 25 Gm/50 Ml Syringe) 25 gm IVPUSH Q15M PRN; Protocol PRN Reason: per Hypoglycemia Standing Ord. Enoxaparin Sodium (Enoxaparin Sodium 40 Mg/0.4 Ml Syringe) 40 mg SUBCUT Q24H [facility] Last Admin: 03/28/23 01:16 Dose: 40 mg Documented By: TODD Finasteride (Finasteride 5 Mg Tablet) 5 mg PO DAILY [facility] Last Admin: 03/28/23 09:00 Dose: 5 mg Documented By: DIDI Fluoxetine HCl (Fluoxetine Hcl 20 Mg Capsule) 20 mg G-TUBE DAILY [facility] Last Admin: 03/28/23 09:01 Dose: 20 mg Documented By: DIDI Glucose (Glucose Gel 15 Gm Gel..Gram.) 15 gm PO Q15M PRN; Protocol PRN Reason: per Hypoglycemia Standing Ord. Guaifenesin (Guaifenesin 100 Mg/5 Ml Liquid) 20 ml G-TUBE BID [facility] Last Admin: 03/28/23 09:00 Dose: 20 ml Documented By: DIDI Piperacillin Sod/Tazobactam (Sod 4.5 gm/ Sodium Chloride) 100 mls @ 200 mls/hr IV Q6H [facility] Last Infusion: 03/28/23 11:29 Dose: Infused Documented By: DIDI Insulin Human Lispro (Insulin Lispro 100 Unit/Ml 3 Ml Vial) 0 unit SUBCUT Q6H [facility]; Protocol Last Admin: 03/28/23 08:35 Dose: Not Given Documented By: DIDI Non-Admin Reason: No Insulin Coverage Lactulose (Lactulose 20 Gm/30 Ml Solution) 20 gm G-TUBE DAILY [facility] Last Admin: 03/28/23 09:14 Dose: Not Given Documented By: DIDI Non-Admin Reason: LOOSE STOOLS Lidocaine (Lidocaine 4 % Patch Adh..Patch) 1 patch TRANSDERMA DAILY [facility] Last Admin: 03/28/23 09:01 Dose: 1 patch Documented By: DIDI Magnesium Hydroxide (Milk Of Magnesia 30 Ml Oral.Susp) 30 ml G-TUBE DAILY PRN PRN Reason: Constipation Melatonin (Melatonin 3 Mg Tablet) 6 mg PO BEDTIME PRN PRN Reason: Insomnia Melatonin (Melatonin 3 Mg Tablet) 6 mg G-TUBE BEDTIME [facility] Last Admin: 03/27/23 22:41 Dose: 6 mg Documented By: TODD Naloxone HCl (Naloxone Hcl Nasal 4 Mg [place]) 4 mg NOSTRILALT Q3M PRN PRN Reason: Opioid Overdose Ondansetron HCl (Ondansetron Hcl 4 Mg/2 Ml Vial) 4 mg IVPUSH Q8H PRN PRN Reason: Nausea and Vomiting Quetiapine Fumarate (Quetiapine Fumarate 25 Mg Tablet) 25 mg G-TUBE BID [facility] Last Admin: 03/28/23 09:01 Dose: 25 mg Documented By: DIDI Sodium Biphosphate/Sodium Phosphate (Sodium Phosphate,[place]-Dibasic 133 Ml Enema) 118 ml MI DAILY PRN PRN Reason: Constipation Sodium Chloride (0.9 % Sodium Chloride Flush 3 Ml Syringe) 3 ml IVFLUSH QSHIFT [facility] Last Admin: 03/28/23 09:01 Dose: 3 ml Documented By: DIDI Sodium Chloride (Sodium Chloride 0.65 % Nasal 44 Ml Sprbtl) 1 spray NOSTRIL-B Q3H PRN PRN Reason: dry nostrils Trazodone HCl (Trazodone Hcl 50 Mg Tablet) 50 mg G-TUBE BEDTIME [facility] Last Admin: 03/27/23 22:41 Dose: 50 mg Documented By: TODD Valproic Acid (Valproic Acid (As Sodium Salt) 250 Mg/5 Ml Solution) 500 mg G- TUBE BID [facility] Last Admin: 03/28/23 09:00 Dose: 500 mg Documented By: DIDI Labs 03/28/23 09:25 03/29/23 06:44 Labs: Laboratory Results - last 24 hr 03/27/23 03/27/23 03/28/23 16:08 20:22 01:43 MCV MCH MCHC RDW Plt Count MPV Absolute Nucleated RBC Nucleated RBC % (auto) Anion Gap Estim Creat Clear Calc Estimated GFR POC Glucose 161 H 96 Random Glucose Calcium C. difficile Tox B Gene NEGATIVE 03/28/23 03/28/23 03/28/23 04:21 07:23 09:25 MCV 91.5 MCH 29.2 MCHC 31.9 RDW 15.5 Plt Count 89 L D MPV 10.3 Absolute Nucleated RBC 0.000 Nucleated RBC % (auto) 0.0 Anion Gap 10 L Estim Creat Clear Calc 67.7 Estimated GFR > 60 POC Glucose 115 125 H Random Glucose 161 H Calcium 8.7 C. difficile Tox B Gene 03/28/23 11:41 MCV MCH MCHC RDW Plt Count MPV Absolute Nucleated RBC Nucleated RBC % (auto) Anion Gap Estim Creat Clear Calc Estimated GFR POC Glucose 146 H Random Glucose Calcium C. difficile Tox B Gene Microbiology Microbiology Results: Microbiology 03/26/23 23:23 Blood Culture - Preliminary Blood - Venous Prelim: GPC Gram Stain only 03/27/23 Unknown Urine Culture - Final Urine clean catch - Urine lea top 03/26/23 23:26 Blood Culture - Preliminary Blood - Venous No growth after 24 hours. Assessment and Plan (1) Acute febrile illness: Status: Acute (2) Acidosis, lactic: Status: Acute (3) Aspiration pneumonia: Status: Acute Plan 72/m w/ advanced unspecified dementia, [id number]-[id number] diabetes mellitus type 2, dysphagia with recent admission for aspiration pneumonia status post G- tube, mood disorder, history of TIA, mixed hyperlipidemia, chronic hypoxemic respiratory failure on baseline 2 L supplemental oxygen who was sent from [facility] for evaluation of fever and tachypnea and admitted for asp pna Acute on chronic hypoxemic respiratory failure d/t sepsis from aspiration pneumonia --improved -continue Zosyn, adding Vanco for gram positive cocci bacteremia which is likely contamination -aspiration precaution 1/2 gram positive cocci bacteremia--IV Vanco until final sensitivity Acute lactic acidosis due to sepsis: Resolved Diarrhea, cdif negative, gi panel pending Mixed hyperlipidemia -On statin Unspecified Dementia On Depakote and Seroquel BPH: On Proscar and Flomax [id number]-ptqahydiu diabetes mellitus: Initiating Accu-Cheks with sliding scale insulin Dysphagia status post G-tube, tube feed per nutrition recommendaion DVT prophylaxis: Lovenox Full code need for inpt: sepsis treatment with iv Abx, at high risk for detelioration Quality Stroke Does the patient have a stroke diagnosis?: No VTE Prior VTE?: No VTE Risk Level:: Medical - moderate - high VTE Device Contraindication: Treatment Not Indicated VTE Drug Contraindication: N/A - Med Ordered
[2023-03-28 12:19] LABS: Adenovirus F 40/41 Not Detected (Not Detect.); Astrovirus Not Detected (Not Detect.); Campylobacter Not Detected (Not Detect.); Cryptosporidium Not Detected (Not Detect.); Cyclospora cayetanensis Not Detected (Not Detect.); E. coli EAEC Not Detected (Not Detect.); E. coli EPEC Not Detected (Not Detect.); E. coli ETEC Not Detected (Not Detect.); E. coli STEC Not Detected (Not Detect.); Entamoeba histolytica Not Detected (Not Detect.); Giardia lamblia Not Detected (Not Detect.); Norovirus GI/GII Not Detected (Not Detect.); Plesiomonas shigelloides Not Detected (Not Detect.); Rotavirus A Not Detected (Not Detect.); Salmonella Not Detected (Not Detect.); Sapovirus Not Detected (Not Detect.); Shigella sp./EIEC Not Detected (Not Detect.); Vibrio Not Detected (Not Detect.); Vibrio Cholerae Not Detected (Not Detect.); Yersinia enterocolitica Not Detected (Not Detect.)
[2023-03-28] MEDS: vancomycin HCL 1,250 MG in 0.9 % Sodium Chloride 250 ML 166.67 MG IV (13:45)
--- NOTE | 2023-03-28 15:49 | PHA.PROG ---
Admission Date/Time: March 26, 2023 23:57 Indication: Bacteremia Weight in k.9 kg Adjusted body weight in K.1 [place] body weight in K.6 Obesity Dosing Indication % IBW: Serum Creatinine - Last 168 Hours 03/26/23 03/27/23 03/28/23 23:24 04:43 09:25 Creatinine 0.85 0.80 0.71 Estimated CrCl and GFR - Last 168 Hours 03/26/23 03/27/23 03/28/23 23:24 04:43 09:25 Estim Creat Clear Calc 56.5 60.0 67.7 Estimated GFR > 60 > 60 > 60 Vancomycin Loading Dose: 1250 mg Current Vancomycin Dosing Regimen: 750 mg Vancomycin Monitoring using AUC goal of 400 - 600 range with trough as surrogate marker: 519 Date and Time for next Vancomycin Level to be drawn: 03/30 @1200 Pharmacist Comments on Vancomycin Plan: Vancomycin dosing will take advantage of [employer] as a clinical decision support tool that uses Bayesian modeling to calculate individual patient's pharmacokinetic parameters and forecast the patient's drug concentration time course with the target goal AUC 24 range of 400 - 600 mg/L/hr.
[2023-03-28 16:35] LABS: Glucose, Whole Blood 125 mg/dL (60-115)
[2023-03-28 19:42] LABS: Glucose, Whole Blood 170 mg/dL (60-115)
[2023-03-28] MEDS: Atorvastatin Calcium 20 MG TABLET G-TUBE (20:40)
[2023-03-28] MEDS: traZODone HCL 50 MG TABLET G-TUBE (20:41)
[2023-03-28] MEDS: Melatonin 3 MG TABLET 6 MG G-TUBE (20:41)
[2023-03-28] MEDS: Insulin Lispro 100 UNIT/ML 3 ML VIAL SUBCUT (20:45)
[2023-03-29] MEDS: OLANZapine 5 MG TABLET G-TUBE (01:31)
[2023-03-29] MEDS: vancomycin HCL 750 MG in 0.9 % Sodium Chloride 250 ML 265 MG IV ×2 (01:39→14:30)
[2023-03-29 03:01] VITALS: BP 136/73; PULSE 67; RESP 20; TEMP 36.2; O2SAT 97
[2023-03-29 05:01] LABS: Glucose, Whole Blood 127 mg/dL (60-115)
[2023-03-29] MEDS: Piperacillin Sodium/Tazobactam 4.5 GM in 0.9 % Sodium Chloride 100 ML IV ×4 (05:23→22:13)
--- NOTE | 2023-03-29 07:00 | CA_ITS ---
Transthoracic Echocardiogram Patient (Last, First, Middle): Daniele Nogueira, Gender: Male Date of : 1950 Age: 72 Procedure Date: 03/29/2023 Procedure Type: Transthoracic Echocardiogram Location: [facility] Height: 157.48 cm Weight: 50.8 kg BSA: 1.49 m2 Heart Rate: 77 bpm BP: 109 / 69 mmHg Head Strength And Conditioning Coach: RUI Referring MD: Gilbert Ahumada MD Senior Project Manager Engineering: Seb Cleveland MD Symptoms: Bacteremia, rule IE Study Quality: Adequate ECG Rhythm: Sinus Conclusions: - 1. No clear large vegetations seen on this study 2. Normal LV ejection fraction of 60 65% 3. Normal cardiac valvular Doppler 4. Mildly dilated ascending aorta 5. Normal RV systolic pressure Findings Left Ventricle Normal left ventricular size, thickness, and systolic function. The visually estimated ejection fraction is between 60-65%. Spectral Doppler is indicative of an impaired relaxation filling pattern. Right Ventricle Normal right ventricular cavity size. Atria The left atrium is normal in size. Aortic Valve Normal aortic valve structure and function. There is no aortic valve stenosis. There is no aortic valve regurgitation. Mitral Valve Normal mitral valve structure and function. There is trace mitral valve regurgitation. There is no mitral valve stenosis. Pulmonic Valve The pulmonic valve was not well visualized. Tricuspid Valve Likely normal tricuspid valve structure and function. There is mild tricuspid valve regurgitation. The right ventricular systolic pressure is 33 mmHg. Normal right atrial pressure. There is no evidence of pulmonary hypertension. Great Vessels The pulmonary artery was not well visualized. There is mild dilatation of the ascending aorta measuring 4.10 cm. Venous The inferior vena cava is normal in size and collapses greater than 50% with inspiration. Pericardium/Pleural There is no evidence of pericardial effusion. Prior Study Comparison No significant change compared to prior study dated: 01/29/2023. Recommendations, Care & Conclusions Consider a JAIME if clinically appropriate. Measurements 2D Linear Measurements IVSd: 0.53 0.6-0.9/0.6-1.0 cm LVIDd: 4.94 3.9-5.3/4.2-5.9 cm LVIDd Index: 3.32 2.4-3.2/2.2-3.1 cm/m2 LVIDs: 2.98 2.0-3.6 cm LVPWd: 0.58 0.7-1.1 cm LV Mass: 104.13 67-162/88-224 g LV Mass Index: 69.88 43-95/49-115 g/m2 LVOT Diam: 2.00 3.0+(-)1.3 cm 2D Systolic Function EF 2C: 66.90 >55% Mitral Valve MV Pk E: 0.88 MV PK A: 0.79 MV Decel Time: 192.00 E/A: 1.10 E'Lateral: 8.05 E'Medial: 4.79 E/E' Med: 18.30 E/E' Lat: 10.90 PHT: 56.00 MVA PHT: 3.93 Decel [place]: 4.57 LVOT LVOT Pk Carlos: 1.04 LVOT Mn Carlos: 0.71 LVOT VTI: 0.25 LVOT Pk Grad: 4.00 LVOT Mn Grad: 2.00 LVOT Diam: 2.00 LVOT Area: 3.14 Diastolic Function MV Pk E: 0.88 MV Pk A: 0.79 E/A: 1.10 E'Medial: 4.79 E/E' Med: 18.30 E' Laterial: 8.05 E/E' Lat: 10.90 Tricuspid Valve TR Pk Carlos: 2.76 TR Pk Grad: 30.00 RA Press: 3.00 RVSP: 33.00 Great Vessels Aorta Ao Asc: 4.10 2.1-3.4 cm Updated in Other Vendor System with Status of Final Seb Cleveland MD electronically signed on 03/29/2023 3:03:01 PM with status of Final
[2023-03-29 07:14] LABS: Creatinine Clr Calc Pharmacy 66.7; Estimated Glomerular Filt Rate > 60
[2023-03-29 08:00] VITALS: BP 153/63; PULSE 74; RESP 18; TEMP 36.6; O2SAT 92
[2023-03-29 08:04] LABS: Glucose, Whole Blood 83 mg/dL (60-115)
[2023-03-29] MEDS: Acetaminophen Child Oral Liq 160 MG/5 ML UD Cup 960 MG G-TUBE ×3 (08:47→22:55)
[2023-03-29] MEDS: guaiFENesin 100 MG/5 ML LIQUID 20 ML G-TUBE ×2 (08:47→22:55)
[2023-03-29] MEDS: Aspirin 81 MG TAB.CHEW G-TUBE (08:48)
[2023-03-29] MEDS: QUEtiapine Fumarate 25 MG TABLET G-TUBE ×2 (08:48→22:03)
[2023-03-29] MEDS: Finasteride 5 MG TABLET PO (08:48)
[2023-03-29] MEDS: FLUoxetine HCl 20 MG CAPSULE G-TUBE (08:48)
[2023-03-29] MEDS: 0.9 % Sodium Chloride Flush 3 ML SYRINGE IVFLUSH ×2 (08:53→17:30)
[2023-03-29] MEDS: Lactulose 20 GM/30 ML SOLUTION G-TUBE (09:01)
[2023-03-29] MEDS: Lidocaine 4 % Patch ADH..PATCH 1 PATCH TRANSDERMA (09:02)
--- NOTE | 2023-03-29 10:54 | HO.PM.IMPN ---
Subjective Subjective Date of Service: 03/29/23 Interval History: f/u on pna, and bacteremia, blood culture is showing staph aureus, patient seem more sob this morming, although he's not able to verbalize, cxr is requested Review of Systems ROS unable to be obtained due to altered mental status Physical Exam Vital Signs: Vital Signs: Last Vital Signs Temp 97.8 F 03/29/23 08:00 Pulse 74 03/29/23 08:00 Resp 18 03/29/23 08:00 BP 153/63 H 03/29/23 08:00 Pulse Ox 92 03/29/23 08:00 O2 Del Method Nasal Cannula 03/29/23 08:00 O2 Flow Rate 3 03/29/23 08:00 Oxygen Flow Rate 2 03/26/23 23:09 BMI result Body Mass Index 20.5 General: alert no distress Resp: rales at left base CVS: S1,S2,RRR GI: +BS, NT, no distention Skin: No rash Neuro: motor grossly intact Psych: appropriate affect Const: Other: General: alert no distress Resp: CTA bilateral CVS: S1,S2,RRR GI: +BS, NT, no distention Skin: No rash Neuro: motor grossly intact Psych: appropriate affect Objective Data Active Medications Acetaminophen (Acetaminophen Supp 650 Mg Supp.Rect) 650 mg NC Q6H PRN PRN Reason: Pain, Mild (Pain Scale 1-3) Acetaminophen (Acetaminophen Child Oral Liq 160 Mg/5 Ml Ud Cup) 960 mg G-TUBE TID [facility] Last Admin: 03/29/23 08:47 Dose: 960 mg Documented By: DEBI Artificial Tears (Artificial Tears 15 Ml Drops) 1 drop EYE-BOTH BID PRN PRN Reason: Dry Eyes Aspirin (Aspirin 81 Mg Tab.Chew) 81 mg G-TUBE DAILY [facility] Last Admin: 03/29/23 08:48 Dose: 81 mg Documented By: DEBI Atorvastatin Calcium (Atorvastatin Calcium 20 Mg Tablet) 20 mg G-TUBE BEDTIME [facility] Last Admin: 03/28/23 20:40 Dose: 20 mg Documented By: NICOLAS Bisacodyl (Bisacodyl 10 Mg Supp.Rect) 10 mg NC DAILY PRN PRN Reason: Constipation Dextrose (Dextrose 50 % 25 Gm/50 Ml Syringe) 25 gm IVPUSH Q15M PRN; Protocol PRN Reason: per Hypoglycemia Standing Ord. Enoxaparin Sodium (Enoxaparin Sodium 40 Mg/0.4 Ml Syringe) 40 mg SUBCUT Q24H [facility] Last Admin: 03/28/23 23:30 Dose: 40 mg Documented By: NICOLAS Finasteride (Finasteride 5 Mg Tablet) 5 mg PO DAILY [facility] Last Admin: 03/29/23 08:48 Dose: 5 mg Documented By: DEBI Fluoxetine HCl (Fluoxetine Hcl 20 Mg Capsule) 20 mg G-TUBE DAILY [facility] Last Admin: 03/29/23 08:48 Dose: 20 mg Documented By: DEBI Glucose (Glucose Gel 15 Gm Gel..Gram.) 15 gm PO Q15M PRN; Protocol PRN Reason: per Hypoglycemia Standing Ord. Guaifenesin (Guaifenesin 100 Mg/5 Ml Liquid) 20 ml G-TUBE BID [facility] Last Admin: 03/29/23 08:47 Dose: 20 ml Documented By: DEBI Piperacillin Sod/Tazobactam (Sod 4.5 gm/ Sodium Chloride) 100 mls @ 200 mls/hr IV Q6H [facility] Last Infusion: 03/29/23 05:53 Dose: Infused Documented By: NICOLAS Vancomycin HCl 750 mg/ Sodium (Chloride) 265 mls @ 265 mls/hr IV Q12H [facility] Last Infusion: 03/29/23 02:39 Dose: Infused Documented By: NICOLAS Insulin Human Lispro (Insulin Lispro 100 Unit/Ml 3 Ml Vial) 0 unit SUBCUT Q6H [facility]; Protocol Last Admin: 03/29/23 08:56 Dose: Not Given Documented By: DEBI Non-Admin Reason: No Insulin Coverage Lactulose (Lactulose 20 Gm/30 Ml Solution) 20 gm G-TUBE DAILY [facility] Last Admin: 03/29/23 09:01 Dose: 20 gm Documented By: DEBI Lidocaine (Lidocaine 4 % Patch Adh..Patch) 1 patch TRANSDERMA DAILY [facility] Last Admin: 03/29/23 09:02 Dose: 1 patch Documented By: DEBI Magnesium Hydroxide (Milk Of Magnesia 30 Ml Oral.Susp) 30 ml G-TUBE DAILY PRN PRN Reason: Constipation Melatonin (Melatonin 3 Mg Tablet) 6 mg PO BEDTIME PRN PRN Reason: Insomnia Melatonin (Melatonin 3 Mg Tablet) 6 mg G-TUBE BEDTIME [facility] Last Admin: 03/28/23 20:41 Dose: 6 mg Documented By: NICOLAS Naloxone HCl (Naloxone Hcl Nasal 4 Mg [place]) 4 mg NOSTRILALT Q3M PRN PRN Reason: Opioid Overdose Ondansetron HCl (Ondansetron Hcl 4 Mg/2 Ml Vial) 4 mg IVPUSH Q8H PRN PRN Reason: Nausea and Vomiting Pharmacy Consult (Consult Rx Vancomycin Dosing) 1 each MISCELLANE DAILY PRN PRN Reason: Consult order Quetiapine Fumarate (Quetiapine Fumarate 25 Mg Tablet) 25 mg G-TUBE BID [facility] Last Admin: 03/29/23 08:48 Dose: 25 mg Documented By: DEBI Sodium Biphosphate/Sodium Phosphate (Sodium Phosphate,[place]-Dibasic 133 Ml Enema) 118 ml NC DAILY PRN PRN Reason: Constipation Sodium Chloride (0.9 % Sodium Chloride Flush 3 Ml Syringe) 3 ml IVFLUSH QSHIFT [facility] Last Admin: 03/29/23 08:53 Dose: 3 ml Documented By: DEBI Sodium Chloride (Sodium Chloride 0.65 % Nasal 44 Ml Sprbtl) 1 spray NOSTRIL-B Q3H PRN PRN Reason: dry nostrils Trazodone HCl (Trazodone Hcl 50 Mg Tablet) 50 mg G-TUBE BEDTIME [facility] Last Admin: 03/28/23 20:41 Dose: 50 mg Documented By: NICOLAS Valproic Acid (Valproic Acid (As Sodium Salt) 250 Mg/5 Ml Solution) 500 mg G-TUBE BID [facility] Last Admin: 03/29/23 08:47 Dose: 500 mg Documented By: DEBI Labs 03/28/23 09:25 03/29/23 06:44 Labs: Laboratory Results - last 24 hr 03/28/23 03/28/23 03/28/23 01:43 11:41 16:32 Estim Creat Clear Calc Estimated GFR POC Glucose 146 H 125 H Stl C. cayetanensis PCR Not Detected Stool Rotavirus A PCR Not Detected Stl Adenov F PCR Not Detected Stool Astrovirus (PCR) Not Detected Stool Campylobacter PCR Not Detected Stool Cryptosporidium PCR Not Detected Stl Sh Tox Pr E STEC PCR Not Detected Stool E coli O157 PCR Not applicable Stl Enterotoxigenic E PCR Not Detected Stool EPEC (PCR) Not Detected Stool EAEC (PCR) Not Detected Stl E. histolytica PCR Not Detected Stool Giardia Lamblia PCR Not Detected Stl P. shigelloides PCR Not Detected Stool Salmonella PCR Not Detected Stool Sapovirus (PCR) Not Detected Stl Shigella/EIEC PCR Not Detected St Y.enterocolitica PCR Not Detected Stool Vibrio (PCR) Not Detected Stl Vibrio cholerae PCR Not Detected Stl Norovirus GI/GII PCR Not Detected 03/28/23 03/29/23 03/29/23 19:37 04:56 06:44 Estim Creat Clear Calc 66.7 Estimated GFR > 60 POC Glucose 170 H 127 H Stl C. cayetanensis PCR Stool Rotavirus A PCR Stl Adenov F 40/41 PCR Stool Astrovirus (PCR) Stool Campylobacter PCR Stool Cryptosporidium PCR Stl Sh Tox Pr E STEC PCR Stool E coli O157 PCR Stl Enterotoxigenic E PCR Stool EPEC (PCR) Stool EAEC (PCR) Stl E. histolytica PCR Stool Giardia Lamblia PCR Stl P. shigelloides PCR Stool Salmonella PCR Stool Sapovirus (PCR) Stl Shigella/EIEC PCR St Y.enterocolitica PCR Stool Vibrio (PCR) Stl Vibrio cholerae PCR Stl Norovirus GI/GII PCR 03/29/23 07:58 Estim Creat Clear Calc Estimated GFR POC Glucose 83 Stl C. cayetanensis PCR Stool Rotavirus A PCR Stl Adenov F 40/41 PCR Stool Astrovirus (PCR) Stool Campylobacter PCR Stool Cryptosporidium PCR Stl Sh Tox Pr E STEC PCR Stool E coli O157 PCR Stl Enterotoxigenic E PCR Stool EPEC (PCR) Stool EAEC (PCR) Stl E. histolytica PCR Stool Giardia Lamblia PCR Stl P. shigelloides PCR Stool Salmonella PCR Stool Sapovirus (PCR) Stl Shigella/EIEC PCR St Y.enterocolitica PCR Stool Vibrio (PCR) Stl Vibrio cholerae PCR Stl Norovirus GI/GII PCR Microbiology Microbiology Results: Microbiology 03/26/23 23:23 Blood Culture - Preliminary Blood - Venous Staphylococcus aureus 03/26/23 23:26 Blood Culture - Preliminary Blood - Venous No growth after 48 hours. 03/27/23 Unknown Urine Culture - Final Urine clean catch - Urine lea top Assessment and Plan (1) Acute febrile illness: Status: Acute (2) Acidosis, lactic: Status: Acute (3) Aspiration pneumonia: Status: Acute (4) Acute respiratory failure with hypoxia: Status: Acute (5) Sepsis: Status: Acute Plan 72/m w/ advanced unspecified dementia, yfj-vpswgiu-fqiwwabwa diabetes mellitus type 2, dysphagia with recent admission for aspiration pneumonia status post G-tube, mood disorder, history of TIA, mixed hyperlipidemia, chronic hypoxemic respiratory failure on baseline 2 L supplemental oxygen who was sent from [facility] for evaluation of fever and tachypnea and admitted for asp pna Acute on chronic hypoxemic respiratory failure d/t sepsis from aspiration pneumonia and staph bacteremia, -repeat cxr d/t apparent more difficulty breathing -continue Zosyn since admission, Vanco for S. Aureus -aspiration precaution 1/2 Staph bacteremia--IV Vanco until final sensitivity, ID consult, echo and repeat cultures Acute lactic acidosis due to sepsis: Resolved Diarrhea, cdif negative, gi panel negative Mixed hyperlipidemia -On statin Unspecified Dementia On Depakote and Seroquel BPH: On Proscar and Flomax Vhc-nlfzacp-ffjdlqzqx diabetes mellitus: Initiating Accu-Cheks with sliding scale insulin Dysphagia status post G-tube, tube feed per nutrition recommendation DVT prophylaxis: Lovenox Full code need for inpt: sepsis treatment with iv Abx, at high risk for detelioration Quality Stroke Does the patient have a stroke diagnosis?: No VTE Prior VTE?: No VTE Risk Level:: Medical - moderate - high VTE Device Contraindication: Treatment Not Indicated VTE Drug Contraindication: N/A - Med Ordered
[2023-03-29 11:07] VITALS: BP 109/69; PULSE 83; RESP 18; TEMP 36.7; O2SAT 97
--- NOTE | 2023-03-29 11:36 | MHC.CLN ---
F/U PT RECEIVING GLUCERNA AT 65 ML PER HOUR WITH 120ML FREE WATER FLUSHES Q 6 HOURS PROVIDES 1560 KCALS (30 KCALS/KG); 65.2 G PROTEIN (1.3 G/KG); 1810 ML TOTAL FREE WATER FROM FORMULA AND FLUSHES (36ML/KG) MONITOR TOLERANCE, RESIDUALS AND LYTES
[2023-03-29 11:39] LABS: Glucose, Whole Blood 154 mg/dL (60-115)
--- NOTE | 2023-03-29 13:08 | MHC.CM.PN ---
EMR REVIEWED, PT W/ASPIRATION PNA NOT YET MEDICALLY CLEARED FOR DC, PLAN REMAINS FOR PT TO RETURN TO [facility], CM WILL CONT TO FOLLOW DC NEEDS.
[2023-03-29 15:55] LABS: Glucose, Whole Blood 142 mg/dL (60-115)
[2023-03-29 16:00] VITALS: BP 127/61; PULSE 57; RESP 16; TEMP 36.2; O2SAT 95
[2023-03-29 19:28] VITALS: BP 156/77; PULSE 60; RESP 20; TEMP 36.4; O2SAT 100
[2023-03-29 19:59] LABS: Glucose, Whole Blood 71 mg/dL (60-115)
[2023-03-29] MEDS: Atorvastatin Calcium 20 MG TABLET G-TUBE (22:03)
[2023-03-29] MEDS: Melatonin 3 MG TABLET 6 MG G-TUBE (22:04)
[2023-03-29] MEDS: traZODone HCL 50 MG TABLET G-TUBE (22:04)
[2023-03-29 23:20] VITALS: BP 124/60; PULSE 77; RESP 20; TEMP 37.7; O2SAT 95
[2023-03-30] MEDS: Enoxaparin Sodium 40 MG/0.4 ML SYRINGE SUBCUT (01:18)
[2023-03-30] MEDS: vancomycin HCL 750 MG in 0.9 % Sodium Chloride 250 ML 265 MG IV (01:18)
[2023-03-30] MEDS: 0.9 % Sodium Chloride Flush 3 ML SYRINGE IVFLUSH ×4 (01:22→22:45)
[2023-03-30 03:11] VITALS: BP 129/69; PULSE 79; RESP 20; TEMP 36.9; O2SAT 93
[2023-03-30 03:20] LABS: Glucose, Whole Blood 111 mg/dL (60-115)
[2023-03-30 06:35] LABS: Creatinine Clr Calc Pharmacy 70.6; Estimated Glomerular Filt Rate > 60
[2023-03-30] MEDS: Piperacillin Sodium/Tazobactam 4.5 GM in 0.9 % Sodium Chloride 100 ML IV ×4 (06:38→22:44)
[2023-03-30 07:41] VITALS: BP 145/70; PULSE 78; RESP 17; TEMP 37.1; O2SAT 94
[2023-03-30 07:53] LABS: Glucose, Whole Blood 106 mg/dL (60-115)
[2023-03-30] MEDS: Lidocaine 4 % Patch ADH..PATCH 1 PATCH TRANSDERMA (09:06)
[2023-03-30] MEDS: guaiFENesin 100 MG/5 ML LIQUID 20 ML G-TUBE ×2 (09:09→22:44)
[2023-03-30] MEDS: FLUoxetine HCl 20 MG CAPSULE G-TUBE (09:09)
[2023-03-30] MEDS: Finasteride 5 MG TABLET PO (09:09)
[2023-03-30] MEDS: Aspirin 81 MG TAB.CHEW G-TUBE (09:09)
[2023-03-30] MEDS: QUEtiapine Fumarate 25 MG TABLET G-TUBE ×2 (09:09→22:43)
[2023-03-30] MEDS: Acetaminophen Child Oral Liq 160 MG/5 ML UD Cup 960 MG G-TUBE ×3 (09:10→22:42)
[2023-03-30] MEDS: Lactulose 20 GM/30 ML SOLUTION G-TUBE (09:10)
--- NOTE | 2023-03-30 09:17 | HO.PM.IMPN ---
Subjective Subjective Date of Service: 03/30/23 Interval History: f/u on pna, and bacteremia, blood culture is showing staph aureus, seems less sob this morning, Physical Exam Vital Signs: Vital Signs: Last Vital Signs Temp 98.7 F 03/30/23 07:41 Pulse 78 03/30/23 07:41 Resp 17 03/30/23 07:41 BP 145/70 H 03/30/23 07:41 Pulse Ox 94 03/30/23 07:41 O2 Del Method Nasal Cannula 03/30/23 07:41 O2 Flow Rate 3 03/30/23 03:11 Oxygen Flow Rate 2 03/26/23 23:09 BMI result Body Mass Index 20.5 General: alert no distress Resp: rales at left base CVS: S1,S2,RRR GI: +BS, NT, no distention Skin: No rash Neuro: motor grossly intact Psych: appropriate affect Objective Data Active Medications Acetaminophen (Acetaminophen Supp 650 Mg Supp.Rect) 650 mg [place] Q6H PRN PRN Reason: Pain, Mild (Pain Scale 1-3) Acetaminophen (Acetaminophen Child Oral Liq 160 Mg/5 Ml Ud Cup) 960 mg G-TUBE TID [facility] Last Admin: 03/30/23 09:10 Dose: 960 mg Documented By: ESDRAS Artificial Tears (Artificial Tears 15 Ml Drops) 1 drop EYE-BOTH BID PRN PRN Reason: Dry Eyes Aspirin (Aspirin 81 Mg Tab.Chew) 81 mg G-TUBE DAILY [facility] Last Admin: 03/30/23 09:09 Dose: 81 mg Documented By: ESDRAS Atorvastatin Calcium (Atorvastatin Calcium 20 Mg Tablet) 20 mg G-TUBE BEDTIME [facility] Last Admin: 03/29/23 22:03 Dose: 20 mg Documented By: TOMER Bisacodyl (Bisacodyl 10 Mg Supp.Rect) 10 mg [place] DAILY PRN PRN Reason: Constipation Dextrose (Dextrose 50 % 25 Gm/50 Ml Syringe) 25 gm IVPUSH Q15M PRN; Protocol PRN Reason: per Hypoglycemia Standing Ord. Enoxaparin Sodium (Enoxaparin Sodium 40 Mg/0.4 Ml Syringe) 40 mg SUBCUT Q24H [facility] Last Admin: 03/30/23 01:18 Dose: 40 mg Documented By: TOMER Finasteride (Finasteride 5 Mg Tablet) 5 mg PO DAILY [facility] Last Admin: 03/30/23 09:09 Dose: 5 mg Documented By: ESDRAS Fluoxetine HCl (Fluoxetine Hcl 20 Mg Capsule) 20 mg G-TUBE DAILY [facility] Last Admin: 03/30/23 09:09 Dose: 20 mg Documented By: ESDRAS Glucose (Glucose Gel 15 Gm Gel..Gram.) 15 gm PO Q15M PRN; Protocol PRN Reason: per Hypoglycemia Standing Ord. Guaifenesin (Guaifenesin 100 Mg/5 Ml Liquid) 20 ml G-TUBE BID [facility] Last Admin: 03/30/23 09:09 Dose: 20 ml Documented By: ESDRAS Piperacillin Sod/Tazobactam (Sod 4.5 gm/ Sodium Chloride) 100 mls @ 200 mls/hr IV Q6H [facility] Last Infusion: 03/30/23 08:29 Dose: Infused Documented By: ESDRAS Vancomycin HCl 750 mg/ Sodium (Chloride) 265 mls @ 265 mls/hr IV Q12H [facility] Last Infusion: 03/30/23 02:30 Dose: Infused Documented By: TOMER Insulin Human Lispro (Insulin Lispro 100 Unit/Ml 3 Ml Vial) 0 unit SUBCUT Q6H [facility]; Protocol Last Admin: 03/30/23 06:38 Dose: Not Given Documented By: TOMER Non-Admin Reason: No Insulin Coverage Lactulose (Lactulose 20 Gm/30 Ml Solution) 20 gm G-TUBE DAILY [facility] Last Admin: 03/30/23 09:10 Dose: 20 gm Documented By: ESDRAS Lidocaine (Lidocaine 4 % Patch Adh..Patch) 1 patch TRANSDERMA DAILY [facility] Last Admin: 03/30/23 09:06 Dose: 1 patch Documented By: ESDRAS Magnesium Hydroxide (Milk Of Magnesia 30 Ml Oral.Susp) 30 ml G-TUBE DAILY PRN PRN Reason: Constipation Melatonin (Melatonin 3 Mg Tablet) 6 mg PO BEDTIME PRN PRN Reason: Insomnia Melatonin (Melatonin 3 Mg Tablet) 6 mg G-TUBE BEDTIME [facility] Last Admin: 03/29/23 22:04 Dose: 6 mg Documented By: TOMER Naloxone HCl (Naloxone Hcl Nasal 4 Mg [place]) 4 mg NOSTRILALT Q3M PRN PRN Reason: Opioid Overdose Ondansetron HCl (Ondansetron Hcl 4 Mg/2 Ml Vial) 4 mg IVPUSH Q8H PRN PRN Reason: Nausea and Vomiting Pharmacy Consult (Consult Rx Vancomycin Dosing) 1 each MISCELLANE DAILY PRN PRN Reason: Consult order Quetiapine Fumarate (Quetiapine Fumarate 25 Mg Tablet) 25 mg G-TUBE BID [facility] Last Admin: 03/30/23 09:09 Dose: 25 mg Documented By: ESDRAS Sodium Biphosphate/Sodium Phosphate (Sodium Phosphate,[place]-Dibasic 133 Ml Enema) 118 ml [place] DAILY PRN PRN Reason: Constipation Sodium Chloride (0.9 % Sodium Chloride Flush 3 Ml Syringe) 3 ml IVFLUSH QSHIFT [facility] Last Admin: 03/30/23 09:09 Dose: 3 ml Documented By: ESDRAS Sodium Chloride (Sodium Chloride 0.65 % Nasal 44 Ml Sprbtl) 1 spray NOSTRIL-B Q3H PRN PRN Reason: dry nostrils Trazodone HCl (Trazodone Hcl 50 Mg Tablet) 50 mg G-TUBE BEDTIME [facility] Last Admin: 03/29/23 22:04 Dose: 50 mg Documented By: TOMER Valproic Acid (Valproic Acid (As Sodium Salt) 250 Mg/5 Ml Solution) 500 mg G-TUBE BID [facility] Last Admin: 03/30/23 09:10 Dose: 500 mg Documented By: ESDRAS Labs 03/28/23 09:25 03/30/23 05:39 Labs: Laboratory Results - last 24 hr 03/29/23 03/29/23 03/29/23 11:06 15:51 19:31 Hold Purple Top Estim Creat Clear Calc Estimated GFR POC Glucose 154 H 142 H 71 03/30/23 03/30/23 03/30/23 03:14 05:39 07:45 Hold Purple Top SEE NOTE Estim Creat Clear Calc 70.6 Estimated GFR > 60 POC Glucose 111 106 Microbiology Microbiology Results: Microbiology 03/26/23 23:23 Blood Culture - Final Blood - Venous Staphylococcus aureus Assessment and Plan (1) Acute febrile illness: Status: Acute (2) Acidosis, lactic: Status: Acute (3) Aspiration pneumonia: Status: Acute (4) Acute respiratory failure with hypoxia: Status: Acute (5) Sepsis: Status: Acute Plan 72/m w/ advanced unspecified dementia, [id number] diabetes mellitus type 2, dysphagia with recent admission for aspiration pneumonia status post G-tube, mood disorder, history of TIA, mixed hyperlipidemia, chronic hypoxemic respiratory failure on baseline 2 L supplemental oxygen who was sent from [facility] for evaluation of fever and tachypnea and admitted for asp pna Acute/chronic hypoxemic respiratory failure d/t sepsis from aspiration pneumonia and staph bacteremia, -repeat cxr 03/29 showed expanded PNA -continue Zosyn since admission, Vanco for S. Aureus -aspiration precaution 02/26 Staph bacteremia--IV Vanco, echo no vegetation, ID to make final recommendation on Abx and lenght of treatment Acute lactic acidosis due to sepsis: Resolved Diarrhea, cdif negative, gi panel negative Mixed hyperlipidemia -On statin Unspecified Dementia On Depakote and Seroquel BPH: On Proscar and Flomax [id number]-ehmmwbyyg diabetes mellitus: Initiating Accu-Cheks with sliding scale insulin Dysphagia status post G-tube, tube feed per nutrition recommendation DVT prophylaxis: Lovenox Full code need for inpt: sepsis treatment with iv Abx, at high risk for detelioration Quality Stroke Does the patient have a stroke diagnosis?: No VTE Prior VTE?: No VTE Risk Level:: Medical - moderate - high VTE Device Contraindication: Treatment Not Indicated VTE Drug Contraindication: N/A - Med Ordered
[2023-03-30 11:10] VITALS: BP 119/63; PULSE 67; RESP 19; TEMP 36.6; O2SAT 93
[2023-03-30 11:17] LABS: Glucose, Whole Blood 146 mg/dL (60-115)
[2023-03-30 12:16] LABS: Vancomycin Random 13.5 mcg/mL (15-20)
--- NOTE | 2023-03-30 12:23 | W.PM.IDCN ---
History of Present Illness Data of Consult Service Date: 03/29/23 [facility] Provider: CAITIE LUZ Reason for consult: fever and tachycardia He presents with fever and tachycardia. He has been on 2 liters of oxygen. He has dementia and now hypoxia. Review of Systems Review of Systems: Yes Unobtainable due to mental status PMFSH Past Medical History Medical History Oropharyngeal dysphagia MDD (major depressive disorder) Dysphagia TIA (transient ischemic attack) Non-insulin dependent type 2 diabetes mellitus Dementia, unspecified, with behavioral disturbance HLD (hyperlipidemia) AAA (abdominal aortic aneurysm) Family History Family history: reviewed and not pertinent Social History Social History Household Members: Unknown / Unable to assess Housing: House Unable to assess alcohol history related to: Unknown Alcohol intake: never Comment: Pt has dementia and Patient Tobacco Use Status: Former Tobacco user Advance Directives Date on File: 03/26/23 service: No Meds Allergies Allergy/AdvReac Type Severity Reaction Status Date / Time No Known Allergies Allergy Verified 03/26/23 23:06 Active Medications: Current Medications Acetaminophen (Acetaminophen Supp 650 Mg Supp.Rect) 650 mg [place] Q6H PRN PRN Reason: Pain, Mild (Pain Scale 1-3) Acetaminophen (Acetaminophen Child Oral Liq 160 Mg/5 Ml Ud Cup) 960 mg G-TUBE TID [facility] Last Admin: 03/30/23 09:10 Dose: 960 mg Artificial Tears (Artificial Tears 15 Ml Drops) 1 drop EYE-BOTH BID PRN PRN Reason: Dry Eyes Aspirin (Aspirin 81 Mg Tab.Chew) 81 mg G-TUBE DAILY [facility] Last Admin: 03/30/23 09:09 Dose: 81 mg Atorvastatin Calcium (Atorvastatin Calcium 20 Mg Tablet) 20 mg G-TUBE BEDTIME [facility] Last Admin: 03/29/23 22:03 Dose: 20 mg Bisacodyl (Bisacodyl 10 Mg Supp.Rect) 10 mg [place] DAILY PRN PRN Reason: Constipation Dextrose (Dextrose 50 % 25 Gm/50 Ml Syringe) 25 gm IVPUSH Q15M PRN; Protocol PRN Reason: per Hypoglycemia Standing Ord. Enoxaparin Sodium (Enoxaparin Sodium 40 Mg/0.4 Ml Syringe) 40 mg SUBCUT Q24H [facility] Last Admin: 03/30/23 01:18 Dose: 40 mg Finasteride (Finasteride 5 Mg Tablet) 5 mg PO DAILY [facility] Last Admin: 03/30/23 09:09 Dose: 5 mg Fluoxetine HCl (Fluoxetine Hcl 20 Mg Capsule) 20 mg G-TUBE DAILY [facility] Last Admin: 03/30/23 09:09 Dose: 20 mg Glucose (Glucose Gel 15 Gm Gel..Gram.) 15 gm PO Q15M PRN; Protocol PRN Reason: per Hypoglycemia Standing Ord. Guaifenesin (Guaifenesin 100 Mg/5 Ml Liquid) 20 ml G-TUBE BID [facility] Last Admin: 03/30/23 09:09 Dose: 20 ml Piperacillin Sod/Tazobactam (Sod 4.5 gm/ Sodium Chloride) 100 mls @ 200 mls/hr IV Q6H [facility] Last Admin: 03/30/23 11:42 Dose: 200 mls/hr Vancomycin HCl 750 mg/ Sodium (Chloride) 265 mls @ 265 mls/hr IV Q12H [facility] Last Infusion: 03/30/23 02:30 Dose: Infused Insulin Human Lispro (Insulin Lispro 100 Unit/Ml 3 Ml Vial) 0 unit SUBCUT Q6H [facility]; Protocol Last Admin: 03/30/23 10:48 Dose: Not Given Lactulose (Lactulose 20 Gm/30 Ml Solution) 20 gm G-TUBE DAILY [facility] Last Admin: 03/30/23 09:10 Dose: 20 gm Lidocaine (Lidocaine 4 % Patch Adh..Patch) 1 patch TRANSDERMA DAILY [facility] Last Admin: 03/30/23 09:06 Dose: 1 patch Magnesium Hydroxide (Milk Of Magnesia 30 Ml Oral.Susp) 30 ml G-TUBE DAILY PRN PRN Reason: Constipation Melatonin (Melatonin 3 Mg Tablet) 6 mg PO BEDTIME PRN PRN Reason: Insomnia Melatonin (Melatonin 3 Mg Tablet) 6 mg G-TUBE BEDTIME [facility] Last Admin: 03/29/23 22:04 Dose: 6 mg Naloxone HCl (Naloxone Hcl Nasal 4 Mg [place]) 4 mg NOSTRILALT Q3M PRN PRN Reason: Opioid Overdose Ondansetron HCl (Ondansetron Hcl 4 Mg/2 Ml Vial) 4 mg IVPUSH Q8H PRN PRN Reason: Nausea and Vomiting Pharmacy Consult (Consult Rx Vancomycin Dosing) 1 each MISCELLANE DAILY PRN PRN Reason: Consult order Quetiapine Fumarate (Quetiapine Fumarate 25 Mg Tablet) 25 mg G-TUBE BID [facility] Last Admin: 03/30/23 09:09 Dose: 25 mg Sodium Biphosphate/Sodium Phosphate (Sodium Phosphate,[place]-Dibasic 133 Ml Enema) 118 ml [place] DAILY PRN PRN Reason: Constipation Sodium Chloride (0.9 % Sodium Chloride Flush 3 Ml Syringe) 3 ml IVFLUSH QSHIFT [facility] Last Admin: 03/30/23 09:09 Dose: 3 ml Sodium Chloride (Sodium Chloride 0.65 % Nasal 44 Ml Sprbtl) 1 spray NOSTRIL-B Q3H PRN PRN Reason: dry nostrils Trazodone HCl (Trazodone Hcl 50 Mg Tablet) 50 mg G-TUBE BEDTIME [facility] Last Admin: 03/29/23 22:04 Dose: 50 mg Valproic Acid (Valproic Acid (As Sodium Salt) 250 Mg/5 Ml Solution) 500 mg G-TUBE BID [facility] Last Admin: 03/30/23 09:10 Dose: 500 mg Home Medications Medication Instructions Recorded Confirmed Last Taken Type atorvastatin 20 mg tablet 20 mg feeding tube BEDTIME 01/27/23 03/27/23 Unknown History bisacodyl 10 mg rectal suppository 10 mg [place] DAILY PRN Constipation 01/27/23 03/27/23 Unknown History finasteride 5 mg tablet 5 mg feeding tube DAILY 01/27/23 03/27/23 Unknown History glucagon 1 mg/0.2 mL subcutaneous 1 mg subcut Q20M PRN Hypoglycemia 01/27/23 03/27/23 Unknown History syringe ([employer] PFS 2-Pack) lactulose 10 gram/15 mL oral 30 ml feeding tube DAILY 01/27/23 03/27/23 Unknown History solution (Enulose) lidocaine 5 % topical patch 1 patch topical DAILY 01/27/23 03/27/23 Unknown History magnesium hydroxide 400 mg/5 mL 30 ml feeding tube DAILY PRN 01/27/23 03/27/23 Unknown History oral suspension (Milk of Magnesia) Constipation melatonin 3 mg tablet 6 mg feeding tube BEDTIME 01/27/23 03/27/23 Unknown History naloxone 4 mg/actuation nasal 4 mg intranasal Q3M PRN Opioid 01/27/23 03/27/23 Unknown History spray (Narcan) Overdose polyvinyl alcohol 1.4 % eye drops 1 drp ophthalmic (eye) BID PRN Dry 01/27/23 03/27/23 Unknown History Eyes sodium chloride 0.65 % nasal spray 1 spray intranasal Q3H PRN dry 01/27/23 03/27/23 Unknown History aerosol nostrils sodium phosphates 19 gram-7 118 ml [place] DAILY PRN Constipation 01/27/23 03/27/23 Unknown History gram/118 mL enema (Fleet Enema) acetaminophen 160 mg/5 mL oral 960 mg feeding tube TID 03/27/23 03/27/23 Unknown History liquid fluoxetine 20 mg tablet 20 mg feeding tube DAILY 03/27/23 03/27/23 Unknown History guaifenesin 100 mg/5 mL oral liquid 400 mg feeding tube BID 03/27/23 03/27/23 Unknown History quetiapine 25 mg tablet 25 mg G-tube BID 03/27/23 03/27/23 Unknown History silodosin 8 mg capsule (Rapaflo) 8 mg feeding tube DAILY 03/27/23 03/27/23 Unknown History valproic acid (as sodium salt) 250 500 mg feeding tube BID 03/27/23 03/27/23 Unknown History mg/5 mL oral solution Physical Exam Vital Signs: Vital Signs: Last Vital Signs Temp 97.8 F 03/30/23 11:10 Pulse 67 03/30/23 11:10 Resp 19 03/30/23 11:10 BP 119/63 03/30/23 11:10 Pulse Ox 93 03/30/23 11:10 O2 Del Method Nasal Cannula 03/30/23 11:10 O2 Flow Rate 3 03/30/23 03:11 Oxygen Flow Rate 2 03/26/23 23:09 BMI result Body Mass Index 20.5 Const: General: cooperative HEENT: Head: Yes normal to inspection Face and sinus: Yes normal facial exam Mouth: Normal oral and palatal mucosa present Teeth and gingiva: dentition normal Eyes: General: appearance normal, both eyes and all related structures Pupils: Equal, round and reactive pupils present Resp: Effort & Inspection: normal respiratory effort Cardio: Rate: regular rate Rhythm: regular rhythm GI: Palpation (GI): Soft to palpation and nontender : General: Yes no CVA tenderness Back/Spine/Pelvis: Back: no CVA tenderness Skin: General skin exam: no rashes or lesions noted Neuro: General: moves all extremities Cranial nerves: Yes Equal, round and reactive pupils present Extrem: General: Yes normal to inspection Psych: Other: aggressive,not answering questions Results Labs 03/28/23 09:25 03/30/23 05:39 Labs: BMP 03/30/23 05:39 Creatinine 0.68 Microbiology Microbiology Results: Microbiology 03/26/23 23:23 Blood - Venous Blood Culture - Final Staphylococcus aureus 03/26/23 23:26 Blood - Venous Blood Culture - Preliminary No growth after 48 hours. 03/27/23 Unknown Urine clean catch - Urine lea top Urine Culture - Final Assessment and Plan (1) Acute febrile illness: Status: Acute (2) Aspiration pneumonia: Qualifiers: Aspiration pneumonia type: unspecified Laterality: right Lung location: unspecified part of lung Qualified Code(s): J69.0 - Pneumonitis due to inhalation of food and vomit Status: Acute (3) Acute respiratory failure with hypoxia: Status: Acute He has hypoxia and has fever He has aspiration pneumonia Staph including MRSA can be concern Plan Continue Zosyn and Vancomycin,probably 5-7 days Check MRSA nares.
--- NOTE | 2023-03-30 12:41 | HE.PHANOTE ---
re [facility] patients level came back at 13.5. patient has sepsis/ bacteremia, coming from [facility]. Will increase dose to 1000 mg Q12H, goal is to have patient get 2 doses of 1000 mg and reevaluate the level on 03/31 @1200 to monitor for safety vs efficacy. Predicted AUC 608.
[2023-03-30] MEDS: vancomycin HCL 1,000 MG in 0.9 % Sodium Chloride 250 ML 270 MG IV (14:47)
[2023-03-30 16:00] VITALS: BP 125/73; PULSE 73; RESP 20; TEMP 37; O2SAT 95
[2023-03-30 16:11] LABS: Glucose, Whole Blood 126 mg/dL (60-115)
[2023-03-30 19:43] VITALS: BP 171/86; PULSE 72; RESP 20; TEMP 37.1; O2SAT 97
[2023-03-30 19:56] LABS: Glucose, Whole Blood 117 mg/dL (60-115)
[2023-03-30] MEDS: Melatonin 3 MG TABLET 6 MG G-TUBE (22:43)
[2023-03-30] MEDS: Atorvastatin Calcium 20 MG TABLET G-TUBE (22:43)
[2023-03-30] MEDS: traZODone HCL 50 MG TABLET G-TUBE (22:43)
--- NOTE | 2023-03-30 23:05 | P.CNID_ITS ---
History of Present Illness Data of Consult Service Date: 03/29/23 Requesting physician: Gilbert Ahumada Primary Care Provider: CAITIE LUZ Reason for consult: staph aureus bacteremia He presents with diarrhea over last 2-3 days and nasal bleed as well. He has had aspiration pneumonia on 02/07. CXR today shows increasing pneumonia. Review of Systems 2 Review of Systems: Yes Unobtainable due to mental status PMFSH Past Medical History Medical History Oropharyngeal dysphagia MDD (major depressive disorder) Dysphagia TIA (transient ischemic attack) Non-insulin dependent type 2 diabetes mellitus Dementia, unspecified, with behavioral disturbance HLD (hyperlipidemia) AAA (abdominal aortic aneurysm) Family History Family history: reviewed and not pertinent Social History Social History Household Members: Unknown / Unable to assess Housing: House Unable to assess alcohol history related to: Unknown Alcohol intake: never Comment: Pt has dementia and Patient Tobacco Use Status: Former Tobacco user Advance Directives Date on File: 03/26/23 service: No Meds Allergies Allergy/AdvReac Type Severity Reaction Status Date / Time No Known Allergies Allergy Verified 03/26/23 23:06 Active Medications: Current Medications Acetaminophen (Acetaminophen Supp 650 Mg Supp.Rect) 650 mg [place] Q6H PRN PRN Reason: Pain, Mild (Pain Scale 1-3) Acetaminophen (Acetaminophen Child Oral Liq 160 Mg/5 Ml Ud Cup) 960 mg G-TUBE TID [facility] Last Admin: 03/30/23 22:42 Dose: 960 mg Artificial Tears (Artificial Tears 15 Ml Drops) 1 drop EYE-BOTH BID PRN PRN Reason: Dry Eyes Aspirin (Aspirin 81 Mg Tab.Chew) 81 mg G-TUBE DAILY [facility] Last Admin: 03/30/23 09:09 Dose: 81 mg Atorvastatin Calcium (Atorvastatin Calcium 20 Mg Tablet) 20 mg G-TUBE BEDTIME [facility] Last Admin: 03/30/23 22:43 Dose: 20 mg Bisacodyl (Bisacodyl 10 Mg Supp.Rect) 10 mg [place] DAILY PRN PRN Reason: Constipation Dextrose (Dextrose 50 % 25 Gm/50 Ml Syringe) 25 gm IVPUSH Q15M PRN; Protocol PRN Reason: per Hypoglycemia Standing Ord. Enoxaparin Sodium (Enoxaparin Sodium 40 Mg/0.4 Ml Syringe) 40 mg SUBCUT Q24H [facility] Last Admin: 03/30/23 01:18 Dose: 40 mg Finasteride (Finasteride 5 Mg Tablet) 5 mg PO DAILY [facility] Last Admin: 03/30/23 09:09 Dose: 5 mg Fluoxetine HCl (Fluoxetine Hcl 20 Mg Capsule) 20 mg G-TUBE DAILY [facility] Last Admin: 03/30/23 09:09 Dose: 20 mg Glucose (Glucose Gel 15 Gm Gel..Gram.) 15 gm PO Q15M PRN; Protocol PRN Reason: per Hypoglycemia Standing Ord. Guaifenesin (Guaifenesin 100 Mg/5 Ml Liquid) 20 ml G-TUBE BID [facility] Last Admin: 03/30/23 22:44 Dose: 20 ml Piperacillin Sod/Tazobactam (Sod 4.5 gm/ Sodium Chloride) 100 mls @ 200 mls/hr IV Q6H [facility] Last Admin: 03/30/23 22:44 Dose: 200 mls/hr Vancomycin HCl 1,000 mg/ (Sodium Chloride) 270 mls @ 270 mls/hr IV Q12H [facility] Last Infusion: 03/30/23 16:02 Dose: Infused Insulin Human Lispro (Insulin Lispro 100 Unit/Ml 3 Ml Vial) 0 unit SUBCUT Q6H [facility]; Protocol Last Admin: 03/30/23 22:44 Dose: Not Given Lactulose (Lactulose 20 Gm/30 Ml Solution) 20 gm G-TUBE DAILY [facility] Last Admin: 03/30/23 09:10 Dose: 20 gm Lidocaine (Lidocaine 4 % Patch Adh..Patch) 1 patch TRANSDERMA DAILY [facility] Last Admin: 03/30/23 09:06 Dose: 1 patch Magnesium Hydroxide (Milk Of Magnesia 30 Ml Oral.Susp) 30 ml G-TUBE DAILY PRN PRN Reason: Constipation Melatonin (Melatonin 3 Mg Tablet) 6 mg PO BEDTIME PRN PRN Reason: Insomnia Melatonin (Melatonin 3 Mg Tablet) 6 mg G-TUBE BEDTIME [facility] Last Admin: 03/30/23 22:43 Dose: 6 mg Naloxone HCl (Naloxone Hcl Nasal 4 Mg [place]) 4 mg NOSTRILALT Q3M PRN PRN Reason: Opioid Overdose Ondansetron HCl (Ondansetron Hcl 4 Mg/2 Ml Vial) 4 mg IVPUSH Q8H PRN PRN Reason: Nausea and Vomiting Pharmacy Consult (Consult Rx Vancomycin Dosing) 1 each MISCELLANE DAILY PRN PRN Reason: Consult order Quetiapine Fumarate (Quetiapine Fumarate 25 Mg Tablet) 25 mg G-TUBE BID [facility] Last Admin: 03/30/23 22:43 Dose: 25 mg Sodium Biphosphate/Sodium Phosphate (Sodium Phosphate,[place]-Dibasic 133 Ml Enema) 118 ml WA DAILY PRN PRN Reason: Constipation Sodium Chloride (0.9 % Sodium Chloride Flush 3 Ml Syringe) 3 ml IVFLUSH QSHIFT [facility] Last Admin: 03/30/23 22:45 Dose: 3 ml Sodium Chloride (Sodium Chloride 0.65 % Nasal 44 Ml Sprbtl) 1 spray NOSTRIL-B Q3H PRN PRN Reason: dry nostrils Trazodone HCl (Trazodone Hcl 50 Mg Tablet) 50 mg G-TUBE BEDTIME [facility] Last Admin: 03/30/23 22:43 Dose: 50 mg Valproic Acid (Valproic Acid (As Sodium Salt) 250 Mg/5 Ml Solution) 500 mg G- TUBE BID [facility] Last Admin: 03/30/23 22:44 Dose: 500 mg Home Medications Medication Instructions Recorded Confirmed Last Taken Type atorvastatin 20 mg tablet 20 mg feeding tube BEDTIME 01/27/23 03/27/23 Unknown History bisacodyl 10 mg rectal suppository 10 mg WA DAILY PRN Constipation 01/27/23 03/27/23 Unknown History finasteride 5 mg tablet 5 mg feeding tube DAILY 01/27/23 03/27/23 Unknown History glucagon 1 mg/0.2 mL subcutaneous 1 mg subcut Q20M PRN Hypoglycemia 01/27/23 03/27/23 Unknown History syringe (Gvoke PFS 2-Pack) lactulose 10 gram/15 mL oral 30 ml feeding tube DAILY 01/27/23 03/27/23 Unknown History solution (Enulose) lidocaine 5 % topical patch 1 patch topical DAILY 01/27/23 03/27/23 Unknown History magnesium hydroxide 400 mg/5 mL 30 ml feeding tube DAILY PRN 01/27/23 03/27/23 Unknown History oral suspension (Milk of Magnesia) Constipation melatonin 3 mg tablet 6 mg feeding tube BEDTIME 01/27/23 03/27/23 Unknown History naloxone 4 mg/actuation nasal 4 mg intranasal Q3M PRN Opioid 01/27/23 03/27/23 Unknown History spray (Narcan) Overdose polyvinyl alcohol 1.4 % eye drops 1 drp ophthalmic (eye) BID PRN Dry 01/27/23 03/27/23 Unknown History Eyes sodium chloride 0.65 % nasal spray 1 spray intranasal Q3H PRN dry 01/27/23 03/27/23 Unknown History aerosol nostrils sodium phosphates 19 gram-7 118 ml WA DAILY PRN Constipation 01/27/23 03/27/23 Unknown History gram/118 mL enema (Fleet Enema) acetaminophen 160 mg/5 mL oral 960 mg feeding tube TID 03/27/23 03/27/23 Unknown History liquid fluoxetine 20 mg tablet 20 mg feeding tube DAILY 03/27/23 03/27/23 Unknown History guaifenesin 100 mg/5 mL oral liquid 400 mg feeding tube BID 03/27/23 03/27/23 Unknown History quetiapine 25 mg tablet 25 mg G-tube BID 03/27/23 03/27/23 Unknown History silodosin 8 mg capsule (Rapaflo) 8 mg feeding tube DAILY 03/27/23 03/27/23 Unknown History valproic acid (as sodium salt) 250 500 mg feeding tube BID 03/27/23 03/27/23 Unknown History mg/5 mL oral solution Physical Exam 2 Vital Signs: Vital Signs: Last Vital Signs Temp 98.7 F 03/30/23 19:43 Pulse 72 03/30/23 19:43 Resp 20 03/30/23 19:43 BP 171/86 H 03/30/23 19:43 Pulse Ox 97 03/30/23 19:43 O2 Del Method Nasal Cannula 03/30/23 19:43 O2 Flow Rate 2 03/30/23 19:43 Oxygen Flow Rate 2 03/26/23 23:09 BMI result Body Mass Index 20.5 Const: General: cooperative HEENT: Head: Yes normal to inspection Face and sinus: Yes normal facial exam Mouth: Normal oral and palatal mucosa present Teeth and gingiva: d entition normal Eyes: General: appearance normal, both eyes and all related structures P upils: Equal, round and reactive pupils present Resp: Effort & Inspection: normal respiratory effort Cardio: Rate: regular rate Rhythm: regular rhythm GI: Palpation (GI): Soft to palpation and nontender : General: Yes no CVA tenderness Back/Spine/Pelvis: Back: no CVA tenderness Skin: General skin exam: no rashes or lesions noted Neuro: General: moves all extremities Cranial nerves: Yes Equal, round and reactive pupils present Extrem: General: Yes normal to inspection Psych: Other: confused Results Labs 03/28/23 09:25 03/30/23 05:39 Labs: BMP 03/30/23 05:39 Creatinine 0.68 Microbiology Microbiology Results: Microbiology 03/29/23 10:26 Blood - Venous Blood Culture - Preliminary No growth after 24 hours. 03/29/23 10:26 Blood - Venous Blood Culture - Preliminary No growth after 24 hours. 03/26/23 23:23 Blood - Venous Blood Culture - Final Staphylococcus aureus 03/26/23 23:26 Blood - Venous Blood Culture - Preliminary No growth after 48 hours. 03/27/23 Unknown Urine clean catch - Urine lea top Urine Culture - Final Assessment and Plan (1) Acute febrile illness: Status: Acute (2) Aspiration pneumonia: Qualifiers: Aspiration pneumonia type: unspecified Laterality: right Lung location: unspecified part of lung Qualified Code(s): J69.0 - Pneumonitis due to inhalation of food and vomit Status: Acute (3) Sepsis: Status: Acute He has staph aureus sepsis Possible causes are endocarditis Pneumonia may be cause as well Plan Would give Vancomycin and adjust as needed. Nares MRSA Echo evaluate endocarditis Likely need four weeks IV antibiotics
[2023-03-30 23:28] VITALS: BP 136/69; PULSE 85; RESP 18; TEMP 37.2; O2SAT 92
[2023-03-31] MEDS: Enoxaparin Sodium 40 MG/0.4 ML SYRINGE SUBCUT (03:10)
[2023-03-31 03:14] VITALS: BP 174/98; PULSE 72; RESP 18; TEMP 37.2; O2SAT 95
[2023-03-31] MEDS: vancomycin HCL 1,000 MG in 0.9 % Sodium Chloride 250 ML 270 MG IV ×2 (03:40→13:47)
[2023-03-31 03:54] LABS: Glucose, Whole Blood 87 mg/dL (60-115)
[2023-03-31] MEDS: Piperacillin Sodium/Tazobactam 4.5 GM in 0.9 % Sodium Chloride 100 ML IV ×4 (05:46→22:51)
[2023-03-31 07:17] LABS: Creatinine Clr Calc Pharmacy 64.9; Estimated Glomerular Filt Rate > 60
[2023-03-31 07:33] VITALS: BP 157/81; PULSE 72; RESP 20; TEMP 36.7; O2SAT 94
[2023-03-31 07:49] LABS: Glucose, Whole Blood 123 mg/dL (60-115)
[2023-03-31] MEDS: Aspirin 81 MG TAB.CHEW G-TUBE (09:22)
[2023-03-31] MEDS: Acetaminophen Child Oral Liq 160 MG/5 ML UD Cup 960 MG G-TUBE ×3 (09:22→22:52)
[2023-03-31] MEDS: QUEtiapine Fumarate 25 MG TABLET G-TUBE ×2 (09:22→22:52)
[2023-03-31] MEDS: FLUoxetine HCl 20 MG CAPSULE G-TUBE (09:22)
[2023-03-31] MEDS: Lactulose 20 GM/30 ML SOLUTION G-TUBE (09:22)
[2023-03-31] MEDS: guaiFENesin 100 MG/5 ML LIQUID 20 ML G-TUBE ×2 (09:22→23:01)
[2023-03-31] MEDS: Finasteride 5 MG TABLET PO (09:22)
[2023-03-31] MEDS: Lidocaine 4 % Patch ADH..PATCH 1 PATCH TRANSDERMA (09:23)
[2023-03-31] MEDS: 0.9 % Sodium Chloride Flush 3 ML SYRINGE IVFLUSH ×3 (09:23→23:08)
[2023-03-31 10:02] LABS: Glucose, Whole Blood 138 mg/dL (60-115)
--- NOTE | 2023-03-31 10:36 | P.PNIM_ITS ---
Subjective Subjective Date of Service: 03/31/23 Interval History: f/u on pna, and bacteremia, no respiratory distresss Physical Exam 2 Vital Signs: Vital Signs: Last Vital Signs Temp 98.0 F 03/31/23 07:33 Pulse 72 03/31/23 07:33 Resp 20 03/31/23 07:33 BP 157/81 H 03/31/23 07:33 Pulse Ox 94 03/31/23 07:33 O2 Del Method Nasal Cannula 03/31/23 07:33 O2 Flow Rate 3 03/31/23 07:33 Oxygen Flow Rate 2 03/26/23 23:09 BMI result Body Mass Index 20.5 General: alert no distress Resp: rales at left base CVS: S1,S2,RRR GI: +BS, NT, no distention Skin: No rash Neuro: motor grossly intact Psych: appropriate affect Objective Data Active Medications Acetaminophen (Acetaminophen Supp 650 Mg Supp.Rect) 650 mg KS Q6H PRN PRN Reason: Pain, Mild (Pain Scale 1-3) Acetaminophen (Acetaminophen Child Oral Liq 160 Mg/5 Ml Ud Cup) 960 mg G-TUBE TID [facility] Last Admin: 03/31/23 09:22 Dose: 960 mg Documented By: ESDRAS Artificial Tears (Artificial Tears 15 Ml Drops) 1 drop EYE-BOTH BID PRN PRN Reason: Dry Eyes Aspirin (Aspirin 81 Mg Tab.Chew) 81 mg G-TUBE DAILY [facility] Last Admin: 03/31/23 09:22 Dose: 81 mg Documented By: ESDRAS Atorvastatin Calcium (Atorvastatin Calcium 20 Mg Tablet) 20 mg G-TUBE BEDTIME [facility] Last Admin: 03/30/23 22:43 Dose: 20 mg Documented By: TOMER Bisacodyl (Bisacodyl 10 Mg Supp.Rect) 10 mg KS DAILY PRN PRN Reason: Constipation Dextrose (Dextrose 50 % 25 Gm/50 Ml Syringe) 25 gm IVPUSH Q15M PRN; Protocol PRN Reason: per Hypoglycemia Standing Ord. Enoxaparin Sodium (Enoxaparin Sodium 40 Mg/0.4 Ml Syringe) 40 mg SUBCUT Q24H [facility] Last Admin: 03/31/23 03:10 Dose: 40 mg Documented By: TOMER Finasteride (Finasteride 5 Mg Tablet) 5 mg PO DAILY [facility] Last Admin: 03/31/23 09:22 Dose: 5 mg Documented By: ESDRAS Fluoxetine HCl (Fluoxetine Hcl 20 Mg Capsule) 20 mg G-TUBE DAILY [facility] Last Admin: 03/31/23 09:22 Dose: 20 mg Documented By: ESDRAS Glucose (Glucose Gel 15 Gm Gel..Gram.) 15 gm PO Q15M PRN; Protocol PRN Reason: per Hypoglycemia Standing Ord. Guaifenesin (Guaifenesin 100 Mg/5 Ml Liquid) 20 ml G-TUBE BID [facility] Last Admin: 03/31/23 09:22 Dose: 20 ml Documented By: ESDRAS Piperacillin Sod/Tazobactam (Sod 4.5 gm/ Sodium Chloride) 100 mls @ 200 mls/hr IV Q6H [facility] Last Infusion: 03/31/23 07:39 Dose: Infused Documented By: ESDRAS Vancomycin HCl 1,000 mg/ (Sodium Chloride) 270 mls @ 270 mls/hr IV Q12H [facility] Last Infusion: 03/31/23 04:45 Dose: Infused Documented By: TOMER Insulin Human Lispro (Insulin Lispro 100 Unit/Ml 3 Ml Vial) 0 unit SUBCUT Q6H [facility]; Protocol Last Admin: 03/31/23 09:54 Dose: Not Given Documented By: ESDRAS Non-Admin Reason: No Insulin Coverage Lactulose (Lactulose 20 Gm/30 Ml Solution) 20 gm G-TUBE DAILY [facility] Last Admin: 03/31/23 09:22 Dose: 20 gm Documented By: ESDRAS Lidocaine (Lidocaine 4 % Patch Adh..Patch) 1 patch TRANSDERMA DAILY [facility] Last Admin: 03/31/23 09:23 Dose: 1 patch Documented By: ESDRAS Magnesium Hydroxide (Milk Of Magnesia 30 Ml Oral.Susp) 30 ml G-TUBE DAILY PRN PRN Reason: Constipation Melatonin (Melatonin 3 Mg Tablet) 6 mg PO BEDTIME PRN PRN Reason: Insomnia Melatonin (Melatonin 3 Mg Tablet) 6 mg G-TUBE BEDTIME [facility] Last Admin: 03/30/23 22:43 Dose: 6 mg Documented By: TOMER Naloxone HCl (Naloxone Hcl Nasal 4 Mg [place]) 4 mg NOSTRILALT Q3M PRN PRN Reason: Opioid Overdose Ondansetron HCl (Ondansetron Hcl 4 Mg/2 Ml Vial) 4 mg IVPUSH Q8H PRN PRN Reason: Nausea and Vomiting Pharmacy Consult (Consult Rx Vancomycin Dosing) 1 each MISCELLANE DAILY PRN PRN Reason: Consult order Quetiapine Fumarate (Quetiapine Fumarate 25 Mg Tablet) 25 mg G-TUBE BID [facility] Last Admin: 03/31/23 09:22 Dose: 25 mg Documented By: ESDRAS Sodium Biphosphate/Sodium Phosphate (Sodium Phosphate,[place]-Dibasic 133 Ml Enema) 118 ml [place] DAILY PRN PRN Reason: Constipation Sodium Chloride (0.9 % Sodium Chloride Flush 3 Ml Syringe) 3 ml IVFLUSH QSHIFT [facility] Last Admin: 03/31/23 09:23 Dose: 3 ml Documented By: ESDRAS Sodium Chloride (Sodium Chloride 0.65 % Nasal 44 Ml Sprbtl) 1 spray NOSTRIL-B Q3H PRN PRN Reason: dry nostrils Trazodone HCl (Trazodone Hcl 50 Mg Tablet) 50 mg G-TUBE BEDTIME [facility] Last Admin: 03/30/23 22:43 Dose: 50 mg Documented By: TOMER Valproic Acid (Valproic Acid (As Sodium Salt) 250 Mg/5 Ml Solution) 500 mg G- TUBE BID [facility] Last Admin: 03/31/23 09:21 Dose: 500 mg Documented By: ESDRAS Labs 03/28/23 09:25 03/31/23 06:16 Labs: Laboratory Results - last 24 hr 03/30/23 03/30/23 03/30/23 11:12 11:54 16:06 Hold Purple Top Estim Creat Clear Calc Estimated GFR POC Glucose 146 H 126 H Random Vancomycin 13.5 L 03/30/23 03/31/23 03/31/23 19:45 03:18 06:16 Hold Purple Top SEE NOTE Estim Creat Clear Calc 64.9 Estimated GFR > 60 POC Glucose 117 H 87 Random Vancomycin 03/31/23 03/31/23 07:36 09:57 Hold Purple Top Estim Creat Clear Calc Estimated GFR POC Glucose 123 H 138 H Random Vancomycin Microbiology Microbiology Results: Microbiology 03/29/23 10:26 Blood Culture - Preliminary Blood - Venous No growth after 24 hours. 03/29/23 10:26 Blood Culture - Preliminary Blood - Venous No growth after 24 hours. 03/26/23 23:23 Blood Culture - Final Blood - Venous Staphylococcus aureus Assessment and Plan (1) Acute febrile illness: Status: Acute (2) Acidosis, lactic: Status: Acute (3) Aspiration pneumonia: Status: Acute (4) Acute respiratory failure with hypoxia: Status: Acute (5) Sepsis: Status: Acute Plan 72/m w/ advanced unspecified dementia, [id number] diabetes mellitus type 2, dysphagia with recent admission for aspiration pneumonia status post G- tube, mood disorder, history of TIA, mixed hyperlipidemia, chronic hypoxemic respiratory failure on baseline 2 L supplemental oxygen who was sent from [facility] for evaluation of fever and tachypnea and admitted for asp pna Acute/chronic hypoxemic respiratory failure d/t sepsis from aspiration pneumonia and staph bacteremia, -repeat cxr 03/29 showed expanded PNA -continue Zosyn since admission, Vanco for S. Aureus -aspiration precaution 02/26 Staph bacteremia--IV Vanco, echo no vegetation, ID to make final recommendation on Abx and lenght of treatment Acute lactic acidosis due to sepsis: Resolved Diarrhea, cdif negative, gi panel negative Mixed hyperlipidemia -On statin Unspecified Dementia On Depakote and Seroquel BPH: On Proscar and Flomax Sqc-xhzxjos-hjyklpnse diabetes mellitus: Initiating Accu-Cheks with sliding scale insulin Dysphagia status post G-tube, tube feed per nutrition recommendation DVT prophylaxis: Lovenox Full code need for inpt: sepsis treatment with iv Abx, at high risk for detelioration Quality Stroke Does the patient have a stroke diagnosis?: No VTE Prior VTE?: No VTE Risk Level:: Medical - moderate - high VTE Device Contraindication: Treatment Not Indicated VTE Drug Contraindication: N/A - Med Ordered
[2023-03-31 11:30] VITALS: BP 127/67; PULSE 65; RESP 20; TEMP 36.3; O2SAT 95
[2023-03-31 12:10] LABS: Vancomycin Random 15.6 mcg/mL (15-20)
--- NOTE | 2023-03-31 12:15 | HE.PHANOTE ---
re [facility] patients level came back this afternoon 15.6. will continue with current dose. renal function did spike from 0.69 t o 0.74 (scr) so will get another random after 2 more doses to ensure safety vs efficacy. predicted AUC 597
[2023-03-31 15:36] VITALS: BP 178/95; PULSE 71; RESP 18; TEMP 36.3; O2SAT 95
[2023-03-31 16:08] LABS: Glucose, Whole Blood 102 mg/dL (60-115)
--- NOTE | 2023-03-31 16:35 | PC.NURSE ---
KELLY Meneses notified nurse of patient BP at 1345. Patient BP was 178/95 on left arm in semi fowlers position, ask KELLY Meneses to retake BP on right arm in same position. BP was 180/95. Contacted Provider Daisha at [phone] with update to patient bp. Provider had no further orders or instructions at this time of 1349.
[2023-03-31 19:55] VITALS: BP 175/70; PULSE 76; RESP 21; TEMP 35.9; O2SAT 96
[2023-03-31 20:42] LABS: Glucose, Whole Blood 108 mg/dL (60-115)
[2023-03-31] MEDS: traZODone HCL 50 MG TABLET G-TUBE (22:52)
[2023-03-31] MEDS: Melatonin 3 MG TABLET 6 MG G-TUBE (22:53)
[2023-03-31] MEDS: Atorvastatin Calcium 20 MG TABLET G-TUBE (22:54)
[2023-03-31 23:57] VITALS: BP 138/68; PULSE 80; RESP 20; TEMP 36.8; O2SAT 95
[2023-04-01] VITALS (7 sets, daily range): BP systolic 142–180; BP diastolic 73–91; PULSE 63–90; RESP 18–24; TEMP 36.1–36.8; O2SAT 86–98
[2023-04-01] MEDS: Enoxaparin Sodium 40 MG/0.4 ML SYRINGE SUBCUT ×2 (03:21→23:28)
[2023-04-01] MEDS: vancomycin HCL 1,000 MG in 0.9 % Sodium Chloride 250 ML 270 MG IV (03:22)
[2023-04-01 04:05] LABS: Glucose, Whole Blood 104 mg/dL (60-115)
[2023-04-01] MEDS: Piperacillin Sodium/Tazobactam 4.5 GM in 0.9 % Sodium Chloride 100 ML IV ×2 (06:02→12:02)
[2023-04-01 07:33] LABS: Glucose, Whole Blood 103 mg/dL (60-115)
[2023-04-01 08:54] LABS: Creatinine Clr Calc Pharmacy 69.6; Estimated Glomerular Filt Rate > 60
[2023-04-01] MEDS: FLUoxetine HCl 20 MG CAPSULE G-TUBE (09:04)
[2023-04-01] MEDS: 0.9 % Sodium Chloride Flush 3 ML SYRINGE IVFLUSH ×3 (09:04→21:57)
[2023-04-01] MEDS: Aspirin 81 MG TAB.CHEW G-TUBE (09:04)
[2023-04-01] MEDS: Finasteride 5 MG TABLET PO (09:04)
[2023-04-01] MEDS: QUEtiapine Fumarate 25 MG TABLET G-TUBE ×2 (09:04→21:57)
[2023-04-01] MEDS: Acetaminophen Child Oral Liq 160 MG/5 ML UD Cup 960 MG G-TUBE ×2 (09:04→17:25)
[2023-04-01] MEDS: guaiFENesin 100 MG/5 ML LIQUID 20 ML G-TUBE ×2 (09:05→21:56)
[2023-04-01] MEDS: Lactulose 20 GM/30 ML SOLUTION G-TUBE (09:05)
[2023-04-01] MEDS: Lidocaine 4 % Patch ADH..PATCH 1 PATCH TRANSDERMA (09:06)
[2023-04-01 11:17] LABS: Glucose, Whole Blood 122 mg/dL (60-115)
--- NOTE | 2023-04-01 12:06 | MHC.CLN ---
F/U PT TOLERATING TF PER NSG REVIEWED LABS PT RECEIVING GLUCERNA AT 65 ML PER HOUR WITH 120ML FREE WATER FLUSHES Q 6 HOURS PROVIDES 1560 KCALS (30 KCALS/KG); 65.2 G PROTEIN (1.3 G/KG); 1810 ML TOTAL FREE WATER FROM FORMULA AND FLUSHES (36ML/KG) CONTINUE TO MONITOR TOLERANCE, RESIDUALS AND LYTES
[2023-04-01 12:29] LABS: Vancomycin Random 16.8 mcg/mL (15-20)
--- NOTE | 2023-04-01 13:18 | P.PNIM_ITS ---
Subjective Subjective Date of Service: 04/01/23 Interval History: f/u on pna, and bacteremia, no respiratory distresss, repeat blood cultures are negative. Physical Exam 2 Vital Signs: Vital Signs: Last Vital Signs Temp 97.8 F 04/01/23 11:17 Pulse 90 04/01/23 11:17 Resp 20 04/01/23 11:17 BP 155/82 H 04/01/23 11:17 Pulse Ox 95 04/01/23 11:17 O2 Del Method Nasal Cannula 04/01/23 11:17 O2 Flow Rate 4 04/01/23 11:17 Oxygen Flow Rate 2 03/26/23 23:09 BMI result Body Mass Index 20.5 Objective Data Active Medications Acetaminophen (Acetaminophen Supp 650 Mg Supp.Rect) 650 mg [place] Q6H PRN PRN Reason: Pain, Mild (Pain Scale 1-3) Acetaminophen (Acetaminophen Child Oral Liq 160 Mg/5 Ml Ud Cup) 960 mg G-TUBE TID [facility] Last Admin: 04/01/23 09:04 Dose: 960 mg Documented By: KARINA Artificial Tears (Artificial Tears 15 Ml Drops) 1 drop EYE-BOTH BID PRN PRN Reason: Dry Eyes Aspirin (Aspirin 81 Mg Tab.Chew) 81 mg G-TUBE DAILY [facility] Last Admin: 04/01/23 09:04 Dose: 81 mg Documented By: KARINA Atorvastatin Calcium (Atorvastatin Calcium 20 Mg Tablet) 20 mg G-TUBE BEDTIME [facility] Last Admin: 03/31/23 22:54 Dose: 20 mg Documented By: TOMER Bisacodyl (Bisacodyl 10 Mg Supp.Rect) 10 mg MT DAILY PRN PRN Reason: Constipation Dextrose (Dextrose 50 % 25 Gm/50 Ml Syringe) 25 gm IVPUSH Q15M PRN; Protocol PRN Reason: per Hypoglycemia Standing Ord. Enoxaparin Sodium (Enoxaparin Sodium 40 Mg/0.4 Ml Syringe) 40 mg SUBCUT Q24H [facility] Last Admin: 04/01/23 03:21 Dose: 40 mg Documented By: TOMER Finasteride (Finasteride 5 Mg Tablet) 5 mg PO DAILY [facility] Last Admin: 04/01/23 09:04 Dose: 5 mg Documented By: KARINA Fluoxetine HCl (Fluoxetine Hcl 20 Mg Capsule) 20 mg G-TUBE DAILY [facility] Last Admin: 04/01/23 09:04 Dose: 20 mg Documented By: KARINA Glucose (Glucose Gel 15 Gm Gel..Gram.) 15 gm PO Q15M PRN; Protocol PRN Reason: per Hypoglycemia Standing Ord. Guaifenesin (Guaifenesin 100 Mg/5 Ml Liquid) 20 ml G-TUBE BID [facility] Last Admin: 04/01/23 09:05 Dose: 20 ml Documented By: KARINA Piperacillin Sod/Tazobactam (Sod 4.5 gm/ Sodium Chloride) 100 mls @ 200 mls/hr IV Q6H [facility] Last Admin: 04/01/23 12:02 Dose: 100 mls/hr Documented By: KARINA Vancomycin HCl 1,000 mg/ (Sodium Chloride) 270 mls @ 270 mls/hr IV Q12H [facility] Last Infusion: 04/01/23 04:33 Dose: Infused Documented By: TOMER Insulin Human Lispro (Insulin Lispro 100 Unit/Ml 3 Ml Vial) 0 unit SUBCUT Q6H [facility]; Protocol Last Admin: 04/01/23 11:51 Dose: Not Given Documented By: KARINA Non-Admin Reason: No Insulin Coverage Lactulose (Lactulose 20 Gm/30 Ml Solution) 20 gm G-TUBE DAILY [facility] Last Admin: 04/01/23 09:05 Dose: 20 gm Documented By: KARINA Lidocaine (Lidocaine 4 % Patch Adh..Patch) 1 patch TRANSDERMA DAILY [facility] Last Admin: 04/01/23 09:06 Dose: 1 patch Documented By: KARINA Magnesium Hydroxide (Milk Of Magnesia 30 Ml Oral.Susp) 30 ml G-TUBE DAILY PRN PRN Reason: Constipation Melatonin (Melatonin 3 Mg Tablet) 6 mg PO BEDTIME PRN PRN Reason: Insomnia Melatonin (Melatonin 3 Mg Tablet) 6 mg G-TUBE BEDTIME [facility] Last Admin: 03/31/23 22:53 Dose: 6 mg Documented By: TOMER Naloxone HCl (Naloxone Hcl Nasal 4 Mg [place]) 4 mg NOSTRILALT Q3M PRN PRN Reason: Opioid Overdose Ondansetron HCl (Ondansetron Hcl 4 Mg/2 Ml Vial) 4 mg IVPUSH Q8H PRN PRN Reason: Nausea and Vomiting Pharmacy Consult (Consult Rx Vancomycin Dosing) 1 each MISCELLANE DAILY PRN PRN Reason: Consult order Quetiapine Fumarate (Quetiapine Fumarate 25 Mg Tablet) 25 mg G-TUBE BID [facility] Last Admin: 04/01/23 09:04 Dose: 25 mg Documented By: KARINA Sodium Biphosphate/Sodium Phosphate (Sodium Phosphate,[place]-Dibasic 133 Ml Enema) 118 ml MT DAILY PRN PRN Reason: Constipation Sodium Chloride (0.9 % Sodium Chloride Flush 3 Ml Syringe) 3 ml IVFLUSH QSHIFT [facility] Last Admin: 04/01/23 09:04 Dose: 3 ml Documented By: KARINA Sodium Chloride (Sodium Chloride 0.65 % Nasal 44 Ml Sprbtl) 1 spray NOSTRIL-B Q3H PRN PRN Reason: dry nostrils Trazodone HCl (Trazodone Hcl 50 Mg Tablet) 50 mg G-TUBE BEDTIME [facility] Last Admin: 03/31/23 22:52 Dose: 50 mg Documented By: TOMER Valproic Acid (Valproic Acid (As Sodium Salt) 250 Mg/5 Ml Solution) 500 mg G- TUBE BID [facility] Last Admin: 04/01/23 09:05 Dose: 500 mg Documented By: KARINA Labs 03/28/23 09:25 04/01/23 08:19 Labs: Laboratory Results - last 24 hr 03/31/23 03/31/23 04/01/23 16:04 20:34 04:01 Hold Purple Top Estim Creat Clear Calc Estimated GFR POC Glucose 102 108 104 Random Vancomycin 04/01/23 04/01/23 04/01/23 07:26 08:19 11:11 Hold Purple Top SEE NOTE Estim Creat Clear Calc 69.6 Estimated GFR > 60 POC Glucose 103 122 H Random Vancomycin 04/01/23 12:09 Hold Purple Top Estim Creat Clear Calc Estimated GFR POC Glucose Random Vancomycin 16.8 Microbiology Microbiology Results: Microbiology 03/26/23 23:26 Blood Culture - Final Blood - Venous No growth after 5 days. 03/29/23 10:26 Blood Culture - Preliminary Blood - Venous No growth after 48 hours. 03/29/23 10:26 Blood Culture - Preliminary Blood - Venous No growth after 48 hours. Assessment and Plan (1) Acute febrile illness: Status: Acute (2) Acidosis, lactic: Status: Acute (3) Aspiration pneumonia: Status: Acute (4) Acute respiratory failure with hypoxia: Status: Acute (5) Sepsis: Status: Acute Plan 72/m w/ advanced unspecified dementia, [id number]-qdlrdajim diabetes mellitus type 2, dysphagia with recent admission for aspiration pneumonia status post G- tube, mood disorder, history of TIA, mixed hyperlipidemia, chronic hypoxemic respiratory failure on baseline 2 L supplemental oxygen who was sent from [facility] for evaluation of fever and tachypnea and admitted for asp pna Acute/chronic hypoxemic respiratory failure d/t sepsis from aspiration pneumonia and staph bacteremia, -repeat cxr 03/29 showed expanded PNA -continue Zosyn since admission, Vanco for S. Aureus -aspiration precaution 02/26 Staph bacteremia--IV Vanco, echo no vegetation, ID to make final recommendation on Abx and lenght of treatment, Id is recommending at least 4 weeks of IV Abx, will request a Picc line dn change Abx to Kefzol Acute lactic acidosis due to sepsis: Resolved Diarrhea, cdif negative, gi panel negative Mixed hyperlipidemia -On statin Unspecified Dementia On Depakote and Seroquel BPH: On Proscar and Flomax Vdb-evsvcdr-hchemzttd diabetes mellitus: Initiating Accu-Cheks with sliding scale insulin Dysphagia status post G-tube, tube feed per nutrition recommendation DVT prophylaxis: Lovenox Full code need for inpt: sepsis treatment with iv Abx, at high risk for detelioration Quality Stroke Does the patient have a stroke diagnosis?: No VTE Prior VTE?: No VTE Risk Level:: Medical - moderate - high VTE Device Contraindication: Treatment Not Indicated VTE Drug Contraindication: N/A - Med Ordered
--- NOTE | 2023-04-01 13:31 | MHC.CM.PN ---
EMR REVIEWED, PT W/WORSENING PNA ON 03/29, VANCO ADDED OVER W/E, NO PLAN FOR DC AT THIS TIME, CM WILL CONT TO FOLLOW DC NEEDS.
--- NOTE | 2023-04-01 16:06 | P.PNID_ITS ---
Subjective Subjective Date of Service: 04/01/23 Critical Care Time (minutes): 15 Comment: he has no complaints,he is sleeping,has Joseph catheter Objective Data Labs 03/28/23 09:25 04/01/23 08:19 Labs: Laboratory Results - last 24 hr 03/31/23 03/31/23 04/01/23 16:04 20:34 04:01 Hold Purple Top Creatinine Estim Creat Clear Calc Estimated GFR POC Glucose 102 108 104 Random Vancomycin 04/01/23 04/01/23 04/01/23 07:26 08:19 11:11 Hold Purple Top SEE NOTE Creatinine 0.69 Estim Creat Clear Calc 69.6 Estimated GFR > 60 POC Glucose 103 122 H Random Vancomycin 04/01/23 12:09 Hold Purple Top Creatinine Estim Creat Clear Calc Estimated GFR POC Glucose Random Vancomycin 16.8 Microbiology Microbiology Results: Microbiology 03/26/23 23:26 Blood - Venous Blood Culture - Final No growth after 5 days. 03/29/23 10:26 Blood - Venous Blood Culture - Preliminary No growth after 48 hours. 03/29/23 10:26 Blood - Venous Blood Culture - Preliminary No growth after 48 hours. 03/26/23 23:23 Blood - Venous Blood Culture - Final Staphylococcus aureus 03/27/23 Unknown Urine clean catch - Urine lea top Urine Culture - Final Physical Exam 2 Vital Signs: Vital Signs: Last Vital Signs Temp 97.8 F 04/01/23 11:17 Pulse 90 04/01/23 11:17 Resp 20 04/01/23 11:17 BP 155/82 H 04/01/23 11:17 Pulse Ox 95 04/01/23 11:17 O2 Del Method Nasal Cannula 04/01/23 11:17 O2 Flow Rate 4 04/01/23 11:17 Oxygen Flow Rate 2 03/26/23 23:09 BMI result Body Mass Index 20.5 Const: General: cooperative Resp: Effort & Inspection: normal respiratory effort Cardio: Rate: regular rate Rhythm: regular rhythm GI: Inspection: Yes normal to inspection Assessment and Plan Assessment and plan (1) Acute febrile illness: Problem details: He has MSSA bacteremia Status: Acute Assessment and Plan: IV Kefzol continue until 04/25,possible skin source (2) Aspiration pneumonia: Status: Acute Time Spent With Patient Time: Total time managing care of this patient today ____ minutes.
[2023-04-01 16:56] LABS: Glucose, Whole Blood 111 mg/dL (60-115)
[2023-04-01] MEDS: ceFAZolin Sodium/Dextrose,Iso 2 GM/50 ML PIGGYBACK IV ×2 (17:25→23:28)
[2023-04-01 20:07] LABS: Glucose, Whole Blood 111 mg/dL (60-115)
[2023-04-01] MEDS: Atorvastatin Calcium 20 MG TABLET G-TUBE (21:56)
[2023-04-01] MEDS: Melatonin 3 MG TABLET 6 MG G-TUBE (21:57)
[2023-04-01] MEDS: traZODone HCL 50 MG TABLET G-TUBE (21:57)
[2023-04-02 03:11] VITALS: BP 164/81; PULSE 71; RESP 20; TEMP 36.6; O2SAT 94
[2023-04-02 07:12] LABS: Glucose, Whole Blood 103 mg/dL (60-115)
[2023-04-02 07:30] VITALS: BP 136/81; PULSE 94; RESP 18; TEMP 36.6; O2SAT 96
[2023-04-02] MEDS: guaiFENesin 100 MG/5 ML LIQUID 20 ML G-TUBE ×2 (09:40→21:28)
[2023-04-02] MEDS: Acetaminophen Child Oral Liq 160 MG/5 ML UD Cup 960 MG G-TUBE ×3 (09:40→21:26)
[2023-04-02] MEDS: Lactulose 20 GM/30 ML SOLUTION G-TUBE (09:40)
[2023-04-02] MEDS: Lidocaine 4 % Patch ADH..PATCH 1 PATCH TRANSDERMA (09:42)
[2023-04-02] MEDS: Aspirin 81 MG TAB.CHEW G-TUBE (09:42)
[2023-04-02] MEDS: 0.9 % Sodium Chloride Flush 3 ML SYRINGE IVFLUSH ×2 (09:42→17:52)
[2023-04-02] MEDS: QUEtiapine Fumarate 25 MG TABLET G-TUBE ×2 (09:42→21:29)
[2023-04-02] MEDS: FLUoxetine HCl 20 MG CAPSULE G-TUBE (09:42)
[2023-04-02] MEDS: ceFAZolin Sodium/Dextrose,Iso 2 GM/50 ML PIGGYBACK IV ×2 (09:43→17:44)
--- NOTE | 2023-04-02 10:28 | MHC.CM.PN ---
Addendum entered by Lakesha De La Cruz RN 04/02/23 10:51: CM CONTACTED PT'S NIECE/ HCP AT 10:45AM TO DISCUSS PLAN FOR DC TOMORROW 04/03 BACK TO SNF W/IV ABX, DUDLEY AGREEABLE AND IMM TO BE SENT VIA CERTIFIED MAIL. Original Note: EMR REVIEWED, PLAN FOR MIDLINE TO BE PLACED FOR IV KEFZOL Q8HRS UNTIL 04/25, CM CONTACTED CARSON CABRERA AT [facility] WHO REPORTS THEY CAN ACCOMMODATE HOWEVER WILL NEED TO ORDER MED AND ARE REQUESTING UPDATED MED LIST AND FOR PT TO DC TOMORROW AM AFTER AM DOSE OF IV ABX, HOSPITALIST MADE AWARE VIA BRAN AND CM WILL CONT TO FOLLOW DC NEEDS.
--- NOTE | 2023-04-02 11:22 | HO.MIDLINE_ITS ---
Midline Insertion MIDLINE INSERTION Diagnosis: Bacteremia Indication: IV antibiotics Pertinent Labs: Reviewed Technique: Using sterile technique including cap and mask, glove and drape, the left arm was prepped and draped in the usual sterile fashion of full barrier technique with CHG. Using ultrasound guidance, the left basilic vein access was obtained in a second attempt by this RN. A 20 guage 8 cm Non-PASV Midline was positioned. The procedure was performed in S272. Ultrasound was used to document vein patency and for needle entry. A formal ultrasound picture was recorded. Vascular Tester Operator has released the line for use and it is currently dressed with a StatLock, Tegaderm, and CHG disc. Verification has been performed for blood return and line patency. Arm Circumference: 26 cm Equipment: Bard PowerGlide ST Midline catheter Catheter Type: 20 guage 8 cm Non-PASV Midline Lot #: [id number]
[2023-04-02 11:38] VITALS: BP 131/75; PULSE 75; RESP 20; TEMP 36.6; O2SAT 96
[2023-04-02 11:42] LABS: Glucose, Whole Blood 100 mg/dL (60-115)
[2023-04-02 13:51] LABS: Creatinine Clr Calc Pharmacy 71.7; Estimated Glomerular Filt Rate > 60
--- NOTE | 2023-04-02 14:21 | P.PNIM_ITS ---
Subjective Subjective Date of Service: 04/02/23 Interval History: f/u on pna, and bacteremia, no respiratory distresss, repeat blood cultures are negative. Review of Systems no fever ,seems awake Physical Exam 2 Vital Signs: Vital Signs: Last Vital Signs Temp 97.8 F 04/02/23 11:38 Pulse 75 04/02/23 11:38 Resp 20 04/02/23 11:38 BP 131/75 04/02/23 11:38 Pulse Ox 96 04/02/23 11:38 O2 Del Method Nasal Cannula 04/02/23 11:38 O2 Flow Rate 2.5 04/02/23 11:38 Oxygen Flow Rate 2 03/26/23 23:09 BMI result Body Mass Index 20.5 Appearance: Alert.? Oriented X3.? not in distress cvs: rrr, [id number], res: clear to auscultation ,no rhonchii or wheezing abd: no rebound or guarding ,nt, bs present. ext pulses present , no cyanosis . neuro: axo3 , nonfocal. Objective Data Active Medications Acetaminophen (Acetaminophen Supp 650 Mg Supp.Rect) 650 mg [place] Q6H PRN PRN Reason: Pain, Mild (Pain Scale 1-3) Acetaminophen (Acetaminophen Child Oral Liq 160 Mg/5 Ml Ud Cup) 960 mg G-TUBE TID [facility] Last Admin: 04/02/23 09:40 Dose: 960 mg Documented By: RADHA Artificial Tears (Artificial Tears 15 Ml Drops) 1 drop EYE-BOTH BID PRN PRN Reason: Dry Eyes Aspirin (Aspirin 81 Mg Tab.Chew) 81 mg G-TUBE DAILY [facility] Last Admin: 04/02/23 09:42 Dose: 81 mg Documented By: RADHA Atorvastatin Calcium (Atorvastatin Calcium 20 Mg Tablet) 20 mg G-TUBE BEDTIME [facility] Last Admin: 04/01/23 21:56 Dose: 20 mg Documented By: TONE Bisacodyl (Bisacodyl 10 Mg Supp.Rect) 10 mg [place] DAILY PRN PRN Reason: Constipation Heparin Sodium (Porcine) 50 (units/ Sodium Chloride 5 ml) 0 units IVFLUSH TID [facility] Dextrose (Dextrose 50 % 25 Gm/50 Ml Syringe) 25 gm IVPUSH Q15M PRN; Protocol PRN Reason: per Hypoglycemia Standing Ord. Enoxaparin Sodium (Enoxaparin Sodium 40 Mg/0.4 Ml Syringe) 40 mg SUBCUT Q24H [facility] Last Admin: 04/01/23 23:28 Dose: 40 mg Documented By: TONE Finasteride (Finasteride 5 Mg Tablet) 5 mg PO DAILY [facility] Last Admin: 04/02/23 10:59 Dose: Not Given Documented By: RADHA Non-Admin Reason: cannot crush med Fluoxetine HCl (Fluoxetine Hcl 20 Mg Capsule) 20 mg G-TUBE DAILY [facility] Last Admin: 04/02/23 09:42 Dose: 20 mg Documented By: RADHA Glucose (Glucose Gel 15 Gm Gel..Gram.) 15 gm PO Q15M PRN; Protocol PRN Reason: per Hypoglycemia Standing Ord. Guaifenesin (Guaifenesin 100 Mg/5 Ml Liquid) 20 ml G-TUBE BID [facility] Last Admin: 04/02/23 09:40 Dose: 20 ml Documented By: RADHA Cefazolin Sodium/Dextrose (Ancef) 2 gm in 50 mls @ 100 mls/hr IV Q8H [facility] Last Infusion: 04/02/23 12:15 Dose: Infused Documented By: RADHA Insulin Human Lispro (Insulin Lispro 100 Unit/Ml 3 Ml Vial) 0 unit SUBCUT Q6H [facility]; Protocol Last Admin: 04/02/23 07:46 Dose: Not Given Documented By: RADHA Non-Admin Reason: No Insulin Coverage Lactulose (Lactulose 20 Gm/30 Ml Solution) 20 gm G-TUBE DAILY [facility] Last Admin: 04/02/23 09:40 Dose: 20 gm Documented By: RADHA Lidocaine (Lidocaine 4 % Patch Adh..Patch) 1 patch TRANSDERMA DAILY [facility] Last Admin: 04/02/23 09:42 Dose: 1 patch Documented By: RADHA Magnesium Hydroxide (Milk Of Magnesia 30 Ml Oral.Susp) 30 ml G-TUBE DAILY PRN PRN Reason: Constipation Melatonin (Melatonin 3 Mg Tablet) 6 mg PO BEDTIME PRN PRN Reason: Insomnia Melatonin (Melatonin 3 Mg Tablet) 6 mg G-TUBE BEDTIME [facility] Last Admin: 04/01/23 21:57 Dose: 6 mg Documented By: TONE Naloxone HCl (Naloxone Hcl Nasal 4 Mg [place]) 4 mg NOSTRILALT Q3M PRN PRN Reason: Opioid Overdose Ondansetron HCl (Ondansetron Hcl 4 Mg/2 Ml Vial) 4 mg IVPUSH Q8H PRN PRN Reason: Nausea and Vomiting Quetiapine Fumarate (Quetiapine Fumarate 25 Mg Tablet) 25 mg G-TUBE BID [facility] Last Admin: 04/02/23 09:42 Dose: 25 mg Documented By: RADHA Sodium Biphosphate/Sodium Phosphate (Sodium Phosphate,[place]-Dibasic 133 Ml Enema) 118 ml [place] DAILY PRN PRN Reason: Constipation Sodium Chloride (0.9 % Sodium Chloride Flush 3 Ml Syringe) 3 ml IVFLUSH QSHIFT [facility] Last Admin: 04/02/23 09:42 Dose: 3 ml Documented By: RADHA Sodium Chloride (Sodium Chloride 0.65 % Nasal 44 Ml Sprbtl) 1 spray NOSTRIL-B Q3H PRN PRN Reason: dry nostrils Trazodone HCl (Trazodone Hcl 50 Mg Tablet) 50 mg G-TUBE BEDTIME [facility] Last Admin: 04/01/23 21:57 Dose: 50 mg Documented By: TONE Valproic Acid (Valproic Acid (As Sodium Salt) 250 Mg/5 Ml Solution) 500 mg G- TUBE BID [facility] Last Admin: 04/02/23 09:40 Dose: 500 mg Documented By: RADHA Labs 03/28/23 09:25 04/02/23 13:29 Labs: Laboratory Results - last 24 hr 04/01/23 04/01/23 04/02/23 16:49 19:57 07:08 Estim Creat Clear Calc Estimated GFR POC Glucose 111 111 103 04/02/23 04/02/23 11:38 13:29 Estim Creat Clear Calc 71.7 Estimated GFR > 60 POC Glucose 100 Assessment and Plan (1) Acute febrile illness: Status: Acute (2) Acidosis, lactic: Status: Acute (3) Aspiration pneumonia: Status: Acute (4) Acute respiratory failure with hypoxia: Status: Acute (5) Sepsis: Status: Acute Plan 72/m w/ advanced unspecified dementia, dms-kwvlnnp-slocyocju diabetes mellitus type 2, dysphagia with recent admission for aspiration pneumonia status post G- tube, mood disorder, history of TIA, mixed hyperlipidemia, chronic hypoxemic respiratory failure on baseline 2 L supplemental oxygen who was sent from [facility] for evaluation of fever and tachypnea and admitted for asp pna Acute/chronic hypoxemic respiratory failure d/t sepsis from aspiration pneumonia and staph bacteremia, -repeat cxr / showed expanded PNA -continue Zosyn since admission, Vanco for S. Aureus,taper oxygen -aspiration precaution 02/26 Staph bacteremia--IV Vanco, echo no vegetation, ID to make final recommendation on Abx and lenght of treatment, Id is recommending at least 4 weeks of IV Abx, will request a Picc line dn change Abx to Kefzol Acute lactic acidosis due to sepsis: Resolved Diarrhea, cdif negative, gi panel negative Mixed hyperlipidemia -On statin Unspecified Dementia On Depakote and Seroquel BPH: On Proscar and Flomax Wqt-wgljquc-xlzhxvtbj diabetes mellitus: Initiating Accu-Cheks with sliding scale insulin Dysphagia status post G-tube, tube feed per nutrition recommendation DVT prophylaxis: Lovenox Full code need for inpt: sepsis treatment with iv Abx, at high risk for detelioration,need picc line Quality Stroke Does the patient have a stroke diagnosis?: No VTE Prior VTE?: No VTE Risk Level:: Medical - moderate - high VTE Device Contraindication: Treatment Not Indicated VTE Drug Contraindication: N/A - Med Ordered
[2023-04-02 15:22] VITALS: BP 126/82; PULSE 76; RESP 20; TEMP 36.7; O2SAT 95
[2023-04-02 15:47] LABS: Glucose, Whole Blood 102 mg/dL (60-115)
[2023-04-02] MEDS: Heparin Sodium,Porcine Flush 50 UNITS, 0.9 % Sodium Chloride Flush 5 ML IVFLUSH ×2 (17:52→21:29)
[2023-04-02 19:13] VITALS: BP 131/70; PULSE 75; RESP 20; TEMP 36.1; O2SAT 96
--- NOTE | 2023-04-02 19:19 | PC.NURSE ---
New bottle of glucerna hung at 1145. water flush done 10:00 and 18:00 - zero residual both times. Patient's feed was stopped while in IR getting PICC placed (from 1015 to 1145)
[2023-04-02 19:48] LABS: Glucose, Whole Blood 113 mg/dL (60-115)
[2023-04-02] MEDS: Melatonin 3 MG TABLET 6 MG G-TUBE (21:29)
[2023-04-02] MEDS: traZODone HCL 50 MG TABLET G-TUBE (21:29)
[2023-04-02] MEDS: Atorvastatin Calcium 20 MG TABLET G-TUBE (21:29)
[2023-04-03] VITALS: BP 118/63; PULSE 68; RESP 18; TEMP 36.3; O2SAT 96
[2023-04-03] MEDS: Enoxaparin Sodium 40 MG/0.4 ML SYRINGE SUBCUT (00:28)
[2023-04-03] MEDS: ceFAZolin Sodium/Dextrose,Iso 2 GM/50 ML PIGGYBACK IV ×3 (00:28→16:05)
[2023-04-03] MEDS: 0.9 % Sodium Chloride Flush 3 ML SYRINGE IVFLUSH ×3 (00:32→16:05)
[2023-04-03 03:36] VITALS: BP 125/68; PULSE 73; RESP 18; TEMP 36.6; O2SAT 97
[2023-04-03 07:11] VITALS: BP 127/70; PULSE 75; RESP 20; TEMP 36.8; O2SAT 95
--- NOTE | 2023-04-03 07:15 | PC.NURSE ---
New Glucerna bottle hung, residual checked = 0, continue feed max rate of 65mls/hr
[2023-04-03 07:26] LABS: Glucose, Whole Blood 90 mg/dL (60-115)
[2023-04-03 07:40] LABS: Creatinine Clr Calc Pharmacy 71.7; Estimated Glomerular Filt Rate > 60
--- NOTE | 2023-04-03 09:43 | MHC.CM.PN ---
ANTIC PT WILL BE MEDICALLY CLEARED TO RETURN TO [facility] W/IV KEFZOL UNTIL 04/25[facility] FOR BLS TRANSPORT
[2023-04-03] MEDS: QUEtiapine Fumarate 25 MG TABLET G-TUBE (10:21)
[2023-04-03] MEDS: Aspirin 81 MG TAB.CHEW G-TUBE (10:21)
[2023-04-03] MEDS: Acetaminophen Child Oral Liq 160 MG/5 ML UD Cup 960 MG G-TUBE ×2 (10:22→16:04)
[2023-04-03] MEDS: FLUoxetine HCl 20 MG CAPSULE G-TUBE (10:22)
[2023-04-03] MEDS: guaiFENesin 100 MG/5 ML LIQUID 20 ML G-TUBE (10:25)
[2023-04-03] MEDS: Lactulose 20 GM/30 ML SOLUTION G-TUBE (10:25)
[2023-04-03] MEDS: Heparin Sodium,Porcine Flush 50 UNITS, 0.9 % Sodium Chloride Flush 5 ML IVFLUSH ×2 (10:26→17:06)
--- NOTE | 2023-04-03 10:54 | MHC.CLN ---
F/U PT TOLERATING TF PER NSG PT RECEIVING GLUCERNA AT 65 ML PER HOUR WITH 120ML FREE WATER FLUSHES Q 6 HOURS PROVIDES 1560 KCALS (30 KCALS/KG); 65.2 G PROTEIN (1.3 G/KG); 1810 ML TOTAL FREE WATER FROM FORMULA AND FLUSHES (36ML/KG) CONTINUE TO MONITOR TOLERANCE, RESIDUALS AND LYTES
[2023-04-03 11:11] VITALS: BP 149/86; PULSE 103; RESP 20; TEMP 36.9; O2SAT 95
[2023-04-03 11:37] LABS: Glucose, Whole Blood 149 mg/dL (60-115)
--- NOTE | 2023-04-03 13:46 | PM.DS ---
DS: Providers Provider Date of Service: 04/03/23 Date of admission: 03/26/23 23:57 Date of discharge: 04/03/23 Primary care physician: CAITIE LUZ Consults: 03/29/23 10:11 Consult to Infectious Diseases Routine Consulting Provider: [facility] [place] Reason for consultation: Staph aureus bacteremia Has provider been notified: No 04/02/23 11:02 Consult to Urology Routine Consulting Provider: [facility] [place] [facility] Reason for consultation: Urinary retention Has provider been notified: No Attending physician on discharge: Anam Tucker Discharging clinician: Anam Tucker DS: Diagnosis Discharge Diagnosis (1) Acute febrile illness: Status: Acute (2) Acidosis, lactic: Status: Acute (3) Aspiration pneumonia: Status: Acute (4) Acute respiratory failure with hypoxia: Status: Acute (5) Sepsis: Status: Acute DS: Summary Hospital Course Hospital Course: 72-year-old male with pertinent history of unspecified dementia, [id number] diabetes mellitus type 2, dysphagia with recent admission for aspiration pneumonia status post G-tube, mood disorder, history of TIA, mixed hyperlipidemia, chronic hypoxemic respiratory failure on baseline 2 L supplemental oxygen who was sent from [facility] for evaluation of fever and tachypnea. Unable to obtain history from the patient as he is only able to answer in 1 word responses. History obtained from ER provider and chart review. Patient had an episode of vomiting on the day of presentation. He was febrile and tachypneic with increasing oxygen requirements. In the emergency department, patient was requiring supplemental oxygen. He was found to be febrile and imaging with multifocal pneumonia concerning for aspiration. Hospital course: Patient was admitted for for fever tachypnea-had recent admission with aspiration pneumonia, admitted to the hospital again for possible acute on chronic hypoxemic respiratory failure with sepsis and aspiration pneumonia: Started on IV antibiotic, blood cultures sent: Patient seems to be improving subsequently with supportive care,blood culture came back 1/2 MSSA, so seen by ID: Recommended to repeat blood culture and switched to cefazolin: Repeat blood culture seems to be negative, echo seems fine, infectious disease recommended 4 week of IV antibiotics, midline line was placed and patient will be going to the rehab with cefazolin 2 g IV Q 8 hour until 04/30/23. consider monitering cbc ,bmp and lft's q weekly while on antibiotics. ct chest incidenatl finding: Partially visualized hyperdensity in the region of the left retroperitoneum, not adequately assessed on this exam. This could reflect postoperative changes there as appropriate surgical history. If clinically warranted, this could be better assessed with dedicated abdominal CT. Patient has history of left nephrectomy -discussed with the sulfur chloride operator above finding possibly related to postsurgical changes. If any new symptoms consider CT abdomen in next 2-3 weeks. Also patient has abdominal aortic aneurysm 4.2 cm -consider outpatient vascular follow up. plan: Please complete:cefazolin 2 g IV Q 8 hour until 04/30/23. consider monitering cbc ,bmp and lft's q weekly while on antibiotics. Above management discussed with the patient family in detail length they understand and in agreement with the above plan, time spent 50 minute. Time Attestation Discharge coordination time: Greater than 30 minutes Quality: Safe Use of Opioids Does Pt have an Active Cancer Diagnosis on the Problem List?: No Quality: Stroke Does the patient have a stroke diagnosis?: No Physical Exam Vital Signs: Vital Signs: Last Vital Signs Temp 98.4 F 04/03/23 11:11 Pulse 103 H 04/03/23 11:11 Resp 20 04/03/23 11:11 BP 149/86 H 04/03/23 11:11 Pulse Ox 95 04/03/23 11:11 O2 Del Method Nasal Cannula 04/03/23 11:11 O2 Flow Rate 2 04/03/23 11:11 Oxygen Flow Rate 2 03/26/23 23:09 BMI result Body Mass Index 20.5 Elderly male lying in bed ,not in distress,on supplemental oxygen Neck supple, no JVD cvs:regular rhythm, S1-S2 heard chest :fair entry fair ,no rales or wheezing Abdomen soft nontender, no guarding, no rigidity, G-tube in place Patient is awake, alert , seems to be at baseline ( as per family). No pedal edema DS: Data Data Completed and Pending Completed studies during hospitalization [Text1]: Procedures Insertion of Feeding Device into Stomach, Percutaneous Approach (01/26/23) Labs on day of discharge: Laboratory Results - last 24 hr 04/02/23 04/02/23 04/02/23 13:29 15:44 19:45 Creatinine 0.67 Estim Creat Clear Calc 71.7 Estimated GFR > 60 POC Glucose 102 113 0204/03/23 04/03/23 07:18 07:23 11:28 Creatinine 0.67 Estim Creat Clear Calc 71.7 Estimated GFR > 60 POC Glucose 90 149 H Imaging Chest x-ray: Radiologist's impression: ITS Impressions Chest CT 03/27/23 00:50 IMPRESSION: 1. Multifocal patchy consolidations bilaterally, suspicious for multifocal pneumonia. Sequelae of aspiration would be a possibility in the proper clinical setting. 2. Small right pleural effusion. 3. Dilated ascending aorta measuring approximately 4.2 cm in diameter. 4. Partially visualized hyperdensity in the region of the left retroperitoneum, not adequately assessed on this exam. This could reflect postoperative changes there as appropriate surgical history. If clinically warranted, this could be better assessed with dedicated abdominal CT. 5. Coronary artery calcifications. Correlation with cardiac risk factors is recommended. Chest X-Ray 03/29/23 09:19 IMPRESSION: Worsening pneumonia. Follow-up until resolution is advised. Discharge Plan Discharge Anticipated Discharge Date/Time: 04/03/23 12:42 Patient Disposition: [facility] Discharge Diagnosis: Acute on chronic hypoxemic respiratory failure secondary to aspiration pneumonia and possible staph(mssa) bacteremia Referrals: [facility] [Outside] - 1 Day (RESUMPTION OF LTC, IV ANTIBIOTICS UNTIL 04/26/23) CAITIE LUZ [Primary Care Provider] - 1 Week Discharge Medications: Continued atorvastatin 20 mg tablet 20 mg feeding tube BEDTIME polyvinyl alcohol 1.4 % Drops 1 drp OPHTHALMIC (EYE) BID PRN (Reason: Dry Eyes) melatonin 3 mg Tablet 6 mg feeding tube BEDTIME magnesium hydroxide [Milk of Magnesia] 400 mg/5 mL Suspension 30 ml feeding tube DAILY PRN (Reason: Constipation) bisacodyl 10 mg Suppository 10 mg OR DAILY PRN (Reason: Constipation) lidocaine 5 % adhesive patch,medicated 1 patch topical DAILY Rx Instructions: ON IN THE AM; OFF IN THE PM (12 hrs on) left knee Fleet Enema 19-7 gram/118 mL Enema 118 ml OR DAILY PRN (Reason: Constipation) finasteride 5 mg tablet 5 mg feeding tube DAILY sodium chloride 0.65 % Aerosol,Mullens 1 spray INTRANASAL Q3H PRN (Reason: dry nostrils) lactulose [Enulose] 10 gram/15 mL solution 30 ml feeding tube DAILY Rx Instructions: hold for loose stool naloxone [Narcan] 4 mg/actuation Mullens,Non-Aerosol 4 mg INTRANASAL Q3M PRN (Reason: Opioid Overdose) Rx Instructions: spray 1 dose into ONE nostril; alternate nostrils w each dose until help arrives Gvoke PFS 2-Pack Syringe 1 mg/0.2 mL Syringe 1 mg SUBCUT Q20M PRN (Reason: Hypoglycemia) Rx Instructions: until target blood sugar attained aspirin 81 mg Tablet,Chewable 81 mg G-tube DAILY Qty: 90 0RF trazodone 50 mg Tablet 50 mg G-tube BEDTIME Qty: 30 0RF acetaminophen 160 mg/5 mL Liquid 960 mg feeding tube TID guaifenesin 100 mg/5 mL Liquid 400 mg feeding tube BID valproic acid (as sodium salt) 250 mg/5 mL Solution 500 mg feeding tube BID fluoxetine 20 mg Tablet 20 mg feeding tube DAILY silodosin [Rapaflo] 8 mg Capsule 8 mg feeding tube DAILY Rx Instructions: must administer with a meal/food quetiapine 25 mg tablet 25 mg G-tube BID Discharge Orders: Discharge Order (Routine); Ordered 04/03/23 Ordered By: Anam Tucker Diet: Advance to usual diet Activity on Discharge: As tolerated Stand Alone Forms: Patient Portal Discharge page Care Plan Goals: Patient was admitted for for fever tachypnea-had recent admission with aspiration pneumonia, admitted to the hospital again for possible acute on chronic hypoxemic respiratory failure with sepsis and aspiration pneumonia: Started on IV antibiotic, blood cultures sent: Patient seems to be improving subsequently with supportive care,blood culture came back 1/2 MSSA, so seen by ID: Recommended to repeat blood culture and switched to cefazolin: Repeat blood culture seems to be negative, echo seems fine, infectious disease recommended 4 week of IV antibiotics, midline line was placed and patient will be going to the rehab with cefazolin 2 g IV Q 8 hour until 04/30/23. consider monitering cbc ,bmp and lft's q weekly while on antibiotics. Above management discussed with the patient family in detail length they understand and in agreement with the above plan, time spent 50 minute. Health Concerns: Please complete:cefazolin 2 g IV Q 8 hour until 04/30/23. consider monitering cbc ,bmp and lft's q weekly while on antibiotics. Plan of Treatment: as above. Assessment: as above.
[2023-04-03 16:17] LABS: Glucose, Whole Blood 99 mg/dL (60-115)
[2023-04-03 16:23] VITALS: BP 140/85; PULSE 90; RESP 20; TEMP 37.2; O2SAT 2
== END 2023-04-03 17:46 | disposition skilled nursing facility (03) | DRG 871 ==
LOC: HO.ED 03-27 00:07 → HO.EDOVER 03-27 00:18 → HO.IMC 03-27 08:37
PROVIDERS: Internal Medicine; Admitting Provider Student in an Organized Health Care Education/Training Program; Emergency Provider Emergency Medicine; PCP Emergency Medicine; Visit Provider Internal Medicine
PROC: 05HC33Z Insertion of Infusion Device into Left Basilic Vein, Percutaneous Approach (ICD-10-PCS; principal; 2023-04-02 11:30)
DX: A41.9 Sepsis, unspecified organism (principal); J69.0 Pneumonitis due to inhalation of food and vomit; J96.21 Acute and chronic respiratory failure with hypoxia; E87.21 Acute metabolic acidosis; N40.0 Benign prostatic hyperplasia without lower urinary tract symptoms; R13.10 Dysphagia, unspecified; E78.2 Mixed hyperlipidemia; F03.90 Unspecified dementia, unspecified severity, without behavioral disturbance, psychotic disturbance, mood disturbance, and anxiety; I71.40 Abdominal aortic aneurysm, without rupture, unspecified; Z99.81 Dependence on supplemental oxygen; E11.9 Type 2 diabetes mellitus without complications; E03.9 Hypothyroidism, unspecified; B95.61 Methicillin susceptible Staphylococcus aureus infection as the cause of diseases classified elsewhere; Z20.822 Contact with and (suspected) exposure to COVID-19; Z90.5 Acquired absence of kidney; Z93.1 Gastrostomy status; Z87.891 Personal history of nicotine dependence; Z79.82 Long term (current) use of aspirin; Z79.899 Other long term (current) drug therapy
CPT/HCPCS: 36410; 36415; 71045; 71250; 80048; 80076; 80164; 80202; 81001; 81003; 82565; 82803; 82947; 83605; 83690; 83735; 83880; 84145; 84484; 85025; 85027; 85610; 87040; 87077; 87086; 87186; 87205; 87493; 87502; 87507; 87635; 93005; 93308; 99285; C1751; J0690; J1642; J1650; J2405; J2543; J3370; J3371; J7120

== ENCOUNTER → 2023-03-26 23:03 | Outpatient (BNV) | payer SELFPAY | PROVIDERS: Admitting Provider Student in an Organized Health Care Education/Training Program; Emergency Provider Emergency Medicine; PCP Emergency Medicine; Visit Provider Internal Medicine Cardiovascular Disease | DX: R00.0 Tachycardia, unspecified (principal) | CPT/HCPCS: 93010 ==

== ENCOUNTER 2023-03-26 23:57 | Outpatient (BNV) | payer SELFPAY | END 2023-03-29 07:00 | PROVIDERS: Admitting Provider Student in an Organized Health Care Education/Training Program; Emergency Provider Emergency Medicine; PCP Emergency Medicine; Visit Provider Internal Medicine Cardiovascular Disease | DX: I36.1 Nonrheumatic tricuspid (valve) insufficiency (principal) | CPT/HCPCS: 93308 ==

== ENCOUNTER → 2023-03-26 23:57 | Outpatient (BNV) | payer SELFPAY | PROVIDERS: Admitting Provider Student in an Organized Health Care Education/Training Program; Emergency Provider Emergency Medicine; PCP Emergency Medicine; Visit Provider Student in an Organized Health Care Education/Training Program | DX: R50.9 Fever, unspecified (principal); E87.20 Acidosis, unspecified; J69.0 Pneumonitis due to inhalation of food and vomit; J96.01 Acute respiratory failure with hypoxia; A41.9 Sepsis, unspecified organism | CPT/HCPCS: 99223; 99232; 99233; 99239 ==

== ENCOUNTER → 2023-03-26 23:57 | Outpatient (BNV) | payer SELFPAY | PROVIDERS: Admitting Provider Student in an Organized Health Care Education/Training Program; Emergency Provider Emergency Medicine; PCP Emergency Medicine; Visit Provider Internal Medicine | DX: R50.9 Fever, unspecified (principal); J69.0 Pneumonitis due to inhalation of food and vomit; J96.01 Acute respiratory failure with hypoxia | CPT/HCPCS: 99222; 99231; 99232 ==

== ENCOUNTER 2023-04-22 13:58 | Outpatient (AMB) | payer SELFPAY ==
--- NOTE | 2023-04-22 14:00 | MHC.OFFVIS ---
Intake Vital Signs 04/22/23 14:06 Pulse 85 Pulse Source Pulse Oximeter Temp 98.6 F Temp Source Oral Pulse Oximetry (%) 97 Intake Visit Reasons: Ref.[facility],Bacteremia,IV abx.until 04/26/23 Allergies No Known Allergies Allergy (Verified 04/22/23 14:06) HPI Ref.[facility],Bacteremia,IV abx.until 04/26/23 HPI Details He has MSSA bacteremia,done 04/25 He has likely skin source. He has no complaints. [facility] Medical History Oropharyngeal dysphagia MDD (major depressive disorder) Dysphagia TIA (transient ischemic attack) Non-insulin dependent type 2 diabetes mellitus Dementia, unspecified, with behavioral disturbance HLD (hyperlipidemia) AAA (abdominal aortic aneurysm) Social History Household Members: Unknown / Unable to assess Housing: House Unable to assess alcohol history related to: Unknown Alcohol intake: never Comment: Pt has dementia and Patient Tobacco Use Status: Former Tobacco user Advance Directives Date on File: 03/26/23 service: No Review of Systems Const All systems reviewed & are unremarkable except as noted in HPI and below Physical Exam Vital Signs: Last Vital Signs Temp 98.6 F 04/22/23 14:06 Pulse 85 04/22/23 14:06 Pulse Ox 97 04/22/23 14:06 Const General: cooperative Orientation/consciousness: patient oriented x3 HEENT Head: Yes normal to inspection Mouth: Normal oral and palatal mucosa present Eyes General: appearance normal, both eyes and all related structures Pupils: Equal, round and reactive pupils present Resp Effort & Inspection: normal respiratory effort Cardio Rate: regular rate Rhythm: regular rhythm GI Palpation (GI): Soft to palpation and nontender General: Yes no CVA tenderness Back/Spine/Pelvis Back: no CVA tenderness Skin General skin exam: no rashes or lesions noted Neuro General: patient oriented x3 Cranial nerves: Yes CN's II-XII intact bilaterally and Yes Equal, round and reactive pupils present Extrem General: Yes normal to inspection Psych Appearance: grossly normal Assessment & Plan Assessment & Plan (1) Sepsis: Code(s): A41.9 - Sepsis, unspecified organism Plan: / (2) Aspiration pneumonia: Comment: MSSA bacteremia Code(s): J69.0 - Pneumonitis due to inhalation of food and vomit Qualifiers: Aspiration pneumonia type: unspecified Laterality: right Lung location: unspecified part of lung Qualified Code(s): J69.0 - Pneumonitis due to inhalation of food and vomit Plan: Improved Negative culture. Stop IV antibiotics on 04/26/2023 (Kefzol). Orders: Orders IR cvc remove any age 0204/22/23 A41.9 - Sepsis, unspecified organism Coding Level of Care Code Est Pt Level 3 (86424) Diagnoses Sepsis A41.9 Aspiration pneumonia J69.0 Aspiration pneumonia type: unspecified Laterality: right Lung location: unspecified part of lung
[2023-04-22 14:06] VITALS: PULSE 85; TEMP 37; O2SAT 97
== END 2023-04-22 15:34 | disposition home or self-care (01) ==
LOC: HO.HID 13:59
PROVIDERS: PCP Emergency Medicine; Visit Provider Internal Medicine
DX: A41.9 Sepsis, unspecified organism (principal); J69.0 Pneumonitis due to inhalation of food and vomit
CPT/HCPCS: 99213

== ENCOUNTER → 2023-04-22 13:58 | Outpatient (BNVA) | payer SELFPAY | PROVIDERS: PCP Emergency Medicine; Visit Provider Internal Medicine | DX: A41.9 Sepsis, unspecified organism (principal); J69.0 Pneumonitis due to inhalation of food and vomit | CPT/HCPCS: 99212 ==